=== PATIENT | male | born 1975 ===

== ENCOUNTER 2022-01-19 01:00 | Emergency (ER) | payer OTHER, SELFPAY ==
[2022-01-19 01:00] VITALS: BP 128/87; PULSE 59; RESP 16; O2SAT 99
[2022-01-19 01:01] VITALS: BP 128/87; PULSE 61; RESP 16; TEMP 36.3; O2SAT 99; BMI 37.9
--- NOTE | 2022-01-19 01:19 | ED.GENADULT ---
HPI - General Adult General Time Seen by Provider: 01:20 Date Seen: 01/19/22 Chief complaint: Headache/Migraine Stated complaint: Headache, migraine Time Seen by Provider: 01/19/22 01:13 Source: patient and EMS Mode of arrival: EMS Limitations: no limitations History of Present Illness HPI narrative: 46-year-old male who comes in today with a headache. Patient reports headache today that started with right ear pain. And now has localized to the right forehead and behind the right eye. History of similar headaches in the past. Took Tylenol and Imitrex with no relief. Denies head injury or change in character of his headaches. Patient presented by ambulance, was given fentanyl, Ativan, and Zofran per EMS. Review of chart shows long history of headaches, few emergency department visits for this. Does also carry a history of bipolar with a manic episode. Related Data Home Medications Medication Instructions Recorded Confirmed cholecalciferol (vitamin D3) 1,250 01/19/22 mcg (50,000 unit) capsule divalproex 500 mg tablet,delayed mg PO 01/19/22 release duloxetine 30 mg capsule,delayed mg PO 01/19/22 release galcanezumab-gnlm 300 mg/3 mL (100 mg subcut 01/19/22 mg/mL x 3) subcutaneous syringe (Emgality) glatiramer 40 mg/mL subcutaneous mg subcut 01/19/22 syringe (Glatopa) hydroxyzine HCl 25 mg tablet mg 01/19/22 mirtazapine 30 mg tablet mg 01/19/22 quetiapine 50 mg tablet mg 01/19/22 sumatriptan succinate 6 mg/0.5 mL mg subcut 01/19/22 subcutaneous pen injector verapamil 240 mg tablet,extended mg PO 01/19/22 release Allergies Allergy/AdvReac Type Severity Reaction Status Date / Time NSAIDS (Non-Steroidal AdvReac not to Verified 01/19/22 01:06 Anti-Inflamma take with verapamil Review of Systems Status of ROS: Reports: 10 or more systems reviewed and unremarkable except as noted in History and below PFSH PFSH Social History Smoking Status: Current every day smoker How often do you have a drink containing alcohol: never AUDIT-C Alcohol total score: 0 Non-prescribed substance use: denies use Exam Narrative: Exam Narrative: General: Well-developed and well-nourished, no acute distress Head: Atraumatic and normocephalic Eyes: Pupils are equal reactive, extraocular motions intact, conjunctiva clear ENT: External nose and ears are normal, posterior pharynx without erythema or exudate Neck: No midline cervical tenderness, full spontaneous range of motion the neck, trachea midline, no adenopathy Heart: Regular rate and rhythm no murmurs or thrills Lungs: Clear to auscultation bilaterally without wheezes or crackles Abdomen: Soft, nontender, nondistended with active bowel sounds Musculoskeletal: No tenderness, deformity, or edema Neurologic: Awake, alert, and oriented x3, no gross focal neurologic deficits, cranial nerves intact as tested Psych: Mood and affect are appropriate Skin: No rashes Const: Vital Signs, click to edit/add: Vital Signs - 24 hr 01/19/22 01:01 Temperature 97.4 F L Pulse Rate [Left P ulse Oximeter] 61 Respiratory Rate 16 Blood Pressure [Ri ght Upper Arm] 128/87 Pulse Oximetry 99 Oxygen Delivery Me thod Room Air Course Course Hospital Course: Patient seen and examined, prior records reviewed. Differential diagnosis includes but not limited to meningitis, cephalitis, intracranial hemorrhage, recurrent headache, cluster headache. Patient presents with right-sided temporal and frontal headache today, consistent with his prior headaches. Reports taking Imitrex at home as well as Tylenol with no relief. On exam here, appears comfortable. IV fluids, Reglan, and Benadryl will be ordered along with oxygen. Patient takes verapamill and has been told not to take NSAIDs, the contraindication here is that the nonsteroidals may decrease effectiveness of verapamil's antihypertensive effect. Patient still does not want to take nonsteroidals. Given history bipolar and molly, would avoid steroid as well. Reevaluation(s) Reevaluation #1: Review of chart shows that patient was on a prednisone taper couple of months ago and seemed to tolerate well. Decadron IV is given in the emergency department. Time: 01:39 Reevaluation #2: Patient reports that his head pain is resolved and his ears feeling better as well. Follow-up with primary care as needed Time: 02:22 Vital Signs Vital signs: Initial Vital Signs Temperature 97.4 F L 01/19/22 01:01 Temperature Source Temporal Artery Scan 01/19/22 01:01 Pulse Rate 61 01/19/22 01:01 Respiratory Rate 16 01/19/22 01:01 Blood Pressure 128/87 01/19/22 01:01 Blood Pressure Mean 100 01/19/22 01:01 Blood Pressure Position Supine 01/19/22 01:01 Pulse Oximetry 99 01/19/22 01:01 Oxygen Delivery Method 01/19/22 01:01 Vital Signs Temperature 97.4 F L 01/19/22 01:01 Pulse Rate 61 01/19/22 01:01 Respiratory Rate 16 01/19/22 01:01 Blood Pressure 128/87 01/19/22 01:01 Pulse Oximetry 99 01/19/22 01:01 Oxygen Delivery Method 01/19/22 01:01 Temperature 97.4 F L 01/19/22 01:01 Pulse Rate 61 01/19/22 01:01 Respiratory Rate 16 01/19/22 01:01 Blood Pressure 128/87 01/19/22 01:01 Pulse Oximetry 99 01/19/22 01:01 Oxygen Delivery Method 01/19/22 01:01 Medical Decision Making Medical Records Medical records reviewed: Yes I reviewed the patient's medical records Lab Data Lab results reviewed: Yes I reviewed the patient's lab results Discharge Plan Discharge Clinical Impression: Recurrent headache, Acute otalgia Patient Disposition: Home, Self-Care Condition: Improved Instructions: Cluster Headache (ED) Additional Instructions: Continue your current medications, follow-up with your neurologist and primary care doctor. Activity Level: No Restrictions Discharge Diet: Regular Prescriptions: No Action divalproex 500 mg tablet,delayed release (DR/EC) PO Label Comments: TAKE 1 TABLET BY MOUTH TWICE A DAY mirtazapine 30 mg tablet Label Comments: TAKE 1 TABLET BY MOUTH NEEDED FOR SLEEP INCREASED DOSE verapamil 240 mg tablet extended release PO hydroxyzine HCl 25 mg tablet Label Comments: TAKE 1-2 TABLETS UP TO TWICE DAILY NEEDED FOR ANXIETY / INSOMNIA sumatriptan succinate 6 mg/0.5 mL pen injector SUBCUT duloxetine 30 mg capsule,delayed release(DR/EC) PO Label Comments: TAKE 1 CAPSULE BY MOUTH DAILY FOR 2 WEEKS, THEN 2 CAPSULES BY MOUTH DAILY quetiapine 50 mg tablet Label Comments: TAKE 1 TABLET AT BEDTIME INCREASED DOSE cholecalciferol (vitamin D3) 1,250 mcg (50,000 unit) capsule glatiramer [Glatopa] 40 mg/mL syringe SUBCUT Emgality Syringe 300 mg/3 mL (100 mg/mL x 3) syringe SUBCUT Label Comments: INJECT 3 MLS (300 MG) SUBCUTANEOUS EVERY 28 DAYS Stand Alone Forms: MyHealth Info Instructions
[2022-01-19 01:30] VITALS: BP 139/98; PULSE 69; RESP 16; O2SAT 98
[2022-01-19] MEDS: 0.9 % SODIUM CHLORIDE 1000 ml 1,000 ML IV (01:42)
[2022-01-19] MEDS: METOCLOPRAMIDE HCL 10 MG in 0.9 % SODIUM CHLORIDE 100 ml 100 ML 306 MG IV (01:42)
[2022-01-19] MEDS: diphenhydrAMINE 50 MG/ML inj 25 MG IVP (01:43)
[2022-01-19] MEDS: dexAMETHasone 10 MG/ML inj IVP (01:46)
[2022-01-19 02:30] VITALS: BP 129/93; PULSE 64; RESP 16; O2SAT 100
== END 2022-01-19 02:34 | disposition home or self-care (01) ==
PROVIDERS: Emergency Provider Family Medicine
DX: H92.01 Otalgia, right ear (principal); R51.9 Headache, unspecified
CPT/HCPCS: 96374; 96375; 99284; A0425; A0433; J1100; J1200; J2765; J7030

== ENCOUNTER 2022-06-16 17:20 | Emergency (ER) | payer OTHER, SELFPAY ==
[2022-06-16 17:33] VITALS: BP 118/73; PULSE 58; RESP 20; TEMP 36.2; O2SAT 98; BMI 36.8
--- NOTE | 2022-06-16 17:46 | CRLHL7_ITS ---
For Patients: As a result of the Cures Act, medical imaging exams and procedure reports are released immediately into your electronic medical record. You may view this report before your referring provider. If you have questions, please contact your health care provider. Indication: Trauma. Technique: Pelvis/left hip, 2 views. Comparison: None. Findings/Impression: Bones: Alignment is normal. No displaced fractures. Ill-defined chronic appearing sclerotic lesion in the right femoral intertrochanteric region. No sign of acute injury. Joint spaces: Unremarkable. Soft tissues: Unremarkable. Dictated by Nathaniel Garcia MD @ 06/16/2022 6:20:52 PM (Electronically Signed)
[2022-06-16 18:41] VITALS: BP 118/73; PULSE 58; RESP 20; TEMP 36.2
--- NOTE | 2022-06-16 20:49 | ED_ITS ---
HPI - General Adult General Date Seen: 06/16/22 Chief complaint: Hip Injury/Pain Stated complaint: left hip problems Time Seen by Provider: 06/16/22 17:23 Source: patient Mode of arrival: ambulatory Limitations: no limitations History of Present Illness HPI narrative: Patient is a 46-year-old gentleman who was dropped off at the emergency room by friend, with left hip discomfort, for the last 4-5 days, does meet so bad when he 1st gets up, he is not able to really walk on it, but then he is able to walk on it after short period of time. Whenever he sits for any length of time he notices that it sees is up, he describes the pain over the lateral part of his left hip, not so much when he lifts it up, or turns it. He has been using Tylenol for the discomfort, but tells me this just really isn't helping. Denies any fevers chills or sweats, he has had no other URI type symptoms, denies any falls or trauma. 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 But no is told that he needs to get hip replacements. Denies any back pain associated with this any numbness tingling or weakness, bowel or bladder symptoms or other issues. I discussed with him his current medications, Related Data Home Medications Medication Instructions Recorded Confirmed cholecalciferol (vitamin D3) 1,250 01/19/22 mcg (50,000 unit) capsule divalproex 500 mg tablet,delayed mg PO 01/19/22 release duloxetine 30 mg capsule,delayed mg PO 01/19/22 release galcanezumab-gnlm 300 mg/3 mL (100 mg subcut 01/19/22 mg/mL x 3) subcutaneous syringe (Emgality) glatiramer 40 mg/mL subcutaneous mg subcut 01/19/22 syringe (Glatopa) hydroxyzine HCl 25 mg tablet mg 01/19/22 mirtazapine 30 mg tablet mg 01/19/22 quetiapine 50 mg tablet mg 01/19/22 sumatriptan succinate 6 mg/0.5 mL mg subcut 01/19/22 subcutaneous pen injector verapamil 240 mg tablet,extended mg PO 01/19/22 release Allergies Allergy/AdvReac Type Severity Reaction Status Date / Time NSAIDS (Non-Steroidal AdvReac not to Verified 06/16/22 17:33 Anti-Inflamma take with verapamil Review of Systems Status of ROS: Reports: 10 or more systems reviewed and unremarkable except as noted in History and below PFSH [facility] Social History Smoking Status: Current every day smoker What tobacco products do you use: cigarettes Do you use any of these nicotine containing products: None Second hand tobacco smoke exposure: No How often do you have a drink containing alcohol: never How often do you have six or more drinks on one occasion: Never AUDIT-C Alcohol total score: 0 Non-prescribed substance use: denies use service: No Exam Narrative: Exam Narrative: On examination he is seen in room 7, he appears to be in no distress, sitting in the room, he is able to lift his left heel off the bed, and come up to close to 60? with his left hip. His internal external rotation are normal, he is very tender to palpation over the lateral part of his hip, over the bursal area. There is no tenderness to palpation over his L-spine, or over his gluteal area. His distal pulses are normal in his left leg, with DP and posterior tibial, his knee has full range of motion. No sensory abnormalities noted overall the dermatomal areas. Const: Vital Signs, click to edit/add: Vital Signs - 24 hr 06/16/22 17:33 06/16/22 18:41 Temperature 97.1 F L 97.1 F L Pulse Rate [Pulse Oximeter] 58 L 58 L Respiratory Rate 20 20 Blood Pressure [Le ft Upper Arm] 118/73 118/73 Pulse Oximetry 98 Oxygen Delivery Me thod Room Air Documenting provider has reviewed patient's vital signs: yes Course Course Hospital Course: I spoke to the patient, he is unable to take he says NSAIDs secondary to his use of verapamil. which isn't really a true contraindication, for this. He also failed to tell me that he is on chronic Percocet for his pain, after reviewing the [employer]. Ice talk to him about using some prednisone, the calmed this down, he said he did really want to do this, secondary to his history of avascular necrosis. I explained him that I really do not see that on x-ray and neither did the radiologist, and he is taking this as recently as 6 or 7 months ago. Would be able to take this now. In fact the Percocet which has the oxycodone is a contraindicated with the use of diltiazem or verapamil. As it increases the concentration of the narcotic. He will accept the prednisone, I will give him some crutches, he can follow up with primary care, for further issues but I do really think this is more muscle related. Vital Signs Vital signs: Initial Vital Signs Temperature 97.1 F L 06/16/22 17:33 Temperature Source Temporal Artery Scan 06/16/22 17:33 Pulse Rate 58 L 06/16/22 17:33 Pulse Rhythm 06/16/22 17:33 Respiratory Rate 20 06/16/22 17:33 Blood Pressure 118/73 06/16/22 17:33 Blood Pressure Mean 88 06/16/22 17:33 Blood Pressure Position Supine 06/16/22 17:33 Pulse Oximetry 98 06/16/22 17:33 Oxygen Delivery Method 06/16/22 17:33 Vital Signs Temperature 97.1 F L 06/16/22 17:33 Pulse Rate 58 L 06/16/22 17:33 Respiratory Rate 20 06/16/22 17:33 Blood Pressure 118/73 06/16/22 17:33 Pulse Oximetry 98 06/16/22 17:33 Oxygen Delivery Method 06/16/22 17:33 Temperature 97.1 F L 06/16/22 18:41 Pulse Rate 58 L 06/16/22 18:41 Respiratory Rate 20 06/16/22 18:41 Blood Pressure 118/73 06/16/22 18:41 Pulse Oximetry 98 06/16/22 17:33 Oxygen Delivery Method 06/16/22 17:33 Medical Decision Making MDM Narrative Medical decision making narrative: Consideration included toxic synovitis, septic hip, trauma, hip fracture, trochanteric bursitis, radiculopathy secondary to back pain, pelvic fracture, ischemic leg, or other possibilities. Imaging Data Hip x-ray: Attestation: I have reviewed the pertinent imaging results. My impression: Do not see any acute fracture, I really do not see any evidence of any abnormality with the hip. Radiologist's impression: Patient: BENNIE VASQUEZ Facility: [facility] Site . Site : 1975 Study: XRay Hip Left -06/16/2022 6:09:13 PM Ordering Physician: Aminata Blackburn Final Report: Indication: Trauma. Technique: Pelvis/left hip, 2 views. Comparison: None. Findings/Impression: Bones: Alignment is normal. No displaced fractures. Ill-defined chronic appearing sclerotic lesion in the right femoral intertrochanteric region. No sign of acute injury. Joint spaces: Unremarkable. Soft tissues: Unremarkable. Dictated by Nathaniel Garcia MD @ 06/16/2022 6:20:52 PM (Electronic Signature) Discharge Plan Discharge Clinical Impression: Hip pain Patient Disposition: Home, Self-Care Condition: Stable Instructions: Heat Pack Application (ED), Hip Pain (ED) Additional Instructions: Home and rest. Take prednisone, crutches, follow-up with primary care and/or Orthopedics, consider for physical therapy also, this is more muscular component. Prescriptions: No Action divalproex 500 mg tablet,delayed release (DR/EC) PO Label Comments: TAKE 1 TABLET BY MOUTH TWICE A DAY mirtazapine 30 mg tablet Label Comments: TAKE 1 TABLET BY MOUTH NEEDED FOR SLEEP INCREASED DOSE verapamil 240 mg tablet extended release PO hydroxyzine HCl 25 mg tablet Label Comments: TAKE 1-2 TABLETS UP TO TWICE DAILY NEEDED FOR ANXIETY / INSOMNIA sumatriptan succinate 6 mg/0.5 mL pen injector SUBCUT duloxetine 30 mg capsule,delayed release(DR/EC) PO Label Comments: TAKE 1 CAPSULE BY MOUTH DAILY FOR 2 WEEKS, THEN 2 CAPSULES BY MOUTH DAILY quetiapine 50 mg tablet Label Comments: TAKE 1 TABLET AT BEDTIME INCREASED DOSE cholecalciferol (vitamin D3) 1,250 mcg (50,000 unit) capsule glatiramer [Glatopa] 40 mg/mL syringe SUBCUT Emgality Syringe 300 mg/3 mL (100 mg/mL x 3) syringe SUBCUT Label Comments: INJECT 3 MLS (300 MG) SUBCUTANEOUS EVERY 28 DAYS Follow Up/Referrals: Provider,Not a Local [Primary Care Provider] - Stand Alone Forms: MyHealth Info Instructions
== END 2022-06-16 18:40 | disposition home or self-care (01) ==
LOC: ED 18:30
PROVIDERS: Emergency Provider Family Medicine
DX: M25.552 Pain in left hip (principal)
CPT/HCPCS: 73502; 99283

== ENCOUNTER 2024-03-01 20:40 | Emergency (ER) | payer OTHER, SELFPAY ==
[2024-03-01 20:48] VITALS: BP 128/80; PULSE 71; RESP 16; TEMP 36.6; O2SAT 98; BMI 41.2
[2024-03-01 21:05] VITALS: O2SAT 100
--- OUTSIDE RECORDS SUMMARY | 2024-03-01 21:12 | XMS_ITS | Encounter Summary ---
Author Organization [facility] Address [address] [place] [address] Care Team Providers Care Admissions Recruiter Name Role Phone Otis Bee MD Unavailable [phone] Radha Proctor MD Unavailable [phone] Everardo Hensley DO Unavailable + Jez Dougherty MD Unavailable [phone] Stephen Foote MD Unavailable [phone] Sarahi Claudio [facility] Unavailable Unavailab Stephen Diaz MD Unavailable [phone] Otis Patino MD Unavailable [phone] Stephen Foote MD Primary Care Provider [phone] Jez Dougherty MD Unavailable [phone] Reason for Visit * Reason Onset Date Comments Prior Authorization 03/01/2024 Sumatriptan injection Encounter Details Date Type Department Care Team (Late st Contact Info) Description 03/01/2024 Telephone [facility] [address] [facility] [address] [place] [address] Stephen Foote MD [address] [facility] [address] [address] [place], [place] [id number] Prior Authorization (Sumatriptan injection ) Social History Tobacco Use Types Packs/Day Years Used Date Smoking Tobacco: Every Day Cigarettes Smokeless Tobacco: Never Alcohol Use Standard Drinks/Week Comments No 0 (1 standard drink = 0.6 oz pur e alcohol) PHQ-2 Answer Date Recorded PHQ-2 Score 0 11/14/2023 Adolescent Education Answer Date Record ed Getting School Help Needed Not on file 02/07 Food Insecurity Answer Date Recorded Within the past 12 months, d id you worry that your food would run out before you got money to buy more? No 06/17/2023 Within the past 12 months, d id the food you bought just not last and you didn? t have money to get more? No 06/17/2023 Housing Stability Answer Date Recorded Do you have housing? (Housin g is defined as stable permanent housing and does not include staying ouside in a car, in a tent, in an abandoned building, in an overnight correction, or couch-surfing.) Yes 06/17/2023 Are you worried about losing your housing? No 06/17/2023 Financial Resource Strain Answer Date R ecorded Within the past 12 months, h ave you or your family members you live with been unable to get utilities (heat, electricity) when it was really needed? No 06/17/2023 Transportation Needs Answer Date Record ed Within the past 12 months, h as lack of transportation kept you from medical appointments, getting your medicines, non-medical meetings or appointments, work, or from getting things that you need? No 06/17/2023 Interpersonal Safety Answer Date Record ed Do you feel physically and e motionally safe where you currently live? Yes 10/21/2023 Within the past 12 months, h ave you been hit, slapped, kicked or otherwise physically hurt by someone? No 10/21/2023 Within the past 12 months, h ave you been humiliated or emotionally abused in other ways by your partner or ex-partner? No 10/21/2023 Sex and Gender Information Value Date Recorded Sex Assigned at Male 06/13/2021 11:39 PM INPATIENT PHARMACIST Gender Identity Male 06/13/2021 11:39 PM INPATIENT PHARMACIST Sexual Orientation Straight 06/13/2021 11 :39 PM INPATIENT PHARMACIST documented as of this encounter Miscellaneous Notes * Telephone Encounter - HaganLena personradha Bautista - 03/01/2024 5:57 PM CDT Images from the original note were not included. * Telephone Encounter - Lien Humphreys RN - 03/01/2024 4:36 PM CDT Please initiate prior authorization for early refill request for SUMAtriptan (IMITREX STATDOSE) 6 MG/0.5ML pen injector kit Sig - Route: INJECT 0.5 MLS (6 MG) SUBCUTANEOUS 2 TIMES DAILY NEEDED (CLUSTER HEADACHE) MAX 12 MG/24 HOURS. - Subcutaneous Pharmacy: [facility]/pharmacy #[id number] - [place], [place] - [address] Insurance: [id number] Primary Visit Coverage Subscriber ID Name N Address [id number] BIBIANA VASQUEZSHERON [place] [id number] [address] Lien Humphreys, MSN, RN [facility] documented in this encounter Plan of Treatment Upcoming Encounters Date Type Department Care Team (Late st Contact Info) Description 03/22/2024 1:00 PM INPATIENT PHARMACIST Office Visit [address] [phone] Stephen Foote MD [address] [address] 05/27/2024 1:30 PM INPATIENT PHARMACIST Office Visit [facility] Multiple Sclerosis [address] [phone] Jez Dougherty MD [address] [place] [address] - [id number] [address] documented as of this encounter Visit Diagnoses Not on filedocumented in this encounter Additional Health Concerns Assessment Noted Time PHQ-9 Depression Total Score: 3 10/21/19 24 12:07 PM CDT documented as of this encounter Care Teams Admissions Recruiter Relationship Specialty Start Date End Date Stephen Foote MD [address] [address] PCP - General Family Medicine 03/17/23 Otis Bee MD [address] [place] [address] Orthopedics 05/07/18 Radha Proctor MD [address] [place] [address] [address] [place] [address] Neurology 11/25/19 Everardo Hensley DO [address] [place] [address] Neurology 10/17/20 Jez Dougherty MD [address] [place] [id number] [address] Neurology 10/17/20 Stephen Foote MD [address] [address] Assigned PCP 11/01/20 Sarahi Claudio, [facility] [address] [address] Pharmacist 03/01/21 Stephen Foote MD [address] [address] Assigned Pain Medication Provider 05/27/22 Otis Patino MD [address] [place], [place] [id number] [place] [address] Assigned Musculoskeletal Provider 01/18/23 Jez Dougherty MD [address] [facility] [id number] [place] [address] Assigned Neuroscience Provider 05/10/23 documented as of this encounter
--- OUTSIDE RECORDS SUMMARY | 2024-03-01 21:12 | XMS_ITS | Referral Summary ---
Author Organization [facility] Address [address] [place] [address] Care Team Providers Care Support Group Manager Name Role Phone Otis Bee MD Unavailable [phone] Radha Proctor MD Unavailable [phone] Everardo Hensley DO Unavailable + Jez Dougherty MD Unavailable [phone] Stephen Foote MD Unavailable [phone] Sarahi Claudio [facility] Unavailable Unavailab Stephen Diaz MD Unavailable [phone] Otis Patino MD Unavailable [phone] Stephen Foote MD Primary Care Provider [phone] Jez Dougherty MD Unavailable [phone] Encounters Date Type Department Care Team Description 03/01/[address] [place] [address] Stephen Foote MD Prior Authorization (Sumatriptan injection ) 03/01/2024 Documentation Only [facility] [address] [facility] [address] [place] [phone] Amisha Galeas LGSW Advance Care Planning 03/01/2024 Travel 03/01/2024 1:15 PM CDT - 03/01/2024 4:50 PM CDT [facility] Emergency Dept [address] [place] [phone] Sonya Perez MD Intractable chronic cluster headache Discharge Disposition: Left Against Medical Advice 03/01/[address] [place] [phone] Stephen Foote MD Pt. Information/instruc tion 02/27/2024 Telephone [facility] [address] [phone] Radha Proctor MD Other (Cluster headaches ) 02/24/2024 Refill [facility] [address] [phone] Jez Dougherty MD Medication Refill (Duloxetine) 02/19/2024 Telephone [facility] [address] [phone] Radha Proctor MD Patient Request for Note/Letter (Pt requesting a letter be faxed to cover a device for his cluster headaches) 02/13/[address] [place] [phone] Stephen Foote MD Medication Question 02/02/2024 Medical Correspondence [employer] [address] [place] [address] [address] [place] [address] Scan, Non-Provider 01/16/[address] [place] [address] Stephen Foote MD 01/16/2024 [facility] Medical Advice [address] 1 [place] [phone] Stephen Foote MD 01/16/2024 MyC Refill [address] 1 [place] [phone] Phoebe Wyatt MD Refill Request 01/08/[address] 1 [place] [phone] Stephen Foote MD Medication Refill 01/06/2024 Orders Only [address] [place] [phone] Stephen Foote MD DIAGNOSIS NOT YET DEFINED (Primary Dx) 01/06/2024 Medical Correspondence [facility] [address] [address] Scan, Non-Provider [facility] 12/24/2023 Orders Only [place] [address] [place] [phone] Stephen Foote MD DIAGNOSIS NOT YET DEFINED (Primary Dx) 12/17/2023 MyC Refill [place] [address] [place] [phone] Stephen Foote MD Refill Request 12/07/2023 MyC Medical Advice [facility] [address], [address] [place] [address] Radha Proctor MD from Last 3 Months Allergies Active Allergy Reactions Criticality Noted Date Comments Pentosan Polysulfate Swelling 11/03/2019 Foot swelling Ibuprofen 07/26/2009 Cannot take because of verapamil Ibuprofen Sodium 03/20/2012 Increases headache Nsaids Other (See Comments) 09/03/2013 Other reaction(s): Headache Not supposed to take because he is on Verapamil Medications Medication Sig Dispensed Refills Start Date End Date Status order for DMEIndications: Episodic cluster headache, not intractable Equipment being ordered: Oxygen, high flow 10-15 L/min with non-rebreather mask 1 Device 11 9 Active GLATOPA 40 MG/ML injectionIndica tions:Multiple sclerosis (H) INJECT 40 MG UNDER THE SKIN THREE TIMES A WEEK 12 mL 11 3 Active verapamil ER (CALAN-SR) 240 MG CR tabletIndicatio ns:Episodic cluster headache, not intractable TAKE 1 TABLET (240 MG) BY MOUTH 2 TIMES DAILY 180 tablet 3 4 Active sildenafil (REVATIO) 20 MG tabletIndicatio ns:Erectile dysfunction, unspecified erectile dysfunction type Take 1-5 tablets (20-100 mg) by mouth daily as needed 40 tablet 6 4 Active Additional Information Patient not taking.Reported on 11/24/2023 cholecalciferol (VITAMIN D3) 1250 mcg (02157 units) capsuleIndicati ons:Vitamin D deficiency TAKE 1 CAPSULE BY MOUTH ONE TIME PER WEEK. (NOT COVERED) 4 capsule 11 4 Active fluticasone (FLONASE) 50 MCG/ACT nasal sprayIndication s:Dysfunction of right eustachian tube,Encounter for medication refill [place] 1 spray into both nostrils 2 times daily 48 mL 1 4 Active galcanezumab-gn lm (EMGALITY, 300 MG DOSE,) 100 MG/ML injectionIndica tions:Episodic cluster headache, not intractable Inject 3 mLs (300 mg) Subcutaneous every 28 days 3 mL 11 4 Active Nerve Stimulator (GAMMACORE) DEVIIndications :Episodic cluster headache, not intractable 1 Device as needed (cluster headache) 4 Active Additional Information Patient not taking.Reported on 11/24/2023 SUMAtriptan (IMITREX STATDOSE) 6 MG/0.5ML pen injector kitIndications: Episodic cluster headache, not intractable,Enc ounter for medication refill INJECT 0.5 MLS (6 MG) SUBCUTANEOUS 2 TIMES DAILY NEEDED (CLUSTER HEADACHE) MAX 12 MG/24 HOURS. 15 kit 4 4 Active oxyCODONE-aceta minophen (PERCOCET) 5-325 MG tabletIndicatio ns:Episodic cluster headache, not intractable Take 1 tablet by mouth every 6 hours as needed (for exacerbation of chronic cluster headache syndrome). 30 tablet 4 Active DULoxetine (CYMBALTA) 60 MG capsuleIndicati ons:Neuropathic pain TAKE 1 CAPSULE BY MOUTH EVERY DAY 30 capsule 11 4 Active predniSONE (DELTASONE) 20 MG tabletIndicatio ns:Episodic cluster headache, not intractable Take 3 tabs by mouth daily x 3 days, then 2 tabs daily x 3 days, then 1 tab daily x 3 days, then 1/2 tab daily x 3 days. 20 tablet 4 Active mirtazapine (REMERON) 7.5 MG tabletIndicatio ns:Insomnia, unspecified type Take 1 tablet (7.5 mg) by mouth at bedtime. 30 tablet 3 4 Active divalproex sodium extended-releas e (DEPAKOTE ER) 500 MG 24 hr tablet Take 2 tablets (1,000 mg) by mouth at bedtime for 7 days. 14 tablet 4 03/08/20 24 Active DULoxetine (CYMBALTA) 60 MG capsuleIndicati ons:Neuropathic pain TAKE 1 CAPSULE BY MOUTH EVERY DAY 30 capsule 11 3 02/25/20 24 Discontinued oxyCODONE-aceta minophen (PERCOCET) 5-325 MG tabletIndicatio ns:Episodic cluster headache, not intractable Take 1 tablet by mouth every 6 hours as needed (for exacerbation of chronic cluster headache syndrome). 30 tablet 4 02/13/20 24 Discontinued(Ascencion marquez (No AVS)) Active Problems Patient Care Coordination No te Formatting of this note migh t be different from the original. Please remove Dr. Coates from care team. He retired on 08/[address] coates from care team. He retired. Problem Noted Date Diagnosed Date F11.9 - Chronic, continuous use of opioids 10/22 Bunion, right 06/25/2022 Episodic cluster headache, not intractable 06/20 Multiple sclerosis 03/06/2021 Vitamin D deficiency 03/06/2021 Demyelinating disease 09/19/2020 Morbid obesity 11/03/2019 Chronic prostatitis 09/07/2019 Generalized anxiety disorder 07/22/2019 Altered mental status 11/11/2018 Urge incontinence of urine 10/15/2018 Depression, recurrent 08/04/2018 Spinal stenosis of lumbar re gion, unspecified whether neurogenic claudication present 07/30/2018 Bipolar I disorder, single manic episode 019 Overview: Overview: Created by Conversion Replacement Utility updated for latest IMO load Chronic rhinitis 06/01/2018 Overview: Overview: Created by Conversion Constipation 06/01/2018 Overview: Overview: Created by Conversion Replacement Utility updated for latest IMO load Eustachian tube dysfunction 06/01/2018 Overview: Overview: Created by Conversion Hemorrhoids 06/01/2018 Overview: Overview: Created by Conversion Replacement Utility updated for latest IMO load Sciatica 06/01/2018 Overview: Overview: Created by Conversion Chronic pain disorder 05/07/2018 Chronic left-sided low back pain with left-sided sciatica 04/23/2018 Osteoarthritis of hip 11/05/2017 Left hip pain 10/21/2017 Left lumbosacral radiculopathy 09/17/2017 Diverticulosis 05/27/2017 Anxiety 05/08/2016 Insomnia 05/08/2016 Acute bronchitis 08/26/2015 Anemia 08/26/2015 HTN (hypertension) 08/26/2015 Lower extremity edema 08/26/2015 Erectile dysfunction 06/06/2015 GERD (gastroesophageal reflux disease) 5 Nicotine dependence 08/22/2014 Avascular necrosis of hip, left 05/31/2014 Headache 08/09/2013 Overview: Problem list name updated by automated process. Provider to review Sleep disorder 01/07/2011 Cluster headaches 07/26/2009 Overview: Overview: Created by Conversion Replacement Utility updated for latest IMO load Diverticulitis of colon 07/26/2009 Overview: Overview: Created by Conversion Replacement Utility updated for latest IMO load Resolved Problems Problem Noted Date Diagnosed Date Resolved Date AVN (avascular necrosis of bone) 05/27/2017 02/06/2022 Immunizations Name Administration Dates Next Due COVID-19 Bivalent 12+ (Pfizer) 02/06/2022 COVID-19 MONOVALENT 12+ (Pfizer) 01/18/2021,12/17 COVID-19 Monovalent 12+ (Pfizer 2021) 07/09/2021 DT (PEDS <7y) 10/18/2003 Flu, Unspecified 01/03/2012,03/01/2010 HepA, Unspecified 12/02/2007,12/26/2006 HepB, Unspecified 12/02/2007,01/30/2007,12/27/19 07 Hepatitis B, Adult 01/14/2005 Influenza (IIV3) PF 03/01/2014,01/03/2012,2009 Influenza Vaccine >6 months,quad, PF ,02/06/2022,03/06/2021,2019,05/03/2013 Influenza Vaccine, 6+MO IM (QUADRIVALENT W/PRESERVATIVES) 02/11/2019,01/21/2018,02/13/2017,2015,05/04/2015,03/01/2014 Influenza, seasonal, injectable, PF 02/22/2011 MMR 12/14/2018 Pneumo Conj 13-V (2010&after) 08/18/2018 Pneumococcal 20 valent Conju gate (Prevnar 20) 03/13/2022 TDAP (Adacel,Boostrix) 12/26/2006 Td (Adult), Adsorbed 11/29/2016,10/22/2003 Social History Tobacco Use Types Packs/Day Years Used Date Smoking Tobacco: Every Day Cigarettes Smokeless Tobacco: Never Tobacco Cessation:Ready to Q uit: Not Asked; Counseling Given: Not Answered Alcohol Use Standard Drinks/Week Comments No 0 [...] in an abandoned building, in an overnight snf, or couch-surfing.) Yes 06/17/2023 Are you worried [...] Sex Assigned at Male 06/13/2021 11:39 PM STIFF LEG DERRICK OPERATOR Gender Identity Male 06/13/2021 11:39 PM STIFF LEG DERRICK OPERATOR Sexual Orientation Straight 06/13/2021 11 :39 PM STIFF LEG DERRICK OPERATOR Last Filed Vital Signs Vital Sign Reading Time Taken Comments Blood Pressure 125/75 03/01/2024 1:10 PM CDT Pulse 67 03/01/2024 1:10 PM CDT Temperature 36.2 ??C (97.2 ??F) 03/01/2024 1:10 PM CD T Respiratory Rate 18 03/01/2024 1:10 PM CDT Oxygen Saturation 99% 03/01/2024 1:10 PM CDT Inhaled Oxygen Concentration - - Weight 112.5 kg (248 lb 0.3 oz) 03/01/2024 1:10 PM CDT Height 167.6 cm (5' 6) 03/01/2024 1:10 PM CDT Body Mass Index 40.03 03/01/2024 1:10 PM CDT Plan of Treatment Upcoming Encounters Date Type Department Care Team (Late st Contact Info) Description 03/22/2024 1:00 PM STIFF LEG DERRICK OPERATOR Office Visit [address] [phone] Stephen Foote MD [address] [place] [address] 05/27/2024 1:30 PM STIFF LEG DERRICK OPERATOR Office Visit [facility] Multiple Sclerosis [address] [phone] Jez Dougherty MD [address] [place] [address] - [id number] [address] Procedures Procedure Name Priority Date/Time Associated Diagnosis Comments KS RECERTIFICATION PARALEGAL PT Routine 01/06/2024 DIAGNOSIS NOT YET DEFINED KS RECERTIFICATION PARALEGAL PT Routine 12/24/2023 DIAGNOSIS NOT YET DEFINED PHQ-9 DEPRESSION SCREENING ORDER Routine 09/18/2023 HIV ANTIGEN ANTIBODY COMBO Routine 03/17/2023 12:08 PM CDT Routine general medical examination at health care facility URINE DRUG SCREEN CLINIC Routine 10/22/2022 6:13 PM CDT F11.9 - Chronic, continuous use of opioids BASIC METABOLIC PANEL Routine 08/26/2022 12:41 PM CDT Routine general medical examination at health care facility LIPID REFLEX TO DIRECT LDL PANEL Routine 08/20/2021 1:04 PM CDT Routine general medical examination at health care facility HEPATITIS C ANTIBODY Routine 11/02/2020 1:10 PM CDT Hepatitis B antibody positive COLONOSCOPY Routine 12/27/2013 12:00 AM CDT from Last 3 Months or Most Recently Relevant to Health Maintenance Results * RECERTESTEFANÍA PARALEGAL PT (01/06/2024) Only the most recent of2 resultswithin the time period is included. Stephen Foote MD SPECIAL REPORTS * PHQ-9 DEPRESSION SCREENING ORDER (09/18/2023) [facility] PHQ9 SCORE 3 Narrative Orquidea Kenny - 09/18/2023 PSYCHIATRIC CLINIC NOTE [facility] Provider Outside OTHER * HIV Antigen Antibody Combo (03/17/2023 12:08 PM CDT) [facility] HIV Antigen Antibody Combo Nonreactive Nonreactive 03/18/2023 8:00 AM CDT [facility] DO Comment:HIV-1 p24 Ag & HIV-1 /HIV-2 Ab Not Detected Blood BLOOD SPECIMEN / Unknown Venipuncture / Unknown 03/17/2023 12:08 PM CDT 03/17/2023 12:08 PM CDT Stephen Foote MD LAB - BLOOD ORDERABL ES [facility] [address] [facility] [address], [address] [place] [address] * Drug Abuse Screen Panel 13, Urine (Pain Care Package) - lab collect (10/22/2022 6:13 PM CDT) [facility] Cannabinoids (05-niv-5-carboxy -9-THC) Not Detected Not Detected, Indeterminate 10/22/2022 6:25 PM CDT [facility] Comment:Cutoff for a negativ e cannabinoid is 50 ng/mL or less. Phencyclidine Not Detected Not Detected, Indeterminate 10/22/2022 6:25 PM CDT [facility] Comment:Cutoff for a negativ e PCP is 25 ng/mL or less. Cocaine (Benzoylecgonine) Not Detected Not Detected, Indeterminate 10/22/2022 6:25 PM CDT [facility] Comment:Cutoff for a negativ e cocaine is 150 ng/ml or less. Methamphetamine (d-Methamphetamin e) Not Detected Not Detected, Indeterminate 10/22/2022 6:25 PM CDT [facility] Comment:Cutoff for a negativ e methamphetamine is 500 ng/ml or less. Opiates (Morphine) Not Detected Not Detected, Indeterminate 10/22/2022 6:25 PM CDT [facility] Comment:Cutoff for a negativ e opiate is 100 ng/ml or less. Amphetamine (d-Amphetamine) Not Detected Not Detected, Indeterminate 10/22/2022 6:25 PM CDT [facility] Comment:Cutoff for a negativ e amphetamine is 500 ng/mL or less. Benzodiazepines (Nordiazepam) Not Detected Not Detected, Indeterminate 10/22/2022 6:25 PM CDT [facility] Comment:Cutoff for a negativ e benzodiazepine is 150 ng/ml or less. Tricyclic Antidepressants (Desipramine) Not Detected Not Detected, Indeterminate 10/22/2022 6:25 PM CDT [facility] Comment:Cutoff for a negativ e tricyclic antidepressant is 300 ng/ml or less. Methadone Not Detected Not Detected, Indeterminate 10/22/2022 6:25 PM CDT [facility] Comment:Cutoff for a negativ e methadone is 200 ng/ml or less. Barbiturates (Butalbital) Not Detected Not Detected, Indeterminate 10/22/2022 6:25 PM CDT [facility] Comment:Cutoff for a negativ e barbituate is 200 ng/ml or less. Oxycodone Not Detected Not Detected, Indeterminate 10/22/2022 6:25 PM CDT [facility] Comment:Cutoff for a negativ e oxycodone is 100 ng/mL or less. Propoxyphene (Norpropoxyphene) Not Detected Not Detected, Indeterminate 10/22/2022 6:25 PM CDT [facility] Comment:Cutoff for a negativ e propoxyphene is 300 ng/ml or less. Buprenorphine Not Detected Not Detected, Indeterminate 10/22/2022 6:25 PM CDT [facility] Comment:Cutoff for a negativ e buprenorphine is 10 ng/ml or less. Urine URINE SPECIMEN / Unknown Non-blood Collection / Unknown 10/22/2022 6:13 PM CDT 10/22/2022 6:13 PM CDT Stephen Foote MD LAB - URINE ORDERABL ES [address] * (ABNORMAL) Basic metabolic panel (Ca, Cl, CO2, Creat, Gluc, K, Na, BUN) (08/26/2022 12:41 PM CDT) Pathologist [facility] Sodium 143 136 - 145 mmol/L 08/26/2022 10:35 PM CDT [facility] Potassium 4.4 3.4 - 5.3 mmol/L 08/26/2022 10:35 PM CDT [facility] Chloride 109(H) 98 - 107 mmol/L 08/26/2022 10:35 PM CDT [facility] Carbon Dioxide (CO2) 21(L) 22 - 29 mmol/L 08/26/2022 10:35 PM CDT [facility] Anion Gap 13 7 - 15 mmol/L 08/26/2022 10:35 PM CDT [facility] Urea Nitrogen 9.9 6.0 - 20.0 mg/dL 08/26/2022 10:35 PM CDT [facility] Creatinine 1.10 0.67 - 1.17 mg/dL 08/26/2022 10:35 PM CDT [facility] Calcium 9.2 8.6 - 10.0 mg/dL 08/26/2022 10:35 PM CDT [facility] Glucose 99 70 - 99 mg/dL 08/26/2022 10:35 PM CDT [facility] GFR Estimate 85 >60 mL/min/1.7 3m2 08/26/2022 10:35 PM CDT [facility] Comment:eGFR calculated 2020 CKD-EPI equation. Blood BLOOD SPECIMEN / Unknown Venipuncture / Unknown 08/26/2022 12:41 PM CDT 08/26/2022 12:41 PM CDT Stephen Foote MD LAB - BLOOD ORDERABL ES [facility] [place] [facility] [address] [facility], [address] [place] [address], [facility] [phone] * Lipid panel reflex to direct LDL Fasting (08/20/2021 1:04 PM CDT) Pathologist [facility] Cholesterol 150 <=199 mg/dL 08/20/2021 8:56 PM CDT [facility] Triglycerides 94 <=149 mg/dL 08/20/2021 8:56 PM CDT [facility] Direct Measure HDL 43 >=40 mg/dL 2021 8:56 PM CDT [facility] Comment: HDL Cholesterol Reference Range: 0-2 years: No reference ranges established for patients under 2 years old ??at [facility] for lipid analytes. 2-8 years: Greater than 45 mg/dL 18 years and older: Female: Greater than or equal to 50 mg/dL Male: ?? Greater than or equal to 40 mg/dL LDL Cholesterol Calculated 88 <=129 mg/dL 08/20/2021 8:56 PM CDT [facility] Patient Fasting > 8hrs? Yes 08/20/2021 8:56 PM CDT [facility] Blood VENOUS STRUCTURE / Unknown Venipuncture / Unknown 08/20/2021 1:04 PM CDT 08/20/2021 1:05 PM CDT Stephen Foote MD LAB - BLOOD ORDERABL ES [facility] [address] [phone] * Hepatitis C antibody (11/02/2020 1:10 PM CDT) Hepatitis C Antibody Nonreactive NR^Nonre active 11/03/2020 12:00 PM CDT [facility] Comment: Assay performance characteristics have not been established for newborns, infants, and children Blood 11/02/2020 1:10 PM CDT 11/02/2020 1:11 PM CDT Jez Dougherty MD LAB - BLOOD ORDER [place] [facility] [address] [place] [address] * COLONOSCOPY (12/27/2013 12:00 AM CDT) 12/27/2013 Historical Provider PROCEDURES from Last 3 Months or Most Recently Relevant to Health Maintenance Advance Directives For more information, please contact: [phone] Documents on File Type Date Recorded Patient Securities Settlement Processor Expl anation Advance Directives and Living Will 02/16/2021 Resuscitation Guidel koki 01/10/2021 * Full Code (Latest Code Status on File) Date Activated Date Inactivated Comments 08/10/2013 4:29 PM 09/01/2021 3:38 PM * Full Code Date Activated Date Inactivated Comments 08/09/2013 3:32 AM 08/10/2013 4:29 PM Care Teams Support Group Manager Relationship Specialty Start Date End Date Stephen Foote MD [address] [place] [id number] PCP - General Family Medicine 03/17/23 Otis Bee MD [address] [place] [address] [id number] Orthopedics 05/07/18 Radha Proctor MD [address] [place] [address] Neurology 11/25/19 Everardo Hensley DO [address] [place] [address] Neurology 10/17/20 Jez Dougherty MD [address] [place], [place] [address] [address] Neurology 10/17/20 Stephen Foote MD [address] [address] Assigned PCP 11/01/20 Sarahi Claudio, [facility] [address] [facility] [address] [place] [address] Pharmacist 03/01/21 Stephen Foote MD [address] [address] Assigned Pain Medication Provider 05/27/22 Otis Patino MD [facility] [address] [place] [address] Assigned Musculoskeletal Provider 01/18/23 Jez Dougherty MD [address] [place] [address] Assigned Neuroscience Provider 05/10/23
--- OUTSIDE RECORDS SUMMARY | 2024-03-01 21:12 | XMS_ITS | Clinical Summary ---
Author Organization [facility] Address [address] [place] [address] Care Team Providers Care Router Setter Name Role Phone Otis Bee MD Unavailable [phone] Radha Proctor MD Unavailable [phone] Everardo Hensley DO Unavailable + Jez Dougherty MD Unavailable [phone] Stephen Foote MD Unavailable [phone] Sarahi Claudio [facility] Unavailable Unavailab Stephen Diaz MD Unavailable [phone] Otis Patino MD Unavailable [phone] Stephen Foote MD Primary Care Provider [phone] Jez Dougherty MD Unavailable [phone] Allergies Active Allergy Reactions Criticality Noted Date [...] on 11/24/2023 cholecalciferol (VITAMIN D3) 1250 mcg (04086 units) capsuleIndicati ons:Vitamin D deficiency TAKE 1 CAPSULE BY MOUTH ONE TIME PER WEEK. (NOT COVERED) 4 capsule 11 4 Active fluticasone (FLONASE) 50 MCG/ACT nasal sprayIndication s:Dysfunction of right eustachian tube,Encounter for medication refill [place] 1 spray into both nostrils 2 times [...] AVN (avascular necrosis of bone) 05/27/2017 02/06/2022 Encounters Date Type Department Care Team Description 03/01/2024 1:15 PM CDT - 03/01/2024 4:50 PM CDT [facility] Emergency Dept [address] [place] [address] Sonya Perez MD Intractable chronic cluster headache Discharge Disposition: Left Against Medical Advice 03/01/[address] [place] [phone] Stephen Foote MD Prior Authorization (Sumatriptan injection ) 03/01/2024 Documentation Only [facility] [address] [facility] [address] [place] [address] Amisha Galeas, [facility] Advance Care Planning 03/01/2024 Travel 03/01/[address] [phone] Stephen Foote MD Pt. Information/instruc tion 02/27/2024 Telephone [facility] Neurology [address] [phone] Radha Proctor MD Other (Cluster headaches ) 02/24/2024 Refill [facility] Multiple Sclerosis Clinic [address] [phone] Jez Dougherty MD Medication Refill (Duloxetine) 02/19/2024 [facility] Neurology [address] [phone] Radha Proctor MD Patient Request for Note/Letter (Pt requesting a letter be faxed to cover a device for his cluster headaches) 02/13/[address] 1 [place] [phone] Stephen Foote MD Medication Question 02/02/2024 Medical Correspondence [facility] Information Management [address] [place] [address] [address] [place] [address] Scan, Non-Provider 01/16/[address] [phone] Stephen Foote MD 01/16/2024 MyC Medical Advice [address] 1 [place] [address] Stephen Foote MD 01/16/2024 MyC Refill [address] [place] [address] Phoebe Wyatt MD Refill Request 01/08/2024 [address] [place] [address] [place] [address] Stephen Foote MD Medication Refill 01/06/2024 Orders Only [place] [address] [place] [address] Stephen Foote MD DIAGNOSIS NOT YET DEFINED (Primary Dx) 01/06/2024 Medical Correspondence [facility] [address] [facility] [phone] Scan, Non-Provider [facility] 12/24/2023 Orders Only [address] [place] [address] Stephen Foote MD DIAGNOSIS NOT YET DEFINED (Primary Dx) 12/17/2023 MyC Refill [address] 1 [place] [address] Stephen Foote MD Refill Request 12/07/2023 MyC Medical Advice [facility] Neurology Clinics - [address], [address] [place] [address] Radha Proctor MD from Last 3 Months Immunizations Name Administration Dates Next Due COVID-19 [...] TDAP (Adacel,Boostrix) 12/26/2006 Td (Adult), Adsorbed 11/29/2016,10/22/2003 Family History Medical History Relation Comments Coronary Artery Disease Father Heart Disease Father Hypertension Father Multiple Sclerosis Mother Insomnia Sister Migraines Sister Relation Status Comments Father Alive Mother Sister Alive Social History Tobacco Use Types Packs/Day Years [...] in an abandoned building, in an overnight [place] [facility], or couch-surfing.) Yes 06/17/2023 Are you worried [...] Sex Assigned at Male 06/13/2021 11:39 PM HOSPICE AIDE Gender Identity Male 06/13/2021 11:39 PM HOSPICE AIDE Sexual Orientation Straight 06/13/2021 11 :39 PM HOSPICE AIDE Last Filed Vital Signs Vital Sign Reading [...] st Contact Info) Description 03/22/2024 1:00 PM HOSPICE AIDE Office Visit [facility] [address] [facility] [address] [place] [phone] Stephen Foote MD 1982 [facility] [address] [place], [place] [phone] 05/27/2024 1:30 PM HOSPICE AIDE Office Visit [facility] Multiple Sclerosis [address] [address] Jez Dougherty MD [address] [place] [address] - [id number] [address] Health Maintenance Due Date Last Done Comments ANNUAL REVIEW OF HM ORDERS 1977 CT COLONOGRAPHY 1977 FIT 1977 FLEX SIG 1977 sDNA (Cologuard) 1977 CONTROLLED SUBSTANCE AGREEMENT FOR CHRONIC PAIN MANAGEMENT 06/26/2023 06/26/2022 BMP 08/27/2023 08/26/2022, 08/17, 08/20/2021, Additional history exists URINE DRUG SCREEN 10/23/2023 10/22/2022, 03/12/2009 COLONOSCOPY 12/28/2023 12/27/2013 COLORECTAL CANCER SCREENING 12/28/2023 COVID-19 Vaccine ( season) 2024 02/06/2022, 07/09/2021, 01/18/2021, Additional history exists INFLUENZA VACCINE (#1) 2024 , 02/06/2022, 03/06/2021, Additional history exists NICOTINE/TOBACCO CESSATION COUNSELING Q 1 YR 03/17/2024 03/17/2023, 08/20/2021 YEARLY PREVENTIVE VISIT 03/17/2024 03/17/20 23, 08/26/2022, 08/20/2021 DENNY ASSESSMENT 10/20/2024 10/21/2023, 10/22/2022 PHQ-9 10/20/2024 10/21/2023, 05/0 06/2023, 06/17/2023, Additional history exists GLUCOSE 08/26/2025 08/26/2022, 1 10/2021, 08/20/2021, Additional history exists LIPID 08/20/2026 08/20/2021, 11/29/2016 DTAP/TDAP/TD IMMUNIZATION (3 - Td or Tdap) 11/29/2026 11/29/2016, 12/26/2006, 10/22/2003 ADVANCE CARE PLANNING 03/01/2029 03/01/2024 , 02/16/2021, 03/11/2019 RSV VACCINE (1 - 1-dose 75+ series) 2052 HEPATITIS B IMMUNIZATION Completed 008, 01/30/2007, 12/26/2006, Additional history exists HEPATITIS C SCREENING Completed 11/02/2020 , 05/30/2016, 05/30/2011 Pneumococcal Vaccine: Pediatrics (0 to 5 Years) and At-Risk Patients (6 to 64 Years) Completed 03/13/2022, 08/18/2018 HIV SCREENING Completed 03/17/2023, 040 08/2021, 10/19/2020, Additional history exists HPV IMMUNIZATION Aged Out No longer e ligible based on patient's age to complete this topic MENINGITIS IMMUNIZATION Aged Out No l onger eligible based on patient's age to complete this topic RSV MONOCLONAL ANTIBODY Aged Out No l onger eligible based on patient's age to complete this topic Procedures Procedure Name Priority Date/Time Associated Diagnosis Comments NC MD RECERTIFICATION PATIENT SERVICES MANAGER PT Routine 01/06/2024 DIAGNOSIS NOT YET DEFINED NC MD RECERTIFICATION PATIENT SERVICES MANAGER PT Routine 12/24/2023 DIAGNOSIS NOT YET DEFINED [...] Recently Relevant to Health Maintenance Results * RECERTIFICATION PATIENT SERVICES MANAGER PT (01/06/2024) Only the most recent of2 resultswithin the time period is included. Stephen Foote MD SPECIAL REPORTS * PHQ-9 DEPRESSION SCREENING ORDER (09/18/2023) Pathologist [facility] PHQ9 SCORE 3 Narrative Orquidea Kenny - 09/18/2023 PSYCHIATRIC CLINIC NOTE [facility] Provider Outside OTHER * HIV Antigen Antibody Combo (03/17/2023 12:08 PM CDT) Pathologist [facility] HIV Antigen Antibody Combo Nonreactive Nonreactive 03/18/2023 8:00 AM CDT SPECIALTY CORE/PROT/EN DO Comment:HIV-1 p24 Ag & HIV-1 /HIV-2 Ab Not Detected Blood BLOOD SPECIMEN / Unknown Venipuncture / Unknown 03/17/2023 12:08 PM CDT 03/17/2023 12:08 PM CDT Stephen Foote MD LAB - BLOOD ORDERABL ES [facility] SPECIALTY CORE/PROT/ENDO [facility] Specialty Core/Prot/Endo [address] [facility] [address], [address] [place] [address], [facility] [phone] * Drug Abuse Screen Panel 13, Urine (Pain Care Package) - lab collect (10/22/2022 6:13 PM CDT) Pathologist [facility] Cannabinoids (66-kyr-2-carboxy -9-THC) Not Detected Not Detected, Indeterminate 10/22/2022 [...] Foote MD LAB - URINE ORDERABL ES [facility] [address] * (ABNORMAL) Basic metabolic panel (Ca, Cl, CO2, Creat, Gluc, K, Na, BUN) (08/26/2022 12:41 PM CDT) Sodium 143 136 - 145 mmol/L 08/26/2022 [...] 10:35 PM CDT [facility] Comment:eGFR calculated usin g 2020 CKD-EPI equation. Blood BLOOD SPECIMEN / Unknown Venipuncture / Unknown 08/26/2022 12:41 PM CDT 08/26/2022 12:41 PM CDT Stephen Foote MD LAB - BLOOD ORDERABL ES [facility] [address] [facility], [address] [place] [address], [facility] [phone] * Lipid panel reflex to direct LDL Fasting (08/20/2021 1:04 PM CDT) Cholesterol 150 <=199 mg/dL 08/20/2021 8:56 PM CDT [facility] Triglycerides 94 <=149 mg/dL 08/20/2021 8:56 PM CDT [facility] Direct Measure HDL 43 >=40 mg/dL 2021 8:56 PM CDT [facility] Comment: HDL Cholesterol Reference Range: 0-2 years: No reference ranges established for patients under 2 years old ??at [facility] Laboratories for lipid analytes. 2-8 years: Greater than 45 mg/dL 18 years and older: Female: Greater than or equal to 50 mg/dL Male: ?? Greater than or equal to 40 mg/dL LDL Cholesterol Calculated 88 <=129 mg/dL 08/20/2021 8:56 PM CDT [facility] Patient Fasting > 8hrs? Yes 08/20/2021 8:56 PM CDT [facility] Blood VENOUS STRUCTURE / Unknown Venipuncture / Unknown 08/20/2021 1:04 PM CDT 08/20/2021 1:05 PM CDT Stephen Foote MD LAB - BLOOD ORDERABL ES [facility] [address] [address], [facility] [phone] * Hepatitis C antibody (11/02/2020 1:10 PM CDT) Hepatitis C Antibody Nonreactive NR^Nonre active 11/03/2020 12:00 PM CDT [facility] Comment: Assay performance characteristics have not been established for newborns, infants, and children Blood 11/02/2020 1:10 PM CDT 11/02/2020 1:11 PM CDT Jez Dougherty MD LAB - BLOOD ORDER PANCHITO [facility] [address] [place] [address] * COLONOSCOPY (12/27/2013 12:00 AM CDT) 12/27/2013 Historical Provider PROCEDURES from Last 3 Months or Most Recently Relevant to Health Maintenance Advance Directives For more information, please contact: [phone] Documents on File Type Date Recorded Patient Melt Supervisor Expl anation Advance Directives and Living Will 02/16/2021 Resuscitation Guidel koki 01/10/2021 * Full Code (Latest Code Status on File) Date Activated Date Inactivated Comments 08/10/2013 4:29 PM 09/01/2021 3:38 PM * Full Code Date Activated Date Inactivated Comments 08/09/2013 3:32 AM 08/10/2013 4:29 PM Care Teams Router Setter Relationship Specialty Start Date End Date Stephen Foote MD [address] [address] PCP - General Family Medicine 03/17/23 Otis Bee MD [address] [place] [address] Orthopedics 05/07/18 Radha Proctor MD [address] [place] [address] [place] [address] Neurology 11/25/19 Everardo Hensley DO [address] [place] [address] Neurology 10/17/20 Jez Dougherty MD [address] [place], [place] [id number] [address] Neurology 10/17/20 Stephen Foote MD [address] [address] Assigned PCP 11/01/20 Sarahi Claudio, [facility] [address] [address] Pharmacist 03/01/21 Stephen Foote MD [address] [address] Assigned Pain Medication Provider 05/27/22 Otis Patino MD [address] [facility] [address] [place] [address] Assigned Musculoskeletal Provider 01/18/23 Jez Dougherty MD [address] [facility] [id number] [address] Assigned Neuroscience Provider 05/10/23
--- OUTSIDE RECORDS SUMMARY | 2024-03-01 21:13 | XMS_ITS | Encounter Summary ---
Author Organization [facility] Address [address] [place] [address] Care Team Providers Care Roll Scale Worker Name Role Phone Otis Bee MD Unavailable [phone] Radha Proctor MD Unavailable [phone] Everardo Hensley DO Unavailable + Jez Dougherty MD Unavailable [phone] Stephen Foote MD Unavailable [phone] Sarahi Claudio [facility] Unavailable Unavailab Stephen Diaz MD Unavailable [phone] Otis Patino MD Unavailable [phone] Stephen Foote MD Primary Care Provider [phone] Jez Dougherty MD Unavailable [phone] Encounter Details Date Type Department Care Team (Late st Contact Info) Description 01/16/2024 MyC Medical Advice [facility] [address] [facility] [address] [place] [address] Stephen Foote MD [address] [place] [address] Social History Tobacco Use Types Packs/Day Years [...] Answer Date Recorded Do you have housing? (Wilner g is defined as stable permanent housing and does not include staying ouside in a car, in a tent, in an abandoned building, in an overnight fdc, or couch-surfing.) Yes 06/17/2023 Are you worried [...] Sex Assigned at Male 06/13/2021 11:39 PM RIVER CAPTAIN Gender Identity Male 06/13/2021 11:39 PM RIVER CAPTAIN Sexual Orientation Straight 06/13/2021 11 :39 PM RIVER CAPTAIN documented as of this encounter Miscellaneous Notes * Telephone Encounter - Say, Rylan Cronin Cem, RN - 01/20/2024 8:13 AM CDT Per chart review. Rx was filled by Dr. Delgado on 01/15. Closing encounter. ALEKSANDR Singh Cem, RN [facility] documented in this encounter Plan of Treatment Upcoming Encounters Date Type Department Care Team (Late st Contact Info) Description 03/22/2024 1:00 PM RIVER CAPTAIN Office Visit [facility] [address] [facility] [address] [place] [phone] Stephen Foote MD [address] [place] [address] 05/27/2024 1:30 PM RIVER CAPTAIN Office Visit [facility] Multiple Sclerosis [address] [phone] Jez Dougherty MD [address] [place], [place] [address] [place], [place] [address] documented as of this encounter Visit Diagnoses Not on filedocumented in this encounter Additional Health Concerns Assessment Noted Time PHQ-9 Depression Total Score: 3 10/21/19 24 12:07 PM CDT documented as of this encounter Care Teams Roll Scale Worker Relationship Specialty Start Date End Date Stephen Foote MD [address] [place] [address] 1 [place] [address] PCP - General Family Medicine 03/17/23 Otis Bee MD [address] [place] [address] Orthopedics 05/07/18 Radha Proctor MD [address] [place] [address] [place] [address] Neurology 11/25/19 Everardo Hensley DO [address] [place] [address] Neurology 10/17/20 Jez Dougherty MD [address] [address] Neurology 10/17/20 Stephen Foote MD [address] [facility] [address] [place] [address] Assigned PCP 11/01/20 Sarahi Claudio, [facility] [address] [place] [address] Pharmacist 03/01/21 Stephen Foote MD [address] [address] [place] [address] Assigned Pain Medication Provider 05/27/22 Otis Patino MD [address] [facility] [address] [place] [address] Assigned Musculoskeletal Provider 01/18/23 Jez Dougherty MD [address] [address] Assigned Neuroscience Provider 05/10/23 documented as of this encounter
--- OUTSIDE RECORDS SUMMARY | 2024-03-01 21:13 | XMS_ITS | Encounter Summary ---
Author Organization [facility] Address [address] [place] [address] Care Team Providers Care Social Studies Department Chair Name Role Phone Otis Bee MD Unavailable [phone] Radha Proctor MD Unavailable [phone] Everardo Hensley DO Unavailable + Jez Dougherty MD Unavailable [phone] Stephen Foote MD Unavailable [phone] Sarahi Claudio [facility] Unavailable Unavailab Stephen Diaz MD Unavailable [phone] Otis Patino MD Unavailable [phone] Stephen Foote MD Primary Care Provider [phone] Jez Dougherty MD Unavailable [phone] Encounter Details Date Type Department Care Team (Late st Contact Info) Description 12/07/2023 MyC Medical Advice [facility] Neurology Clinics [address], [address] [place] [address] Radha Proctor MD 909 [facility] [address] [place] [address] Social History Tobacco Use Types Packs/Day Years [...] Date Recorded Do you have housing? (Wilner person is defined as stable permanent housing and does not include staying ouside in a car, in a tent, in an abandoned building, in an overnight [facility]p, or couch-surfing.) Yes 06/17/2023 Are you worried [...] Sex Assigned at Male 06/13/2021 11:39 PM MALLET AND DIE CUTTER Gender Identity Male 06/13/2021 11:39 PM MALLET AND DIE CUTTER Sexual Orientation Straight 06/13/2021 11 :39 PM MALLET AND DIE CUTTER documented as of this encounter Plan of Treatment Upcoming Encounters Date Type Department Care Team (Late st Contact Info) Description 03/22/2024 1:00 PM MALLET AND DIE CUTTER Office Visit [address] [address] Stephen Foote MD [address] [facility] 1 [place] [address] 05/27/2024 1:30 PM MALLET AND DIE CUTTER Office Visit [facility] Multiple Sclerosis [facility] [address] [place] [phone] Jez Dougherty MD [address] [place] [address] documented as of this encounter Visit Diagnoses Not on filedocumented in this encounter Additional Health Concerns Assessment Noted Time PHQ-9 Depression Total Score: 3 10/21/19 24 12:07 PM CDT documented as of this encounter Care Teams Social Studies Department Chair Relationship Specialty Start Date End Date Stephen Foote MD [address] [facility] 1 [place] [address] PCP - General Family Medicine 03/17/23 Otis Bee MD [address] [place] [address] Orthopedics 05/07/18 Radha Proctor MD [address] [place] [address] Neurology 11/25/19 Everardo Hensley DO [address] [place] [address] Neurology 10/17/20 Jez Dougherty MD [address] [place] [address] Neurology 10/17/20 Stephen Foote MD [address] [facility] 1 [place] [address] Assigned PCP 11/01/20 Sarahi Claudio [facility] [address] [facility] 1 [place] [address] Pharmacist 03/01/21 Stephen Foote MD [address] [address] Assigned Pain Medication Provider 05/27/22 Otis Patino MD [facility] [address] [place] [address] Assigned Musculoskeletal Provider 01/18/23 Jez Dougherty MD 909 [facility] [id number] [place] [address] Assigned Neuroscience Provider 05/10/23 documented as of this encounter
--- OUTSIDE RECORDS SUMMARY | 2024-03-01 21:13 | XMS_ITS | Encounter Summary ---
Author Organization [place] Address [address] [place] [address] Care Team Providers Care Mobility Architect Name Role Phone Otis Bee MD Unavailable [phone] Radha Proctor MD Unavailable [phone] Everardo Hensley DO Unavailable + Jez Dougherty MD Unavailable [phone] Stephen Foote MD Unavailable [phone] Sarahi Claudio [facility] Unavailable Unavailab Stephen Diaz MD Unavailable [phone] Otis Patino MD Unavailable [phone] Stephen Foote MD Primary Care Provider [phone] Jez Dougherty MD Unavailable [phone] Encounter Details Date Type Department Care Team (Late st Contact Info) Description 12/24/[address] [facility] [address] [facility] [address] [place] [address] Stephen Foote MD 1982 [facility] 1 [place] [address] DIAGNOSIS NOT YET DEFINED (Primary Dx) Social History Tobacco Use Types Packs/Day Years [...] Sex Assigned at Male 06/13/2021 11:39 PM BOOM MAN Gender Identity Male 06/13/2021 11:39 PM BOOM MAN Sexual Orientation Straight 06/13/2021 11 :39 PM BOOM MAN documented as of this encounter Plan of Treatment Upcoming Encounters Date Type Department Care Team (Kj st Contact Info) Description 03/22/2024 1:00 PM BOOM MAN Office Visit [address] [address] Stephen Foote MD 1982 [facility] 1 [place] [address] 05/27/2024 1:30 PM BOOM MAN Office Visit [facility] Multiple Sclerosis [address] [phone] Jez Dougherty MD [address] [place], [place] [id number] [place], [place] [address] documented as of this encounter Procedures Procedure Name Priority Date/Time Associated Diagnosis Comments AK MD ANNE CHANNEL EXECUTIVE PT Routine 12/24/2023 DIAGNOSIS NOT YET DEFINED documented in this encounter Results * MD OMID [facility] PT (12/24/2023) Stephen Foote MD SPECIAL REPORTS documented in this encounter Visit Diagnoses Diagnosis DIAGNOSIS NOT YET DEFINED- Primary documented in this encounter Additional Health Concerns Assessment Noted Time PHQ-9 Depression Total Score: 3 10/21/19 24 12:07 PM CDT documented as of this encounter Care Teams Mobility Architect Relationship Specialty Start Date End Date Stephen Foote MD 1982 [facility] 1 [place] [address] PCP - General Family Medicine 03/17/23 Otis Bee MD [address] [place] [address] Orthopedics 05/07/18 Radha Proctor MD [address] [place] [address] Neurology 11/25/19 Everardo Hensley DO [address] [place] [address] Neurology 10/17/20 Jez Dougherty MD [address] [address] Neurology 10/17/20 Stephen Foote MD [address] [address] Assigned PCP 11/01/20 Sarahi Claudio, [facility] [address] [address] Pharmacist 03/01/21 Stephen Foote MD [address] [address] Assigned Pain Medication Provider 05/27/22 Otis Patino MD [address] [place] [address] Assigned Musculoskeletal Provider 01/18/23 Jez Dougherty MD [address] [address] Assigned Neuroscience Provider 05/10/23 documented as of this encounter
--- OUTSIDE RECORDS SUMMARY | 2024-03-01 21:13 | XMS_ITS | Encounter Summary ---
Author Organization [facility] [place] Address [address] [place] [address] Care Team Providers Care Wirer Street Light Name Role Phone Otis Bee MD Unavailable [phone] Radha Proctor MD Unavailable [phone] Everardo Hensley DO Unavailable + Jez Dougherty MD Unavailable [phone] Stephen Foote MD Unavailable [phone] Sarahi Claudio [facility] Unavailable Unavailab Stephen Diaz MD Unavailable [phone] Otis Patino MD Unavailable [phone] Stephen Foote MD Primary Care Provider [phone] Jez Dougherty MD Unavailable [phone] Encounter Details Date Type Department Care Team (Late st Contact Info) Description 02/02/2024 Medical Correspondence [facility] Health Information Management [address] [facility] [address] [place] [address] Scan, Non-Provider Social History Tobacco Use Types Packs/Day Years [...] in an abandoned building, in an overnight nursing home, or couch-surfing.) Yes 06/17/2023 Are you worried [...] Sex Assigned at Male 06/13/2021 11:39 PM EVENT ORGANIZER Gender Identity Male 06/13/2021 11:39 PM EVENT ORGANIZER Sexual Orientation Straight 06/13/2021 11 :39 PM EVENT ORGANIZER documented as of this encounter Plan of Treatment Upcoming Encounters Date Type Department Care Team (Late st Contact Info) Description 03/22/2024 1:00 PM EVENT ORGANIZER Office Visit [facility] 1982 [facility] 1 [place] [address] Stephen Foote MD 1982 [facility] 1 [place] [address] 05/27/2024 1:30 PM EVENT ORGANIZER Office Visit [facility] [address] [phone] Jez Dougherty MD [address] [place] [address] documented as of this encounter Visit Diagnoses Not on filedocumented in this encounter Additional Health Concerns Assessment Noted Time PHQ-9 Depression Total Score: 3 10/21/19 24 12:07 PM CDT documented as of this encounter Care Teams Wirer Street Light Relationship Specialty Start Date End Date Stephen Foote MD [address] [id number] PCP - General Family Medicine 03/17/23 Otis Bee MD [address] [place] [address] Orthopedics 05/07/18 Radha Proctor MD [address] [place] [address] Neurology 11/25/19 Everardo Hensley DO [address] [place] [address] Neurology 10/17/20 Jez Dougherty MD [address] [place] [address] Neurology 10/17/20 Stephen Foote MD 1982 [facility] 1 [place], [place] [id number] Assigned PCP 11/01/20 Sarahi Claudio [facility] 1982 [facility] 1 [place] [address] Pharmacist 03/01/21 Stephen Foote MD 1982 [facility] 1 [place] [address] Assigned Pain Medication Provider 05/27/22 Otis Patino MD [address] [place] [address] Assigned Musculoskeletal Provider 01/18/23 Jez Dougherty MD [address] [facility] [address] [address], [place] [address] Assigned Neuroscience Provider 05/10/23 documented as of this encounter
--- OUTSIDE RECORDS SUMMARY | 2024-03-01 21:13 | XMS_ITS | Encounter Summary ---
Author Organization [facility] Address [address] [place] [address] Care Team Providers Care Strap Sewer Name Role Phone Otis Bee MD Unavailable [phone] Radha Proctor MD Unavailable [phone] Everardo Hensley DO Unavailable + Jez Dougherty MD Unavailable [phone] Stephen Foote MD Unavailable [phone] Sarahi Claudio [facility] Unavailable Unavailab Stephen Diaz MD Unavailable [phone] Otis Patino MD Unavailable [phone] Stephen Foote MD Primary Care Provider [phone] Jez Dougherty MD Unavailable [phone] Reason for Visit * Reason Onset Date Comments Refill Request 01/16/2024 Encounter Details Date Type Department Care Team (Late st Contact Info) Description 01/16/[address] [facility] 1982 [facility] [address] [place] [address] Phoebe Wyatt MD 1982 [facility] [address] [place], [place] [id number] Refill Request Social History Tobacco Use Types Packs/Day Years [...] Sex Assigned at Male 06/13/2021 11:39 PM FLASK PUSHER Gender Identity Male 06/13/2021 11:39 PM FLASK PUSHER Sexual Orientation Straight 06/13/2021 11 :39 PM FLASK PUSHER documented as of this encounter Plan of Treatment Upcoming Encounters Date Type Department Care Team (Late st Contact Info) Description 03/22/2024 1:00 PM FLASK PUSHER Office Visit [address] [place] [address] Stephen Foote MD 1982 [facility] 1 [place] [address] 05/27/2024 1:30 PM FLASK PUSHER Office Visit [facility] Multiple Sclerosis [address] [phone] Jez Dougherty MD [address] [place] [address] documented as of this encounter Visit Diagnoses Diagnosis Episodic cluster headache, not intractable Episodic cluster headache documented in this encounter Additional Health Concerns Assessment Noted Time PHQ-9 Depression Total Score: 3 10/21/19 24 12:07 PM CDT documented as of this encounter Care Teams Strap Sewer Relationship Specialty Start Date End Date Stephen Foote MD 1982 [facility] 1 [place] [address] PCP - General Family Medicine 03/17/23 Otis Bee MD [address] [place] [address] Orthopedics 05/07/18 Radha Proctor MD [address] [place] [address] Neurology 11/25/19 Everardo Hensley DO [address] [place] [address] 719965 Neurology 10/17/20 Jez Dougherty MD [address] [place] [address] Neurology 10/17/20 Stephen Foote MD [address] [address] Assigned PCP 11/01/20 Sarahi Claudio, [facility] [address] [address] Pharmacist 03/01/21 Stephen Foote MD [address] [address] Assigned Pain Medication Provider 05/27/22 Otis Patino MD [address] [facility] [address] [place] [address] Assigned Musculoskeletal Provider 01/18/23 Jez Dougherty MD [address] [facility] [id number] [address] Assigned Neuroscience Provider 05/10/23 documented as of this encounter
--- OUTSIDE RECORDS SUMMARY | 2024-03-01 21:13 | XMS_ITS | Encounter Summary ---
Author Organization [facility] Address [address] [place] [address] Care Team Providers Care Publicity Manager Name Role Phone Otis Bee MD Unavailable [phone] Radha Proctor MD Unavailable [phone] Everardo Hensley DO Unavailable + Jez Dougherty MD Unavailable [phone] Stephen Foote MD Unavailable [phone] Sarahi Claudio [facility] Unavailable Unavailab Stephen Diaz MD Unavailable [phone] Otis Patino MD Unavailable [phone] Stephen Foote MD Primary Care Provider [phone] Jez Dougherty MD Unavailable [phone] Encounter Details Date Type Department Care Team (Late st Contact Info) Description 01/06/[address] [facility] 1982 [facility] [address] [place] [address] Stephen Foote MD 1982 [facility] 1 [place] [address] DIAGNOSIS NOT YET DEFINED (Primary [...] in an abandoned building, in an overnight penitentiary, or couch-surfing.) Yes 06/17/2023 Are you worried [...] Sex Assigned at Male 06/13/2021 11:39 PM COAGULATOR Gender Identity Male 06/13/2021 11:39 PM COAGULATOR Sexual Orientation Straight 06/13/2021 11 :39 PM COAGULATOR documented as of this encounter Plan of Treatment Upcoming Encounters Date Type Department Care Team (Kj st Contact Info) Description 03/22/2024 1:00 PM COAGULATOR Office Visit [address] [address] Stephen Foote MD 1982 [facility] 1 [place] [address] 05/27/2024 1:30 PM COAGULATOR Office Visit [facility] Multiple Sclerosis [address] [phone] Jez Dougherty MD [address] [place], [place] [id number], [place] [address] documented as of this encounter Procedures Procedure Name Priority Date/Time Associated Diagnosis Comments KS MD ANNE FORM PRESS OPERATOR PT Routine 01/06/2024 DIAGNOSIS NOT YET DEFINED documented in this encounter Results * MD ANNE FORM PRESS OPERATOR PT (01/06/2024) Stephen Foote MD [employer] documented in this encounter Visit Diagnoses Diagnosis DIAGNOSIS NOT YET DEFINED- Primary documented in this encounter Additional Health Concerns Assessment Noted Time PHQ-9 Depression Total Score: 3 10/21/19 24 12:07 PM CDT documented as of this encounter Care Teams Publicity Manager Relationship Specialty Start Date End Date Stephen Foote MD 1982 [facility] 1 [place] [address] PCP - General Family Medicine 03/17/23 Otis Bee MD [address] [place] [address] 367355 Orthopedics 05/07/18 Radha Proctor MD [address] [place] [address] Neurology 11/25/19 Everardo Hensley DO [address] [place] [address] 381305 Neurology 10/17/20 Jez Dougherty MD [address] [address] Neurology 10/17/20 Stephen Foote MD [address] [address] Assigned PCP 11/01/20 Sarahi Claudio, [facility] [address] [address] Pharmacist 03/01/21 Stephen Foote MD [address] [address] Assigned Pain Medication Provider 05/27/22 Otis Patino MD [address] [place] [address] Assigned Musculoskeletal Provider 01/18/23 Jez Dougherty MD [address] [address] Assigned Neuroscience Provider 05/10/23 documented as of this encounter
--- OUTSIDE RECORDS SUMMARY | 2024-03-01 21:13 | XMS_ITS | Encounter Summary ---
Author Organization [place] Address [address] [place] [address] Care Team Providers Care Vehicle Leasing And Rental Manager Name Role Phone Otis Bee MD Unavailable [phone] Radha Proctor MD Unavailable [phone] Everardo Hensley DO Unavailable + Jez Dougherty MD Unavailable [phone] Stephen Foote MD Unavailable [phone] Sarahi Claudio [facility] Unavailable Unavailab Stephen Diaz MD Unavailable [phone] Otis Patino MD Unavailable [phone] Stephen Foote MD Primary Care Provider [phone] Jez Dougherty MD Unavailable [phone] Encounter Details Date Type Department Care Team (Latest Contact Info) Description 03/01/2024 Travel Social History Tobacco Use Types Packs/Day Years [...] in an abandoned building, in an overnight [facility]cc, or couch-surfing.) Yes 06/17/2023 Are you worried [...] Sex Assigned at Male 06/13/2021 11:39 PM MARKET DEVELOPER Gender Identity Male 06/13/2021 11:39 PM MARKET DEVELOPER Sexual Orientation Straight 06/13/2021 11 :39 PM MARKET DEVELOPER documented as of this encounter Plan of Treatment Upcoming Encounters Date Type Department Care Team (Late st Contact Info) Description 03/22/2024 1:00 PM MARKET DEVELOPER Office Visit [facility] 1982 [facility] 1 [place] [address] Stephen Foote MD 1982 [facility] 1 [place] [address] 05/27/2024 1:30 PM MARKET DEVELOPER Office Visit [facility] Multiple Sclerosis [address] [address] Jez Dougherty MD [address] [place], [place] [id number] [address] documented as of this encounter Visit Diagnoses Not on filedocumented in this encounter Additional Health Concerns Assessment Noted Time PHQ-9 Depression Total Score: 3 10/21/19 24 12:07 PM CDT documented as of this encounter Care Teams Vehicle Leasing And Rental Manager Relationship Specialty Start Date End Date Stephen Foote MD [address] [address] PCP - General Family Medicine 03/17/23 Otis Bee MD [address] [place] [address] Orthopedics 05/07/18 Radha Proctor MD [address] [place] [address] [place] [address] Neurology 11/25/19 Everardo Hensley DO [address] [place] [address] Neurology 10/17/20 Jez Dougherty MD [address] [place] [address] Neurology 10/17/20 Stephen Foote MD [address] [address] Assigned PCP 11/01/20 Sarahi Claudio, [facility] [address] [address] Pharmacist 03/01/21 Stephen Foote MD [address] [place] [address] [facility] [address] [place] [address] Assigned Pain Medication Provider 05/27/22 Otis Patino MD [address] [place] [address] Assigned Musculoskeletal Provider 01/18/23 Jez Dougherty MD 909 [facility] [place] [id number] [place] [address] Assigned Neuroscience Provider 05/10/23 documented as of this encounter
--- OUTSIDE RECORDS SUMMARY | 2024-03-01 21:13 | XMS_ITS | Encounter Summary ---
Author Organization [place] Address [address] [place] [address] Care Team Providers Care Loan And Credit Manager Name Role Phone Otis Bee MD Unavailable [phone] Radha Proctor MD Unavailable [phone] Everardo Hensley DO Unavailable + Jez Dougherty MD Unavailable [phone] Stephen Foote MD Unavailable [phone] Sarahi Claudio [facility] Unavailable Unavailab Stephen Diaz MD Unavailable [phone] Otis Patino MD Unavailable [phone] Stephen Foote MD Primary Care Provider [phone] Jez Dougherty MD Unavailable [phone] Reason for Visit * Reason Onset Date Comments Other 02/27/2024 Cluster headache s Encounter Details Date Type Department Care Team (Late st Contact Info) Description 02/27/2024 Telephone [facility] [place] [address] [address] Radha Proctor MD [address] [place] [address] [place] [address] Other (Cluster headaches ) Social History Tobacco Use Types Packs/Day [...] in an abandoned building, in an overnight long-term, or couch-surfing.) Yes 06/17/2023 Are you worried [...] Sex Assigned at Male 06/13/2021 11:39 PM RECLAMATION ENGINEER Gender Identity Male 06/13/2021 11:39 PM RECLAMATION ENGINEER Sexual Orientation Straight 06/13/2021 11 :39 PM RECLAMATION ENGINEER documented as of this encounter Miscellaneous Notes * Telephone Encounter - Crys Edwards RN - 03/01/2024 3:38 PM CDT Images from the original note were not included. 1:57 PM Ok, thank you. Thinking ahead, we can increase his verapamil further or add lithium as a next step. SPG block withDr. Reddy would also be an option. Radha Proctor MD Called pt back and relayed provider message. Pt is currently still sitting outside ED as he is nervous to go home because he doesn't know what to do about the pain. He states he is willing to try anything at this point. Can you order the medication and also referral to Dr. Reddy for SPG block? Pt would like any medications be sent to [facility] in [place]. Crys RN, BSN [facility] Neurology * Telephone Encounter - Contreras Wills - 03/01/2024 3:10 PM CDT Health Call Center Phone Message May a detailed message be left on voicemail: yes Reason for Call: Other: Patient calling again to request call back from clinic to discuss headaches. Patient requesting call back as soon as possible, call back #[phone] Action Taken: Message routed to: Other: Neurology Travel Screening: Not Applicable * Telephone Encounter - Contreras Wills - 03/01/2024 9:09 AM CDT Health Call Center Phone Message May a detailed message be left on voicemail: yes Reason for Call: Other: Patient calling to update clinic and requesting call back. He states that had some sleep/relief on Friday after taking the prednisone. But by /Friday his headaches were back and very bad. He is out of imitrex shots. Has not gotten sleep since Friday night. Oxygen not working as well. Headaches are extreemly badly and he states he is getting ready to go to the ER right now for the pain. States he would like a call back to discuss treatment plan options for the cluster headaches. Call back #[phone] Action Taken: Message routed to: Other: Neurology Travel Screening: Not Applicable * Telephone Encounter - Crys Edwards RN - 02/27/2024 3:25 PM CDT Huddled with Dr. Proctor and reviewed pt's symptoms/concerns. She offered to do a nerve block for pt today. Localized steroid would be safer than oral due to pt's diagnosis of avascular necrosis. Called pt and asked if they could come to clinic for injection today. He stated that he has tried a nerve block with provider in the past and it didn't work. Relayed concern for using steroids due to avascular necrosis, and pt stated I am aware of the avascular necrosis and that is not my concern right now, he stated he is more concerned about his headaches right now and is asking Dr. Proctor to order oral steroids, because that is what has helped in the past. RN huddled with provider and relayed pt request. Dr. Proctor ordered short course of steroids for patient. Called and let pt know. He verbalized understanding, and was thankful. Head Waiter advised that if pain continues to be severe to go to ED for pain management over the weekend. Pt verbalized understanding and acceptance of the plan. They had no further questions at this time.Advised can call back to clinic at any time with concerns. YANELIS Spangler, BSN [facility] Neurology * Telephone Encounter - Crys Edwards RN - 02/27/2024 3:08 PM CDT Called pt and he verified that he is taking verapamil 240 mg BID. He took Emgality shot yesterday and there has been no relief at all. He states he has been on this since October. The pain is so severe on his right side of his head he isn't able to sleep. He reports doing 5 shots of sumatriptan just today. RN advised that we recommend max 2 shots today, but pt reports that he needs to do something because the pain is so bad. He is asking that provider order a burst of steroids He states that he understands his situation and the risk of steroids but at this point he feels like this is the only thing that can give him any relief. Pt repeated the request for steroids and his understanding of his risk and is reiterating the urgency of needing something for relief. RN empathized with pt and verbalized understanding of the urgency and let pt know that RN will huddle with provider today. Will have provider review and advise. YANELIS Spangler, BSN [facility]rology * Telephone Encounter - Michelle Singh - 02/27/2024 2:42 PM CDT [facility] Call Center Phone Message May a detailed message be left on voicemail: yes Reason for Call: patient is returning a call to nurse Action Taken: Other: neurology Travel Screening: Not Applicable Date of Service: * Telephone Encounter - Crys Edwards RN - 02/27/2024 1:18 PM CDT Pt is taking Emgality, attempted to call pt to verify that he is still taking verapamil. Dr. Proctor could possibly do nerve block on the affected side. [place]ed to [place] pt[place] [facility] YANELIS Spangler, BSN [facility] * Telephone Encounter - Crys Edwards RN - 02/27/2024 11:46 AM CDT Called pt. This cluster headache has been ongoing for 3 months. Today he has had 4 headaches. He is doing sumatriptan injection BID and oxygen with no relief. He has not gotten the gammacore yet. Reviewed Dr. Proctor's last [employer] message in 12/06 encounter and asked if he would be interested in trying the gabapentin she suggested and he said he has tried this in the past and it has not worked, so he is not interested. Please advise on any further recommendations for cluster headache at this time. YANELIS Spangler, BSN [facility] * Telephone Encounter - Michelle Singh - 02/27/2024 8:06 AM CDT [facility] Phone Message May a detailed message be left on voicemail: yes Reason for Call: Patient called c/o on going cluster headaches, patient reports that he gets 3-4 a day, Emgality is not working and oxygen is not working and pt has yet to get his Gemmacore device. Patient is asking for further recommendation as to what the next step is. Please call back to discuss Action Taken: Message routed to: [facility] neurology Travel Screening: Not Applicable Date of Service: documented in this encounter Plan of Treatment Upcoming Encounters Date Type Department Care Team (Late st Contact Info) Description 03/22/2024 1:00 PM RECLAMATION ENGINEER Office Visit [facility] 1982 [facility] 1 [place] [address] Stephen Foote MD 1982 [facility] 1 [place] [address] 05/27/2024 1:30 PM RECLAMATION ENGINEER Office Visit [facility] Multiple Sclerosis [address] [phone] Jez Dougherty MD [address] [place] [address] - [id number] [address] documented as of this encounter Visit Diagnoses Diagnosis Episodic cluster headache, not intractable- Primary Episodic cluster headache documented in this encounter Additional Health Concerns Assessment Noted Time PHQ-9 Depression Total Score: 3 10/21/19 24 12:07 PM CDT documented as of this encounter Care Teams Loan And Credit Manager Relationship Specialty Start Date End Date Stephen Foote MD 1982 [facility] 1 [place] [address] PCP - General Family Medicine 03/17/23 Otis Bee MD [address] [place] [address] 408675 Orthopedics 05/07/18 Radha Proctor MD [address] [place] [address]121 [place], [place] 116[address] Neurology 11/25/19 Everardo Hensley DO [address] [place] [address] 807735 Neurology 10/17/20 Jez Dougherty MD [address] [place] [address] 122074 Neurology 10/17/20 Stephen Foote MD [address] [address] Assigned PCP 11/01/20 Sarahi Claudio [facility] [address] [place] [address] Pharmacist 03/01/21 Stephen Foote MD [address] [address] Assigned Pain Medication Provider 05/27/22 Otis Patino MD [facility] [address] [place] [address] Assigned Musculoskeletal Provider 01/18/23 Jez Dougherty MD [address] [place] [address] Assigned Neuroscience Provider 05/10/23 documented as of this encounter
--- OUTSIDE RECORDS SUMMARY | 2024-03-01 21:13 | XMS_ITS | Encounter Summary ---
Author Organization [facility] Address [address] [place] [address] Care Team Providers Care Hazardous Materials Waste Technician Name Role Phone Otis Bee MD Unavailable [phone] Radha Proctor MD Unavailable [phone] Everardo Hensley DO Unavailable + Jez Dougherty MD Unavailable [phone] Stephen Foote MD Unavailable [phone] Sarahi Claudio [facility] Unavailable Unavailab Stephen Daiz MD Unavailable [phone] Otis Patino MD Unavailable [phone] Stephen Foote MD Primary Care Provider [phone] Jez Dougherty MD Unavailable [phone] Reason for Visit * Reason Onset Date Comments Pt. Information/instruction 03/01/2024 Encounter Details Date Type Department Care Team (Late st Contact Info) Description 03/01/2024 [facility] 1982 [facility] [address] [place] [address] Stephen Foote MD 1982 [facility] 1 [place], [place] [id number] Pt. Information/instruction Social History Tobacco Use Types Packs/Day Years [...] in an abandoned building, in an overnight longterm, or couch-surfing.) Yes 06/17/2023 Are you worried [...] Sex Assigned at Male 06/13/2021 11:39 PM SEMICONDUCTOR WAFER INSPECTOR Gender Identity Male 06/13/2021 11:39 PM SEMICONDUCTOR WAFER INSPECTOR Sexual Orientation Straight 06/13/2021 11 :39 PM SEMICONDUCTOR WAFER INSPECTOR documented as of this encounter Miscellaneous Notes * Telephone Encounter - Lien Humphreys RN - 03/01/2024 4:33 PM CDT Patient requesting medication refill for mirtazapine (REMERON) 7.5 MG tablet. It was last filled by Dr. Foote last year on 09/2022. Patient said he didn't need it anymore but irene helped with his insomnia. Patient would like to go back on this medication due to his reoccurring insomnia that's been happening recently. RX pended for provider to review and sign if appropriate. JOLEEN Villarreal, RN [facility] * Telephone Encounter - Lien Humphreys RN - 03/01/2024 4:29 PM CDT Called pharmacy to confirm patient has picked up, spoke with Pharmacist Lion, he said they tried running his SUMAtriptan (imitrex) injector through but it was too soon for refill. Patient's last dose that was picked up on 02/24/24 will be this Friday. Called patient to confirm and he states that he had already spoken with insurance they're requesting a PA for early refill. Boilers Inspector will route TE to PA team for request for early refill. JOLEEN Villarreal, RN [facility] * Telephone Encounter - Babak Pete - 03/01/2024 2:59 PM CDT FYI - Status Update Who is Calling: patient Update: Patient is calling back about imotrix shots and would like 15mg matazopem, says he called at 8 am and still hasn't got a response. Does caller want a call/response back: Yes Could we [place] this information to you [place] or would you prefer to receive a phone call?: Patient would prefer a phone call Okay to leave a detailed message?: Yes at Cell number on file: Telephone Information: * Telephone Encounter - Louise Hercules - 03/01/2024 8:59 AM CDT New Medication Request What medication are you requesting?: PA of extra imotrix shots and would like 15mg matazopem (for sleep) Reason for medication request: Last 2 months has been having consistent daily headaches. Have you taken this medication before?: Yes: Has had both Controlled Substance Agreement on file: CSA -- Patient Level: [Media Unavailable] Controlled Substance Agreement - Opioid - Scan on 06/26/2022 6:56 AM [Media Unavailable] Controlled Substance Agreement - Opioid - Scan on 08/21/2021 8:43 AM [Media Unavailable] Controlled Substance Agreement - Opioid - Scan on 06/30/2020 [Media Unavailable] Controlled Substance Agreement - Opioid - Scan on 04/16/2019 Patient offered an appointment? No Preferred Pharmacy: [facility]/pharmacy #[id number] - [place], [place] - [address] [address] [facility] [id number] [address] [facility] [id number] A Could we send this information to you in [place] [facility] or would you prefer to receive a phone call?: Patient would prefer a phone call Okay to leave a detailed message?: Yes at Cell number on file: Telephone Information: documented in this encounter Plan of Treatment Upcoming Encounters Date Type Department Care Team (Late st Contact Info) Description 03/22/2024 1:00 PM SEMICONDUCTOR WAFER INSPECTOR Office Visit [facility] 1982 [facility] 1 [place] [address] Stephen Foote MD 1982 [facility] 1 [place] [address] 05/27/2024 1:30 PM SEMICONDUCTOR WAFER INSPECTOR Office Visit [facility] Multiple Sclerosis [address] [phone] Jez Dougherty MD [address] [place] [address] - [id number] [place], [place] [id number] documented as of this encounter Visit Diagnoses Diagnosis Insomnia, unspecified type- Primary documented in this encounter Additional Health Concerns Assessment Noted Time PHQ-9 Depression Total Score: 3 10/21/19 24 12:07 PM CDT documented as of this encounter Care Teams Hazardous Materials Waste Technician Relationship Specialty Start Date End Date Stephen Foote MD 1982 [facility] 1 [place] [address] PCP - General Family Medicine 03/17/23 Otis Bee MD [address] [place] [address] Orthopedics 05/07/18 Radha Proctor MD [address] [place] [address] 2121 [place] [address] Neurology 11/25/19 Everardo Hensley DO [address] [place] [address] Neurology 10/17/20 Jez Dougherty MD [address] [place], [place] [id number] [address] Neurology 10/17/20 Stephen Foote MD 1982 [facility] 1 [place] [address] Assigned PCP 11/01/20 Sarahi Claudio, [facility] 1982 [facility] 1 [place] [address] Pharmacist 03/01/21 Stephen Foote MD 1982 [facility] 1 [place] [address] Assigned Pain Medication Provider 05/27/22 Otis Patino MD [address] [id number] [place] [address] Assigned Musculoskeletal Provider 01/18/23 Jez Dougherty MD 909 [facility] [id number] [address] Assigned Neuroscience Provider 05/10/23 documented as of this encounter
--- OUTSIDE RECORDS SUMMARY | 2024-03-01 21:13 | XMS_ITS | Encounter Summary ---
Author Organization [facility] Address [address] [place] [address] Care Team Providers Care Work Over Rig Operator Name Role Phone Otis Bee MD Unavailable [phone] Radha Proctor MD Unavailable [phone] Everardo Hensley DO Unavailable + Jez Dougherty MD Unavailable [phone] Stephen Foote MD Unavailable [phone] Sarahi Claudio [facility] Unavailable Unavailab Stephen Diaz MD Unavailable [phone] Otis Patino MD Unavailable [phone] Stephen Foote MD Primary Care Provider [phone] Jez Dougherty MD Unavailable [phone] Reason for Visit * Reason Onset Date Comments Refill Request 12/17/2023 Encounter Details Date Type Department Care Team (Late st Contact Info) Description 12/17/2023 [facility] 1982 [facility] [address] [place] [address] Stephen Foote MD 1982 [facility] [place], [place] [phone] Refill Request Social History Tobacco Use Types [...] in an abandoned building, in an overnight fpc, or couch-surfing.) Yes 06/17/2023 Are you worried [...] Sex Assigned at Male 06/13/2021 11:39 PM STORE STOCK HELP Gender Identity Male 06/13/2021 11:39 PM STORE STOCK HELP Sexual Orientation Straight 06/13/2021 11 :39 PM STORE STOCK HELP documented as of this encounter Miscellaneous Notes * Telephone Encounter - Phoebe Wyatt MD - 12/18/2023 3:28 PM CDT PDMP reviewed, oxy/acetaminophen last filled on 11/19/23 for 8 day supply. Due for refill, prescription sent. * Telephone Encounter - Lolly Beckham Cole - 12/18/2023 11:38 AM CDT Pt calling, he only has one pill left. Pt asking if PCP can please refill CELSA. documented in this encounter Plan of Treatment Upcoming Encounters Date Type Department Care Team (Late st Contact Info) Description 03/22/2024 1:00 PM STORE STOCK HELP Office Visit [facility] 1982 [facility] 1 [place] [phone] Stephen Foote MD [address] [address] 05/27/2024 1:30 PM STORE STOCK HELP Office Visit [facility] Multiple Sclerosis [address] [phone] Jez Dougherty MD [address] [place], [place] [address], [place] [address] documented as of this encounter Visit Diagnoses Diagnosis Episodic cluster headache, not intractable Episodic cluster headache documented in this encounter Additional Health Concerns Assessment Noted Time PHQ-9 Depression Total Score: 3 10/21/19 24 12:07 PM CDT documented as of this encounter Care Teams Work Over Rig Operator Relationship Specialty Start Date End Date Stephen Foote MD [address] [place] [address] 1 [place], [place] [phone] PCP - General Family Medicine 03/17/23 Otis Bee MD [address] [place] [address] Orthopedics 05/07/18 Radha Proctor MD [address] [place] [place] [address] 2121 [place], [place] [address] Neurology 11/25/19 Everardo Hensley DO [address] [place] [address] Neurology 10/17/20 Jez Dougherty MD [address] [place] [address]34[address] Neurology 10/17/20 Stephen Foote MD 1982 [facility] 1 [place] [address] Assigned PCP 11/01/20 Sarahi Claudio [facility] 1982 [facility] 1 [place] [address] Pharmacist 03/01/21 Stephen Foote MD [address] [address] Assigned Pain Medication Provider 05/27/22 Otis Patino MD [address] [place] [address] [place] [address] Assigned Musculoskeletal Provider 01/18/23 Jez Dougherty MD [address] [place], [place] [address], [place] [address] Assigned Neuroscience Provider 05/10/23 documented as of this encounter
--- OUTSIDE RECORDS SUMMARY | 2024-03-01 21:13 | XMS_ITS | Encounter Summary ---
Author Organization [facility] Address [address] [place] [address] Care Team Providers Care Robotics Technologist Name Role Phone Otis Bee MD Unavailable [phone] Radha Proctor MD Unavailable [phone] Everardo Hensley DO Unavailable + Jez Dougherty MD Unavailable [phone] Stephen Foote MD Unavailable [phone] Sarahi Claudio [facility] Unavailable Unavailab Stephen Diaz MD Unavailable [phone] Otis Patino MD Unavailable [phone] Stephen Foote MD Primary Care Provider [phone] Jez Dougherty MD Unavailable [phone] Reason for Referral * Medication Prior Authorization - Authorized Specialty Diagnoses / Procedures Referred By Geoffrey t Referred To Contact Diagnoses Episodic cluster headache, not intractable Encounter for medication refill Stephen Foote MD [address] [address] Referral ID Status Reason Start Date Expiration Date V isits Requested Visits Authorized [id number] Authorized 01/13/2024 02/11/2025 1 1 Reason for Visit * Reason Comments Medication Refill Encounter Details Date Type Department Care Team ([facility] st Contact Info) Description 01/08/2024 Refill [facility] 1982 [facility] [address] [place] [address] Stephen Foote MD 1982 [facility] [address] [place] [address] Medication Refill Social History Tobacco Use Types Packs/Day Years [...] in an abandoned building, in an overnight usp, or couch-surfing.) Yes 06/17/2023 Are you worried [...] Sex Assigned at Male 06/13/2021 11:39 PM TABLE MAKER Gender Identity Male 06/13/2021 11:39 PM TABLE MAKER Sexual Orientation Straight 06/13/2021 11 :39 PM TABLE MAKER documented as of this encounter Plan of Treatment Upcoming Encounters Date Type Department Care Team (Late st Contact Info) Description 03/22/2024 1:00 PM TABLE MAKER Office Visit [facility] 1982 [facility] [address] [place] [address] Stephen Foote MD 1982 [facility] 1 [place] [address] 05/27/2024 1:30 PM TABLE MAKER Office [facility] Multiple Sclerosis [address] [phone] Jez Dougherty MD [address] [place] [id number] [address] documented as of this encounter Visit Diagnoses Diagnosis Episodic cluster headache, not intractable Episodic cluster headache Encounter for medication refill Issue of repeat prescriptions documented in this encounter Additional Health Concerns Assessment Noted Time PHQ-9 Depression Total Score: 3 10/21/19 24 12:07 PM CDT documented as of this encounter Care Teams Robotics Technologist Relationship Specialty Start Date End Date Stephen Foote MD 1982 [facility] 1 [place] [address] PCP - General Family Medicine 03/17/23 Otis Bee MD [address] [place] [address] Orthopedics 05/07/18 Radha Proctor MD [address] [place] [address] 2121 [place], [place] [address] Neurology 11/25/19 Everardo Hensley DO [address] [place] [address] Neurology 10/17/20 Jez Dougherty MD [address] [place] [address] Neurology 10/17/20 Stephen Foote MD 1982 [facility] 1 [place] [address] Assigned PCP 11/01/20 Sarahi Claudio, [facility] 1982 [facility] 1 [place] [address] Pharmacist 03/01/21 Stephen Foote MD [address] [address] Assigned Pain Medication Provider 05/27/22 Otis Patino MD [address] [place], [place] [id number] [place] [address] Assigned Musculoskeletal Provider 01/18/23 Jez Dougherty MD [address] [place] [address] Assigned Neuroscience Provider 05/10/23 documented as of this encounter
--- OUTSIDE RECORDS SUMMARY | 2024-03-01 21:13 | XMS_ITS | Encounter Summary ---
Author Organization [facility] Address [facility] [address] Care Team Providers Care In Room Dining Server Name Role Phone Otis Bee MD Unavailable [phone] Radha Proctor MD Unavailable [phone] Everardo Hensley DO Unavailable + Jez Dougherty MD Unavailable [phone] Stephen Foote MD Unavailable [phone] Sarahi Claudio [facility] Unavailable Unavailab Stephen Diaz MD Unavailable [phone] Otis Patino MD Unavailable [phone] Stephen Foote MD Primary Care Provider [phone] Jez Dougherty MD Unavailable [phone] Encounter Details Date Type Department Care Team (Latest Contact Info) Description 01/06/2024 Medical Correspondence [facility] [address] [place] [address] Scan, Non-Provider [facility] Social History Tobacco Use Types Packs/Day Years [...] in an abandoned building, in an overnight intermediate, or couch-surfing.) Yes 06/17/2023 Are you worried [...] Sex Assigned at Male 06/13/2021 11:39 PM SERVICE CENTER MANAGER Gender Identity Male 06/13/2021 11:39 PM SERVICE CENTER MANAGER Sexual Orientation Straight 06/13/2021 11 :39 PM SERVICE CENTER MANAGER documented as of this encounter Plan of Treatment Upcoming Encounters Date Type Department Care Team (Late st Contact Info) Description 03/22/2024 1:00 PM SERVICE CENTER MANAGER Office Visit [facility] 1982 [facility] 1 [place] [address] Stephen Foote MD 1982 [facility] 1 [place] [address] 05/27/2024 1:30 PM SERVICE CENTER MANAGER Office Visit [facility] Multiple Sclerosis [address] [phone] Jez Dougherty MD [address] [place] [address] documented as of this encounter Visit Diagnoses Not on filedocumented in this encounter Additional Health Concerns Assessment Noted Time PHQ-9 Depression Total Score: 3 10/21/19 24 12:07 PM CDT documented as of this encounter Care Teams In Room Dining Server Relationship Specialty Start Date End Date Stephen Foote MD 1982 [facility] [address] [address] [place] [address] PCP - General Family Medicine 03/17/23 Otis Bee MD [address] [place] [address] Orthopedics 05/07/18 Radha Proctor MD [address] [place] [address] Neurology 11/25/19 Everardo Hensley DO [address] [place] [address] Neurology 10/17/20 Jez Dougherty MD [address] [place] [address] Neurology 10/17/20 Stephen Foote MD [address] [place] [address] 1 [place] [address] Assigned PCP 11/01/20 Sarahi Claudio, [facility] 1982 [facility] 1 [place] [address] Pharmacist 03/01/21 Stephen Foote MD [address] [address] Assigned Pain Medication Provider 05/27/22 Otis Patino MD [address] [place], [place] [address] [place] [address] Assigned Musculoskeletal Provider 01/18/23 Jez Dougherty MD 909 [facility] [id number] [place] [address] Assigned Neuroscience Provider 05/10/23 documented as of this encounter
--- OUTSIDE RECORDS SUMMARY | 2024-03-01 21:13 | XMS_ITS | Encounter Summary ---
Author Organization [facility] Address [address] [place] [address] Care Team Providers Care Cycle Manager Name Role Phone Otis Bee MD Unavailable [phone] Radha Proctor MD Unavailable [phone] Everardo Hensley DO Unavailable + Jez Dougherty MD Unavailable [phone] Stephen Foote MD Unavailable [phone] Sarahi Claudio [facility] Unavailable Unavailab Stephen Diaz MD Unavailable [phone] Otis Patino MD Unavailable [phone] Stephen Foote MD Primary Care Provider [phone] Jez Dougherty MD Unavailable [phone] Reason for Visit * Reason Comments Headache Encounter Details Date Type Department Care Team (Late st Contact Info) Description 03/01/2024 1:15 PM CDT - 03/01/2024 4:50 PM CDT [facility] [address] [place] [address] Sonya Perez MD [facility] [address] [place] [address] Intractable chronic cluster headache Discharge Disposition: Left Against Medical Advice Social History Tobacco Use Types Packs/Day Years [...] Sex Assigned at Male 06/13/2021 11:39 PM MARRIAGE AND FAMILY THERAPIST Gender Identity Male 06/13/2021 11:39 PM MARRIAGE AND FAMILY THERAPIST Sexual Orientation Straight 06/13/2021 11 :39 PM MARRIAGE AND FAMILY THERAPIST documented as of this encounter Last Filed Vital Signs Vital Sign Reading [...] Mass Index 40.03 03/01/2024 1:10 PM CDT documented in this encounter Discharge Instructions * Discharge Instructions* Sonya Perez MD - 03/01/2024 2:34 PM CDT Please take depakote 1000mg before bed for the next 7 days. Please contact your Neurologist for further instructions and appointments. Please return to the Emergency Department if you have facial droop, slurred speech, or numbness or weakness on one side of your body. * Attachments The following attachments cannot be sent through Care Everywhere. * Cluster Headache (Wolof) documented in this encounter Medications at Time of Discharge Medication Sig Dispensed Refills Start Date End Date divalproex sodium extended-release (DEPAKOTE ER) 500 MG 24 hr tablet Take 2 tablets (1,000 mg) by mouth at bedtime for 7 days. 14 tablet 03/01/2024 03/08/2024 cholecalciferol (VITAMIN D3) 1250 mcg (24036 units) capsuleIndications:Vi tamin D deficiency TAKE 1 CAPSULE BY MOUTH ONE TIME PER WEEK. (NOT COVERED) 4 capsule 11 09/02/2023 DULoxetine (CYMBALTA) 60 MG capsuleIndications:Ne uropathic pain TAKE 1 CAPSULE BY MOUTH EVERY DAY 30 capsule 11 02/25/2024 fluticasone (FLONASE) 50 MCG/ACT nasal sprayIndications:Dysf unction of right eustachian tube,Encounter for medication refill [place] 1 spray into both nostrils 2 times daily 48 mL 1 09/24/2023 galcanezumab-gnlm (EMGALITY, 300 MG DOSE,) 100 MG/ML injectionIndications: Episodic cluster headache, not intractable Inject 3 mLs (300 mg) Subcutaneous every 28 days 3 mL 11 11/12/2023 GLATOPA 40 MG/ML injectionIndications: Multiple sclerosis (H) INJECT 40 MG UNDER THE SKIN THREE TIMES A WEEK 12 mL 11 02/28/2023 mirtazapine (REMERON) 7.5 MG tabletIndications:Ins omnia, unspecified type Take 1 tablet (7.5 mg) by mouth at bedtime. 30 tablet 3 03/01/2024 Nerve Stimulator (GAMMACORE) DEVIIndications:Episo dic cluster headache, not intractable 1 Device as needed (cluster headache) 11/14/2023 order for DMEIndications:Episod ic cluster headache, not intractable Equipment being ordered: Oxygen, high flow 10-15 L/min with non-rebreather mask 1 Device 11 08/11/2018 oxyCODONE-acetaminoph en (PERCOCET) 5-325 MG tabletIndications:Epi sodic cluster headache, not intractable Take 1 tablet by mouth every 6 hours as needed (for exacerbation of chronic cluster headache syndrome). 30 tablet 02/15/2024 predniSONE (DELTASONE) 20 MG tabletIndications:Epi sodic cluster headache, not intractable Take 3 tabs by mouth daily x 3 days, then 2 tabs daily x 3 days, then 1 tab daily x 3 days, then 1/2 tab daily x 3 days. 20 tablet 02/27/2024 sildenafil (REVATIO) 20 MG tabletIndications:Ere ctile dysfunction, unspecified erectile dysfunction type Take 1-5 tablets (20-100 mg) by mouth daily as needed 40 tablet 6 06/17/2023 SUMAtriptan (IMITREX STATDOSE) 6 MG/0.5ML pen injector kitIndications:Episod ic cluster headache, not intractable,Encounter for medication refill INJECT 0.5 MLS (6 MG) SUBCUTANEOUS 2 TIMES DAILY NEEDED (CLUSTER HEADACHE) MAX 12 MG/24 HOURS. 15 kit 4 01/08/2024 verapamil ER (CALAN-SR) 240 MG CR tabletIndications:Epi sodic cluster headache, not intractable TAKE 1 TABLET (240 MG) BY MOUTH 2 TIMES DAILY 180 tablet 3 06/05/2023 documented as of this encounter ED Notes * Sonya Perez MD - 03/01/2024 1:49 PM CDT Emergency Department Note History of Present Illness Chief Complaint Headache HPI Ibrahima Pinedo is a 48 year old male with a history of cluster headaches, MS, and hypertension who presents to the ED for evaluation of a headache. The patient states he has a history of cluster headaches and started to develop right-sided headache this morning at 0730. He administered an Imitrex injection at the time with relief but the pain returned about 1 hour ago. He also attempted to treat the pain with supplemental oxygen, prednisone, and verapamil with no relief. This was his last Imitrex injection avaiable and is here for a second dose. Denies fever, cough, congestion, nausea, or vomiting. Independent Historian None Review of External Notes Reviewed patient's telephone note from 02/27/2024 for cluster headaches with neurology. Was advisedto increase verapamil, and if that does not help may need to add lithium. Considering SPG block. Past Medical History Medical History and Problem List Obesity MS Anemia Anxiety Avascular necrosis or hip (L) Chronic left-sided low back pain with left-sided sciatica Chronic pain syndrome Chronic rhinitis Cluster headaches Depression Diverticulitis Depression Diverticulosis GERD HTN Insomnia Lumbosacral radiculopathy Nicotine dependence Lumbar spinal stenosis Urge incontinence Medications Imitrex Doxepin Hydroxyzine Loxapine Remeron Lybalvi Paxil Seroquel Rozerem Trazodone Cymbalta Fluticasone Gadavist Emgality Glatopa Percocet Prednisone Sildenafil Verapamil Physical Exam Patient Vitals for the past 24 hrs: BP Temp Temp src Pulse Resp SpO2 Height Weight 03/01/24 1310 125/75 97.2 ??F (36.2 ??C) Temporal 67 18 99 % 1.676 m (5' 6) 112.5 kg (248 lb 0.3 oz) Physical Exam Gen: No distress. Nontoxic. Head: Atraumatic. No hematomas, lesions, abrasions Neck: No midline tenderness of the spine. Mouth: No oral lesions, or abrasions. Mucous membranes are moist. Resp: Equal breath sounds, normal respiratory effort Cardio: Regular rate and rhythm, no murmurs Abdomen: Soft, nontender, nondistended MSK; no extremity swelling, bruising, or abrasions. Neuro: Cranial nerves II through XII intact. 5 out of 5 muscle strength in the upper and lower extremities. Sensation intact in the upper and lower extremities. Vnimum-zb-xmsl negative. Mcgj-mt-wood negative. No truncal ataxia. Psych: Appropriate affect. Diagnostics Lab Results Labs Ordered and Resulted from Time of ED Arrival to Time of ED Departure - No data to display Imaging No orders to display Independent Interpretation None ED Course Medications Administered Medications SUMAtriptan (IMITREX) injection 6 mg (6 mg Subcutaneous $Given 03/01/24 1413) Procedures Procedures Discussion of Management Neurology, Dr. Proctor ED Course ED Course as of 03/01/24 1534 FriMar 01, 2024 1349 I obtained history and performed a physical exam as noted above. 1434 I rechecked and updated the patient. 1452 I rechecked and updated the patient. [address] Proctor of Neurology regarding the patient's presentation and plan of care. Additional Documentation None Medical Decision Making / Diagnosis [facility] Diagnoses: None MIPS None MDM Danielkelsi Cyn Pinedo is a 48 year old male with a history of cluster headaches presents to the emergency department with a complaint of a right sided headache. Patient reports that this feels similar to hisprevious cluster headaches. He has had it for several days. At home he does have supplemental oxygen which he has tried that has not worked. He also takes verapamil, he did take a shot of Imitrex this morning, as well as took prednisone. He states that none of these medications have helped him. He states that he is out of his Imitrex shots and when this happens he normally takes at least 2 in 24 hours. On exam, patient is calm and cooperative. He is not in any acute distress. There is no tenderness to his face or taoist. No trismus. No focal findings on neurologic exam. Vital signs are all within acceptable limits. He is not having any vision changes. Patient is given a dose of Imitrex. I have low suspicion for meningitis, intracranial abnormality, no rash, and I have low suspicion for shingles. On reevaluation, his headache has slightly improved. I did speak with his neurologist, she would recommend Depakote 1000 mg before bedtime for the next 7 days, and her office will contact him for further evaluation and treatment. I went to go give the patient his discharge instructions and neurology recommendations, and the patient had left the emergency department without me talking to him. I did send his prescription. In his neurology clinic said that they will be calling him to schedule an appointment. Disposition The patient eloped. Diagnosis ICD-10-CM 1. Intractable chronic cluster headache G44.021 Discharge Medications New Prescriptions No medications on file Scribe Disclosure: I, Amisha Causey, am serving as a scribe at 1:49 PM on 03/01/2024 to document services personally performed by Sonya Perez MD based on my observations and the provider's statements to me. Sonya Perez MD 03/01/24 185 * Kassie Cooley RN - 03/01/2024 1:09 PM CDT Pt arrives ambulatory by self for cluster headache. Reports taking verapamil and 40mg prednisone without relief. Denies nausea, vomiting, sensitivity to light. documented in this encounter Plan of Treatment Upcoming Encounters Date Type Department Care Team (Late st Contact Info) Description 03/22/2024 1:00 PM MARRIAGE AND FAMILY THERAPIST Office Visit [facility] [address] [facility] 1 [place] [address] Stephen Foote MD [address] [address] 05/27/2024 1:30 PM MARRIAGE AND FAMILY THERAPIST Office Visit [facility] Multiple Sclerosis [address] [phone] Jez Dougherty MD [address] [place] [address] - [id number] [place] [address] documented as of this encounter Visit Diagnoses Diagnosis Intractable chronic cluster headache Chronic cluster headache documented in this encounter Administered Medications Inactive Administered Medications - up to 3 most recent administrations Medication Order MAR Action Action Date Dose Rate Site SUMAtriptan (IMITREX) injection 6 mg 6 mg, Subcutaneous, ONCE, On Fri03/01/24 at 1355, For 1 dose, Do not exceed 2 doses in 24 hours. $Given 03/01/2024 2:13 PM CDT 6 mg documented in this encounter Active and Recently Administered Medications Times are shown in CDT. Scheduled Medication Order 02/28/2024 02/29/2024 03/01/2024 SUMAtriptan (IMITREX) injection 6 mg (COMPLETED) 6 mg, Subcutaneous, ONCE, On Fri03/01/24 at 1355, For 1 dose, Do not exceed 2 doses in 24 hours. 1413 ($Given - Provi tommy: Opal Sandoval RN) documented in this encounter Additional Health Concerns Assessment Noted Time PHQ-9 Depression Total Score: 3 10/21/19 24 12:07 PM CDT documented as of this encounter Care Teams Cycle Manager Relationship Specialty Start Date End Date Stephen Foote MD [address] [place] [address] PCP - General Family Medicine 03/17/23 Otis Bee MD [address] [place] [address] Orthopedics 05/07/18 Radha Proctor MD [address] [place] [address] Neurology 11/25/19 Everardo Hensley DO [address] [place] [address] Neurology 10/17/20 Jez Dougherty MD [address] [place] [address] [place] [address] Neurology 10/17/20 Stephen Foote MD 1982 [facility] 1 [place] [address] Assigned PCP 11/01/20 Sarahi Claudio, [facility] [address] [address] Pharmacist 03/01/21 Stephen Foote MD [address] [address] Assigned Pain Medication Provider 05/27/22 Otis Patino MD [address] [facility] [address] [place] [address] Assigned Musculoskeletal Provider 01/18/23 Jez Dougherty MD [address] [facility] - [id number] [place] [address] Assigned Neuroscience Provider 05/10/23 documented as of this encounter
--- OUTSIDE RECORDS SUMMARY | 2024-03-01 21:13 | XMS_ITS | Encounter Summary ---
Author Organization [facility] Address [address] [place] [address] Care Team Providers Care Cooking Teacher Name Role Phone Otis Bee MD Unavailable [phone] Radha Proctor MD Unavailable [phone] Everardo Hensley DO Unavailable + Jez Dougherty MD Unavailable [phone] Stephen Foote MD Unavailable [phone] Sarahi Claudio [facility] Unavailable Unavailab Stephen Diaz MD Unavailable [phone] Otis Patino MD Unavailable [phone] Stephen Foote MD Primary Care Provider [phone] Jez Dougherty MD Unavailable [phone] Reason for Visit * Reason Onset Date Comments Patient Request for Note/Letter 02/19/2024 Pt requesting a letter be faxed to cover a device for his cluster headaches Encounter Details Date Type Department Care Team (Late st Contact Info) Description 02/19/2024 Telephone [facility] [address] [place] [address] Radha Proctor MD [address] [place] [address] [address] [place] [address] Patient Request for Note/Letter (Pt requesting a letter be faxed to cover a device for his cluster headaches) Social History Tobacco Use Types Packs/Day Years [...] Sex Assigned at Male 06/13/2021 11:39 PM PARTS BACK COUNTER MAN Gender Identity Male 06/13/2021 11:39 PM PARTS BACK COUNTER MAN Sexual Orientation Straight 06/13/2021 11 :39 PM PARTS BACK COUNTER MAN documented as of this encounter Miscellaneous Notes * Telephone Encounter - Harper Ram CMA - 02/20/2024 11:37 AM CDT Provider reviewed letter and approved, faxed letter to number provided by patient. Attempted to contact patient to inform that letter has been faxed to number/person provided. Fax form to: [phone] attn: Dafne Mackay detailed message. [facility] * Telephone Encounter - Harper Ram CMA - 02/20/2024 7:10 AM CDT Per provider message below: Please provide a basic letter stating that I am his treating physician and recommend Gammacore device for cluster headcache. He can also show them his last two notes, if needed. Radha Proctor MD Action(s): Typed up letter for provider review. Pended for review. [facility] * Telephone Encounter - Leticia Villegas - 02/19/2024 12:25 PM CDT [facility] Call Center Phone Message May a detailed message be left on voicemail: yes Reason for Call: Form or Letter Type or form/letter needing completion: Letter stating a gamma core device was prescribed to him byprovider Provider: Dr. Proctor Date form needed: Unknown Once completed: Fax form to: [phone] attn: Dafne Pt calls in stating he found someone other than his insurance to cover the gamma core device discussed at his last appt with Dr. Proctor. Fax number provided above. Pt can be reached at [phone] with any questions or concerns. Action Taken: Message routed to: Other: [facility] Neurology Travel Screening: Not Applicable documented in this encounter Plan of Treatment Upcoming Encounters Date Type Department Care Team (Late st Contact Info) Description 03/22/2024 1:00 PM PARTS BACK COUNTER MAN Office Visit [facility] [address] [facility] [address] [place] [address] Stephen Foote MD [address] [facility] 1 [place] [address] 05/27/2024 1:30 PM PARTS BACK COUNTER MAN Office Visit [facility] Multiple Sclerosis [address] [phone] Jez Dougherty MD [address] [place], [place] [address], [place] [address] documented as of this encounter Visit Diagnoses Not on filedocumented in this encounter Additional Health Concerns Assessment Noted Time PHQ-9 Depression Total Score: 3 10/21/19 24 12:07 PM CDT documented as of this encounter Care Teams Cooking Teacher Relationship Specialty Start Date End Date Stephen Foote MD [address] [facility] 1 [place] [address] PCP - General Family Medicine 03/17/23 Otis Bee MD [address] [place] [address] Orthopedics 05/07/18 Radha Proctor MD [address] [place] [address] [place] [address] Neurology 11/25/19 Everardo Hensley DO [address] [place] [address] Neurology 10/17/20 Jez Dougherty MD [address] [place], [place] [address], [place] [address] Neurology 10/17/20 Stephen Foote MD [address] [address] Assigned PCP 11/01/20 Sarahi Claudio, [facility] [address] [address] Pharmacist 03/01/21 Stephen Foote MD [address] [address] Assigned Pain Medication Provider 05/27/22 Otis Patino MD [address] [facility] [address] [place] [address] Assigned Musculoskeletal Provider 01/18/23 Jez Dougherty MD [address] [facility] [id number], [place] [address] Assigned Neuroscience Provider 05/10/23 documented as of this encounter
--- OUTSIDE RECORDS SUMMARY | 2024-03-01 21:13 | XMS_ITS | Encounter Summary ---
Author Organization [facility] Address [address] [place] [address] Care Team Providers Care Casting Machine Operator Name Role Phone Otis Bee MD Unavailable [phone] Radha Proctor MD Unavailable [phone] Everardo Hensley DO Unavailable + Jez Dougherty MD Unavailable [phone] Stephen Foote MD Unavailable [phone] Sarahi Claudio [facility] Unavailable Unavailab Stephen Diaz MD Unavailable [phone] Otis Patino MD Unavailable [phone] Stephen Foote MD Primary Care Provider [phone] Jez Dougherty MD Unavailable [phone] Reason for Visit * Reason Comments Advance Care Planning Encounter Details Date Type Department Care Team (Latest Contact Info) Description 03/01/2024 Documentation Only [facility] [address] [place] [address] Amisha Galeas LGSW Advance Care Planning Social History Tobacco Use Types Packs/Day Years Used Date Smoking Tobacco: Every Day Cigarettes Smokeless Tobacco: Never Alcohol Use Standard Drinks/Week Comments No 0 (1 standard drink = 0.6 oz pur e alcohol) PHQ-2 Answer Date Recorded PHQ-2 Score 0 11/14/2023 Adolescent Education Answer Date Record ed Getting School Help Needed Not on file 09/22 /2023 Food Insecurity Answer Date Recorded Within the [...] in an abandoned building, in an overnight residential, or couch-surfing.) Yes 06/17/2023 Are you worried [...] Sex Assigned at Male 06/13/2021 11:39 PM SACK KEEPER Gender Identity Male 06/13/2021 11:39 PM SACK KEEPER Sexual Orientation Straight 06/13/2021 11 :39 PM SACK KEEPER documented as of this encounter Plan of Treatment Upcoming Encounters Date Type Department Care Team (Late st Contact Info) Description 03/22/2024 1:00 PM SACK KEEPER Office Visit [facility] [address] [facility] 1 [place] [address] Stephen Foote MD [address] [facility] 1 [place] [address] 05/27/2024 1:30 PM SACK KEEPER Office Visit [facility] Multiple Sclerosis Clinic [address] [phone] Jez Dougherty MD [address] [place] [address] documented as of this encounter Visit Diagnoses Not on filedocumented in this encounter Additional Health Concerns Assessment Noted Time PHQ-9 Depression Total Score: 3 10/21/19 24 12:07 PM CDT documented as of this encounter Care Teams Casting Machine Operator Relationship Specialty Start Date End Date Stephen Foote MD [address] [address] PCP - General Family Medicine 03/17/23 Otis Bee MD [address] [place] [address] Orthopedics 05/07/18 Radha Proctor MD [address] [place] [address] Neurology 11/25/19 Everardo Hensley DO [address] [place] [address] Neurology 10/17/20 Jez Dougherty MD [address] [place] [address] Neurology 10/17/20 Stephen Foote MD [address] [address] Assigned PCP 11/01/20 Sarahi Claudio, [facility] [address] [facility] 1 [place] [address] Pharmacist 03/01/21 Stephen Foote MD [address] [address] Assigned Pain Medication Provider 05/27/22 Otis Patino MD [address] [facility] [address] [place] [address] Assigned Musculoskeletal Provider 01/18/23 Jez Dougherty MD 909 [facility] [id number] [place] [address] Assigned Neuroscience Provider 05/10/23 documented as of this encounter
--- OUTSIDE RECORDS SUMMARY | 2024-03-01 21:13 | XMS_ITS | Encounter Summary ---
Author Organization [place] Address [address] [place] [address] Care Team Providers Care Jig Builder Helper Name Role Phone Otis Bee MD Unavailable [phone] Radha Proctor MD Unavailable [phone] Everardo Hensley DO Unavailable + Jez Dougherty MD Unavailable +[phone] Stephen Foote MD Unavailable [phone] aSrahi Claudio [facility] Unavailable Unavailab Stephen Diaz MD Unavailable [phone] Otis Patino MD Unavailable [phone] Stephen Foote MD Primary Care Provider [phone] Jez Dougherty MD Unavailable [phone] Encounter Details Date Type Department Care Team (Late st Contact Info) Description 01/16/2024 [facility] 1982 [facility] [address] [place] [address] Stephen Foote MD [address] [place] [address] 1 [place] [address] Social History Tobacco Use Types [...] Sex Assigned at Male 06/13/2021 11:39 PM SPINNING MULE OPERATOR Gender Identity Male 06/13/2021 11:39 PM SPINNING MULE OPERATOR Sexual Orientation Straight 06/13/2021 11 :39 PM SPINNING MULE OPERATOR documented as of this encounter Miscellaneous Notes * Telephone Encounter - Sonya Callahan - 01/16/2024 10:23 AM CDT Medication Question or Refill Contacts Contact Date/Time Type Contact Phone/Fax 01/16/2024 10:23 AM CDT Phone (Incoming) Ibrahima Pinedo (Self) [phone] (M) What medication are you calling about (include dose and sig)?: oxyCODONE- acetaminophen (PERCOCET) 5-325 MG table Preferred Pharmacy: [facility]/pharmacy #[id number] - [place], [place] - [address] [place] [address] [address] [address] [facility] [address] Controlled Substance Agreement on file: CSA -- Patient Level: [Media Unavailable] Controlled Substance Agreement - Opioid - Scan on 06/26/2022 6:56 AM [Media Unavailable] Controlled Substance Agreement - Opioid - Scan on 08/21/2021 8:43 AM [Media Unavailable] Controlled Substance Agreement - Opioid - Scan on 06/30/2020 [Media Unavailable] Controlled Substance Agreement - Opioid - Scan on 04/16/2019 Who prescribed the medication?: pcp Do you need a refill? Yes When did you use the medication last? Today, Patient has 1 day Patient offered an appointment? No Do you have any questions or concerns? No Could we send this information to you in [facility] or would you prefer to receive a phone call?: Patient would prefer a phone call Okay to leave a detailed message?: Yes at Home number on file [phone] (home) documented in this encounter Plan of Treatment Upcoming Encounters Date Type Department Care Team (Late st Contact Info) Description 03/22/2024 1:00 PM SPINNING MULE OPERATOR Office Visit [facility] 1982 [facility] 1 [place] [address] Stephen Foote MD 1982 [facility] 1 [place] [address] 05/27/2024 1:30 PM SPINNING MULE OPERATOR Office Visit [facility] Multiple Sclerosis [address] [phone] Jez Dougherty MD [address] [place] [address] - [id number] [address] documented as of this encounter Visit Diagnoses Diagnosis Episodic cluster headache, not intractable Episodic cluster headache documented in this encounter Additional Health Concerns Assessment Noted Time PHQ-9 Depression Total Score: 3 10/21/19 24 12:07 PM CDT documented as of this encounter Care Teams Jig Builder Helper Relationship Specialty Start Date End Date Stephen Foote MD 1982 [facility] 1 [place] [address] PCP - General Family Medicine 03/17/23 Otis Bee MD [address] [place] [address] Orthopedics 05/07/18 Radha Proctor MD [address] [place] [address] 2121 [place] [address] Neurology 11/25/19 Everardo Hensley DO [address] [place] [address] Neurology 10/17/20 Jez Dougherty MD [address] [place], [place] [address] [address] Neurology 10/17/20 Stephen Foote MD 1982 [facility] 1 [place] [address] Assigned PCP 11/01/20 Sarahi Claudio [facility] 1982 [facility] 1 [place] [address] Pharmacist 03/01/21 Stephen Foote MD 1982 [facility] 1 [place] [address] Assigned Pain Medication Provider 05/27/22 Otis Patino MD [id number] [place] [address] Assigned Musculoskeletal Provider 01/18/23 Jez Dougherty MD 909 [facility], [place] [address] Assigned Neuroscience Provider 05/10/23 documented as of this encounter
--- OUTSIDE RECORDS SUMMARY | 2024-03-01 21:13 | XMS_ITS | Encounter Summary ---
Author Organization [place] Address [address] [place] [address] Care Team Providers Care Filling And Packing Supervisor Name Role Phone Otis Bee MD Unavailable [phone] Radha Proctor MD Unavailable [phone] Everardo Hensley DO Unavailable + Jez Dougherty MD Unavailable [phone] Stephen Foote MD Unavailable [phone] Sarahi Claudio [facility] Unavailable Unavailab Stephen Diaz MD Unavailable [phone] Otis Patino MD Unavailable [phone] Stephen Foote MD Primary Care Provider [phone] Jez Dougherty MD Unavailable [phone] Reason for Visit * Reason Comments Medication Refill Duloxetine Encounter Details Date Type Department Care Team (Late st Contact Info) Description 02/24/2024 Refill [facility] [address] [address] Jez Dougherty MD [address] [place] [address] - [id number] [address] Medication Refill (Duloxetine) Social History Tobacco Use Types Packs/Day Years [...] Sex Assigned at Male 06/13/2021 11:39 PM JOINT CLEANING MACHINE OPERATOR Gender Identity Male 06/13/2021 11:39 PM JOINT CLEANING MACHINE OPERATOR Sexual Orientation Straight 06/13/2021 11 :39 PM JOINT CLEANING MACHINE OPERATOR documented as of this encounter Miscellaneous Notes * Telephone Encounter - Hailey Mike RN - 02/25/2024 7:38 AM CDT Received refill request for duloxetine from [facility]; Patient was last seen in November and 2023 has follow up appointment in May [address] Dougherty. Refilled per [facility] refill protocol. Hailey Mike RN documented in this encounter Plan of Treatment Upcoming Encounters Date Type Department Care Team (Late st Contact Info) Description 03/22/2024 1:00 PM JOINT CLEANING MACHINE OPERATOR Office Visit [facility] 1982 [facility] 1 [place] [phone] Stephen Foote MD 1982 [facility] 1 [place] [address] 05/27/2024 1:30 PM JOINT CLEANING MACHINE OPERATOR Office Visit [facility] Multiple Sclerosis [address] [phone] Jez Dougherty MD [address] [place] [address] [address] documented as of this encounter Visit Diagnoses Diagnosis Neuropathic pain Neuralgia, neuritis, and radiculitis, unspecified documented in this encounter Additional Health Concerns Assessment Noted Time PHQ-9 Depression Total Score: 3 10/21/19 24 12:07 PM CDT documented as of this encounter Care Teams Filling And Packing Supervisor Relationship Specialty Start Date End Date Stephen Foote MD [address] [place] [address] PCP - General Family Medicine 03/17/23 Otis Bee MD [address] [place] [address] Orthopedics 05/07/18 Radha Proctor MD [address] [place] [address] Neurology 11/25/19 Everardo Hensley DO [address] [place] [address] Neurology 10/17/20 Jez Dougherty MD [address] [place] [address] Neurology 10/17/20 Stephen Foote MD 1982 [facility] 1 [place] [address] Assigned PCP 11/01/20 Sarahi Claudio [facility] 1982 [facility] 1 [place] [address] Pharmacist 03/01/21 Stephen Foote MD [address] [address] Assigned Pain Medication Provider 05/27/22 Otis Patino MD [address] [place] [address] [address] [place] [address] Assigned Musculoskeletal Provider 01/18/23 Jez Dougherty MD [address] [place] [address] Assigned Neuroscience Provider 05/10/23 documented as of this encounter
--- OUTSIDE RECORDS SUMMARY | 2024-03-01 21:13 | XMS_ITS | Encounter Summary ---
Author Organization [place] Address [address] [place] [address] Care Team Providers Care Grinding Wheel Dresser Name Role Phone Otis Bee MD Unavailable [phone] Radha Proctor MD Unavailable [phone] Everardo Hensley DO Unavailable + Jez Dougherty MD Unavailable [phone] Stephen Foote MD Unavailable [phone] Sarahi Claudio [facility] Unavailable Unavailab Stephen Diaz MD Unavailable [phone] Otis Patino MD Unavailable [phone] Stephen Foote MD Primary Care Provider [phone] Jez Dougherty MD Unavailable [phone] Reason for Visit * Reason Onset Date Comments Medication Question 02/13/2024 Encounter Details Date Type Department Care Team (Late st Contact Info) Description 02/13/2024 Telephone [facility] 1982 [facility] [address] [place] [address] Stephen Foote MD 1982 [facility] [address] [place], [place] [phone] Medication Question Social History Tobacco Use Types Packs/Day Years [...] in an abandoned building, in an overnight alf, or couch-surfing.) Yes 06/17/2023 Are you worried [...] Sex Assigned at Male 06/13/2021 11:39 PM WEALTH MANAGEMENT ADVISOR Gender Identity Male 06/13/2021 11:39 PM WEALTH MANAGEMENT ADVISOR Sexual Orientation Straight 06/13/2021 11 :39 PM WEALTH MANAGEMENT ADVISOR documented as of this encounter Miscellaneous Notes * Telephone Encounter - Shani Sauer - 02/13/2024 8:08 AM CDT Medication Question or Refill Contacts Contact Date/Time Type Contact Phone/Fax 02/13/2024 08:08 AM CDT Phone (Incoming) Ibrahima Pinedo (Self) [phone] (M) What medication are you calling about (include dose and sig)?: oxyCODONE-acetaminophen (PERCOCET) 5-325 MG tabletSUMAtriptan (IMITREX STATDOSE) 6 MG/0.5ML pen injector kit Preferred Pharmacy: [facility]/pharmacy #[id number] - [place], [place] - [address] [address] [facility] [address] Controlled Substance Agreement on file: CSA -- Patient Level: [Media Unavailable] Controlled Substance Agreement - Opioid - Scan on 06/26/2022 6:56 AM [Media Unavailable] Controlled Substance Agreement - Opioid - Scan on 08/21/2021 8:43 AM [Media Unavailable] Controlled Substance Agreement - Opioid - Scan on 06/30/2020 [Media Unavailable] Controlled Substance Agreement - Opioid - Scan on 04/16/2019 Who prescribed the medication?: PC Do you need a refill? Yes When did you use the medication last? Unknown Patient offered an appointment? No Do you have any questions or concerns? No Could we send this information to you in [facility] or would you prefer to receive a phone call?: Patient would prefer a phone call Okay to leave a detailed message?: Yes at Cell number on file: Telephone Information: documented in this encounter Plan of Treatment Upcoming Encounters Date Type Department Care Team (Late st Contact Info) Description 03/22/2024 1:00 PM WEALTH MANAGEMENT ADVISOR [facility] 1982 [facility] 1 [place] [address] Stephen Foote MD 1982 [facility] 1 [place] [address] 05/27/2024 1:30 PM WEALTH MANAGEMENT ADVISOR Office Visit [facility] Multiple Sclerosis [address] [phone] Jez Dougherty MD [address] [address] documented as of this encounter Visit Diagnoses Diagnosis Episodic cluster headache, not intractable Episodic cluster headache documented in this encounter Additional Health Concerns Assessment Noted Time PHQ-9 Depression Total Score: 3 10/21/19 24 12:07 PM CDT documented as of this encounter Care Teams Grinding Wheel Dresser Relationship Specialty Start Date End Date Stephen Foote MD [address] [id number] PCP - General Family Medicine 03/17/23 Otis Bee MD [address] [place] [address] Orthopedics 05/07/18 Radha Proctor MD [address] [place] [address] Neurology 11/25/19 Everardo Hensley DO [address] [place] [address] Neurology 10/17/20 Jez Dougherty MD [address] [place] [address] Neurology 10/17/20 Stephen Foote MD 1982 [facility] 1 [place], [place] [address] Assigned PCP 11/01/20 Sarahi Claudio, [facility] [address] [place] [address] Pharmacist 03/01/21 Stephen Foote MD 1982 [facility] 1 [place] [address] Assigned Pain Medication Provider 05/27/22 Otis Patino MD [id number] [place] [address] Assigned Musculoskeletal Provider 01/18/23 Jez Dougherty MD 909 [facility]2[place] [address] Assigned Neuroscience Provider 05/10/23 documented as of this encounter
--- OUTSIDE RECORDS SUMMARY | 2024-03-01 21:14 | XMS_ITS | Encounter Summary ---
Author Organization [place] Address [address] [place] [address] Care Team Providers Care Pail Bailer Name Role Phone Otis Bee MD Unavailable [phone] Radha Proctor MD Unavailable [phone] Everardo Hensley DO Unavailable + Jez Dougherty MD Unavailable [phone] Stephen Foote MD Unavailable [phone] Sarahi Claudio [facility] Unavailable Unavailab Stephen Diaz MD Unavailable [phone] Otis Patino MD Unavailable [phone] Stephen Foote MD Primary Care Provider + [phone] Jez Dougherty MD Unavailable + [phone] Encounter Details Date Type Department Care Team (Latest Contact Info) Description 11/24/2023 Travel Social History Tobacco Use Types Packs/Day [...] Answer Date Recorded Do you have housing? (Wliner person is defined as stable permanent housing [...] Sex Assigned at Male 06/13/2021 11:39 PM TELECOMMUNICATION EQUIPMENT REPAIRER Gender Identity Male 06/13/2021 11:39 PM TELECOMMUNICATION EQUIPMENT REPAIRER Sexual Orientation Straight 06/13/2021 11 :39 PM TELECOMMUNICATION EQUIPMENT REPAIRER documented as of this encounter Plan of Treatment Upcoming Encounters Date Type Department Care Team (Late st Contact Info) Description 03/22/2024 1:00 PM TELECOMMUNICATION EQUIPMENT REPAIRER Office Visit [facility] 1982 [facility] 1 [place] [address] Stephen Foote MD 1982 [facility] 1 [place] [address] 05/27/2024 1:30 PM TELECOMMUNICATION EQUIPMENT REPAIRER Office Visit [facility] Multiple Sclerosis [address] [address] Jez Dougherty MD [address] [place] [address] [address] documented as of this encounter Visit Diagnoses Not on filedocumented in this encounter Additional Health Concerns Assessment Noted Time PHQ-9 Depression Total Score: 3 10/21/19 24 12:07 PM CDT documented as of this encounter Care Teams Pail Bailer Relationship Specialty Start Date End Date Stephen Foote MD [address] [address] PCP - General Family Medicine 03/17/23 Otis Bee MD [address] [place] [address] Orthopedics 05/07/18 Radha Proctor MD [address] [place] [address] [place] [address] Neurology 11/25/19 Everardo Hensley DO [address] [place] [address] Neurology 10/17/20 Jez Dougherty MD [address] [place] [address] Neurology 10/17/20 Stephen Foote MD [address] [address] Assigned PCP 11/01/20 Sarahi Claudio, [facility] [address] [address] Pharmacist 03/01/21 Stephen Foote MD [address] [place] [address] [address] [place] [address] Assigned Pain Medication Provider 05/27/22 Otis Patino MD [address] [place] [address] Assigned Musculoskeletal Provider 01/18/23 Jez Dougherty MD [address] [facility] [id number] [place] [address] Assigned Neuroscience Provider 05/10/23 documented as of this encounter
--- OUTSIDE RECORDS SUMMARY | 2024-03-01 21:14 | XMS_ITS | Encounter Summary ---
Author Organization [place] Address [facility]0 [facility] [place] [address] Care Team Providers Care Machine Chain Maker Name Role Phone Otis Bee MD Unavailable [phone] Radha Proctor MD Unavailable [phone] Everardo Hensley DO Unavailable + Jez Dougherty MD Unavailable [phone] Stephen Foote MD Unavailable [phone] Sarahi Claudio [facility] Unavailable Unavailab Stephen Diaz MD Unavailable [phone] Otis Patino MD Unavailable [phone] Stephen Foote MD Primary Care Provider [phone] Jez Dougherty MD Unavailable [phone] Encounter Details Date Type Department Care Team (Late Contact Info) Description 11/26/2023 Medical Correspondence [facility] [address] [place] [address] Scan, Non-Provider Social History Tobacco Use Types [...] in an abandoned building, in an overnight retirement, or couch-surfing.) Yes 06/17/2023 Are you worried [...] Sex Assigned at Male 06/13/2021 11:39 PM VICE PRESIDENT OF PRODUCT MARKETING Gender Identity Male 06/13/2021 11:39 PM VICE PRESIDENT OF PRODUCT MARKETING Sexual Orientation Straight 06/13/2021 11 :39 PM VICE PRESIDENT OF PRODUCT MARKETING documented as of this encounter Plan of Treatment Upcoming Encounters Date Type Department Care Team (Late st Contact Info) Description 03/22/2024 1:00 PM VICE PRESIDENT OF PRODUCT MARKETING [facility] 1982 [facility] [address] [place] [phone] Stephen Foote MD 1982 [facility] 1 [place] [address] 05/27/2024 1:30 PM VICE PRESIDENT OF PRODUCT MARKETING Office Visit [facility] Multiple Sclerosis [address] [phone] Jez Dougherty MD [address] [place] [address] documented as of this encounter Visit Diagnoses Not on filedocumented in this encounter Additional Health Concerns Assessment Noted Time PHQ-9 Depression Total Score: 3 10/21/19 24 12:07 PM CDT documented as of this encounter Care Teams Machine Chain Maker Relationship Specialty Start Date End Date Stephen Foote MD [address] [address] PCP - General Family Medicine 03/17/23 Otis Bee MD [address] [place] [address] Orthopedics 05/07/18 Radha Proctor MD [address] [place] [address] Neurology 11/25/19 Everardo Hensley DO [address] [place] [address] Neurology 10/17/20 Jez Dougherty MD [address] [place] [address] Neurology 10/17/20 Stephen Foote MD [address] [place] [address] 1 [place] [address] Assigned PCP 11/01/20 Sarahi Claudio, [facility] 1982 [facility] 1 [place] [address] Pharmacist 03/01/21 Stephen Foote MD 1982 [facility] 1 [place] [address] Assigned Pain Medication Provider 05/27/22 Otis Patino MD [address] [place] [address] Assigned Musculoskeletal Provider 01/18/23 Jez Dougherty MD 909 [facility] [id number] [place] [address] Assigned Neuroscience Provider 05/10/23 documented as of this encounter
--- OUTSIDE RECORDS SUMMARY | 2024-03-01 21:14 | XMS_ITS | Encounter Summary ---
Author Organization [place] Address [address] [place] [address] Care Team Providers Care Administrative Services Specialist Name Role Phone Otis Bee MD Unavailable [phone] Radha Proctor MD Unavailable [phone] Everardo Hensley DO Unavailable + Jez Dougherty MD Unavailable [phone] Stephen Foote MD Unavailable [phone] Sarahi Claudio [facility] Unavailable Unavailab Stephen Diaz MD Unavailable [phone] Otis Patino MD Unavailable [phone] Stephen Foote MD Primary Care Provider [phone] Jez Dougherty MD Unavailable [phone] Reason for Visit * Reason Onset Date Comments Refill Request 07/28/2023 Encounter Details Date Type Department Care Team (Late st Contact Info) Description 07/28/[address] [facility] 1982 [facility] [address] [place] [address] Stephen Foote MD 1982 [facility] [address] [place], [place] [id number] Refill Request Social History Tobacco Use Types Packs/Day Years Used Date Smoking Tobacco: Every Day Cigarettes Smokeless Tobacco: Never Alcohol Use Standard Drinks/Week Comments No 0 (1 standard drink = 0.6 oz pur e alcohol) PHQ-2 Answer Date Recorded PHQ-2 Score 1 06/17/2023 Adolescent Education Answer Date Record ed Getting [...] in an abandoned building, in an overnight halfway, or couch-surfing.) Yes 06/17/2023 Are you worried [...] motionally safe where you currently live? Yes 03/17/2023 Within the past 12 months, h ave you been hit, slapped, kicked or otherwise physically hurt by someone? No 03/17/2023 Within the past 12 months, h ave you been humiliated or emotionally abused in other ways by your partner or ex-partner? No 03/17/2023 Sex and Gender Information Value Date Recorded Sex Assigned at Male 06/13/2021 11:39 PM REGIONAL PROJECT MANAGER Gender Identity Male 06/13/2021 11:39 PM REGIONAL PROJECT MANAGER Sexual Orientation Straight 06/13/2021 11 :39 PM REGIONAL PROJECT MANAGER documented as of this encounter Plan of Treatment Upcoming Encounters Date Type Department Care Team (Late st Contact Info) Description 03/22/2024 1:00 PM REGIONAL PROJECT MANAGER Office Visit [place] [phone] Stephen Foote MD 1982 [facility] 1 [place] [address] 05/27/2024 1:30 PM REGIONAL PROJECT MANAGER Office Visit [facility] Multiple Sclerosis [facility] [address] [place] [phone] Jez Dougherty MD [address] [place] [address] documented as of this encounter Visit Diagnoses Diagnosis Episodic cluster headache, not intractable Episodic cluster headache Encounter for medication refill Issue of repeat prescriptions documented in this encounter Additional Health Concerns Assessment Noted Time PHQ-9 Depression Total Score: 6 06/17/19 24 11:17 AM REGIONAL PROJECT MANAGER documented as of this encounter Care Teams Administrative Services Specialist Relationship Specialty Start Date End Date Stephen Foote MD 1982 [facility] 1 [place] [address] PCP - General Family Medicine 03/17/23 Otis Bee MD [address] [place] [address] Orthopedics 05/07/18 Radha Proctor MD [address] [place] [address] Neurology 11/25/19 Everardo Hensley DO [address] [place] [address] Neurology 10/17/20 Jez Dougherty MD [address] [place] [address] Neurology 10/17/20 Stephen Foote MD [address] [address] Assigned PCP 11/01/20 Sarahi Claudio, [facility] [address] [address] Pharmacist 03/01/21 Stephen Foote MD [address] [address] Assigned Pain Medication Provider 05/27/22 Otis Patino MD 2450 [facility] [address] [place] [address] Assigned Musculoskeletal Provider 01/18/23 Jez Dougherty MD 909 [facility] [place] [id number] [place] [address] Assigned Neuroscience Provider 05/10/23 documented as of this encounter
--- OUTSIDE RECORDS SUMMARY | 2024-03-01 21:14 | XMS_ITS | Encounter Summary ---
Author Organization [place] Address [facility] [place] [address] Care Team Providers Care Oven Unloader Name Role Phone Otis Bee MD Unavailable [phone] Radha Proctor MD Unavailable [phone] Everardo Hensley DO Unavailable + Jez Dougherty MD Unavailable +[phone] Stephen Foote MD Unavailable [phone] Sarahi Claudio [facility] Unavailable Unavailab Stephen Diaz MD Unavailable [phone] Otis Patino MD Unavailable +[phone] Stephen Foote MD Primary Care Provider [phone] Jez Dougherty MD Unavailable [phone] Encounter Details Date Type Department Care Team (Late Contact Info) Description 11/19/2023 Medical Correspondence [facility] Mgmt [facility] [address] [place] [address] Scan, Non-Provider Social History Tobacco [...] Sex Assigned at Male 06/13/2021 11:39 PM COST ACCOUNTANT Gender Identity Male 06/13/2021 11:39 PM COST ACCOUNTANT Sexual Orientation Straight 06/13/2021 11 :39 PM COST ACCOUNTANT documented as of this encounter Plan of Treatment Upcoming Encounters Date Type Department Care Team (Late st Contact Info) Description 03/22/2024 1:00 PM COST ACCOUNTANT [facility] 1982 [facility] [address] [place] [phone] Stephen Foote MD 1982 [facility] 1 [place] [address] 05/27/2024 1:30 PM COST ACCOUNTANT Office Visit [facility] Multiple Sclerosis [address] [phone] Jez Dougherty MD [address] [place] [address] documented as of this encounter Visit Diagnoses Not on filedocumented in this encounter Additional Health Concerns Assessment Noted Time PHQ-9 Depression Total Score: 3 10/21/19 24 12:07 PM CDT documented as of this encounter Care Teams Oven Unloader Relationship Specialty Start Date End Date Stephen Foote MD [address] [address] PCP - General Family Medicine 03/17/23 Otis Bee MD [address] [place] [address] Orthopedics 05/07/18 Radha Proctor MD [address] [place] [address] Neurology 11/25/19 Everardo Hensley DO [address] [place] [address] Neurology 10/17/20 Jez Dougherty MD [address] [place] [address] Neurology 10/17/20 Stephen Foote MD [address] [place] [address] 1 [place] [address] Assigned PCP 11/01/20 Sarahi Claudio, [facility] 1982 [facility] 1 [place] [address] Pharmacist 03/01/21 Stephen Foote MD 1982 [facility] 1 [place] [address] Assigned Pain Medication Provider 05/27/22 Otis Patino MD [address] [place] [address] Assigned Musculoskeletal Provider 01/18/23 Jez Dougherty MD 909 [facility] [place] [id number] [place] [address] Assigned Neuroscience Provider 05/10/23 documented as of this encounter
--- OUTSIDE RECORDS SUMMARY | 2024-03-01 21:14 | XMS_ITS | Encounter Summary ---
Author Organization [place] Address [address] [place] [address] Care Team Providers Care Fabrication Specialist Name Role Phone Otis Bee MD Unavailable [phone] Radha Proctor MD Unavailable [phone] Everardo Hensley DO Unavailable + Jez Dougherty MD Unavailable [phone] Stephen Foote MD Unavailable [phone] Sarahi Claudio [facility] Unavailable Unavailab Stephen Diaz MD Unavailable [phone] Otis Patino MD Unavailable [phone] Stephen Foote MD Primary Care Provider [phone] Jez Dougherty MD Unavailable [phone] Reason for Visit * Reason Onset Date Comments Refill Request 07/02/2023 Encounter Details Date Type Department Care Team (Late st Contact Info) Description 07/02/2023 MyC Ref[facility] 1982 [facility] [address] [place] [address] Stephen Foote MD 1982 [facility] [address] [place], [place] [id number] Refill Request Social History Tobacco Use Types [...] in an abandoned building, in an overnight jail, or couch-surfing.) Yes 06/17/2023 Are you worried [...] Sex Assigned at Male 06/13/2021 11:39 PM LONG LINE TEAMSTER Gender Identity Male 06/13/2021 11:39 PM LONG LINE TEAMSTER Sexual Orientation Straight 06/13/2021 11 :39 PM LONG LINE TEAMSTER documented as of this encounter Plan of Treatment Upcoming Encounters Date Type Department Care Team (Late st Contact Info) Description 03/22/2024 1:00 PM LONG LINE TEAMSTER Office Visit [place] [phone] Stephen Foote MD 1982 [facility] 1 [place] [address] 05/27/2024 1:30 PM LONG LINE TEAMSTER Office Visit [facility] Multiple Sclerosis [facility] [address] [place] [phone] Jez Dougherty MD [address] [place] [address] documented as of this encounter Visit Diagnoses Diagnosis Episodic cluster headache, not intractable Episodic cluster headache Encounter for medication refill Issue of repeat prescriptions documented in this encounter Additional Health Concerns Assessment Noted Time PHQ-9 Depression Total Score: 6 06/17/19 24 11:17 AM LONG LINE TEAMSTER documented as of this encounter Care Teams Fabrication Specialist Relationship Specialty Start Date End Date Stephen Foote MD 1982 [facility] 1 [place] [address] PCP - General Family Medicine 03/17/23 Otis Bee MD [address] [place] [address] Orthopedics 05/07/18 Radha Proctor MD [address] [place] [address] Neurology 11/25/19 Everardo Hensley DO [address] [place] [address] Neurology 10/17/20 Jez Dougherty MD [address] [place] [address] Neurology 10/17/20 Stephen Foote MD [address] [address] Assigned PCP 11/01/20 Sarahi Claudio, [facility] [address] [address] Pharmacist 03/01/21 Stephen Foote MD [address] [address] Assigned Pain Medication Provider 05/27/22 Otis Patino MD 2450 [facility] [address] [place] [address] Assigned Musculoskeletal Provider 01/18/23 Jez Dougherty MD 909 [facility] [id number] [place] [address] Assigned Neuroscience Provider 05/10/23 documented as of this encounter
--- OUTSIDE RECORDS SUMMARY | 2024-03-01 21:14 | XMS_ITS | Encounter Summary ---
Author Organization [place] Address [address] [place] [address] Care Team Providers Care Dock Builder Name Role Phone Otis Bee MD Unavailable [phone] Radha Proctor MD Unavailable +[phone] Everardo Hensley DO Unavailable + Jez Dougherty MD Unavailable +[phone] Stephen Foote MD Unavailable [phone] Sarahi Claudio [facility] Unavailable Unavailab Stephen Diaz MD Unavailable [phone] Otis Patino MD Unavailable [phone] Stephen Foote MD Primary Care Provider [phone] Jez Dougherty MD Unavailable [phone] Encounter Details Date Type Department Care Team (Late st Contact Info) Description 06/25/2023 [facility] Medical Advice [facility] [address] [address] Jez Dougherty MD [address] [place] [address] - [id number] [place] [address] Social History Tobacco Use Types Packs/Day Years [...] in an abandoned building, in an overnight prison, or couch-surfing.) Yes 06/17/2023 Are you worried [...] Sex Assigned at Male 06/13/2021 11:39 PM ORE DIGGER Gender Identity Male 06/13/2021 11:39 PM ORE DIGGER Sexual Orientation Straight 06/13/2021 11 :39 PM ORE DIGGER documented as of this encounter Plan of Treatment Upcoming Encounters Date Type Department Care Team (Late st Contact Info) Description 03/22/2024 1:00 PM ORE DIGGER Office Visit [address] [address] Stephen Foote MD 1982 [facility] 1 [place] [address] 05/27/2024 1:30 PM ORE DIGGER Office Visit [facility] Multiple Sclerosis [address] [phone] Jez Dougherty MD [address] [place] [address] documented as of this encounter Visit Diagnoses Not on filedocumented in this encounter Additional Health Concerns Assessment Noted Time PHQ-9 Depression Total Score: 6 06/17/19 24 11:17 AM ORE DIGGER documented as of this encounter Care Teams Dock Builder Relationship Specialty Start Date End Date Stephen Foote MD [address] [address] PCP - General Family Medicine 03/17/23 Otis eBe MD [address] [place] [address] Orthopedics 05/07/18 Radha Proctor MD [address] [place] [address] Neurology 11/25/19 Everardo Hensley DO [address] [place] [address] Neurology 10/17/20 Jez Dougherty MD [address] [place] [address] Neurology 10/17/20 Stephen Foote MD 1982 [facility] 1 [place] [address] Assigned PCP 11/01/20 Sarahi Claudio, [facility] 1982 [facility] 1 [place] [address] Pharmacist 03/01/21 Stephen Foote MD 1982 [facility] 1 [place] [address] Assigned Pain Medication Provider 05/27/22 Otis Patino MD 2450 [facility] [address] [place] [address] Assigned Musculoskeletal Provider 01/18/23 Jez Dougherty MD 909 [facility] [id number] [place] [address] Assigned Neuroscience Provider 05/10/23 documented as of this encounter
--- OUTSIDE RECORDS SUMMARY | 2024-03-01 21:14 | XMS_ITS | Encounter Summary ---
Author Organization [place] Address [address] [place] [address] Care Team Providers Care Analytics Intern Name Role Phone Otis Bee MD Unavailable [phone] Radha Proctor MD Unavailable [phone] Everardo Hensley DO Unavailable + Jez Dougherty MD Unavailable +[phone] Stephen Foote MD Unavailable [phone] Sarahi Claudio [facility] Unavailable Unavailab Stephen Diaz MD Unavailable [phone] Otis Patino MD Unavailable [phone] Stephen Foote MD Primary Care Provider [phone] Jez Dougherty MD Unavailable [phone] Reason for Visit * Reason Onset Date Comments Refill Request 11/12/2023 Encounter Details Date Type Department Care Team (Late st Contact Info) Description 11/12/2023 Telephone [facility] [address] [address] Radha Proctor MD [address] [place] [address] [place] [address] Refill Request Social History Tobacco Use Types [...] Sex Assigned at Male 06/13/2021 11:39 PM BREAKER TENDER Gender Identity Male 06/13/2021 11:39 PM BREAKER TENDER Sexual Orientation Straight 06/13/2021 11 :39 PM BREAKER TENDER documented as of this encounter Miscellaneous Notes * Telephone Encounter - Michelle Espinosa - 11/12/2023 12:44 PM CDT [facility] Phone Message May a detailed message be left on voicemail: yes Reason for Call: Medication Refill Request Has the patient contacted the pharmacy for the refill? Yes Name of medication being requested: Emaglity Provider who prescribed the medication: Radha Proctor Pharmacy: [facility] on [address] Date medication is needed: CELSA Patient out of medication Action Taken: CSC Neurology Travel Screening: Not Applicable documented in this encounter Plan of Treatment Upcoming Encounters Date Type Department Care Team (Late st Contact Info) Description 03/22/2024 1:00 PM BREAKER TENDER Office Visit [facility] 1982 [facility] [address] [place] [address] Stephen Foote MD 1982 [facility] 1 [place] [address] 05/27/2024 1:30 PM BREAKER TENDER Office Visit [facility] Multiple Sclerosis [address] [phone] Jez Dougherty MD [address] [place] [address] [id number] [place], [place] [address] documented as of this encounter Visit Diagnoses Not on filedocumented in this encounter Additional Health Concerns Assessment Noted Time PHQ-9 Depression Total Score: 3 10/21/19 24 12:07 PM CDT documented as of this encounter Care Teams Analytics Intern Relationship Specialty Start Date End Date Stephen Foote MD 1982 [facility] 1 [place] [address] PCP - General Family Medicine 03/17/23 Otis Bee MD [address] [place] [address] Orthopedics 05/07/18 Radha Proctor MD [address] [place] [address] [facility] [address] [place] [address] Neurology 11/25/19 Everardo Hensley DO [address] [place] [address] Neurology 10/17/20 Jez Dougherty MD [address] [place] [address] [address] Neurology 10/17/20 Stephen Foote MD [address] [address] Assigned PCP 11/01/20 Sarahi Claudio, [facility] [address] [address] Pharmacist 03/01/21 Stephen Foote MD [address] [address] Assigned Pain Medication Provider 05/27/22 Otis Patino MD [address] [place] [address] R102 [place] [address] Assigned Musculoskeletal Provider 01/18/23 Jez Dougherty MD [address] [place] [id number] [address] Assigned Neuroscience Provider 05/10/23 documented as of this encounter
--- OUTSIDE RECORDS SUMMARY | 2024-03-01 21:14 | XMS_ITS | Encounter Summary ---
Author Organization [place] Address [address] [place] [address] Care Team Providers Care Patrol Lady Name Role Phone Otis Bee MD Unavailable [phone] Radha Proctor MD Unavailable [phone] Everardo Hensley DO Unavailable + Jez Dougherty MD Unavailable [phone] Stephen Foote MD Unavailable [phone] Sarahi Claudio [facility] Unavailable Unavailab Stephen Diaz MD Unavailable [phone] Otis Patino MD Unavailable [phone] Stephen Foote MD Primary Care Provider [phone] Jez Dougherty MD Unavailable [phone] Reason for Visit * Reason Onset Date Comments Refill Request 11/14/2023 Encounter Details Date Type Department Care Team (Late st Contact Info) Description 11/14/2023 Nae [facility] [address] [address] Radha Proctor MD [address] [place] [address] [place] [address] Refill Request Social History Tobacco Use [...] in an abandoned building, in an overnight senior care, or couch-surfing.) Yes 06/17/2023 Are you worried [...] Sex Assigned at Male 06/13/2021 11:39 PM DINKEY LOCOMOTIVE OPERATOR Gender Identity Male 06/13/2021 11:39 PM DINKEY LOCOMOTIVE OPERATOR Sexual Orientation Straight 06/13/2021 11 :39 PM DINKEY LOCOMOTIVE OPERATOR documented as of this encounter Plan of Treatment Upcoming Encounters Date Type Department Care Team (Late st Contact Info) Description 03/22/2024 1:00 PM DINKEY LOCOMOTIVE OPERATOR Office Visit [place] [address] [facility] [address] [place] [address] Stephen Foote MD 1982 [facility] 1 [place] [address] 05/27/2024 1:30 PM DINKEY LOCOMOTIVE OPERATOR Office Visit [facility] Multiple Sclerosis [address] [phone] Jez Dougherty MD [address] [place] [address] documented as of this encounter Visit Diagnoses Not on filedocumented in this encounter Additional Health Concerns Assessment Noted Time PHQ-9 Depression Total Score: 3 10/21/19 24 12:07 PM CDT documented as of this encounter Care Teams Patrol Lady Relationship Specialty Start Date End Date Stephen Foote MD 1982 [facility] 1 [place] [address] PCP - General Family Medicine 03/17/23 Otis Bee MD [address] [place] [address] Orthopedics 05/07/18 Radha Proctor MD [address] [place] [address] Neurology 11/25/19 Everardo Hensley DO [address] [place] [address] Neurology 10/17/20 Jez Dougherty MD [address] [place] [address] Neurology 10/17/20 Stephen Foote MD [address] [address] Assigned PCP 11/01/20 Sarahi Claudio, [facility] [address] [address] Pharmacist 03/01/21 Stephen Foote MD [address] [address] Assigned Pain Medication Provider 05/27/22 Otis Patino MD [address] [place] [id number] [place] [address] Assigned Musculoskeletal Provider 01/18/23 Jez Dougherty MD 909 [facility] [id number] [place] [address] Assigned Neuroscience Provider 05/10/23 documented as of this encounter
--- OUTSIDE RECORDS SUMMARY | 2024-03-01 21:14 | XMS_ITS | Encounter Summary ---
Author Organization [place] Address [address] [place] [address] Care Team Providers Care Sales Account Specialist Name Role Phone Otis Bee MD Unavailable [phone] Radha Proctor MD Unavailable [phone] Everardo Hensley DO Unavailable + Jez Dougherty MD Unavailable [phone] Stephen Foote MD Unavailable [phone] Sarahi Claudio [facility] Unavailable Unavailab Stephen Diaz MD Unavailable [phone] Otis Patino MD Unavailable [phone] Stephen Foote MD Primary Care Provider [phone] Jez Dougherty MD Unavailable [phone] Reason for Visit * Reason Onset Date Comments Outreach 11/24/2023 Preventive depre ssion/anxiety Encounter Details Date Type Department Care Team (Late st Contact Info) Description 11/24/2023 Telephone [facility] 1982 [facility] [address] [place] [address] Stephen Foote MD 1982 [facility] [address] [place], [place] [phone] Outreach (Preventive depression/anxiety) Social History Tobacco Use Types Packs/Day Years [...] in an abandoned building, in an overnight detention, or couch-surfing.) Yes 06/17/2023 Are you worried [...] Sex Assigned at Male 06/13/2021 11:39 PM CAN HANDLER Gender Identity Male 06/13/2021 11:39 PM CAN HANDLER Sexual Orientation Straight 06/13/2021 11 :39 PM CAN HANDLER documented as of this encounter Miscellaneous Notes * Telephone Encounter - Cassandra Nixon MA - 11/24/2023 12:57 PM CDT Patient Quality Outreach Patient is due for the following: Depression - PHQ-9 needed Physical Preventive Adult Physical Next Steps: Patient was scheduled for preventive /depression anxiety Type of outreach: Phone, spoke to patient/parent. patient Questions for provider review: None Cassandra Nixon MA documented in this encounter Plan of Treatment Upcoming Encounters Date Type Department Care Team (Late st Contact Info) Description 03/22/2024 1:00 PM CAN HANDLER Office Visit [facility] 1982 [facility] [address] [place] [address] Stephen Foote MD 1982 [facility] 1 [place] [address] 05/27/2024 1:30 PM CAN HANDLER Office Visit [facility] Multiple Sclerosis [address] [phone] Jez Dougherty MD [address] [place], [place] [address] [place] [address] documented as of this encounter Visit Diagnoses Not on filedocumented in this encounter Additional Health Concerns Assessment Noted Time PHQ-9 Depression Total Score: 3 10/21/19 24 12:07 PM CDT documented as of this encounter Care Teams Sales Account Specialist Relationship Specialty Start Date End Date Stephen Foote MD [address] [place] [address] 1 [place] [address] PCP - General Family Medicine 03/17/23 Otis Bee MD [address] [place] [address] Orthopedics 05/07/18 Radha Proctor MD [address] [place] [address] 2121 [place] [address] Neurology 11/25/19 Everardo Hensley DO [address] [place] [address] Neurology 10/17/20 Jez Dougherty MD [address] [place] [address] Neurology 10/17/20 Stephen Foote MD [address] [address] Assigned PCP 11/01/20 Sarahi Claudio, [facility] [address] [address] Pharmacist 03/01/21 Stephen Foote MD [address] [address] Assigned Pain Medication Provider 05/27/22 Otis Patino MD [address] [place], [place] [address] [place] [address] Assigned Musculoskeletal Provider 01/18/23 Jez Dougherty MD [address] [place] [address] Assigned Neuroscience Provider 05/10/23 documented as of this encounter
--- OUTSIDE RECORDS SUMMARY | 2024-03-01 21:14 | XMS_ITS | Encounter Summary ---
Author Organization [place] Address [address] [place] [address] Care Team Providers Care Lock Setter Name Role Phone Otis Bee MD Unavailable [phone] Radha Proctor MD Unavailable [phone] Everardo Hensley DO Unavailable + Jez Dougherty MD Unavailable [phone] Stephen Foote MD Unavailable [phone] Sarahi Claudio [facility] Unavailable Unavailab Stephen Diaz MD Unavailable [phone] Otis Patino MD Unavailable [phone] Stephen Foote MD Primary Care Provider [phone] Jez Dougherty MD Unavailable [phone] Encounter Details Date Type Department Care Team (Latest Contact Info) Description 11/27/2023 Travel Social History Tobacco Use Types Packs/Day [...] Sex Assigned at Male 06/13/2021 11:39 PM RESOLUTION AGENT Gender Identity Male 06/13/2021 11:39 PM RESOLUTION AGENT Sexual Orientation Straight 06/13/2021 11 :39 PM RESOLUTION AGENT documented as of this encounter Plan of Treatment Upcoming Encounters Date Type Department Care Team (Late st Contact Info) Description 03/22/2024 1:00 PM RESOLUTION AGENT Office Visit [facility] 1982 [facility] 1 [place] [address] Stephen Foote MD 1982 [facility] 1 [place] [address] 05/27/2024 1:30 PM RESOLUTION AGENT Office Visit [facility] Multiple Sclerosis [address] [address] Jez Dougherty MD [address] [place] [address] [address] documented as of this encounter Visit Diagnoses Not on filedocumented in this encounter Additional Health Concerns Assessment Noted Time PHQ-9 Depression Total Score: 3 10/21/19 24 12:07 PM CDT documented as of this encounter Care Teams Lock Setter Relationship Specialty Start Date End Date Stephen Foote MD [address] [address] PCP - General Family Medicine 03/17/23 Otis Bee MD [address] [place] [address] Orthopedics 05/07/18 Radha Proctor MD [address] [place] [address] [place] [address] Neurology 11/25/19 Everardo Hensley DO [address] [place] [address] Neurology 10/17/20 Jez Dougherty MD [address] [place] [address] Neurology 10/17/20 Stephen Foote MD [address] [address] Assigned PCP 11/01/20 Sarahi Claudio, [facility] [address] [address] Pharmacist 03/01/21 Stephen Foote MD [address] [place] [address] [address] [place] [address] Assigned Pain Medication Provider 05/27/22 Otis Patino MD [address] [place] [address] Assigned Musculoskeletal Provider 01/18/23 Jez Dougherty MD 909 [facility] [id number] [place] [address] Assigned Neuroscience Provider 05/10/23 documented as of this encounter
--- OUTSIDE RECORDS SUMMARY | 2024-03-01 21:14 | XMS_ITS | Encounter Summary ---
Author Organization [place] Address [address] [place] [address] Care Team Providers Care Athlete Marketing Agent Name Role Phone Otis Bee MD Unavailable [phone] Radha Proctor MD Unavailable [phone] Everardo Hensley DO Unavailable + Jez Dougherty MD Unavailable [phone] Stephen Foote MD Unavailable [phone] [facility] Unavailable Unavailab Stephen Diaz MD Unavailable [phone] Otis Patino MD Unavailable [phone] Stephen Foote MD Primary Care Provider [phone] Jez Dougherty MD Unavailable [phone] Reason for Visit * Reason Comments MS RECHECK 6 month follow up Encounter Details Date Type Department Care Team (Late st Contact Info) Description 11/27/2023 1:30 PM CDT Office Visit [facility] [address] [address] Jez Dougherty MD [address] [place] [address] - [id number] [address] Multiple sclerosis (H) (Primary Dx); Neuropathic pain; Chronic fatigue, unspecified Social History Tobacco Use Types Packs/Day Years [...] Sex Assigned at Male 06/13/2021 11:39 PM WINDOWS 7 DEPLOYMENT LEAD Gender Identity Male 06/13/2021 11:39 PM WINDOWS 7 DEPLOYMENT LEAD Sexual Orientation Straight 06/13/2021 11 :39 PM WINDOWS 7 DEPLOYMENT LEAD documented as of this encounter Last Filed Vital Signs Vital Sign Reading Time Taken Comments Blood Pressure 121/84 11/27/2023 1:16 PM CDT Pulse 62 11/27/2023 1:16 PM CDT Temperature - - Respiratory Rate - - Oxygen Saturation 97% 11/27/2023 1:1 6 PM CDT Inhaled Oxygen Concentration - - Weight 112.3 kg (247 lb 8 oz) 1:16 PM CDT with shoes on Height - - Body Mass Index 39.92 11/24/2023 12:47 PM CDT documented in this encounter Patient Instructions * Patient Instructions* Jez Dougherty MD - 11/27/2023 1:30 PM CDT I would recommend that you work toward an initial goal of 90 minutes of aerobic exercise weekly, asthis can help with fatigue as well as general health 2. Continue Glatopa injections three times weekly 3. Continue duloxetine 4. Return to clinic in 6 months documented in this encounter Progress Notes * Jez Dougherty MD - 11/27/2023 1:30 PM CDT Referral source: Established patient Chief complaint: Multiple sclerosis History of the Present Illness: Mr. Ibrahima Pinedo is a 47 year old right-handed man who presents to the Multiple Sclerosis Clinic today for a scheduled follow up visit regarding his diagnosis of multiple sclerosis. The patient's history is as per previous notes. He initially developed symptoms of demyelinating disease in June 2020, when he developed new onset gait instability and numbness of the right lowerlimb. MRI scans were strongly suggestive of demyelinating disease of the type seen in multiple sclerosis, and a formal diagnosis of MS was confirmed by presence of oligoclonal bands in the cerebrospinal fluid. He started disease-modifying therapy with glatiramer acetate and has remained on this up until the present time, currently at 40 mg injected subcutaneously 3 times weekly. Today, he denies any new episodic changes in vision, balance, strength or sensation suggestive of new relapse of multiple sclerosis since he was last seen in this clinic. Apart from typical injectionsite reactions, he is tolerating the medication without difficulty. Symptomatically, he remains on duloxetine 60 mg for burning neuropathic discomfort in the right lower limb, which is well-controlled on this medication. He is unfortunately in the midst of a flare of cluster headaches, which seems to be calming down but is not entirely resolved as of yet. He also relates that he feels overly tired. He describes this is more of a generalized fatigue rather than excessive daytime sleepiness. PHYSICAL EXAMINATION: VITAL SIGNS: Blood pressure 121/84; pulse 62; oxygen saturation 97%; weight 112.3 kg. GENERAL: Obese man who presents to the examination alone, awake and alert and in no acute distress NEUROLOGIC EXAMINATION: CRANIAL NERVES: Visual noe are full to confrontation. Extraocular movements are intact with no internuclear ophthalmoplegia. Facial strength is normal. Palate elevation and tongue protrusion are normal. POWER: Strength is within normal limits in proximal and distal muscles in the upper and lower limbsthroughout. REFLEXES: Reflexes are symmetric and within normal limits in the arms and legs. MOTOR/CEREBELLAR: There is no appendicular ataxia on [id number] testing. Rapid alternating movements are within normal limits in the hands and fingers. There is no pronator drift in the arms. GAIT: The patient is able to ambulate on a flat, level surface with no gross loss of postural stability, and able to walk on heels and toes. Tandem gait is mildly to moderately impaired for age. Assessment/plan: 1. Multiple sclerosis The patient is clinically stable as regards any evidence of active inflammatory demyelination on current disease modifying therapy with glatiramer acetate, which he is content to continue. I will see him back for a review in 6 months. 2. Neuropathic pain He will continue duloxetine 60 mg daily. 3. Chronic fatigue I discussed with the patient that several studies have demonstrated benefit from regular aerobic exercise in managing MS associated fatigue. I advised an initial goal of 90 minutes of aerobic exercise weekly. The longitudinal plans of care for the diagnoses as documented were addressed during this visit. Due to the added complexity in care, I will continue to support the patient in subsequent management and with ongoing continuity of care. documented in this encounter Nursing Notes * Chris Olguin - 11/27/2023 1:30 PM CDT Chief Complaint Patient presents with MS RECHECK 6 month follow up Vitals were taken and medications were reconciled. Chris Olguin, ARNOLD 1:17 PM documented in this encounter Plan of Treatment Upcoming Encounters Date Type Department Care Team (Late st Contact Info) Description 03/22/2024 1:00 PM WINDOWS 7 DEPLOYMENT LEAD Office Visit [facility] [address] [facility] [address] [place] [address] Stephen Foote MD 1982 [facility] [address] [place] [address] 05/27/2024 1:30 PM WINDOWS 7 DEPLOYMENT LEAD Office Visit [facility] Multiple Sclerosis [address] [phone] Jez Dougherty MD [address] [place], [place] [id number] [address] documented as of this encounter Visit Diagnoses Diagnosis Multiple sclerosis (H)- Primary Multiple sclerosis Neuropathic pain Neuralgia, neuritis, and radiculitis, unspecified Chronic fatigue, unspecified documented in this encounter Additional Health Concerns Assessment Noted Time PHQ-9 Depression Total Score: 3 10/21/19 24 12:07 PM CDT documented as of this encounter Care Teams Athlete Marketing Agent Relationship Specialty Start Date End Date Stephen Foote MD [address] [place] [address] PCP - General Family Medicine 03/17/23 Otis Bee MD [address] [place] [address] Orthopedics 05/07/18 Radha Proctor MD [address] [place] [address] Neurology 11/25/19 Everardo Hensley DO [address] [place] [address] Neurology 10/17/20 Jez Dougherty MD [address] [place] [address] Neurology 10/17/20 Stephen Foote MD 1982 [facility] 1 [place] [address] Assigned PCP 11/01/[address] [facility] [address] [facility] 1 [place] [address] Pharmacist 03/01/21 Stephen Foote MD [address] [address] Assigned Pain Medication Provider 05/27/22 Otis Patino MD [address] [place] [address] Assigned Musculoskeletal Provider 01/18/23 Jez Dougherty MD [address] [place] [address] Assigned Neuroscience Provider 05/10/23 documented as of this encounter
--- OUTSIDE RECORDS SUMMARY | 2024-03-01 21:14 | XMS_ITS | Encounter Summary ---
Author Organization [facility] Address [address] [place] [address] Care Team Providers Care Ranch Rider Name Role Phone Otis Bee MD Unavailable [phone] Radha Proctor MD Unavailable [phone] Everardo Hensley DO Unavailable + Jez Dougherty MD Unavailable [phone] Stephen Foote MD Unavailable [phone] Sarahi Claudio [facility] Unavailable Unavailab Stephen Diaz MD Unavailable [phone] Otis Patino MD Unavailable [phone] Stephen Foote MD Primary Care Provider [phone] Jez Dougherty MD Unavailable [phone] Reason for Visit * Reason Onset Date Comments Medication Request 06/03/2023 Encounter Details Date Type Department Care Team (Late st Contact Info) Description 06/03/2023 [facility] Medical Advice [facility] [address] [facility] [address] [place] [address] Stephen Foote MD 1982 [facility] [address] [place], [place] [id number] Medication Request Social History Tobacco Use Types Packs/Day Years Used Date Smoking Tobacco: Every Day Cigarettes Smokeless Tobacco: Never Alcohol Use Standard Drinks/Week Comments No 0 (1 standard drink = 0.6 oz pur e alcohol) PHQ-2 Answer Date Recorded PHQ-2 Score 0 05/22/2023 Adolescent Education Answer Date Record ed Getting School Help Needed Not on file 02/07 Food Insecurity Answer Date Recorded Within the past 12 months, d id you worry that your food would run out before you got money to buy more? No 03/17/2023 Within the past 12 months, d id the food you bought just not last and you didn? t have money to get more? No 03/17/2023 Housing Stability Answer Date Recorded Do you have housing? (Wilner g is defined as stable permanent housing and does not include staying ouside in a car, in a tent, in an abandoned building, in an overnight assisted, or couch-surfing.) Yes 03/17/2023 Are you worried about losing your housing? No 03/17/2023 Financial Resource Strain Answer Date R ecorded Within the past 12 months, h ave you or your family members you live with been unable to get utilities (heat, electricity) when it was really needed? No 03/17/2023 Transportation Needs Answer Date Record ed Within the past 12 months, h as lack of transportation kept you from medical appointments, getting your medicines, non-medical meetings or appointments, work, or from getting things that you need? No 03/17/2023 Interpersonal Safety Answer Date Record ed Do [...] Sex Assigned at Male 06/13/2021 11:39 PM EMULSIFICATION OPERATOR Gender Identity Male 06/13/2021 11:39 PM EMULSIFICATION OPERATOR Sexual Orientation Straight 06/13/2021 11 :39 PM EMULSIFICATION OPERATOR documented as of this encounter Miscellaneous Notes * Telephone Encounter - Navin Giang RN - 06/03/2023 1:43 PM CST It appears, pt is requesting for Oxycodone 5 - 325 mg tablet per chart review. Will route controlled substance request to Dr. Foote. ALEKSANDR Ewing, RN [facility] SIFICATION OPERATOR documented in this encounter Plan of Treatment Upcoming Encounters Date Type Department Care Team (Late st Contact Info) Description 03/22/2024 1:00 PM EMULSIFICATION OPERATOR Office Visit [facility] 1982 [facility] 1 [place] [phone] Stephen Foote MD 1982 [facility] 1 [place] [address] 05/27/2024 1:30 PM EMULSIFICATION OPERATOR Office Visit [facility] Multiple Sclerosis [address] [phone] Jez Dougherty MD [address] [place] [id number] [address] documented as of this encounter Visit Diagnoses Not on filedocumented in this encounter Additional Health Concerns Assessment Noted Time PHQ-9 Depression Total Score: 5 10/23/19 23 5:09 PM CDT documented as of this encounter Care Teams Ranch Rider Relationship Specialty Start Date End Date Stephen Foote MD 1982 [facility] 1 [place] [address] PCP - General Family Medicine 03/17/23 Otis Bee MD [address] [place] [address] Orthopedics 05/07/18 Radha Proctor MD [address] [place] [address] Neurology 11/25/19 Everardo Hensley DO [address] [place] [address] Neurology 10/17/20 Jez Dougherty MD [address] [place] [address] [address] Neurology 10/17/20 Stephen Foote MD 1982 [facility] 1 [place] [address] Assigned PCP 11/01/20 Sarahi Claudio, [facility] [address] [facility] 1 [place] [address] Pharmacist 03/01/21 Stephen Foote MD [address] [address] Assigned Pain Medication Provider 05/27/22 Otis Patino MD [address] [place], [place] [address] Assigned Musculoskeletal Provider 01/18/23 Jez Dougherty MD [address] [place] [address] Assigned Neuroscience Provider 05/10/23 documented as of this encounter
--- OUTSIDE RECORDS SUMMARY | 2024-03-01 21:14 | XMS_ITS | Encounter Summary ---
Author Organization [facility] Address [address] [place] [address] Care Team Providers Care Telephone Solicitor Supervisor Name Role Phone Otis Bee MD Unavailable [phone] Radha Proctor MD Unavailable [phone] Everardo Hensley DO Unavailable + Jez Dougherty MD Unavailable [phone] Stephen Foote MD Unavailable [phone] Sarahi Claudio [facility] Unavailable Unavailab Stephen Diaz MD Unavailable [phone] Otis Patino MD Unavailable [phone] Stephen Foote MD Primary Care Provider [phone] Jez Dougherty MD Unavailable [phone] Reason for Visit * Reason Onset Date Comments Medication Question 11/12/2023 Encounter Details Date Type Department Care Team (Late st Contact Info) Description 11/12/2023 [facility] Medical Advice [facility] 1982 [facility] [address] [place] [address] Stephen Foote MD 1982 [facility] [address] [place], [place] [id number] Medication Question Social History Tobacco Use Types [...] Sex Assigned at Male 06/13/2021 11:39 PM INSIDE SALES ADMINISTRATOR Gender Identity Male 06/13/2021 11:39 PM INSIDE SALES ADMINISTRATOR Sexual Orientation Straight 06/13/2021 11 :39 PM INSIDE SALES ADMINISTRATOR documented as of this encounter Miscellaneous Notes * Telephone Encounter - Carl Howell RN - 11/12/2023 11:54 AM CDT Patient sent MyChart message inquiry regarding how long does it take medication to start working aspatient still has incomplete urine flow. Will route encounter to provider for feedback. Carl Howell, RN [facility] Primary Care [facility] documented in this encounter Plan of Treatment Upcoming Encounters Date Type Department Care Team (Late st Contact Info) Description 03/22/2024 1:00 PM INSIDE SALES ADMINISTRATOR Office Visit [facility] 1982 [facility] [address] [place] [phone] Stephen Foote MD 1982 [facility] 1 [place] [address] 05/27/2024 1:30 PM INSIDE SALES ADMINISTRATOR Office Visit [facility] Multiple Sclerosis [address] [phone] Jez Dougherty MD [address] [place], [place] [address] [address] documented as of this encounter Visit Diagnoses Not on filedocumented in this encounter Additional Health Concerns Assessment Noted Time PHQ-9 Depression Total Score: 3 10/21/19 24 12:07 PM CDT documented as of this encounter Care Teams Telephone Solicitor Supervisor Relationship Specialty Start Date End Date Stephen Foote MD 1982 [facility] 1 [place] [address] PCP - General Family Medicine 03/17/23 Otis Bee MD [address] [place] [address] Orthopedics 05/07/18 Radha Proctor MD [address] [place] [address] [place] [address] Neurology 11/25/19 Everardo Hensley DO [address]09 [place] [address] Neurology 10/17/20 Jez Dougherty MD [address] [place] [address] Neurology 10/17/20 Stephen Foote MD 1982 [facility] 1 [place] [address] Assigned PCP 11/01/20 Sarahi Claudio, [facility] 1982 [facility] 1 [place] [address] Pharmacist 03/01/21 Stephen Foote MD [address] [address] Assigned Pain Medication Provider 05/27/22 Otis Patino MD [address] [place] [address] Assigned Musculoskeletal Provider 01/18/23 Jez Dougherty MD [address] [place] [address] Assigned Neuroscience Provider 05/10/23 documented as of this encounter
--- OUTSIDE RECORDS SUMMARY | 2024-03-01 21:14 | XMS_ITS | Encounter Summary ---
Author Organization [facility] [place] Address [address] [place] [address] Care Team Providers Care Curator Medical Museum Name Role Phone Otis Bee MD Unavailable [phone] Radha Proctor MD Unavailable [phone] Everardo Hensley DO Unavailable + Jez Dougherty MD Unavailable [phone] Stephen Foote MD Unavailable [phone] Sarahi Claudio [facility] Unavailable Unavailab Stephen Diaz MD Unavailable [phone] Otis Patino MD Unavailable [phone] Stephen Foote MD Primary Care Provider [phone] Jez Dougherty MD Unavailable [phone] Reason for Visit * Reason Onset Date Comments Refill Request 07/02/2023 Encounter Details Date Type Department Care Team (Late st Contact Info) Description 07/02/2023 My[facility] Refraisa [facility] 1982 [facility] [address] [place] [address] Stephen Foote MD 1982 [facility] [address] [place], [place] [phone] Refill Request Social History Tobacco Use Types [...] Sex Assigned at Male 06/13/2021 11:39 PM PANAMA HAT SMEARER Gender Identity Male 06/13/2021 11:39 PM PANAMA HAT SMEARER Sexual Orientation Straight 06/13/2021 11 :39 PM PANAMA HAT SMEARER documented as of this encounter Plan of Treatment Upcoming Encounters Date Type Department Care Team (Late st Contact Info) Description 03/22/2024 1:00 PM PANAMA HAT SMEARER Office Visit [place] [phone] Stephen Foote MD 1982 [facility] 1 [place] [address] 05/27/2024 1:30 PM PANAMA HAT SMEARER Office Visit [facility] Multiple Sclerosis [facility] [address] [place] [phone] Jez Dougherty MD [address] [place] [address] documented as of this encounter Visit Diagnoses Diagnosis Episodic cluster headache, not intractable Episodic cluster headache Encounter for medication refill Issue of repeat prescriptions documented in this encounter Additional Health Concerns Assessment Noted Time PHQ-9 Depression Total Score: 6 06/17/19 24 11:17 AM PANAMA HAT SMEARER documented as of this encounter Care Teams Curator Medical Museum Relationship Specialty Start Date End Date Stephen Foote MD 1982 [facility] 1 [place] [address] PCP - General Family Medicine 03/17/23 Otis Bee MD [address] [place] [address] Orthopedics 05/07/18 Radha Proctor MD [address] [place] [address] Neurology 11/25/19 Everardo Hensley DO [address] [place] [address] Neurology 10/17/20 Jez Dougherty MD [address] [place] [address] Neurology 10/17/20 Stephen Foote MD [address] [address] Assigned PCP 11/01/20 Sarahi Claudio, [facility] [address] [address] Pharmacist 03/01/21 Stephen Foote MD [address] [address] Assigned Pain Medication Provider 05/27/22 Otis Patino MD [address] [facility] [address] [place] [address] Assigned Musculoskeletal Provider 01/18/23 Jez Dougherty MD 909 [facility] [id number] [place] [address] Assigned Neuroscience Provider 05/10/23 documented as of this encounter
--- OUTSIDE RECORDS SUMMARY | 2024-03-01 21:14 | XMS_ITS | Encounter Summary ---
Author Organization [place] Address [address] [place] [address] Care Team Providers Care Job Molder Name Role Phone Otis Bee MD Unavailable [phone] Radha Proctor MD Unavailable [phone] Everardo Hensley DO Unavailable + Jez Dougherty MD Unavailable + [phone] Stephen Foote MD Unavailable [phone] Sarahi Claudio [facility] Unavailable Unavailab Stephen Diaz MD Unavailable [phone] Otis Patino MD Unavailable [phone] Stephen Foote MD Primary Care Provider [phone] Jez Dougherty MD Unavailable [phone] Encounter Details Date Type Department Care Team (Late st Contact Info) Description 11/12/[address] [facility] [address] 3[address] [place] [address] Dang Pineda Social History Tobacco Use Types Packs/Day Years [...] Sex Assigned at Male 06/13/2021 11:39 PM CERTIFIED ORTHOTIC FITTER Gender Identity Male 06/13/2021 11:39 PM CERTIFIED ORTHOTIC FITTER Sexual Orientation Straight 06/13/2021 11 :39 PM CERTIFIED ORTHOTIC FITTER documented as of this encounter Plan of Treatment Upcoming Encounters Date Type Department Care Team (Late st Contact Info) Description 03/22/2024 1:00 PM CERTIFIED ORTHOTIC FITTER Office Visit [facility] 1982 [facility] 1 [place] [phone] Stephen Foote MD 1982 [facility] 1 [place] [address] 05/27/2024 1:30 PM CERTIFIED ORTHOTIC FITTER Office Visit [facility] [address] [phone] Jez Dougherty MD [address] [place] [address] documented as of this encounter Visit Diagnoses Not on filedocumented in this encounter Additional Health Concerns Assessment Noted Time PHQ-9 Depression Total Score: 3 10/21/19 24 12:07 PM CDT documented as of this encounter Care Teams Job Molder Relationship Specialty Start Date End Date Stephen Foote MD 1982 [facility] 1 [place] [address] PCP - General Family Medicine 03/17/23 Otis Bee MD [address] [place] [address] Orthopedics 05/07/18 Radha Proctor MD [address] [place] [address] Neurology 11/25/19 Everardo Hensley DO [address] [place] [address] Neurology 10/17/20 Jez Dougherty MD [address] [place] [address] Neurology 10/17/20 Stephen Foote MD [address] [place] [address] 1 [place] [address] Assigned PCP 11/01/20 Sarahi Claudio, [facility] 1982 [facility] 1 [place] [address] Pharmacist 03/01/21 Stephen Foote MD 1982 [facility] 1 [place] [address] Assigned Pain Medication Provider 05/27/22 Otis Patino MD [address] [place] [address] Assigned Musculoskeletal Provider 01/18/23 Jez Dougherty MD 909 [facility] [id number] [place] [address] Assigned Neuroscience Provider 05/10/23 documented as of this encounter
--- OUTSIDE RECORDS SUMMARY | 2024-03-01 21:14 | XMS_ITS | Encounter Summary ---
Author Organization [place] Address [address] [place] [address] Care Team Providers Care Continuous Miner Name Role Phone Otis Bee MD Unavailable [phone] Radha [place] MD Unavailable [phone] Everardo Hensley DO Unavailable + Jez Dougherty MD Unavailable [phone] Stephen Foote MD Unavailable [phone] Sarahi Claudio [facility] Unavailable Unavailab Stephen Diaz MD Unavailable [phone] Otis Patino MD Unavailable [phone] Stephen Foote MD Primary Care Provider [phone] Jez Dougherty MD Unavailable [phone] Reason for Visit * Reason Comments Headache Recheck Medication Encounter Details Date Type Department Care Team (Late st Contact Info) Description 11/24/2023 1:00 PM CDT Office Visit [facility] [address] [facility] [address] [place] [phone] Stephen Foote MD 1982 [facility] [place], [place] [phone] Morbid obesity (H) (Primary Dx); Hypertension, unspecified type; Episodic cluster headache, not intractable; Urge incontinence of urine Social History Tobacco Use Types Packs/Day Years [...] Sex Assigned at Male 06/13/2021 11:39 PM RECORD CENTER COORDINATOR Gender Identity Male 06/13/2021 11:39 PM RECORD CENTER COORDINATOR Sexual Orientation Straight 06/13/2021 11 :39 PM RECORD CENTER COORDINATOR documented as of this encounter Last Filed Vital Signs Vital Sign Reading Time Taken Comments Blood Pressure 116/76 11/24/2023 12:47 PM CDT Pulse 66 11/24/2023 12:47 PM CDT Temperature 37.2 ??C (99 ??F) 11/24/2023 12: 47 PM CDT Respiratory Rate 16 11/24/2023 12:4 7 PM CDT Oxygen Saturation 98% 11/24/2023 12: 47 PM CDT Inhaled Oxygen Concentration - - Weight 115.8 kg (255 lb 6.4 oz) 024 12:47 PM CDT Height 167.7 cm (5' 6.02) 11/24/2023 1 2:47 PM CDT Body Mass Index 41.19 11/24/2023 12:47 PM CDT documented in this encounter Progress Notes * Stephen Foote MD - 11/24/2023 1:00 PM CDT ASSESMENT AND PLAN: Diagnoses and all orders for this visit: Morbid obesity (H) Extensive counseling today around the risks and benefits of using GLP-1 medication. He is going to work on his healthy eating and regular exercise plan and will think about this and will discuss further at his follow-up visit. Hypertension, unspecified type Was elevated last visit, now under good control. Episodic cluster headache, not intractable Improving. Continue verapamil, oxygen therapy, less frequent use of sumatriptan hand to avoid rebound phenomenon, and the as needed use of oxycodone for the most severe breakthrough headaches. Reviewed the most recent neurology consultation with the patient and counseled him on the plan. Urge incontinence of urine Related to his history of chronic prostatitis versus BPH versus other. Did not tolerate tamsulosin at higher dose and did not notice any improvement in his postvoid dribbling. Tamsulosin has been discontinued. We talked about possibly trying another medication, for now he does not interested, if his symptoms do not improve will have him follow-up with urology. Reviewed the risks and benefits of the treatment plan with the patient and/or caregiver and we discussed indications for routine and emergent follow-up. The longitudinal plan of care for the diagnosis(es)/condition(s) as documented were addressed during this visit. Due to the added complexity in care, I will continue to support Qaid in the subsequentmanagement and with ongoing continuity of care. SUBJECTIVE: Patient in for follow-up. Since last visit he is significantly cut back on how frequently he was using his sumatriptan and has noticed a big improvement in his headache pattern. He feels like his cluster headaches are now back to about their baseline frequency and severity. Last visit we started on tamsulosin for postvoid dribbling but he did not notice any improvement in his symptomseven after increasing to 2 pills/day. At 2 pills/day started to notice some sexual dysfunction - orgasm with no production of ejaculate - and had stopped taking the medication. He continues to experience some postvoid dribbling but does not feel like it is bothersome enough to him to warrant takingmedication after trialing the above medication. Patient has some questions about his weight and whether he might be a candidate for using GLP-1 medication to help him lose weight. Past Medical History: Diagnosis Date Anxiety Avascular necrosis of hip (H) Bipolar disorder (H) Chronic rhinitis Cluster headache Cluster headaches Diverticulitis Diverticulitis GERD (gastroesophageal reflux disease) Hypertension Insomnia Lumbosacral radiculopathy Osteoarthritis of hip Prostate infection Sciatica Patient Active Problem List Diagnosis Headache Acute bronchitis Anemia Anxiety Avascular necrosis of hip, left (H) Bipolar I disorder, single manic episode (H) Chronic left-sided low back pain with left-sided sciatica Chronic pain disorder Chronic rhinitis Cluster headaches Constipation Diverticulitis of colon Diverticulosis Erectile dysfunction Eustachian tube dysfunction GERD (gastroesophageal reflux disease) Hemorrhoids HTN (hypertension) Left hip pain Left lumbosacral radiculopathy Insomnia Lower extremity edema Nicotine dependence Osteoarthritis of hip Sciatica Sleep disorder Depression, recurrent (H24) Spinal stenosis of lumbar region, unspecified whether neurogenic claudication present Morbid obesity (H) Multiple sclerosis (H) Vitamin D deficiency Episodic cluster headache, not intractable Altered mental status Demyelinating disease (H) Generalized anxiety disorder Chronic prostatitis Urge incontinence of urine Bunion, right F11.9 - Chronic, continuous use of opioids Current Outpatient Medications Medication Sig Dispense Refill cholecalciferol (VITAMIN D3) 1250 mcg (17117 units) capsule TAKE 1 CAPSULE BY MOUTH ONE TIME PER WEEK. (NOT COVERED) 4 capsule 11 DULoxetine (CYMBALTA) 60 MG capsule TAKE 1 CAPSULE BY MOUTH EVERY DAY 30 capsule 11 fluticasone (FLONASE) 50 MCG/ACT nasal spray [place] 1 spray into both nostrils 2 times daily 48 mL 1 galcanezumab-gnlm (EMGALITY, 300 MG DOSE,) 100 MG/ML injection Inject 3 mLs (300 mg) Subcutaneous every 28 days 3 mL 11 GLATOPA 40 MG/ML injection INJECT 40 MG UNDER THE SKIN THREE TIMES A WEEK 12 mL 11 order for DME Equipment being ordered: Oxygen, high flow 10-15 L/min with non- rebreather mask 1 Device 11 oxyCODONE-acetaminophen (PERCOCET) 5-325 MG tablet Take 1 tablet by mouth every 6 hours as needed (for exacerbation of chronic cluster headache syndrome) 30 tablet 0 SUMAtriptan (IMITREX STATDOSE) 6 MG/0.5ML pen injector kit Inject 0.5 mLs (6 mg) Subcutaneous 2 times daily as needed (cluster headache) Max 12 mg/24 hours. 15 kit 11 verapamil ER (CALAN-SR) 240 MG CR tablet TAKE 1 TABLET (240 MG) BY MOUTH 2 TIMES DAILY 180 tablet 3 Nerve Stimulator (GAMMACORE) NITA 1 Device as needed (cluster headache) (Patient not taking: Reported on 11/24/2023) sildenafil (REVATIO) 20 MG tablet Take 1-5 tablets (20-100 mg) by mouth daily as needed (Patient not taking: Reported on 11/24/2023) 40 tablet 6 History Smoking Status Every Day Types: Cigarettes Smokeless Tobacco Never OBJECTICE: BP 116/76 Pulse 66 Temp 99 ??F (37.2 ??C) (Oral) Resp 16 Ht 1.677 m (5' 6.02) Wt 115.8 kg (255 lb 6.4 oz) SpO2 98% BMI 41.19 kg/m?? No results found for this or any previous visit (from the past 24 hour(s)). CV-regular rate and rhythm with no murmur RESP-lungs clear to auscultation Signed Electronically by: Stephen Foote MD documented in this encounter Plan of Treatment Upcoming Encounters Date Type Department Care Team (Late st Contact Info) Description 03/22/2024 1:00 PM RECORD CENTER COORDINATOR Office Visit [facility] 1982 [facility] 1 [place] [address] Stephen Foote MD [address] [place] [address] 05/27/2024 1:30 PM RECORD CENTER COORDINATOR Office Visit [facility] Multiple Sclerosis [address] [phone] Jez Dougherty MD [address] [place] [address] [address] documented as of this encounter Visit Diagnoses Diagnosis Morbid obesity (H)- Primary Morbid obesity Hypertension, unspecified type Episodic cluster headache, not intractable Episodic cluster headache Urge incontinence of urine Urge incontinence documented in this encounter Additional Health Concerns Assessment Noted Time PHQ-9 Depression Total Score: 3 10/21/19 24 12:07 PM CDT documented as of this encounter Care Teams Continuous Miner Relationship Specialty Start Date End Date Stephen Foote MD [address] [address] PCP - General Family Medicine 03/17/23 Otis Bee MD [address] [place] [address] Orthopedics 05/07/18 Radha [place] MD [address] [place] [address] Neurology 11/25/19 Everardo Hensley DO [address] [place] [address] Neurology 10/17/20 Jez Dougherty MD [address] [place] [address] [address] Neurology 10/17/20 Stephen Foote MD 1982 [facility] 1 [place] [address] Assigned PCP 11/01/20 Sarahi Claudio [facility] 1982 [facility] 1 [place] [address] Pharmacist 03/01/21 Stephen Foote MD [address] [address] Assigned Pain Medication Provider 05/27/22 Otis Patino MD [address] [place], [place] [id number] [place] [address] Assigned Musculoskeletal Provider 01/18/23 Jez Dougherty MD [address] [facility] [id number] [place] [address] Assigned Neuroscience Provider 05/10/23 documented as of this encounter
--- OUTSIDE RECORDS SUMMARY | 2024-03-01 21:14 | XMS_ITS | Encounter Summary ---
Author Organization [place] Address [address] [place] [address] Care Team Providers Care Bible Worker Name Role Phone Otis Bee MD Unavailable [phone] Radha [place] MD Unavailable [phone] Everardo Hensley DO Unavailable + Jez Dougherty MD Unavailable + [phone] Stephen Foote MD Unavailable [phone] Sarahi Claudio [facility] Unavailable Unavailab Stephen Diaz MD Unavailable [phone] Otis Patino MD Unavailable [phone] Stephen Foote MD Primary Care Provider [phone] Jez Dougherty MD Unavailable [phone] Encounter Details Date Type Department Care Team (Late st Contact Info) Description 11/13/2023 MyC Medical Advice [facility] Neurology Clinic [address] 3rd [place] [address] Avis Potts, RN Social History Tobacco Use Types Packs/Day Years [...] an abandoned building, in an overnight senior living, or couch-surfing.) Yes 06/17/2023 Are you worried [...] Sex Assigned at Male 06/13/2021 11:39 PM HEALTH UNIT CLERK Gender Identity Male 06/13/2021 11:39 PM HEALTH UNIT CLERK Sexual Orientation Straight 06/13/2021 11 :39 PM HEALTH UNIT CLERK documented as of this encounter Plan of Treatment Upcoming Encounters Date Type Department Care Team (Late st Contact Info) Description 03/22/2024 1:00 PM HEALTH UNIT CLERK Office Visit [facility] [place] 1982 [facility] [address] [place] [phone] Stephen Foote MD 1982 [facility] 1 [place] [address] 05/27/2024 1:30 PM HEALTH UNIT CLERK Office Visit [facility] Multiple Sclerosis [address] [phone] Jez Dougherty MD [address] [place] [address] documented as of this encounter Visit Diagnoses Not on filedocumented in this encounter Additional Health Concerns Assessment Noted Time PHQ-9 Depression Total Score: 3 10/21/19 24 12:07 PM CDT documented as of this encounter Care Teams Bible Worker Relationship Specialty Start Date End Date Stephen Foote MD [address] [address] PCP - General Family Medicine 03/17/23 Otis Bee MD [address] [place] [address] Orthopedics 05/07/18 Radha [place] MD [address] [place] [address] Neurology 11/25/19 Everardo Hensley DO [address] [place] [address] Neurology 10/17/20 Jez Dougherty MD [address] [place] [address] Neurology 10/17/20 Stephen Foote MD [address] [place] [address] Assigned PCP 11/01/20 Sarahi Claudio, [facility] 1982 [facility] 1 [place] [address] Pharmacist 03/01/21 Stephen Foote MD 1982 [facility] 1 [place] [address] Assigned Pain Medication Provider 05/27/22 Otis Patino MD [address] [place] [address] Assigned Musculoskeletal Provider 01/18/23 Jez Dougherty MD 909 [facility] [id number] [place] [address] Assigned Neuroscience Provider 05/10/23 documented as of this encounter
--- OUTSIDE RECORDS SUMMARY | 2024-03-01 21:14 | XMS_ITS | Encounter Summary ---
Author Organization [place] Address [address] [place] [address] Care Team Providers Care Fiber Optic Assembler Name Role Phone Otis Bee MD Unavailable [phone] Radha [place] MD Unavailable [phone] Everardo Hensley DO Unavailable + Jez Dougherty MD Unavailable [phone] Stephen Foote MD Unavailable [phone] Sarahi Claudio [facility] Unavailable Unavailab Stehpen Diaz MD Unavailable [phone] Otis Patino MD Unavailable [phone] Stephen Foote MD Primary Care Provider [phone] Jez Dougherty MD Unavailable [phone] Reason for Visit * Reason Onset Date Comments Patient/info Update 11/17/2023 medication Encounter Details Date Type Department Care Team (Late st Contact Info) Description 11/17/2023 [facility] Medical Advice [facility] [place] 1982 [facility] [address] [place] [address] Stephen Foote MD 1982 [facility] [address] [place], [place] [phone] Patient/info Update (medication) Social History Tobacco Use Types Packs/Day Years [...] Sex Assigned at Male 06/13/2021 11:39 PM CLINICAL PHARMACY COORDINATOR Gender Identity Male 06/13/2021 11:39 PM CLINICAL PHARMACY COORDINATOR Sexual Orientation Straight 06/13/2021 11 :39 PM CLINICAL PHARMACY COORDINATOR documented as of this encounter Miscellaneous Notes * Telephone Encounter - Carl Howell RN - 11/17/2023 8:15 AM CDT Patient sent in [employer] message to update provider regarding medication (Tamsulosin [?]) discontinuation and if other alternative. However, patient is willing to wait and discuss other alternative atupcoming appointment. Carl Howell RN [facility] Primary [facility] documented in this encounter Plan of Treatment Upcoming Encounters Date Type Department Care Team (Late st Contact Info) Description 03/22/2024 1:00 PM CLINICAL PHARMACY COORDINATOR Office Visit [facility] 1982 [facility] [place] [address] Stephen Foote MD 1982 [facility] [place] [address] 05/27/2024 1:30 PM CLINICAL PHARMACY COORDINATOR Office Visit [facility] Multiple Sclerosis [address] [phone] Jez Dougherty MD [address] [place] [id number] [address] documented as of this encounter Visit Diagnoses Not on filedocumented in this encounter Additional Health Concerns Assessment Noted Time PHQ-9 Depression Total Score: 3 10/21/19 24 12:07 PM CDT documented as of this encounter Care Teams Fiber Optic Assembler Relationship Specialty Start Date End Date Stephen Foote MD [address] [place] [address] PCP - General Family Medicine 03/17/23 Otis Bee MD [address] [place] [address] Orthopedics 05/07/18 Radha [place] MD [address] [place] [address] [place] [address] Neurology 11/25/19 Everardo Hensley DO [address] [place] [address] Neurology 10/17/20 Jez Dougherty MD [address] [place] [address] Neurology 10/17/20 Stephen Foote MD [address] [address] Assigned PCP 11/01/20 Sarahi Claudio, [facility] [address] [address] Pharmacist 03/01/21 Stephen Foote MD [address] [address] Assigned Pain Medication Provider 05/27/22 Otis Patino MD [address] [place] [address] Assigned Musculoskeletal Provider 01/18/23 Jez Dougherty MD [address] [place] [id number], [place] [address] Assigned Neuroscience Provider 05/10/23 documented as of this encounter
--- OUTSIDE RECORDS SUMMARY | 2024-03-01 21:15 | XMS_ITS | Encounter Summary ---
Author Organization [place] Address [address] [place] [address] Care Team Providers Care Head Of Academic Technology Name Role Phone Stephen Foote MD Primary Care Provider + Otis Bee MD Unavailable [phone] Stephen Foote MD Unavailable + [phone] Radha [place] MD Unavailable + Everardo Hensley DO Unavailable + Jez Dougherty MD Unavailable + Stephen Foote MD Unavailable + [phone] Sarahi Claudio [facility] Unavailable Unavailab Stephen Diaz MD Unavailable + 0 Radha [place] MD Unavailable + Nakul Kinsey DO Unavailable + [phone] Jez Dougherty MD Unavailable + Radha [place] MD Unavailable + Otis Patino MD Unavailable [phone] Stephen Foote MD Primary Care Provider + Jez Dougherty MD Unavailable [phone] Reason for Visit * Reason Onset Date Comments Refill Request 09/23/2022 Encounter Details Date Type Department Care Team (Late st Contact Info) Description 09/23/2022 MyC Refill [address] 1 [place] [phone] Stephen Foote MD 1982 [facility] 1 [place] [address] Refill Request Social History Tobacco Use Types Packs/Day Years Used Date Smoking Tobacco: Every Day Cigarettes Smokeless Tobacco: Never Alcohol Use Standard Drinks/Week Comments No 0 (1 standard drink = 0.6 oz pur e alcohol) PHQ-2 Answer Date Recorded PHQ-2 Score 1 08/26/2022 Sex and Gender Information Value Date Recorded Sex Assigned at Male 06/13/2021 11:39 PM DATA ARCHITECT MANAGER Gender Identity Male 06/13/2021 11:39 PM DATA ARCHITECT MANAGER Sexual Orientation Straight 06/13/2021 11 :39 PM DATA ARCHITECT MANAGER COVID-19 Exposure Response Date Recorded In the last 10 days, have yo u been in contact with someone who was confirmed or suspected to have Coronavirus/COVID-19? No / Unsure 08/26/2022 11:40 AM CDT documented as of this encounter Miscellaneous Notes * Telephone Encounter - Elda Guy RN - 09/24/2022 6:53 PM CDT documented in this encounter Plan of Treatment Upcoming Encounters Date Type Department Care Team (Late Contact Info) Description 03/22/2024 1:00 PM DATA ARCHITECT MANAGER Office Visit [facility] 1982 [facility] 1 [place] [phone] Stephen Foote MD 1982 [facility] 1 [place] [address] 05/27/2024 1:30 PM DATA ARCHITECT MANAGER Office Visit [facility] Multiple Sclerosis [address] [phone] Jez Dougherty MD [address] [place] [address] - [id number] [place] [address] documented as of this encounter Visit Diagnoses Diagnosis Episodic cluster headache, not intractable Episodic cluster headache documented in this encounter Additional Health Concerns Assessment Noted Time PHQ-9 Depression Total Score: 7 08/27/19 11:43 AM CDT documented as of this encounter Care Teams Head Of Academic Technology Relationship Specialty Start Date End Date Stephen Foote MD PCP - General Family Practice 05/04/18 03/16/23 Stephen Foote MD [address] [place] [address] PCP - General Family Medicine 03/17/23 Otis Bee MD [address] [place] [address] Orthopedics 05/07/18 Stephen Foote MD Family Practice 05/07/18 03/16/23 Radha [place] MD [address] [place] [address] [place] [address] Neurology 11/25/19 Everardo Hensley DO [address] [place] [address] Neurology 10/17/20 Jez Dougherty MD [address] [place], [place] [id number] [address] Neurology 10/17/20 Stephen Foote MD 1983 [facility] 1 [place] [address] Assigned PCP 11/01/20 Sarahi Claudio, [facility] 1982 [facility] 1 [place] [address] Pharmacist 03/01/21 Stephen Foote MD [address] [address] Assigned Pain Medication Provider 05/27/22 Radha [place] MD [address] [place] [address] Assigned Neuroscience Provider 09/21/22 11/29/22 Nakul Kinsey DO [address] [place] [address] Assigned Musculoskeletal Provider 10/26/22 01/17/23 Jez Dougherty MD [address] [place] [address] Assigned Neuroscience Provider 11/30/22 12/13/22 Radha [place] MD [address] [place] [address] Assigned Neuroscience Provider 12/14/22 05/09/23 Otis Patino MD [address] [place] [address] Assigned Musculoskeletal Provider 01/18/23 Jez Dougherty MD [address] [place] [address] Assigned Neuroscience Provider 05/10/23 documented as of this encounter
--- OUTSIDE RECORDS SUMMARY | 2024-03-01 21:15 | XMS_ITS | Encounter Summary ---
Author Organization [facility] Address [address] [place] [address] Care Team Providers Care Inside Sales Representative Name Role Phone Stephen Foote MD Primary Care Provider + Otis Bee MD Unavailable [phone] Stephen Foote MD Unavailable [phone] Radha Proctor MD Unavailable + Everardo Hensley DO Unavailable + Jez Dougherty MD Unavailable [phone] Stephen Foote MD Unavailable + 0 Sarahi Claudio [facility] Unavailable Unavailab Stephen Diaz MD Unavailable [phone] Rdaha Proctor MD Unavailable + [phone] Otis Patino MD Unavailable + [phone] Stephen Foote MD Primary Care Provider + Jez Dougherty MD Unavailable [phone] Encounter Details Date Type Department Care Team (Late st Contact Info) Description 02/02/2023 [facility] [address] [facility] [address] [place] [phone] Stephen Foote MD [address] [place] [address] 1 [place], [place] [phone] Social History Tobacco Use Types Packs/Day Years Used Date Smoking Tobacco: Every Day Cigarettes Smokeless Tobacco: Never Alcohol Use Standard Drinks/Week Comments No 0 (1 standard drink = 0.6 oz pur e alcohol) PHQ-2 Answer Date Recorded PHQ-2 Score 0 10/22/2022 Sex and Gender Information Value Date Recorded Sex Assigned at Male 06/13/2021 11:39 PM SCREED OPERATOR Gender Identity Male 06/13/2021 11:39 PM SCREED OPERATOR Sexual Orientation Straight 06/13/2021 11 :39 PM SCREED OPERATOR COVID-19 Exposure Response Date Recorded In the last 10 days, have yo u been in contact with someone who was confirmed or suspected to have Coronavirus/COVID-19? No / Unsure 01/09/2023 11:15 AM CDT documented as of this encounter Plan of Treatment Upcoming Encounters Date Type Department Care Team (Late st Contact Info) Description 03/22/2024 1:00 PM SCREED OPERATOR Office Visit [facility] [address] [facility] [address] [place] [phone] Stephen Foote MD 1982 [facility] 1 [place] [address] 05/27/2024 1:30 PM SCREED OPERATOR Office Visit [facility] Multiple Sclerosis [address] [phone] Jez Dougherty MD [address] [place] [address] [id number] [place] [address] documented as of this encounter Visit Diagnoses Not on filedocumented in this encounter Additional Health Concerns Assessment Noted Time PHQ-9 Depression Total Score: 5 10/23/19 23 5:09 PM CDT documented as of this encounter Care Teams Inside Sales Representative Relationship Specialty Start Date End Date Stephen Foote MD PCP - General Family Practice 05/04/18 03/16/23 Stephen Foote MD 1982 [facility] 1 [place] [address] PCP - General Family Medicine 03/17/23 Otis Bee MD [address] [place] [address] Orthopedics 05/07/18 Stephen Foote MD Family Practice 05/07/18 03/16/23 Radha Proctor MD [address] [place] [address] 2121 [place] [address] Neurology 11/25/19 Everardo Hensley DO [address] [place] [address] Neurology 10/17/20 Jez Dougherty MD [address] [place] [address] [id number] [place] [address] Neurology 10/17/20 Stephen Foote MD 1982 [facility] 1 [place] [address] Assigned PCP 11/01/20 Sarahi Claudio [facility] 1982 [facility] 1 [place] [address] Pharmacist 03/01/21 Stephen Foote MD 1982 [facility] 1 [place] [address] Assigned Pain Medication Provider 05/27/22 Radha Proctor MD [address] [place] [address] MC [address]121 [place] [address] Assigned Neuroscience Provider 12/14/22 05/09/23 Otis Patino MD 2450 [facility] [address] [place] [address] Assigned Musculoskeletal Provider 01/18/23 Jez Dougherty MD 909 [id number] [place] [address] Assigned Neuroscience Provider 05/10/23 documented as of this encounter
--- OUTSIDE RECORDS SUMMARY | 2024-03-01 21:15 | XMS_ITS | Encounter Summary ---
Author Organization [facility] Address [address] [place] [address] Care Team Providers Care Billing Department Supervisor Name Role Phone Otis Bee MD Unavailable [phone] Radha Proctor MD Unavailable +[phone] Everardo Hensley DO Unavailable + Jez Dougherty MD Unavailable [phone] Stephen Foote MD Unavailable [phone] Sarahi Claudio [facility] Unavailable Unavailab Stephen Diaz MD Unavailable [phone] Radha Proctor MD Unavailable + [phone] Otis Patino MD Unavailable + [phone] Stephen Foote MD Primary Care Provider +[phone] Jez Dougherty MD Unavailable [phone] Encounter Details Date Type Department Care Team (Late st Contact Info) Description 04/02/2023 [facility] Medical Advice [facility] Multiple Sclerosis [address] [phone] Jez Dougehrty MD [address] [place] [address] - [id number] [place] [address] Social History Tobacco Use Types Packs/Day Years Used Date Smoking Tobacco: Every Day Cigarettes Smokeless Tobacco: Never Alcohol Use Standard Drinks/Week Comments No 0 (1 standard drink = 0.6 oz pur e alcohol) PHQ-2 Answer Date Recorded PHQ-2 Score 0 10/22/2022 Adolescent Education Answer Date Record ed Getting [...] in an overnight mcc, or couch-surfing.) Yes 03/17/2023 Are you worried [...] Sex Assigned at Male 06/13/2021 11:39 PM SENIOR ANALYTIC CONSULTANT Gender Identity Male 06/13/2021 11:39 PM SENIOR ANALYTIC CONSULTANT Sexual Orientation Straight 06/13/2021 11 :39 PM SENIOR ANALYTIC CONSULTANT documented as of this encounter Plan of Treatment Upcoming Encounters Date Type Department Care Team (Late st Contact Info) Description 03/22/2024 1:00 PM SENIOR ANALYTIC CONSULTANT Office Visit [facility] [address] [facility] [address] [place] [phone] Stephen Foote MD 1982 [facility] 1 [place] [address] 05/27/2024 1:30 PM SENIOR ANALYTIC CONSULTANT Office Visit [facility] Multiple Sclerosis [address] [phone] Jez Dougherty MD [address] [place] [address] documented as of this encounter Visit Diagnoses Not on filedocumented in this encounter Additional Health Concerns Assessment Noted Time PHQ-9 Depression Total Score: 5 10/23/19 23 5:09 PM CDT documented as of this encounter Care Teams Billing Department Supervisor Relationship Specialty Start Date End Date Stephen Foote MD 1982 [facility] 1 [place] [address] PCP - General Family Medicine 03/17/23 Otis Bee MD [address] [place] [address] Orthopedics 05/07/18 Radha Proctor MD [address] [place] [address] Neurology 11/25/19 Everardo Hensley DO [address] [place] [address] Neurology 10/17/20 Jez Dougherty MD [address] [place] [address] Neurology 10/17/20 Stephen Foote MD 1982 [facility] 1 [place] [address] Assigned PCP 11/01/20 Sarahi Claudio, [facility] 1982 [facility] 1 [place] [address] Pharmacist 03/01/21 Stephen Foote MD [address] [address] Assigned Pain Medication Provider 05/27/22 Radha Proctor MD 909 [facility] 2121 [place] [address] Assigned Neuroscience Provider 12/14/22 05/09/23 Otis Patino MD [facility]0 [facility] [address] [place] [address] Assigned Musculoskeletal Provider 01/18/23 Jez Dougherty MD 909 [facility]2121[place] [place] [address] Assigned Neuroscience Provider 05/10/23 documented as of this encounter
--- OUTSIDE RECORDS SUMMARY | 2024-03-01 21:15 | XMS_ITS | Encounter Summary ---
Author Organization [facility] Address [address] [place] [address] Care Team Providers Care Campus Ambassador Name Role Phone Stephen Foote MD Primary Care Provider + Otis Bee MD Unavailable + Stephen Foote MD Unavailable + 0 Radha Proctor MD Unavailable + Everardo Hensley DO Unavailable + Jez Dougherty MD Unavailable + Stephen Foote MD Unavailable + 0 Sarahi Claudio [facility] Unavailable Unavailab Radha Elkins MD Unavailable + Stephen Foote MD Unavailable + 0 Jez Dougherty MD Unavailable + Radha Proctor MD Unavailable + Nakul Kinsey DO Unavailable + 0 Jez Dougherty MD Unavailable + Radha Proctor MD Unavailable + Otis Patino MD Unavailable +[phone] Stephen Foote MD Primary Care Provider + Jez Dougherty MD Unavailable Encounter Details Date Type Department Care Team (Late st Contact Info) Description 06/10/2022 [facility] Medical Advice [facility] Multiple Sclerosis [address] [phone] Jez Dougherty MD [address] [place] [address] SE - [id number] [place] [address] Social History Tobacco Use Types Packs/Day Years Used Date Smoking Tobacco: Every Day Cigarettes Smokeless Tobacco: Never Alcohol Use Standard Drinks/Week Comments No 0 (1 standard drink = 0.6 oz pur e alcohol) PHQ-2 Answer Date Recorded PHQ-2 Score 0 05/16/2022 Sex and Gender Information Value Date Recorded Sex Assigned at Male 06/13/2021 11:39 PM FOLDING MACHINE TENDER Gender Identity Male 06/13/2021 11:39 PM FOLDING MACHINE TENDER Sexual Orientation Straight 06/13/2021 11 :39 PM FOLDING MACHINE TENDER COVID-19 Exposure Response Date Recorded In the last 10 days, have yo u been in contact with someone who was confirmed or suspected to have Coronavirus/COVID-19? No / Unsure 06/09/2022 12:53 PM FOLDING MACHINE TENDER documented as of this encounter Miscellaneous Notes * Telephone Encounter - Hailey Mike RN - 06/10/2022 9:08 AM CST MRI results from 06/09 available. Pt asking about results. Hailey Mike RN ING MACHINE TENDER documented in this encounter Plan of Treatment Upcoming Encounters Date Type Department Care Team (Late st Contact Info) Description 03/22/2024 1:00 PM FOLDING MACHINE TENDER Office Visit [facility] [address] [facility] [address] [place] [phone] Stephen Foote MD 1982 [facility] 1 [place] [address] 05/27/2024 1:30 PM FOLDING MACHINE TENDER Office Visit [facility] [address] [phone] Jez Dougherty MD [address] [place], [place] [address] [place] [id number] documented as of this encounter Visit Diagnoses Not on filedocumented in this encounter Additional Health Concerns Assessment Noted Time PHQ-9 Depression Total Score: 2 02/07/20 22 1:36 PM CDT documented as of this encounter Care Teams Campus Ambassador Relationship Specialty Start Date End Date Stephen Foote MD PCP - General Family Practice 05/04/18 03/16/23 Stephen Foote MD [address] [place] [address] PCP - General Family Medicine 03/17/23 Otis Bee MD [address] [place] [address] 632945 Orthopedics 05/07/18 Stephen Foote MD MD Family Practice 05/07/18 03/16/23 Radha Proctor MD [address] [place] [address] Neurology 11/25/19 Everardo Hensley DO [address] [place] [address] Neurology 10/17/20 Jez Dougherty MD [address] [place] [address] MD Neurology 10/17/20 Stephen Foote MD [address] [place] [address] Assigned PCP 11/01/20 Sarahi Claudio, [facility] [address] [place] [address] [facility] 03/01/21 Radha Proctor MD [address] [place] [address] Assigned Neuroscience Provider 12/01/21 09/13/22 Stephen Foote MD [address] [place] [address] Assigned Pain Medication Provider 05/27/22 Jez Dougherty MD [address] [place] [address] Assigned Neuroscience Provider 09/14/22 09/20/22 Radha Proctor MD [address] [place] [address] Assigned Neuroscience Provider 09/21/22 11/29/22 Nakul Kinsey DO 9 [place] [address] Assigned Musculoskeletal Provider 10/26/22 01/17/23 Jez Dougherty MD [address] [place], [place] [address] [place] [address] Assigned Neuroscience Provider 11/30/22 12/13/22 Radha Proctor MD 909 [facility] 2121 [place] [address] Assigned Neuroscience Provider 12/14/22 05/09/23 Otis Patino MD 2450 [facility] [address] [place] [address] Assigned Musculoskeletal Provider 01/18/23 Jez Dougherty MD 909 [facility]2121[address]J [place] [address] Assigned Neuroscience Provider 05/10/23 documented as of this encounter
--- OUTSIDE RECORDS SUMMARY | 2024-03-01 21:15 | XMS_ITS | Encounter Summary ---
Author Organization [facility] Address [address] [place] [address] Care Team Providers Care Pss Delivery Professional Name Role Phone Stephen Foote MD Primary Care Provider + Otis Bee MD Unavailable +[phone] Stephen Foote MD Unavailable + 0 Radha Proctor MD Unavailable + Everardo Hensley DO Unavailable + Jez Dougherty MD Unavailable + Stephen Foote MD Unavailable + 0 Sarahi Claudio [facility] Unavailable Unavailab Stephen Diaz MD Unavailable + 0 Radha Proctor MD Unavailable + Nakul Kinsey DO Unavailable + 0 Jez Dougherty MD Unavailable + Radha Proctor MD Unavailable + Otis Patino MD Unavailable +[phone] Stephen Foote MD Primary Care Provider + Jez Dougherty MD Unavailable + Encounter Details Date Type Department Care Team (Late st Contact Info) Description 11/14/2022 [facility] 1982 [facility] 1 [place] [phone] Stephen Foote MD 1982 [facility] 1 [place] [address] Social History Tobacco Use Types Packs/Day Years Used Date Smoking Tobacco: Every Day Cigarettes Smokeless Tobacco: Never Alcohol Use Standard Drinks/Week Comments No 0 (1 standard drink = 0.6 oz pur e alcohol) PHQ-2 Answer Date Recorded PHQ-2 Score 0 10/22/2022 Sex and Gender Information Value Date Recorded Sex Assigned at Male 06/13/2021 11:39 PM AUTOMOBILE LEASING SUPERVISOR Gender Identity Male 06/13/2021 11:39 PM AUTOMOBILE LEASING SUPERVISOR Sexual Orientation Straight 06/13/2021 11 :39 PM AUTOMOBILE LEASING SUPERVISOR COVID-19 Exposure Response Date Recorded In the last 10 days, have yo u been in contact with someone who was confirmed or suspected to have Coronavirus/COVID-19? No / Unsure 11/14/2022 10:52 AM CDT documented as of this encounter Miscellaneous Notes * Telephone Encounter - Alan Escobar MA - 11/14/2022 1:43 PM CDT documented in this encounter Plan of Treatment Upcoming Encounters Date Type Department Care Team (Late st Contact Info) Description 03/22/2024 1:00 PM AUTOMOBILE LEASING SUPERVISOR Office Visit [facility] 1982 [facility] 1 [place] [phone] Stephen Foote MD 1982 [facility] 1 [place] [address] 05/27/2024 1:30 PM AUTOMOBILE LEASING SUPERVISOR Office Visit [facility] Multiple Sclerosis [address] [phone] Jez Dougherty MD [address] [place] [address] - [id number] [place] [address] documented as of this encounter Visit Diagnoses Not on filedocumented in this encounter Additional Health Concerns Assessment Noted Time PHQ-9 Depression Total Score: 5 10/23/19 23 5:09 PM CDT documented as of this encounter Care Teams Pss Delivery Professional Relationship Specialty Start Date End Date Stephen Foote MD PCP - General Family Practice 05/04/18 03/16/23 Stephen Foote MD [address] [place] [address] [facility] 1 [place] [address] PCP - General Family Medicine 03/17/23 Otis Bee MD [address] [place] [address] Orthopedics 05/07/18 Stephen Foote MD MD Family Practice 05/07/18 03/16/23 Radha Proctor MD [address] [place] [address] 2121 [place] [address] Neurology 11/25/19 Everardo Hensley DO [address] [place] [address] Neurology 10/17/20 Jez Dougherty MD [address] [place], [place] [address]CJ [place] [address] Neurology 10/17/20 Stephen Foote MD [address] [place] [address] 1 [place] [address] Assigned PCP 11/01/20 Sarahi Claudio, [facility] 1982 [facility] 1 [place] [address] Pharmacist 03/01/21 Stephen Foote MD 1982 [facility] 1 [place] [address] Assigned Pain Medication Provider 05/27/22 Radha Proctor MD [address] [place] [address] Assigned Neuroscience Provider 09/21/22 11/29/22 Nakul Kinsey DO [address] [place] [address] Assigned Musculoskeletal Provider 10/26/22 01/17/23 Jez Dougherty MD [address] [place] [address] [place] [address] Assigned Neuroscience Provider 11/30/22 12/13/22 Radha Proctor MD [address] [place] [address] Assigned Neuroscience Provider 12/14/22 05/09/23 Otis Patino MD [address] [place] [address] R102 [place] [address] Assigned Musculoskeletal Provider 01/18/23 Jez Dougherty MD [address] [place], [place] [address] [place] [address] Assigned Neuroscience Provider 05/10/23 documented as of this encounter
--- OUTSIDE RECORDS SUMMARY | 2024-03-01 21:15 | XMS_ITS | Encounter Summary ---
Author Organization [facility] Address [address] [place] [address] Care Team Providers Care Latent Fingerprint Examiner Name Role Phone Stephen Foote MD Primary Care Provider + Otis Bee MD Unavailable +[phone] Stephen Foote MD Unavailable + 0 Radha Proctor MD Unavailable + Everardo Hensley DO Unavailable + Jez Dougherty MD Unavailable + Stephen Foote MD Unavailable + 0 Sarahi Claudio [facility] Unavailable Unavailab Stephen Diaz MD Unavailable + 0 Radha Proctor MD Unavailable + Nakul Kinsey DO Unavailable + 0 Jez Dougherty MD Unavailable + Radha Proctor MD Unavailable + Otis Patino MD Unavailable +[phone] Stephen Foote MD Primary Care Provider + Jez Dougherty MD Unavailable +[phone] Reason for Visit * Reason Onset Date Comments symptoms 10/15/2022 Left leg pain Encounter Details Date Type Department Care Team (Late st Contact Info) Description 10/15/2022 MyC Medical Advice [facility] Multiple Sclerosis [address] [phone] Jez Dougherty MD [address] [place] [address] - [id number] [place] [address] symptoms (Left leg pain) Social History Tobacco Use Types Packs/Day Years Used Date Smoking Tobacco: Every Day Cigarettes Smokeless Tobacco: Never Alcohol Use Standard Drinks/Week Comments No 0 (1 standard drink = 0.6 oz pur e alcohol) PHQ-2 Answer Date Recorded PHQ-2 Score 1 08/26/2022 Sex and Gender Information Value Date Recorded Sex Assigned at Male 06/13/2021 11:39 PM MEDICAL RECORDS AUDITOR Gender Identity Male 06/13/2021 11:39 PM MEDICAL RECORDS AUDITOR Sexual Orientation Straight 06/13/2021 11 :39 PM MEDICAL RECORDS AUDITOR documented as of this encounter Miscellaneous Notes * Telephone Encounter - Jez Dougherty MD - 10/15/2022 1:40 PM CDT I agree that this is unlikely to be due to MS; physical exam would be helpful to try to identify pain generator, and I agree with him reaching out to primary care provider for appointment. I am happy to provide a physical therapy referral if he would like to pursue that at this time. documented in this encounter Plan of Treatment Upcoming Encounters Date Type Department Care Team (Late Contact Info) Description 03/22/2024 1:00 PM MEDICAL RECORDS AUDITOR Office Visit [facility] 1982 [facility] 1 [place] [address] Stephen Foote MD 1982 [place] [address] 05/27/2024 1:30 PM MEDICAL RECORDS AUDITOR Office Visit [facility] Multiple Sclerosis [address] [phone] Jez Dougherty MD 909 [facility]2121CJ [place] [address] documented as of this encounter Visit Diagnoses Not on filedocumented in this encounter Additional Health Concerns Assessment Noted Time PHQ-9 Depression Total Score: 7 08/27/19 23 11:43 AM CDT documented as of this encounter Care Teams Latent Fingerprint Examiner Relationship Specialty Start Date End Date Stephen Foote MD PCP - General Family Practice 05/04/18 03/16/23 Stephen Foote MD [address] [place] [address] PCP - General Family Medicine 03/17/23 Otis Bee MD [address] [place] [address] Orthopedics 05/07/18 Stephen Foote MD MD Family Practice 05/07/18 03/16/23 Radha Proctor MD [address] [place] [address] 2121 [place] [address] Neurology 11/25/19 Everardo Hensley DO [address] [place] [address] Neurology 10/17/20 Jez Dougherty MD [address] [place], [place] [address]CJ [place] [address] Neurology 10/17/20 Stephen Foote MD 1982 [facility] 1 [place] [address] Assigned PCP 11/01/20 Sarahi Claudio, [facility] 1982 [facility] 1 [place] [address] Pharmacist 03/01/21 Stephen Foote MD [address] [address] Assigned Pain Medication Provider 05/27/22 Radha Proctor MD [address] [place] [address] Assigned Neuroscience Provider 09/21/22 11/29/22 Nakul Kinsey DO [address] [place] [address] Assigned Musculoskeletal Provider 10/26/22 01/17/23 Jez Dougherty MD [address] [place], [place] [address]CJ [place] [address] Assigned Neuroscience Provider 11/30/22 12/13/22 Radha Proctor MD [address] [place] [address] Assigned Neuroscience Provider 12/14/22 05/09/23 Otis Patino MD [address] [place], [place] [address] [place] [address] Assigned Musculoskeletal Provider 01/18/23 Jez Dougherty MD [address] [place] [address]C[place] [address] Assigned Neuroscience Provider 05/10/23 documented as of this encounter
--- OUTSIDE RECORDS SUMMARY | 2024-03-01 21:15 | XMS_ITS | Encounter Summary ---
Author Organization [facility] Address [address] [place] [address] Care Team Providers Care Compliance Assistant Name Role Phone Stephen Foote MD Primary Care Provider + Otis Bee MD Unavailable + Stephen Foote MD Unavailable + 0 Radha Proctor MD Unavailable + Everarod Hensley DO Unavailable + Jez Dougherty MD Unavailable + Stephen Foote MD Unavailable + 0 Sarahi Claudio [facility] Unavailable Unavailab Radha Elkins MD Unavailable + Stephen Foote MD Unavailable + 0 Jez Dougherty MD Unavailable + Radha Proctor MD Unavailable + Nakul Kinsey DO Unavailable + 0 Jez Dougherty MD Unavailable + Radha Proctor MD Unavailable + Otis Patino MD Unavailable +[phone] Stephen Foote MD Primary Care Provider + Jez Dougherty MD Unavailable [phone] Encounter Details Date Type Department Care Team (Late Contact Info) Description 09/03/2022 MyC Medical Advice [address] 1 [place] [phone] Stephen Foote MD 1982 [facility] 1 [place] [address] Social History Tobacco Use Types Packs/Day Years Used Date Smoking Tobacco: Every Day Cigarettes Smokeless Tobacco: Never Alcohol Use Standard Drinks/Week Comments No 0 (1 standard drink = 0.6 oz pur e alcohol) PHQ-2 Answer Date Recorded PHQ-2 Score 1 08/26/2022 Sex and Gender Information Value Date Recorded Sex Assigned at Male 06/13/2021 11:39 PM CALL CENTER OPERATOR Gender Identity Male 06/13/2021 11:39 PM CALL CENTER OPERATOR Sexual Orientation Straight 06/13/2021 11 :39 PM CALL CENTER OPERATOR COVID-19 Exposure Response Date Recorded In the last 10 days, have akshat u been in contact with someone who was confirmed or suspected to have Coronavirus/COVID-19? No / Unsure 08/26/2022 11:40 AM CDT documented as of this encounter Plan of Treatment Upcoming Encounters Date Type Department Care Team (Late Contact Info) Description 03/22/2024 1:00 PM CALL CENTER OPERATOR Office Visit [address] [phone] Stephen Foote MD 1982 [facility] 1 [place] [address] 05/27/2024 1:30 PM CALL CENTER OPERATOR Office Visit [facility] Multiple Sclerosis [address] [phone] Jez Dougherty MD [address] [place] [address] [id number] [place] [address] documented as of this encounter Visit Diagnoses Not on filedocumented in this encounter Additional Health Concerns Assessment Noted Time PHQ-9 Depression Total Score: 7 08/27/19 11:43 AM CDT documented as of this encounter Care Teams Compliance Assistant Relationship Specialty Start Date End Date Stephen Foote MD PCP - General Family Practice 05/04/18 03/16/23 Stephen Foote MD 1982 [facility] 1 [place], [place] [phone] PCP - General Family Medicine 03/17/23 Otis Bee MD [address] [place] [address] [id number] Orthopedics 05/07/18 Stephen Foote MD Family Practice 05/07/18 03/16/23 Radha Proctor MD [address] [place] [address] 2121 [place] [address] Neurology 11/25/19 Everardo Hensley DO [address] [place] [address] 861195 Neurology 10/17/20 Jez Dougherty MD [address] [place] [id number] [address] Neurology 10/17/20 Stephen Foote MD 1982 [facility] 1 [place] [address] Assigned PCP 11/01/20 [facility] [address] [place] [address] [facility] 03/01/21 Radha Proctor MD [address] [place] [address] Assigned Neuroscience Provider 12/01/21 09/13/22 Stephen Foote MD [address] [place] [address] Assigned Pain Medication Provider 05/27/22 Jez Dougherty MD [address] [place] [address] Assigned Neuroscience Provider 09/14/22 09/20/22 Radha Proctor MD [address] [place] [address] Assigned Neuroscience Provider 09/21/22 11/29/22 Nakul Kinsey DO [address] [place] [address] Assigned Musculoskeletal Provider 10/26/22 01/17/23 Jez Dougherty MD [address] [place] [address] Assigned Neuroscience Provider 11/30/22 12/13/22 Radha Proctor MD [address] [place] [address] Assigned Neuroscience Provider 12/14/22 05/09/23 Otis Patino MD 2450 [facility] R102 [place] [address] Assigned Musculoskeletal Provider 01/18/23 Jez Dougherty MD 909 [facility] [id number] [place] [address] Assigned Neuroscience Provider 05/10/23 documented as of this encounter
--- OUTSIDE RECORDS SUMMARY | 2024-03-01 21:15 | XMS_ITS | Encounter Summary ---
Author Organization [facility] Address [address] [place] [address] Care Team Providers Care Computer Numerical Control Grinder Name Role Phone Stephen Foote MD Primary Care Provider + Otis Bee MD Unavailable + Stephen Foote MD Unavailable + 0 Radha Proctor MD Unavailable + Everardo Hensley DO Unavailable + Jez Dougherty MD Unavailable + Stephen Foote MD Unavailable + 0 Sarahi Claudio [facility] Unavailable Unavailab Radha Elkins MD Unavailable + Stephen Foote MD Unavailable + 0 Jez Dougherty MD Unavailable + Radha Proctor MD Unavailable + Nakul Kinsey DO Unavailable + 0 Jez Dougherty MD Unavailable + Radha Proctor MD Unavailable + Otis Patino MD Unavailable +[phone] Stephen Foote MD Primary Care Provider + Jez Dougherty MD Unavailable [phone] Reason for Visit * Reason Onset Date Comments symptoms 07/22/2022 Encounter Details Date Type Department Care Team (Late Contact Info) Description 07/22/2022 MyC Medical Advice [facility] Multiple Sclerosis [address] [phone] Jez Dougherty MD [address] [place] [address] [phone] symptoms Social History Tobacco Use Types Packs/Day Years Used Date Smoking Tobacco: Every Day Cigarettes Smokeless Tobacco: Never Alcohol Use Standard Drinks/Week Comments No 0 (1 standard drink = 0.6 oz pur e alcohol) PHQ-2 Answer Date Recorded PHQ-2 Score 0 05/16/2022 Sex and Gender Information Value Date Recorded Sex Assigned at Male 06/13/2021 11:39 PM PURCHASING INTERNSHIP Gender Identity Male 06/13/2021 11:39 PM PURCHASING INTERNSHIP Sexual Orientation Straight 06/13/2021 11 :39 PM PURCHASING INTERNSHIP COVID-19 Exposure Response Date Recorded In the last 10 days, have yo u been in contact with someone who was confirmed or suspected to have Coronavirus/COVID-19? No / Unsure 06/25/2022 1:10 PM PURCHASING INTERNSHIP documented as of this encounter Plan of Treatment Upcoming Encounters Date Type Department Care Team (Late st Contact Info) Description 03/22/2024 1:00 PM PURCHASING INTERNSHIP Office Visit [facility] [address] [phone] Stephen Foote MD [address] [address] 05/27/2024 1:30 PM PURCHASING INTERNSHIP Office Visit [facility] Multiple Sclerosis [address] [phone] Jez Dougherty MD [address] [place] [address] documented as of this encounter Visit Diagnoses Not on filedocumented in this encounter Additional Health Concerns Assessment Noted Time PHQ-9 Depression Total Score: 2 02/07/20 22 1:36 PM CDT documented as of this encounter Care Teams Computer Numerical Control Grinder Relationship Specialty Start Date End Date Stephen Foote MD PCP - General Family Practice 05/04/18 03/16/23 Stephen Foote MD [address] [place] [address] 1 [place] [address] PCP - General Family Medicine 03/17/23 Otis Bee MD [address] [place] [address] Orthopedics 05/07/18 Stephen Foote MD MD Family Practice 05/07/18 03/16/23 Radha Proctor MD [address] [place] [address] 2121 [place] [address] Neurology 11/25/19 Everardo Hensley DO [address] [place] [address] Neurology 10/17/20 Jez Dougherty MD [address] [place], [place] [id number] [address] Neurology 10/17/20 Stephen Foote MD [address] [place] [address] 1 [place] [address] Assigned PCP 11/01/20 Sarahi Claudio, [facility] 1982 [facility] 1 [place] [address] [facility] 03/01/21 Radha Proctor MD [address] [place] [address] Assigned Neuroscience Provider 12/01/21 09/13/22 Stephen Foote MD [address] [place] [address] Assigned Pain Medication Provider 05/27/22 Jez Dougherty MD [address] [place] [address] Assigned Neuroscience Provider 09/14/22 09/20/22 Radha Proctor MD [address] [place] [address] [phone] Assigned Neuroscience Provider 09/21/22 11/29/22 Nakul Kinsey DO [address] [place] [address] Assigned Musculoskeletal Provider 10/26/22 01/17/23 Jez Dougherty MD [address] [place] [address] Assigned Neuroscience Provider 11/30/22 12/13/22 Radha Proctor MD [address] [place] [address] 239[address] Assigned Neuroscience Provider 12/14/22 05/09/23 Otis Patino MD 2450 [facility] R102 [place] [address] Assigned Musculoskeletal Provider 01/18/23 Jez [address] MD [address] [facility] - [id number] [place] [address] Assigned Neuroscience Provider 05/10/23 documented as of this encounter
--- OUTSIDE RECORDS SUMMARY | 2024-03-01 21:15 | XMS_ITS | Encounter Summary ---
Author Organization [facility] Address [address] [place] [address] Care Team Providers Care Process Architect Name Role Phone Stephen Foote MD Primary Care Provider + Otis Bee MD Unavailable + [phone] Stephen Foote MD Unavailable [phone] Radha Proctor MD Unavailable +[phone] Everardo Hensley DO Unavailable + Jez Dougherty MD Unavailable + [phone] Stephen Foote MD Unavailable + 0 Sarahi Claudio [facility] Unavailable Unavailab Stephen Diaz MD Unavailable + 0 Nakul Kinsey DO Unavailable [phone] Radha Proctor MD Unavailable +[phone] Otis Patino MD Unavailable + [phone] Stephen Foote MD Primary Care Provider + Jez Dougherty MD Unavailable +[phone] Reason for Visit * Reason Onset Date Comments Refill Request 12/31/2022 Encounter Details Date Type Department Care Team (Late st Contact Info) Description 12/31/2022 Hilario Alan [address] [phone] Stephen Foote MD 1982 [facility] 1 [place] [address] Refill Request Social History Tobacco Use Types Packs/Day Years Used Date Smoking Tobacco: Every Day Cigarettes Smokeless Tobacco: Never Alcohol Use Standard Drinks/Week Comments No 0 (1 standard drink = 0.6 oz pur e alcohol) PHQ-2 Answer Date Recorded PHQ-2 Score 0 10/22/2022 Sex and Gender Information Value Date Recorded Sex Assigned at Male 06/13/2021 11:39 PM BATCH MIXER OPERATOR Gender Identity Male 06/13/2021 11:39 PM BATCH MIXER OPERATOR Sexual Orientation Straight 06/13/2021 11 :39 PM BATCH MIXER OPERATOR documented as of this encounter Miscellaneous Notes * Telephone Encounter - Vaishnavi Rosa RN - 12/31/2022 4:07 PM CDT documented in this encounter Plan of Treatment Upcoming Encounters Date Type Department Care Team (Late st Contact Info) Description 03/22/2024 1:00 PM BATCH MIXER OPERATOR Office Visit [facility] 1982 [facility] 1 [place] [phone] Stephen Foote MD 1982 [facility] 1 [place] [address] 05/27/2024 1:30 PM BATCH MIXER OPERATOR Office Visit [facility] Multiple Sclerosis [address] [phone] Jez Dougherty MD [address] [place] [address] - [id number] [place], [place] 161674 documented as of this encounter Visit Diagnoses Diagnosis Episodic cluster headache, not intractable Episodic cluster headache Encounter for medication refill Issue of repeat prescriptions documented in this encounter Additional Health Concerns Assessment Noted Time PHQ-9 Depression Total Score: 5 10/23/19 23 5:09 PM CDT documented as of this encounter Care Teams Process Architect Relationship Specialty Start Date End Date Stephen Foote MD PCP - General Family Practice 05/04/18 03/16/23 Stephen Foote MD 1982 [facility] 1 [place] [address] PCP - General Family Medicine 03/17/23 Otis Bee MD [address] [place] [address] Orthopedics 05/07/18 Stephen Foote MD MD Family Practice 05/07/18 03/16/23 Radha Proctor MD [address] [place] [address] 2121 [place] [address] Neurology 11/25/19 Everardo Hensley DO [address] [place] [address] Neurology 10/17/20 Jez Dougherty MD [address] [place], [place] [id number] [address] Neurology 10/17/20 Stephen Foote MD [address] [address] Assigned PCP 11/01/20 Sarahi Claudio [facility] [address] [address] Pharmacist 03/01/21 Stephen Foote MD [address] [place] [address] [facility] 1 [place] [address] Assigned Pain Medication Provider 05/27/22 Nakul Kinsey DO 909 [place] [address] Assigned Musculoskeletal Provider 10/26/22 01/17/23 Radha Proctor MD 909 [facility] 2121 [place] [address] Assigned Neuroscience Provider 12/14/22 05/09/23 Otis Patino MD 2450 [facility] R102 [place] [address] Assigned Musculoskeletal Provider 01/18/23 Jez Dougherty MD 909 [facility] [place] [id number] [place] [address] Assigned Neuroscience Provider 05/10/23 documented as of this encounter
--- OUTSIDE RECORDS SUMMARY | 2024-03-01 21:15 | XMS_ITS | Encounter Summary ---
Author Organization [facility] Address [address] [place] [address] Care Team Providers Care Stringer Up Soldering Machine Name Role Phone Stephen Foote MD Primary Care Provider + Otis Bee MD Unavailable +[phone] Stephen Foote MD Unavailable + 0 Radha Proctor MD Unavailable + Everardo Hensley DO Unavailable + Jez Dougherty MD Unavailable + Stephen Foote MD Unavailable + 0 Sarahi Claudio [facility] Unavailable Unavailab Stephen Diaz MD Unavailable + 0 Radha Proctor MD Unavailable + Nakul Kinsey DO Unavailable + 0 Jez Dougherty MD Unavailable + Radha Proctor MD Unavailable + Otis Patino MD Unavailable +[phone] Stephen Foote MD Primary Care Provider + Jez Dougherty MD Unavailable + Encounter Details Date Type Department Care Team (Late st Contact Info) Description 11/14/2022 [facility] Multiple Sclerosis [address] [phone] Jez Dougherty MD [address] [place] [address] Social History Tobacco Use Types Packs/Day Years Used Date Smoking Tobacco: Every Day Cigarettes Smokeless Tobacco: Never Alcohol Use Standard Drinks/Week Comments No 0 (1 standard drink = 0.6 oz pur e alcohol) PHQ-2 Answer Date Recorded PHQ-2 Score 0 10/22/2022 Sex and Gender Information Value Date Recorded Sex Assigned at Male 06/13/2021 11:39 PM SOFTWARE SYSTEMS ARCHITECT Gender Identity Male 06/13/2021 11:39 PM SOFTWARE SYSTEMS ARCHITECT Sexual Orientation Straight 06/13/2021 11 :39 PM SOFTWARE SYSTEMS ARCHITECT COVID-19 Exposure Response Date Recorded In the last 10 days, have yo u been in contact with someone who was confirmed or suspected to have Coronavirus/COVID-19? No / Unsure 11/14/2022 10:52 AM CDT documented as of this encounter Plan of Treatment Upcoming Encounters Date Type Department Care Team (Late st Contact Info) Description 03/22/2024 1:00 PM SOFTWARE SYSTEMS ARCHITECT Office Visit [facility] 1982 [facility] 1 [place] [phone] Stephen Foote MD [address] [place] [address] 05/27/2024 1:30 PM SOFTWARE SYSTEMS ARCHITECT Office Visit [facility] Multiple Sclerosis [address] [phone] Jez Dougherty MD [address] [place] [address] documented as of this encounter Visit Diagnoses Not on filedocumented in this encounter Additional Health Concerns Assessment Noted Time PHQ-9 Depression Total Score: 5 10/23/19 23 5:09 PM CDT documented as of this encounter Care Teams Stringer Up Soldering Machine Relationship Specialty Start Date End Date Stephen Foote MD PCP - General Family Practice 05/04/18 03/16/23 Stephen Foote MD 1982 [facility] 1 [place] [address] PCP - General Family Medicine 03/17/23 Otis Bee MD [address] [place] [address] Orthopedics 05/07/18 Stephen Foote MD MD Family Practice 05/07/18 03/16/23 Radha Proctor MD [address] [place] [address] 2121 [place] [address] Neurology 11/25/19 Everardo Hensley DO [address] [place] [address] Neurology 10/17/20 Jez Dougherty MD [address] [place], [place] [id number] [address] Neurology 10/17/20 Stephen Foote MD 1982 [facility] 1 [place] [address] Assigned PCP 11/01/20 Sarahi Claudio, [facility] [address] [address] Pharmacist 03/01/21 Stephen Foote MD [address] [place] [address] [facility] [address] [place] [address] Assigned Pain Medication Provider 05/27/22 Radha Proctor MD [address] [address] Assigned Neuroscience Provider 09/21/22 11/29/22 Nakul Kinsey DO [address] [place] [address] Assigned Musculoskeletal Provider 10/26/22 01/17/23 Jez Dougherty MD [address] [place] [address] Assigned Neuroscience Provider 11/30/22 12/13/22 Radha Proctor MD [address] [place] [address] Assigned Neuroscience Provider 12/14/22 05/09/23 Otis Patino MD [address] [place] [address] R102 [place] [address] Assigned Musculoskeletal Provider 01/18/23 Jez Dougherty MD [address] [place] [address] Assigned Neuroscience Provider 05/10/23 documented as of this encounter
--- OUTSIDE RECORDS SUMMARY | 2024-03-01 21:15 | XMS_ITS | Encounter Summary ---
Author Organization [facility] Address [address] [place] [address] Care Team Providers Care Valve Inserter Name Role Phone Otis Bee MD Unavailable [phone] Radha Proctor MD Unavailable [phone] Everardo Hensley DO Unavailable + Jez Dougherty MD Unavailable [phone] Stephen Foote MD Unavailable [phone] Sarahi Claudio [facility] Unavailable Unavailab Stephen Diaz MD Unavailable [phone] Otis Patino MD Unavailable [phone] Stephen Foote MD Primary Care Provider [phone] Jez Dougherty MD Unavailable [phone] Encounter Details Date Type Department Care Team (Late st Contact Info) Description 05/15/2023 Orders Only [facility] 1982 [facility] [address] [place] [address] Stephen Foote MD 1982 [facility] 1 [place] [address] DIAGNOSIS NOT YET DEFINED (Primary [...] in an overnight retirement, or couch-surfing.) Yes 03/17/2023 Are you worried [...] Sex Assigned at Male 06/13/2021 11:39 PM CHECKER CASHIER Gender Identity Male 06/13/2021 11:39 PM CHECKER CASHIER Sexual Orientation Straight 06/13/2021 11 :39 PM CHECKER CASHIER documented as of this encounter Plan of Treatment Upcoming Encounters Date Type Department Care Team (Kj st Contact Info) Description 03/22/2024 1:00 PM CHECKER CASHIER Office Visit [address] [phone] Stephen Foote MD 1982 [facility] 1 [place] [address] 05/27/2024 1:30 PM CHECKER CASHIER Office Visit [facility] Multiple Sclerosis [address] [phone] Jez Dougherty MD [address] [place] [id number] [place], [place] [address] documented as of this encounter Procedures Procedure Name Priority Date/Time Associated Diagnosis Comments DE RECERTESTEFANÍA LABEL STAMPER PT Routine 05/15/2023 DIAGNOSIS NOT YET DEFINED documented in this encounter Results * MD ANNE LABEL STAMPER PT (05/15/2023) Stephen Foote MD [employer] documented in this encounter Visit Diagnoses Diagnosis DIAGNOSIS NOT YET DEFINED- Primary documented in this encounter Additional Health Concerns Assessment Noted Time PHQ-9 Depression Total Score: 5 10/23/19 23 5:09 PM CDT documented as of this encounter Care Teams Valve Inserter Relationship Specialty Start Date End Date Stephen Foote MD 1982 [facility] 1 [place] [address] PCP - General Family Medicine 03/17/23 Otis Bee MD [address] [place] [address] 449065 Orthopedics 05/07/18 Radha Proctor MD [address] [place] [address] Neurology 11/25/19 Everardo Hensley DO [address] [place] [address] 743205 Neurology 10/17/20 Jez Dougherty MD [address] [address] Neurology 10/17/20 Stephen Foote MD [address] [address] Assigned PCP 11/01/20 Sarahi Claudio, [facility] [address] [address] Pharmacist 03/01/21 Stephen Foote MD [address] [address] Assigned Pain Medication Provider 05/27/22 Otis Patino MD [address] [place] [address] Assigned Musculoskeletal Provider 01/18/23 Jez Dougherty MD [address] [address] Assigned Neuroscience Provider 05/10/23 documented as of this encounter
--- OUTSIDE RECORDS SUMMARY | 2024-03-01 21:15 | XMS_ITS | Encounter Summary ---
Author Organization [place] Address [address] [place] [address] Care Team Providers Care Rheumatology Specialist Name Role Phone Stephen Foote MD Primary Care Provider + Otis Bee MD Unavailable +0 Stephen Foote MD Unavailable + 0 Radha Proctor MD Unavailable + Everardo Hensley DO Unavailable + Jez Dougherty MD Unavailable + Stephen Foote MD Unavailable + 0 Sarahi Claudio [facility] Unavailable Unavailab Stephen Diaz MD Unavailable + 0 Radha Proctor MD Unavailable + Nakul Kinsey DO Unavailable + 0 Jez Dougherty MD Unavailable + Radha Proctor MD Unavailable + Otis Patino MD Unavailable +[phone] Stephen Foote MD Primary Care Provider + Jez Dougherty MD Unavailable + Encounter Details Date Type Department Care Team (Late st Contact Info) Description 09/25/2022 [facility] 1982 [facility] 1 [place] [phone] Stephen Foote MD 1982 [facility] 1 [place], [place] [id number] Social History Tobacco Use Types Packs/Day Years Used Date Smoking Tobacco: Every Day Cigarettes Smokeless Tobacco: Never Alcohol Use Standard Drinks/Week Comments No 0 (1 standard drink = 0.6 oz pur e alcohol) PHQ-2 Answer Date Recorded PHQ-2 Score 1 08/26/2022 Sex and Gender Information Value Date Recorded Sex Assigned at Male 06/13/2021 11:39 PM MILLER KILN DRIED SALT Gender Identity Male 06/13/2021 11:39 PM [employer]ER [employer] Sexual Orientation Straight 06/13/2021 11 :39 PM MILLER [employer] S[employer] COVID-19 Exposure Response Date Recorded In the last 10 days, have yo u been in contact with someone who was confirmed or suspected to have Coronavirus/COVID-19? No / Unsure 08/26/2022 11:40 AM CDT documented as of this encounter Plan of Treatment Upcoming Encounters Date Type Department Care Team (Late st Contact Info) Description 03/22/2024 1:00 PM M[employer]ER [employer] Office Visit [facility] [address] [phone] Stephen Foote MD [address] [phone] 05/27/2024 1:30 PM M[employer]ER [employer] Office Visit [facility] [address] [phone] Jez Dougherty MD [address] [place] [address] [id number] [place], [place] 332764 documented as of this encounter Visit Diagnoses Not on filedocumented in this encounter Additional Health Concerns Assessment Noted Time PHQ-9 Depression Total Score: 7 08/27/19 23 11:43 AM CDT documented as of this encounter Care Teams Rheumatology Specialist Relationship Specialty Start Date End Date Stephen Foote MD PCP - General Family Practice 05/04/18 03/16/23 Stephen Foote MD 1982 [facility] 1 [place] [address] PCP - General Family Medicine 03/17/23 Otis Bee MD [address] [place] [address] Orthopedics 05/07/18 Stephen Foote MD [place] Family Practice 05/07/18 03/16/23 Radha Proctor MD [address] [place] [address] 2121 [place] [address] Neurology 11/25/19 Everardo Hensley DO [address] [place] [address] Neurology 10/17/20 Jez Dougherty MD [address] [place], [place] [id number] [place] [address] Neurology 10/17/20 Stephen Foote MD 1982 [facility] 1 [place] [address] Assigned PCP 11/01/20 Sarahi Claudio, [facility] 1982 [facility] 1 [place] [address] Pharmacist 03/01/21 Stephen Foote MD [address] [place] [address] [facility] [address] [place] [address] Assigned Pain Medication Provider 05/27/22 Radha Proctor MD [address] [place] [address] Assigned Neuroscience Provider 09/21/22 11/29/22 Nakul Kinsey DO [address] [place] [address] Assigned Musculoskeletal Provider 10/26/22 01/17/23 Jez Douhgerty MD [address] [place] [address] Assigned Neuroscience Provider 11/30/22 12/13/22 Radha Proctor MD [address] [place] [address] Assigned Neuroscience Provider 12/14/22 05/09/23 Otis Patino MD [address] [place], [place] [address] [place] [address] Assigned Musculoskeletal Provider 01/18/23 Jez Dougherty MD [address] [place], [place] [address] [place] [address] Assigned Neuroscience Provider 05/10/23 documented as of this encounter
--- OUTSIDE RECORDS SUMMARY | 2024-03-01 21:15 | XMS_ITS | Encounter Summary ---
Author Organization [facility] Address [address] [place] [address] Care Team Providers Care Catalyst Unit Operator Name Role Phone Otis Bee MD Unavailable [phone] Radha Proctor MD Unavailable +[phone] Everardo Hensley DO Unavailable + Jez Dougherty MD Unavailable +[phone] Stephen Foote MD Unavailable [phone] Sarahi Claudio [facility] Unavailable Unavailab Stephen Diaz MD Unavailable +[phone] Radha Proctor MD Unavailable +[phone] Otis Patino MD Unavailable +[phone] Stephen Foote MD Primary Care Provider + [phone] Jez Dougherty MD Unavailable [phone] Reason for Visit * Reason Onset Date Comments Refill Request 04/07/2023 Encounter Details Date Type Department Care Team (Late st Contact Info) Description 04/07/2023 My[facility] [address] [phone] Juaquin Ramirez MD Refill Request Social History Tobacco Use Types [...] in an overnight usp, or couch-surfing.) Yes 03/17/2023 Are you worried [...] Sex Assigned at Male 06/13/2021 11:39 PM OUTSIDE SOLAR SALES CONSULTANT Gender Identity Male 06/13/2021 11:39 PM OUTSIDE SOLAR SALES CONSULTANT Sexual Orientation Straight 06/13/2021 11 :39 PM OUTSIDE SOLAR SALES CONSULTANT documented as of this encounter Plan of Treatment Upcoming Encounters Date Type Department Care Team (Kj st Contact Info) Description 03/22/2024 1:00 PM OUTSIDE SOLAR SALES CONSULTANT Office Visit [address] [phone] Stephen Foote MD [address] [address] 05/27/2024 1:30 PM OUTSIDE SOLAR SALES CONSULTANT Office Visit [facility] [address] [phone] Jez Dougherty MD [address] [place] [address] documented as of this encounter Visit Diagnoses Diagnosis Episodic cluster headache, not intractable Episodic cluster headache Encounter for medication refill Issue of repeat prescriptions documented in this encounter Additional Health Concerns Assessment Noted Time PHQ-9 Depression Total Score: 5 10/23/19 23 5:09 PM CDT documented as of this encounter Care Teams Catalyst Unit Operator Relationship Specialty Start Date End Date Stephen Foote MD [address] [address] PCP - General Family Medicine 03/17/23 Otis Bee MD [address] [place] [address] Orthopedics 05/07/18 Radha Proctor MD [address] [place] [address] Neurology 11/25/19 Everardo Hensley DO [address] [place] [address] Neurology 10/17/20 Jez Dougherty MD [address] [place] [address] Neurology 10/17/20 Stephen Foote MD 1982 [facility] 1 [place] [address] Assigned PCP 11/01/20 Sarahi Claudio [facility] 1982 [facility] 1 [place] [address] Pharmacist 03/01/21 Stephen Foote MD 1982 [facility] 1 [place] [address] Assigned Pain Medication Provider 05/27/22 Radha Proctor MD 909 [facility] 2121 [place] [address] Assigned Neuroscience Provider 12/14/22 05/09/23 tOis Patino MD [facility]0 [facility] R102 [place] [address] Assigned Musculoskeletal Provider 01/18/23 Jez Dougherty MD 909 [facility]2121[address]J [place] [address] Assigned Neuroscience Provider 05/10/23 documented as of this encounter
--- OUTSIDE RECORDS SUMMARY | 2024-03-01 21:15 | XMS_ITS | Encounter Summary ---
Author Organization [facility] Address [address] [place] [address] Care Team Providers Care Manufacturing Assistant Name Role Phone Stephen Foote MD Primary Care Provider + Otis Bee MD Unavailable + [phone] Stephen Foote MD Unavailable [phone] Radha Proctor MD Unavailable +[phone] Everardo Hensley DO Unavailable + Jez Dougherty MD Unavailable + [phone] Stephen Foote MD Unavailable + 0 Sarahi Claudio [facility] Unavailable Unavailab Stephen Diaz MD Unavailable + 0 Nakul Kinsey DO Unavailable +[phone] Radha Proctor MD Unavailable +[phone] Otis Patino MD Unavailable + [phone] Stephen Foote MD Primary Care Provider + Jez Dougherty MD Unavailable +[phone] Reason for Visit * Reason Onset Date Comments Refill Request 01/02/2023 Encounter Details Date Type Department Care Team (Late st Contact Info) Description 01/02/2023 Hilario Alan [address] [phone] Stephen Foote MD 1982 [facility] 1 [place] [address] Refill Request Social History Tobacco Use Types Packs/Day Years Used Date Smoking Tobacco: Every Day Cigarettes Smokeless Tobacco: Never Alcohol Use Standard Drinks/Week Comments No 0 (1 standard drink = 0.6 oz pur e alcohol) PHQ-2 Answer Date Recorded PHQ-2 Score 0 10/22/2022 Sex and Gender Information Value Date Recorded Sex Assigned at Male 06/13/2021 11:39 PM HUMAN RESOURCE PROFESSIONAL Gender Identity Male 06/13/2021 11:39 PM HUMAN RESOURCE PROFESSIONAL Sexual Orientation Straight 06/13/2021 11 :39 PM HUMAN RESOURCE PROFESSIONAL documented as of this encounter Plan of Treatment Upcoming Encounters Date Type Department Care Team (Late st Contact Info) Description 03/22/2024 1:00 PM HUMAN RESOURCE PROFESSIONAL Office Visit [facility] 1982 [facility] 1 [place] [address] Stephen Foote MD 1982 [facility] 1 [place] [address] 05/27/2024 1:30 PM HUMAN RESOURCE PROFESSIONAL Office Visit [facility] Multiple Sclerosis [address] [phone] Jez Dougherty MD [address] [place] [address] [id number] [place], [place] 246564 documented as of this encounter Visit Diagnoses Diagnosis Episodic cluster headache, not intractable Episodic cluster headache Encounter for medication refill Issue of repeat prescriptions documented in this encounter Additional Health Concerns Assessment Noted Time PHQ-9 Depression Total Score: 5 10/23/19 23 5:09 PM CDT documented as of this encounter Care Teams Manufacturing Assistant Relationship Specialty Start Date End Date Stephen Foote MD PCP - General Family Practice 05/04/18 03/16/23 Stephen Foote MD 1982 [facility] 1 [place] [address] PCP - General Family Medicine 03/17/23 Otis Bee MD [address] [place] [address] Orthopedics 05/07/18 Stephen Foote MD Family Practice 05/07/18 03/16/23 Radha Proctor MD [address] [place], [place] [address] [place] [address] Neurology 11/25/19 Everardo Hensley DO [address] [place] [address] Neurology 10/17/20 Jez Dougherty MD [address] [place] [id number] [address] Neurology 10/17/20 Stephen Foote MD 1982 [facility] 1 [place] [address] Assigned PCP 11/01/20 Sarahi Claudio [facility] 1982 [facility] 1 [place] [address] Pharmacist 03/01/21 Stephen Foote MD 1982 [facility] 1 [place] [address] Assigned Pain Medication Provider 05/27/22 Nakul Kinsey DO [address] [place] [address] Assigned Musculoskeletal Provider 10/26/22 01/17/23 Radha Proctor MD 909 [facility] 2121 [place] [address] Assigned Neuroscience Provider 12/14/22 05/09/23 Otis Patino MD [address] [place] [address] R102 [place] [address] Assigned Musculoskeletal Provider 01/18/23 Jez Dougherty MD 909 [facility]2121[place] [address] Assigned Neuroscience Provider 05/10/23 documented as of this encounter
--- OUTSIDE RECORDS SUMMARY | 2024-03-01 21:15 | XMS_ITS | Encounter Summary ---
Author Organization [place] Address [address] [place] [address] Care Team Providers Care Track Hoe Operator Name Role Phone Stephen Foote MD Primary Care Provider + Otis Bee MD Unavailable + Stephen Foote MD Unavailable + 0 Radha Proctor MD Unavailable + Everardo Hensley DO Unavailable + Jez Dougherty MD Unavailable + Stephen Foote MD Unavailable + 0 Sarahi Claudio [facility] Unavailable Unavailab Radha Elkins MD Unavailable + Stephen Foote MD Unavailable + 0 Jez Dougherty MD Unavailable + Radha Proctor MD Unavailable + Nakul Kinsey DO Unavailable + 0 Jez Dougherty MD Unavailable + Radha Proctor MD Unavailable + Otis Patino MD Unavailable +[phone] Stephen Foote MD Primary Care Provider + Jez Dougherty MD Unavailable Reason for Visit * Reason Onset Date Comments Refill Request 04/26/2022 Encounter Details Date Type Department Care Team (Late st Contact Info) Description 04/26/2022 MyC Refill [address] [phone] Stephen Foote MD 1982 [facility] 1 [place] [address] Refill Request Social History Tobacco Use Types Packs/Day Years Used Date Smoking Tobacco: Every Day Cigarettes Smokeless Tobacco: Never Alcohol Use Standard Drinks/Week Comments No 0 (1 standard drink = 0.6 oz pur e alcohol) PHQ-2 Answer Date Recorded PHQ-2 Score 0 02/06/2022 Sex and Gender Information Value Date Recorded Sex Assigned at Male 06/13/2021 11:39 PM INSPECTOR GENERAL Gender Identity Male 06/13/2021 11:39 PM INSPECTOR GENERAL Sexual Orientation Straight 06/13/2021 11 :39 PM INSPECTOR GENERAL documented as of this encounter Miscellaneous Notes * Telephone Encounter - Elda Guy RN - 04/27/2022 11:19 AM CST ECTOR GENERAL documented in this encounter Plan of Treatment Upcoming Encounters Date Type Department Care Team (Late Contact Info) Description 03/22/2024 1:00 PM INSPECTOR GENERAL Office Visit [facility] [address] [phone] Stephen Foote MD 1982 [facility] 1 [place] [address] 05/27/2024 1:30 PM INSPECTOR GENERAL Office Visit [facility] Multiple Sclerosis [address] [phone] Jez Dougherty MD [address] [place] [address] - [id number] [place] [address] documented as of this encounter Visit Diagnoses Diagnosis Episodic cluster headache, not intractable Episodic cluster headache Encounter for medication refill Issue of repeat prescriptions documented in this encounter Additional Health Concerns Assessment Noted Time PHQ-9 Depression Total Score: 2 02/07/20 22 1:36 PM CDT documented as of this encounter Care Teams Track Hoe Operator Relationship Specialty Start Date End Date Stephen Foote MD PCP - General Family Practice 05/04/18 03/16/23 Stephen Foote MD 1982 [facility] 1 [place] [address] PCP - General Family Medicine 03/17/23 Otis Bee MD [address] [place] [address] Orthopedics 05/07/18 Stephen Foote MD MD Family Practice 05/07/18 03/16/23 Radha Proctor MD [address] [place] [address] 2121 [place] [address] Neurology 11/25/19 Everardo Hensley DO [address] [place] [address] Neurology 10/17/20 Jez Dougherty MD [address] [place] [id number] [address] Neurology 10/17/20 Stephen Foote MD [address] [place] [address] [facility] 1 [place] [address] Assigned PCP 11/01/20 Sarahi Claudio, [facility] 1982 [facility] 1 [place] [address] Pharmacist 03/01/21 Radha Proctor MD [address] [place] [address] Assigned Neuroscience Provider 12/01/21 09/13/22 Stephen Foote MD [address] [place] [address] Assigned Pain Medication Provider 05/27/22 Jez Dougherty MD [address] [place] [address] Assigned Neuroscience Provider 09/14/22 09/20/22 Radha Proctor MD [address] [place] [address] Assigned Neuroscience Provider 09/21/22 11/29/22 Nakul Kinsey DO [address] [place] [address] Assigned Musculoskeletal Provider 10/26/22 01/17/23 Jez Dougherty MD [address] [place] [address] Assigned Neuroscience Provider 11/30/22 12/13/22 Radha Proctor MD [address] [place] [address] Assigned Neuroscience Provider 12/14/22 05/09/23 Otis Patino MD 2450 [facility] [address] [place] [address] Assigned Musculoskeletal Provider 01/18/23 Jez Dougherty MD 909 [facility] - [id number] [place] [address] Assigned Neuroscience Provider 05/10/23 documented as of this encounter
--- OUTSIDE RECORDS SUMMARY | 2024-03-01 21:15 | XMS_ITS | Encounter Summary ---
Author Organization [place] Address [address] [place] [address] Care Team Providers Care Credit Risk Analyst Name Role Phone Stephen Foote MD Primary Care Provider + Otis Bee MD Unavailable + Stephen Foote MD Unavailable + 0 Radha Proctor MD Unavailable + Everardo Hensley DO Unavailable + Jez Dougherty MD Unavailable + Stephen Foote MD Unavailable + 0 Sarahi Claudio [facility] Unavailable Unavailab Radha Elkins MD [...] Department Care Team (Late Contact Info) Description 01/10/2022 MyC Medical Advice [facility] [address] 3rd [place] [phone] Radha Proctor MD [address] [place] [address] 2121 [place], [place] 234945 Social History Tobacco Use Types Packs/Day Years Used Date Smoking Tobacco: Every Day Cigarettes Smokeless Tobacco: Current Alcohol Use Standard Drinks/Week Comments No 0 (1 standard drink = 0.6 oz pur e alcohol) PHQ-2 Answer Date Recorded PHQ-2 Score 2 11/28/2021 Sex and Gender Information Value Date Recorded Sex Assigned at Male 06/13/2021 11:39 PM SOLUTION DESIGNER Gender Identity Male 06/13/2021 11:39 PM SOLUTION DESIGNER Sexual Orientation Straight 06/13/2021 11 :39 PM SOLUTION DESIGNER COVID-19 Exposure Response Date Recorded In the last 10 days, have yo u been in contact with someone who was confirmed or suspected to have Coronavirus/COVID-19? Unable to assess 12/20/2021 12:14 PM CDT documented as of this encounter Plan of Treatment Upcoming Encounters Date Type Department Care Team (Late st Contact Info) Description 03/22/2024 1:00 PM SOLUTION DESIGNER Office Visit [address] 1 [place] [phone] Stephen Foote MD [address] [address] 05/27/2024 1:30 PM SOLUTION DESIGNER Office Visit [facility] [address] [phone] Jez Dougherty MD [address] [place] [id number] [address] documented as of this encounter Visit Diagnoses Not on filedocumented in this encounter Additional Health Concerns Assessment Noted Time PHQ-9 Depression Total Score: 10 022 11:20 AM CDT documented as of this encounter Care Teams Credit Risk Analyst Relationship Specialty Start Date End Date Stephen Foote MD PCP - General Family Practice 05/04/18 03/16/23 Stephen Foote MD 1982 [facility] 1 [place], [place] [id number] PCP - General Family Medicine 03/17/23 Otis Bee MD [address] [place] [address] Orthopedics 05/07/18 Stephen Foote MD MD Family Practice 05/07/18 03/16/23 Radha Proctor MD [address] [place] [address] 2121 [place] [address] Neurology 11/25/19 Everardo Hensley DO [address] [place] [address] Neurology 10/17/20 Jez Dougherty MD [address] [place] [address] [address] Neurology 10/17/20 Stephen Foote MD [address] [place] [address] 1 [place] [address] Assigned PCP 11/01/20 Sarahi Claudio, [facility] [address] [address] Pharmacist 03/01/21 Radha Proctor MD [address] [place] [address] Assigned Neuroscience Provider 12/01/21 09/13/22 Stephen Fotoe MD [address] [place] [address] Assigned Pain Medication Provider 05/27/22 Jez Dougherty MD [address] [place] [address] Assigned Neuroscience Provider 09/14/22 09/20/22 Radha Proctor MD [address] [place] [address] Assigned Neuroscience Provider 09/21/22 11/29/22 Nakul Kinsey DO [address] [place] [address] Assigned Musculoskeletal Provider 10/26/22 01/17/23 Jez Dougherty MD [address] [place] [address] Assigned Neuroscience Provider 11/30/22 12/13/22 Radha Proctor MD [address] [place] [address] Assigned Neuroscience Provider 12/14/22 05/09/23 Otis Patino MD 2450 [facility] R102 [place], [place] 568694 Assigned Musculoskeletal Provider 01/18/23 Jez Dougherty MD 909 [facility] - [id number] [place], [place] 367354 Assigned Neuroscience Provider 05/10/23 documented as of this encounter
--- OUTSIDE RECORDS SUMMARY | 2024-03-01 21:15 | XMS_ITS | Encounter Summary ---
Author Organization [facility] Address [address] [place] [address] Care Team Providers Care Biomedical Field Service Engineer Name Role Phone Otis Bee MD Unavailable [phone] Radha Proctor MD Unavailable +[phone] Everardo Hensley DO Unavailable + Jez Dougherty MD Unavailable [phone] Stephen Foote MD Unavailable [phone] Sarahi Claudio [facility] Unavailable Unavailab Stephen Diaz MD Unavailable [phone] Radha Proctor MD Unavailable + [phone] Otis Patino MD Unavailable + [phone] Stephen Foote MD Primary Care Provider +[phone] Jez Dougherty MD Unavailable [phone] Encounter Details Date Type Department Care Team (Late st Contact Info) Description 03/17/2023 [facility] Multiple Sclerosis [address] [phone] Jez Dougherty MD [address] [place] [address] - [id number] [place] [address] Social History Tobacco Use Types [...] in an overnight halfway, or couch-surfing.) Yes 03/17/2023 Are you worried [...] Sex Assigned at Male 06/13/2021 11:39 PM AMBULANCE DRIVER Gender Identity Male 06/13/2021 11:39 PM AMBULANCE DRIVER Sexual Orientation Straight 06/13/2021 11 :39 PM AMBULANCE DRIVER COVID-19 Exposure Response Date Recorded In the last 10 days, have yo u been in contact with someone who was confirmed or suspected to have Coronavirus/COVID-19? No / Unsure 02/17/2023 12:23 PM CDT documented as of this encounter Miscellaneous Notes * Telephone Encounter - Kaylan Manuel - 03/21/2023 8:10 AM CDT [facility] Phone Message May a detailed message be left on voicemail: yes Reason for Call: Other: Patient is calling to follow up with message below. Patient would like to switch to Ocre[employer]us. Please contact patient to discuss at [phone] Action Taken: Message routed to: [facility] [place] Travel Screening: Not Applicable documented in this encounter Plan of Treatment Upcoming Encounters Date Type Department Care Team (Late st Contact Info) Description 03/22/2024 1:00 PM AMBULANCE DRIVER Office Visit [facility] 1982 [facility] 1 [place] [address] Stephen Foote MD [address] [address] 05/27/2024 1:30 PM AMBULANCE DRIVER Office Visit [facility] Multiple Sclerosis [address] [phone] Jez Dougherty MD [address] [place] [address] - [id number] [place], [place] [id number] documented as of this encounter Visit Diagnoses Not on filedocumented in this encounter Additional Health Concerns Assessment Noted Time PHQ-9 Depression Total Score: 5 10/23/19 23 5:09 PM CDT documented as of this encounter Care Teams Biomedical Field Service Engineer Relationship Specialty Start Date End Date Stephen Foote MD [address] [place] [address] 1 [place] [address] PCP - General Family Medicine 03/17/23 Otis Bee MD [address] [place] [address] Orthopedics 05/07/18 Radha Proctor MD [address] [place] [address] Neurology 11/25/19 Everardo Hensley DO [address] [place] [address] Neurology 10/17/20 Jez Dougherty MD [address] [place], [place] [id number] [place] [address] Neurology 10/17/20 Stephen Foote MD [address] [place] [address] Assigned PCP 11/01/20 Sarahi Claudio, [facility] [address] [place] [address] Pharmacist 03/01/21 Stephen Foote MD [address] [place] [address] Assigned Pain Medication Provider 05/27/22 Radha Proctor MD [address] [place] [address] Assigned Neuroscience Provider 12/14/22 05/09/23 Otis Patino MD [address] [place] [address] [address]102 [place] [address] Assigned Musculoskeletal Provider 01/18/23 Jez Dougherty MD [address] - [id number] [place] [address] Assigned Neuroscience Provider 05/10/23 documented as of this encounter
--- OUTSIDE RECORDS SUMMARY | 2024-03-01 21:15 | XMS_ITS | Encounter Summary ---
Author Organization [facility] Address [address] [place] [address] Care Team Providers Care Certified Nurse Aide Name Role Phone Stephen Foote MD Primary Care Provider + Otis Bee MD Unavailable [phone] Stephen Foote MD Unavailable + 0 Radha Proctor MD Unavailable + Everardo Hensley DO Unavailable + Jez Dougherty MD Unavailable + Stephen Foote MD Unavailable + 0 Sarahi Claudio [facility] Unavailable Unavailab Stephen Diaz MD Unavailable + 0 Radha Proctor MD Unavailable + Nakul Kinsey DO Unavailable + 0 Jez Dougherty MD Unavailable + Radha Proctor MD Unavailable + Otis Patino MD Unavailable +[phone] Stephen Foote MD Primary Care Provider + Jez Dougherty MD Unavailable [phone] Reason for Visit * Reason Onset Date Comments Refill Request 09/23/2022 Encounter Details Date Type Department Care Team (Late st Contact Info) Description 09/23/2022 MyC Refill [facility] 1982 [facility] [address] [place] [phone] Stephen Foote MD 1982 [facility] 1 [place] [address] Refill Request Social History Tobacco Use Types Packs/Day Years Used Date Smoking Tobacco: Every Day Cigarettes Smokeless Tobacco: Never Alcohol Use Standard Drinks/Week Comments No 0 (1 standard drink = 0.6 oz pur e alcohol) PHQ-2 Answer Date Recorded PHQ-2 Score 1 08/26/2022 Sex and Gender Information Value Date Recorded Sex Assigned at Male 06/13/2021 11:39 PM COLLATERAL SPECIALIST Gender Identity Male 06/13/2021 11:39 PM COLLATERAL SPECIALIST Sexual Orientation Straight 06/13/2021 11 :39 PM COLLATERAL SPECIALIST COVID-19 Exposure Response Date Recorded In the last 10 days, have yo u been in contact with someone who was confirmed or suspected to have Coronavirus/COVID-19? No / Unsure 08/26/2022 11:40 AM CDT documented as of this encounter Miscellaneous Notes * Telephone Encounter - Erica Coe RN - 09/23/2022 11:48 PM CDT Routing refill request to provider for review/approval because: Drug not on the G refill protocol Last Written Prescription Date: 08/26/2022 Last Fill Quantity: 30, # refills: 0 Last office visit provider: 08/26/2022 Requested Prescriptions Pending Prescriptions Disp Refills ??? oxyCODONE-acetaminophen (PERCOCET) 5-325 MG tablet 30 tablet 0 Sig: Take 1 tablet by mouth every 6 hours as needed (for exacerbation of chronic cluster headache syndrome) There is no refill protocol information for this order Erica Coe RN 09/23/22 11:48 PM documented in this encounter Plan of Treatment Upcoming Encounters Date Type Department Care Team (Late Contact Info) Description 03/22/2024 1:00 PM COLLATERAL SPECIALIST Office Visit [facility] 1982 [facility] [address] [place] [phone] Stephen Foote MD 1982 [facility] 1 [place] [address] 05/27/2024 1:30 PM COLLATERAL SPECIALIST Office Visit [facility] Multiple Sclerosis [facility] [address] [place] [phone] Jez Dougherty MD [address] [place], [place] [address] [address] documented as of this encounter Visit Diagnoses Diagnosis Episodic cluster headache, not intractable Episodic cluster headache documented in this encounter Additional Health Concerns Assessment Noted Time PHQ-9 Depression Total Score: 7 08/27/19 11:43 AM CDT documented as of this encounter Care Teams Certified Nurse Aide Relationship Specialty Start Date End Date Stephen Foote MD PCP - General Family Practice 05/04/18 03/16/23 Stephen Foote MD [address] [place] [address] 1 [place] [address] PCP - General Family Medicine 03/17/23 Otis Bee MD [address] [place] [address] Orthopedics 05/07/18 Stephen Foote MD Family Practice 05/07/18 03/16/23 Radha Proctor MD [address] [place], [place] [address] [place] [address] Neurology 11/25/19 Everardo Hensley DO [address] [place] [address] Neurology 10/17/20 Jez Dougherty MD [address] [place] [address] Neurology 10/17/20 Stephen Foote MD [address] [address] Assigned PCP 11/01/20 Sarahi Claudio, [facility] [address] [address] Pharmacist 03/01/21 Stephen Foote MD [address] [place] [address] Assigned Pain Medication Provider 05/27/22 Radha Proctor MD [address] [place] [address] Assigned Neuroscience Provider 09/21/22 11/29/22 Nakul Kinsey DO [address] [place] [address] Assigned Musculoskeletal Provider 10/26/22 01/17/23 Jez Dougherty MD [address] [place] [address] Assigned Neuroscience Provider 11/30/22 12/13/22 Radha Proctor MD [address] [place] [address] Assigned Neuroscience Provider 12/14/22 05/09/23 Otis Patino MD [address] [facility] [address] [place] [address] Assigned Musculoskeletal Provider 01/18/23 Jez Dougherty MD [address] [place] [place] - [id number] [address] Assigned Neuroscience Provider 05/10/23 documented as of this encounter
--- OUTSIDE RECORDS SUMMARY | 2024-03-01 21:16 | XMS_ITS | Encounter Summary ---
Author Organization [facility] Address [address] [place] [address] Care Team Providers Care Business Performance Analyst Name Role Phone Stephen Foote MD Primary Care Provider + Otis Bee MD Unavailable + Stephen Foote MD Unavailable + 0 Radha Proctor MD Unavailable + Everardo Hensley DO Unavailable + Jez Dougherty MD Unavailable + Stephen Foote MD Unavailable + 0 Sarahi Claudio [facility] Unavailable Unavailab Jez Turner MD Unavailable + Radha Proctor MD Unavailable + Stephen Foote MD Unavailable + 0 Jez Dougherty MD Unavailable + Radha Proctor MD Unavailable + Nakul Kinsey DO Unavailable + 0 Jez Dougherty MD Unavailable + Radha Proctor MD Unavailable + Otsi Patino MD Unavailable +[phone] Stephen Foote MD Primary Care Provider Jez Dougherty MD Unavailable [phone] Reason for Visit * Reason Onset Date Comments Medication Question 09/03/2021 DULoxetine ( CYMBALTA) 30 MG capsule Encounter Details Date Type Department Care Team (Late st Contact Info) Description 09/03/2021 Telephone [facility] Multiple Sclerosis [address] [phone] Jez Dougherty MD [address] [place] [place] [address] - [id number] [place] [address] Medication Question (DULoxetine (CYMBALTA) 30 MG capsule) Social History Tobacco Use Types Packs/Day Years Used Date Smoking Tobacco: Every Day Cigarettes Smokeless Tobacco: Current Alcohol Use Standard Drinks/Week Comments No 0 (1 standard drink = 0.6 oz pur e alcohol) PHQ-2 Answer Date Recorded PHQ-2 Score 1 08/20/2021 Sex and Gender Information Value Date Recorded Sex Assigned at Male 06/13/2021 11:39 PM REHABILITATION ASSISTANT Gender Identity Male 06/13/2021 11:39 PM REHABILITATION ASSISTANT Sexual Orientation Straight 06/13/2021 11 :39 PM REHABILITATION ASSISTANT COVID-19 Exposure Response Date Recorded In the last 10 days, have yo u been in contact with someone who was confirmed or suspected to have Coronavirus/COVID-19? No / Unsure 09/01/2021 3:39 PM CDT documented as of this encounter Miscellaneous Notes * Telephone Encounter - Hailey Mike RN - 09/04/2021 11:30 AM CDT Spoke with Qaid. He reports the burning sensation of his right leg came back a few days ago and waspresent for three days. Today, the burning sensation is not there. He is taking 60 mg cymbalta daily since April, and this had been controlling the neuropathic pain well. He will call us back if the burning sensation returns. In addition, pt confirms he is taking glatiramer acetate 3x/week dosing, and this is going well. Hailey Mike RN * Telephone Encounter - KeenesSejal lomax - 09/03/2021 1:35 PM CDT [facility] Phone Message May a detailed message be left on voicemail: yes Reason for Call: Other: Qaid calling to request a call back to discuss if his DULoxetine (CYMBALTA)30 MG capsule should be increased or if there are alternatives. He stated that the burning sensation in his right lower leg returned yesterday. Action Taken: Message routed to: [facility] [place] Travel Screening: Not Applicable documented in this encounter Plan of Treatment Upcoming Encounters Date Type Department Care Team (Late st Contact Info) Description 03/22/2024 1:00 PM REHABILITATION ASSISTANT Office Visit [address] [place] [phone] Stephen Foote MD [address] [place] [address] 05/27/2024 1:30 PM REHABILITATION ASSISTANT Office Visit [facility] Multiple Sclerosis [address] [phone] Jez Dougherty MD [address] [place] [address] - [id number] [place] [address] documented as of this encounter Visit Diagnoses Not on filedocumented in this encounter Additional Health Concerns Infection Onset Date Last Indicated Resolved Time Rule Out COVID-19 12/18/2021 12/18/2021 12/18/2021 10:49 PM CDT COVID-19 12/18/2021 12/18/2021 01/08/2022 11:3 9 PM CDT Assessment Noted Time PHQ-9 Depression Total Score: 0 10/13/19 21 2:06 AM CDT documented as of this encounter Care Teams Business Performance Analyst Relationship Specialty Start Date End Date Stephen Foote MD PCP - General Family Practice 05/04/18 03/16/23 Stephen Foote MD 1982 [facility] 1 [place] [address] PCP - General Family Medicine 03/17/23 Otis Bee MD [address] [place] [address] Orthopedics 05/07/18 Stephen Foote MD MD Family Practice 05/07/18 03/16/23 Radha Proctor MD [address] [place] [address] [place] [address] Neurology 11/25/19 Everardo Hensley DO [address] [place] [address] Neurology 10/17/20 Jez Dougherty MD [address] [place], [place] [id number] [address] Neurology 10/17/20 Stephen Foote MD 1982 [facility] 1 [place] [address] Assigned PCP 11/01/20 Sarahi Claudio, [facility] 1982 [facility] 1 [place] [address] Pharmacist 03/01/21 Jez Dougherty MD [address] [place] [address] Assigned Neuroscience Provider 06/24/21 11/30/21 Radha Proctor MD [address] [place] [address] Assigned Neuroscience Provider 12/01/21 09/13/22 Stephen Foote MD [address] [place] [address] Assigned Pain Medication Provider 05/27/22 Jez Dougherty MD [address] [place] [address] Assigned Neuroscience Provider 09/14/22 09/20/22 Radha Proctor MD [address] [place] [address] Assigned Neuroscience Provider 09/21/22 11/29/22 Nakul Kinsey DO [address] [place] [address] Assigned Musculoskeletal Provider 10/26/22 01/17/23 Jez Dougherty MD [address] [place] [address] Assigned Neuroscience Provider 11/30/22 12/13/22 Radha Proctor MD [address] [place] [address] Assigned Neuroscience Provider 12/14/22 05/09/23 Otis Patino MD [address] [facility] [address] [place] [address] Assigned Musculoskeletal Provider 01/18/23 Jez Dougherty MD 909 [facility] [id number] [address] Assigned Neuroscience Provider 05/10/23 documented as of this encounter
--- OUTSIDE RECORDS SUMMARY | 2024-03-01 21:16 | XMS_ITS | Encounter Summary ---
Author Organization [facility] Address [address] [place] [address] Care Team Providers Care Traffic Engineer Name Role Phone Stephen Foote MD Primary Care Provider + Otis Bee MD Unavailable + Stephen Foote MD Unavailable + 0 Radha Proctor MD Unavailable + Everardo Hensley DO Unavailable + Jez Dougherty MD Unavailable + Stephen Foote MD Unavailable + 0 Sarahi Claudio [facility] Unavailable Unavailab Jez Turner MD Unavailable + Radha Proctor MD Unavailable + Stephen Foote MD Unavailable + 0 Jez Dougherty MD Unavailable + Radha Proctor MD Unavailable + Nakul Kinsey DO Unavailable + 0 Jez Dougherty MD Unavailable + Radha Proctor MD Unavailable + Otis Patino MD Unavailable +[phone] Stephen Foote MD Primary Care Provider Jez Dougherty MD Unavailable [phone] Reason for Visit * Reason Onset Date Comments Call Back 11/21/2021 Cluster headache s Encounter Details Date Type Department Care Team (Late st Contact Info) Description 11/21/2021 Telephone [facility] [address] [place] [address] Radha Proctor MD [address] [place] [address] [phone] Call Back (Cluster headaches) Social History Tobacco Use Types Packs/Day Years Used Date Smoking Tobacco: Every Day Cigarettes Smokeless Tobacco: Current Alcohol Use Standard Drinks/Week Comments No 0 (1 standard drink = 0.6 oz pur e alcohol) PHQ-2 Answer Date Recorded PHQ-2 Score 6 11/07/2021 Sex and Gender Information Value Date Recorded Sex Assigned at Male 06/13/2021 11:39 PM CAREER TECHNICAL SUPERVISOR Gender Identity Male 06/13/2021 11:39 PM CAREER TECHNICAL SUPERVISOR Sexual Orientation Straight 06/13/2021 11 :39 PM CAREER TECHNICAL SUPERVISOR COVID-19 Exposure Response Date Recorded In the last 10 days, have yo u been in contact with someone who was confirmed or suspected to have Coronavirus/COVID-19? No / Unsure 11/21/2021 3:48 PM CDT documented as of this encounter Miscellaneous Notes * Telephone Encounter - Cinthia Rivas - 11/21/2021 11:22 AM CDT [facility] Phone Message May a detailed message be left on voicemail: yes Reason for Call: Other: Emma called and stated that the Pt needs to see Dr. Hitesh STEEN for his cluster headache. Grocery Specialist advised that the earliest appt is January for Dr. Proctor and during that interaction the Pt hung up. Emma stayed on the phone and requested that the Pt get a call back fromclinical staff concerning his headaches. Please call Pt back for further information. Action Taken: Message routed to: [facility] neurology Travel Screening: Not Applicable documented in this encounter Plan of Treatment Upcoming Encounters Date Type Department Care Team (Late st Contact Info) Description 03/22/2024 1:00 PM CAREER TECHNICAL SUPERVISOR Office Visit [facility] 1982 [facility] [address] [place] [phone] Stephen Foote MD 1982 [facility] [place] 1 [place] [address] 05/27/2024 1:30 PM CAREER TECHNICAL SUPERVISOR Office Visit [facility] Multiple Sclerosis [address] [phone] Jez Dougherty MD [address] [place] [address] - [id number] [place], [place] [address] documented as of this encounter Visit Diagnoses Not on filedocumented in this encounter Additional Health Concerns Infection Onset Date Last Indicated Resolved Time Rule Out COVID-19 12/18/2021 12/18/2021 12/18/2021 10:49 PM CDT COVID-19 12/18/2021 12/18/2021 01/08/2022 11:3 9 PM CDT Assessment Noted Time PHQ-9 Depression Total Score: 19 11/07/ 022 8:04 AM CDT documented as of this encounter Care Teams Traffic Engineer Relationship Specialty Start Date End Date Stephen Foote MD PCP - General Family Practice 05/04/18 03/16/23 Stephen Foote MD 1982 [facility] 1 [place] [address] PCP - General Family Medicine 03/17/23 Otis Bee MD [address] [place] [address] 9008[address] Orthopedics 05/07/18 Stephen Foote MD Family Practice 05/07/18 03/16/23 Radha Proctor MD [address] [place] [address] 570305 Neurology 11/25/19 Everardo Hensley DO [address] [place] [address]7425 Neurology 10/17/20 Jez Dougherty MD [address] [place] [address] 458224 Neurology 10/17/20 Stephen Foote MD [address] [place] [address] Assigned PCP 11/01/20 Sarahi Claudio, [facility] [address] [place] [address] 1 [place] [address] Pharmacist 03/01/21 Jez Dougherty MD [address] [place] [address] Assigned Neuroscience Provider 06/24/21 11/30/21 Radha Proctor MD [address] [place] [address] Assigned Neuroscience Provider 12/01/21 09/13/22 Stephen Foote MD [address] [place] [address] Assigned Pain Medication Provider 05/27/22 Jez Dougherty MD [address] [place] [address] Assigned Neuroscience Provider 09/14/22 09/20/22 Radha Proctor MD [address] [place] [address] Assigned Neuroscience Provider 09/21/22 11/29/22 Nakul Kinsey DO [address] [place] [address] Assigned Musculoskeletal Provider 10/26/22 01/17/23 Jez Dougherty MD [address] [place] [address] Assigned Neuroscience Provider 11/30/22 12/13/22 Radha Proctor MD [address] [place] [address] Assigned Neuroscience Provider 12/14/22 05/09/23 Otis Patino MD 24[address] [facility] [address] [place] [address] Assigned Musculoskeletal Provider 01/18/23 Jez Dougherty MD [address] [place] [address] Assigned Neuroscience Provider 05/10/23 documented as of this encounter
--- OUTSIDE RECORDS SUMMARY | 2024-03-01 21:16 | XMS_ITS | Encounter Summary ---
Author Organization [place] Address [address] [place] [address] Care Team Providers Care Polytechnic Registrar Name Role Phone Stephen Foote MD Primary Care Provider + Otis Bee MD Unavailable + Stephen Foote MD Unavailable + 0 Radha Proctor MD Unavailable + Everardo Hensley DO Unavailable + Jez Dougherty MD Unavailable + Stephen Foote MD Unavailable + 0 Sarahi Claudio [facility] Unavailable Unavailab Jez Turner MD Unavailable + Radha Proctor MD Unavailable + Stephen Foote MD Unavailable + 0 Jez Dougherty MD Unavailable + Radha Proctor MD Unavailable + Nakul Kinsey DO Unavailable + 0 Jez Dougherty MD Unavailable + Radha Proctor MD Unavailable + Otis Patino MD Unavailable +[phone] Stephen Foote MD Primary Care Provider Jez Dougherty MD Unavailable +[phone] Encounter Details Date Type Department Care Team (Late st Contact Info) Description 09/04/2021 MyC Medical Advice [facility] Neurology Clinic [address] 3rd [place] [phone] Jayshree Cui RN Social History Tobacco Use Types Packs/Day Years Used Date Smoking Tobacco: Every Day Cigarettes Smokeless Tobacco: Current Alcohol Use Standard Drinks/Week Comments No 0 (1 standard drink = 0.6 oz pur e alcohol) PHQ-2 Answer Date Recorded PHQ-2 Score 1 08/20/2021 Sex and Gender Information Value Date Recorded Sex Assigned at Male 06/13/2021 11:39 PM CORN PRESS OPERATOR Gender Identity Male 06/13/2021 11:39 PM CORN PRESS OPERATOR Sexual Orientation Straight 06/13/2021 11 :39 PM CORN PRESS OPERATOR COVID-19 Exposure Response Date Recorded In the last 10 days, have yo u been in contact with someone who was confirmed or suspected to have Coronavirus/COVID-19? No / Unsure 09/01/2021 3:39 PM CDT documented as of this encounter Plan of Treatment Upcoming Encounters Date Type Department Care Team (Late st Contact Info) Description 03/22/2024 1:00 PM CORN PRESS OPERATOR Office Visit [address] 1 [place] [phone] Stephen Foote MD [address] [place] [address] 1 [place] [address] 05/27/2024 1:30 PM CORN PRESS OPERATOR Office Visit [facility] Multiple Sclerosis Clinic [address] [phone] Jez Dougherty MD [address] [place] [address] - [id number] [address] documented as of this encounter Visit Diagnoses Not on filedocumented in this encounter Additional Health Concerns Infection Onset Date Last Indicated Resolved Time Rule Out COVID-19 12/18/2021 12/18/2021 12/18/2021 10:49 PM CDT COVID-19 12/18/2021 12/18/2021 01/08/2022 11:3 9 PM CDT Assessment Noted Time PHQ-9 Depression Total Score: 0 10/13/19 21 2:06 AM CDT documented as of this encounter Care Teams Polytechnic Registrar Relationship Specialty Start Date End Date Stephen Foote MD PCP - General Family Practice 05/04/18 03/16/23 Stephen Foote MD [address] [place] [address] PCP - General Family Medicine 03/17/23 Otis Bee MD [address] [place] [address] Orthopedics 05/07/18 Stephen Foote MD MD Family Practice 05/07/18 03/16/23 Radha Proctor MD [address] [place] [address] 2121 [place] [address] Neurology 11/25/19 Everardo Hensley DO [address] [place] [address] Neurology 10/17/20 Jez Dougherty MD [address] [place], [place] [address] [address] Neurology 10/17/20 Stephen Foote MD 1982 [facility] 1 [place] [address] Assigned PCP 11/01/20 Sarahi Claudio, [facility] 1982 [facility] 1 [place] [address] [facility] 03/01/21 Jez Dougherty MD [address] [place] [address] Assigned Neuroscience Provider 06/24/21 11/30/21 Radha Proctor MD [address] [place] [address] Assigned Neuroscience Provider 12/01/21 09/13/22 Stephen Foote MD [address] [address] Assigned Pain Medication Provider 05/27/22 Jez Dougherty MD [address] [place] [address] Assigned Neuroscience Provider 09/14/22 09/20/22 Radha Proctor MD [address] [place] [address] Assigned Neuroscience Provider 09/21/22 11/29/22 Nakul Kinsey DO [address] [place] [address] Assigned Musculoskeletal Provider 10/26/22 01/17/23 Jez Dougherty MD 909 [facility]2121[place] [address] Assigned Neuroscience Provider 11/30/22 12/13/22 Radha Proctor MD 909 [facility] 2121 [place] [address] Assigned Neuroscience Provider 12/14/22 05/09/23 Otis Patino MD 2450 [facility] R102 [place] [address] Assigned Musculoskeletal Provider 01/18/23 Jez Dougherty MD 909 [facility]2121[place] [address] Assigned Neuroscience Provider 05/10/23 documented as of this encounter
--- OUTSIDE RECORDS SUMMARY | 2024-03-01 21:16 | XMS_ITS | Encounter Summary ---
Author Organization [facility] Address [address] [place] [address] Care Team Providers Care Summer Associate Name Role Phone Stephen Foote MD Primary Care Provider + Otis Bee MD Unavailable + Stephen Foote MD Unavailable + 0 Radha Proctor MD Unavailable + Everardo Hensley DO Unavailable + Jez Dougherty MD Unavailable + Stephen Foote MD Unavailable + 0 Sarahi Claudio [facility] Unavailable Unavailab Radha Elkins MD Unavailable [...] Department Care Team (Late Contact Info) Description 12/17/2021 MyC Medical Advice [facility] Neurology Clinic [address] 3rd [place] [phone] Radha Proctor MD [address] [place] [address] 2121 [place], [place] [id number] Social History Tobacco Use Types Packs/Day Years Used Date Smoking Tobacco: Every Day Cigarettes Smokeless Tobacco: Current Alcohol Use Standard Drinks/Week Comments No 0 (1 standard drink = 0.6 oz pur e alcohol) PHQ-2 Answer Date Recorded PHQ-2 Score 2 11/28/2021 Sex and Gender Information Value Date Recorded Sex Assigned at Male 06/13/2021 11:39 PM CLAY HOISTER Gender Identity Male 06/13/2021 11:39 PM CLAY HOISTER Sexual Orientation Straight 06/13/2021 11 :39 PM CLAY HOISTER COVID-19 Exposure Response Date Recorded In the last 10 days, have yo u been in contact with someone who was confirmed or suspected to have Coronavirus/COVID-19? Unable to assess 12/20/2021 12:14 PM CDT documented as of this encounter Plan of Treatment Upcoming Encounters Date Type Department Care Team (Late st Contact Info) Description 03/22/2024 1:00 PM CLAY HOISTER Office Visit [address] 1 [place] [address] Stephen Foote MD [address] [address] 05/27/2024 1:30 PM CLAY HOISTER Office Visit [facility] Multiple Sclerosis Clinic [address] [phone] Jez Dougherty MD [address] [place], [place] [id number] [address] documented as of this encounter Visit Diagnoses Not on filedocumented in this encounter Additional Health Concerns Infection Onset Date Last Indicated Resolved Time Rule Out COVID-19 12/18/2021 12/18/2021 12/18/2021 10:49 PM CDT COVID-19 12/18/2021 12/18/2021 01/08/2022 11:3 9 PM CDT Assessment Noted Time PHQ-9 Depression Total Score: 10 11/28/ 022 11:20 AM CDT documented as of this encounter Care Teams Summer Associate Relationship Specialty Start Date End Date Stephen Foote MD PCP - General Family Practice 05/04/18 03/16/23 Stephen Foote MD [address] [place] [address] PCP - General Family Medicine 03/17/23 Otis Bee MD [address] [place] [address] Orthopedics 05/07/18 Stephen Foote MD MD Family Practice 05/07/18 03/16/23 Radha Proctor MD [address] [place] [address] 2121 [place] [address] Neurology 11/25/19 Everardo Hensley DO [address] [place] [address] Neurology 10/17/20 Jez Dougherty MD [address] [place] [id number] [address] Neurology 10/17/20 Stephen Foote MD [address] [place] [address] Assigned PCP 11/01/20 Sarahi Claudio [facility] [address] [address] [facility] 03/01/21 Radha Proctor MD [address] [place] [address] Assigned Neuroscience Provider 12/01/21 09/13/22 Stephen Foote MD [address] [place] [address] Assigned Pain Medication Provider 05/27/22 Jez Dougherty MD [address] [place] [address] Assigned Neuroscience Provider 09/14/22 09/20/22 Radha Proctor MD [address] [place] [address] Assigned Neuroscience Provider 09/21/22 11/29/22 Nakul Kinsey DO [address] [place] [address] Assigned Musculoskeletal Provider 10/26/22 01/17/23 Jez Dougherty MD [address] [place] [address] Assigned Neuroscience Provider 11/30/22 12/13/22 Radha Proctor MD 909 [facility] 2121 [place] [address] Assigned Neuroscience Provider 12/14/22 05/09/23 Otis Patino MD 2450 [facility] R102 [place], [place] [address] Assigned Musculoskeletal Provider 01/18/23 Jez Dougherty MD 909 [facility]2121[place], [place] [address] Assigned Neuroscience Provider 05/10/23 documented as of this encounter
--- OUTSIDE RECORDS SUMMARY | 2024-03-01 21:16 | XMS_ITS | Encounter Summary ---
Author Organization [place] Address [address] [place] [address] Care Team Providers Care Ict Managers Name Role Phone Stephen Foote MD Primary Care Provider + Otis Bee MD Unavailable + Stephen Foote MD Unavailable + 0 Radha Proctor MD Unavailable + Everardo Hensley DO Unavailable + Jez Dougherty MD Unavailable + Stephen Foote MD Unavailable + 0 Sarahi Claudio [facility] Unavailable Unavailab Jez Turner MD Unavailable + Radha Proctor MD Unavailable + Stephen Foote MD Unavailable + 0 Jez Dougherty MD Unavailable + Radha Proctor MD Unavailable + Nakul Kinsey DO Unavailable + 0 Jez Dougherty MD Unavailable + Radha Proctor MD Unavailable + Otis Patino MD Unavailable +[phone] Stephen Foote MD Primary Care Provider Jez Dougherty MD Unavailable +[phone] Encounter Details Date Type Department Care Team (Late st Contact Info) Description 11/09/2021 Telephone [facility] Multiple Sclerosis [address] [phone] Jez Dougherty MD [address] [place] [address] [phone] Social History Tobacco Use Types Packs/Day Years Used Date Smoking Tobacco: Every Day Cigarettes Smokeless Tobacco: Current Alcohol Use Standard Drinks/Week Comments No 0 (1 standard drink = 0.6 oz pur e alcohol) PHQ-2 Answer Date Recorded PHQ-2 Score 6 11/07/2021 Sex and Gender Information Value Date Recorded Sex Assigned at Male 06/13/2021 11:39 PM PRINTING ENGINEER Gender Identity Male 06/13/2021 11:39 PM PRINTING ENGINEER Sexual Orientation Straight 06/13/2021 11 :39 PM PRINTING ENGINEER COVID-19 Exposure Response Date Recorded In the last 10 days, have yo u been in contact with someone who was confirmed or suspected to have Coronavirus/COVID-19? No / Unsure 11/12/2021 6:55 AM CDT documented as of this encounter Plan of Treatment Upcoming Encounters Date Type Department Care Team (Late Contact Info) Description 03/22/2024 1:00 PM PRINTING ENGINEER Office Visit [facility] 1982 [facility] 1 [place] [phone] Stephen Foote MD [address] [place] [address] 05/27/2024 1:30 PM PRINTING ENGINEER Office Visit [facility] Multiple Sclerosis [address] [phone] Jez Dougherty MD [address] [place] [address] 775904 documented as of this encounter Visit Diagnoses Not on filedocumented in this encounter Additional Health Concerns Infection Onset Date Last Indicated Resolved Time Rule Out COVID-19 12/18/2021 12/18/2021 12/18/2021 10:49 PM CDT COVID-19 12/18/2021 12/18/2021 01/08/2022 11:3 9 PM CDT Assessment Noted Time PHQ-9 Depression Total Score: 022 8:04 AM CDT documented as of this encounter Care Teams Ict Managers Relationship Specialty Start Date End Date Stephen Foote MD PCP - General Family Practice 05/04/18 03/16/23 Stephen Foote MD [address] [place] [address] PCP - General Family Medicine 03/17/23 Otis Bee MD [address] [place] [address] Orthopedics 05/07/18 Stephen Foote MD MD Family Practice 05/07/18 03/16/23 Radha Proctor MD [address] [place] [address] 2121 [place] [address] Neurology 11/25/19 Everardo Hensley DO [address] [place] [address]79[address] Neurology 10/17/20 Jez Dougherty MD [address] [place], [place] [address] [address] Neurology 10/17/20 Stephen Foote MD [address] [place] [address] 1 [place] [address] Assigned PCP 11/01/20 Sarahi Claudio, [facility] [address] [address] [facility] 03/01/21 Jez Dougherty MD [address] [place] [address] Assigned Neuroscience Provider 06/24/21 11/30/21 Radha Proctor MD [address] [place] [address] Assigned Neuroscience Provider 12/01/21 09/13/22 Stephen Foote MD [address] [place] [address] Assigned Pain Medication Provider 05/27/22 Jez Dougherty MD [address] [place] [address] Assigned Neuroscience Provider 09/14/22 09/20/22 Radha Proctor MD [address] [place] [address] Assigned Neuroscience Provider 09/21/22 11/29/22 Nakul Kinsey DO [address] [place] [address] Assigned Musculoskeletal Provider 10/26/22 01/17/23 Jez Dougherty MD 909 [facility]2121[place], [place] [address] Assigned Neuroscience Provider 11/30/22 12/13/22 Radha Proctor MD [address] [place] [address] Assigned Neuroscience Provider 12/14/22 05/09/23 Otis Patino MD [address] [place], [place] [address] [place] [address] Assigned Musculoskeletal Provider 01/18/23 Jez Dougherty MD [address] [address] Assigned Neuroscience Provider 05/10/23 documented as of this encounter
--- OUTSIDE RECORDS SUMMARY | 2024-03-01 21:16 | XMS_ITS | Encounter Summary ---
Author Organization [facility] Address [address] [place] [address] Care Team Providers Care Instructor Of Nursing Name Role Phone Stephen Foote MD Primary Care Provider + Otis Bee MD Unavailable + Stephen Foote MD Unavailable + 0 Radha Proctor MD Unavailable + Everardo Hensley DO Unavailable + Jez Dougherty MD Unavailable + Stephen Foote MD Unavailable + 0 Sarahi Claudio [facility] Unavailable Unavailab Jez Turner MD Unavailable + Radha Proctor MD Unavailable + Stephen Foote MD Unavailable + 0 Jez Dougherty MD Unavailable + Radha Proctor MD Unavailable + Nakul Kinsey DO Unavailable + 0 Jez Dougherty MD Unavailable + Radha Proctor MD Unavailable + Otis Patino MD Unavailable +[phone] Stephen Foote MD Primary Care Provider Jez Dougherty MD Unavailable [phone] Reason for Visit * Reason Comments Medication Refill Encounter Details Date Type Department Care Team ([facility] Contact Info) Description 08/20/2021 Refill [facility] 1982 [facility] 1 [place] [phone] Stephen Foote MD [address] [facility] 1 [place] [address] Medication Refill Social History Tobacco Use Types Packs/Day Years Used Date Smoking Tobacco: Every Day Cigarettes Smokeless Tobacco: Current Alcohol Use Standard Drinks/Week Comments No 0 (1 standard drink = 0.6 oz pur e alcohol) PHQ-2 Answer Date Recorded PHQ-2 Score 1 08/20/2021 Sex and Gender Information Value Date Recorded Sex Assigned at Male 06/13/2021 11:39 PM EASEMENT MAN Gender Identity Male 06/13/2021 11:39 PM EASEMENT MAN Sexual Orientation Straight 06/13/2021 11 :39 PM EASEMENT MAN COVID-19 Exposure Response Date Recorded In the last month, have you been in contact with someone who was confirmed or suspected to have Coronavirus / COVID-19? No / Unsure 08/20/2021 11:46 AM CDT documented as of this encounter Miscellaneous Notes * Telephone Encounter - Alan Escobar - 08/20/2021 1:35 PM CDT Medication refill queued and pended. Prescriber please review, sign, and send if appropriate. Carmella. documented in this encounter Plan of Treatment Upcoming Encounters Date Type Department Care Team ([facility] Contact Info) Description 03/22/2024 1:00 PM EASEMENT MAN Office Visit [facility] 1982 [facility] 1 [place] [phone] Stephen Foote MD [address] [facility] 1 [place], [place] [phone] 05/27/2024 1:30 PM EASEMENT MAN Office Visit [facility] [place] 909 [place] [phone] Jez Dougherty MD [address] [place], [place] [address] [address] documented as of this encounter Visit Diagnoses Diagnosis Encounter for medication refill- Primary Issue of repeat prescriptions documented in this encounter Additional Health Concerns Infection Onset Date Last Indicated Resolved Time Rule Out COVID-19 12/18/2021 12/18/2021 12/18/2021 10:49 PM CDT COVID-19 12/18/2021 12/18/2021 01/08/2022 11:3 9 PM CDT Assessment Noted Time PHQ-9 Depression Total Score: 0 10/13/19 21 2:06 AM CDT documented as of this encounter Care Teams Instructor Of Nursing Relationship Specialty Start Date End Date Stephen Foote MD PCP - General Family Practice 05/04/18 03/16/23 Stephen Foote MD [address] [place] [address] PCP - General Family Medicine 03/17/23 Otis Bee MD [address] [place] [address] Orthopedics 05/07/18 Stephen Foote MD Family Practice 05/07/18 03/16/23 Radha Proctor MD [address] [place] [address] 2121 [place] [address] Neurology 11/25/19 Everardo Hensley DO 909 [place] [address] Neurology 10/17/20 Jez Dougherty MD [address] [place] [address] Neurology 10/17/20 Stephen Foote MD [address] [facility] 1 [place] [address] Assigned PCP 11/01/20 Sarahi Claudio [facility] [address] [facility] 1 [place] [address] [facility] 03/01/21 Jez Dougherty MD [address] [place] [address] Assigned Neuroscience Provider 06/24/21 11/30/21 Radha Proctor MD [address] [place] [address] Assigned Neuroscience Provider 12/01/21 09/13/22 Stephen Foote MD 1982 [facility] 1 [place] [address] Assigned Pain Medication Provider 05/27/22 Jez Dougherty MD [address] [place] [address] Assigned Neuroscience Provider 09/14/22 09/20/22 Radha Proctor MD [address] [address] [address] Assigned Neuroscience Provider 09/21/22 11/29/22 Nakul Kinsey DO 909 [place] [address] Assigned Musculoskeletal Provider 10/26/22 01/17/23 Jez Dougherty MD [address] [place] [address] [address] Assigned Neuroscience Provider 11/30/22 12/13/22 Radha Proctor MD [address] [place] [address] Assigned Neuroscience Provider 12/14/22 05/09/23 Otis Patino MD 2450 [facility] R102 [place] [address] Assigned Musculoskeletal Provider 01/18/23 Jez Dougherty MD [address] [place] [address] [address] Assigned Neuroscience Provider 05/10/23 documented as of this encounter
--- OUTSIDE RECORDS SUMMARY | 2024-03-01 21:16 | XMS_ITS | Encounter Summary ---
Author Organization [place] Address [address] [place] [address] Care Team Providers Care Hvac Tech Name Role Phone Stephen Foote MD Primary Care Provider + Otis Bee MD Unavailable + Stephen Foote MD Unavailable + 0 Radha Proctor MD Unavailable + Everardo Hensley DO Unavailable + Jez Dougherty MD Unavailable + Stephen Foote MD Unavailable + 0 Sarahi Claudio [facility] Unavailable Unavailab Jez Turner MD Unavailable + Radha Proctor MD Unavailable + Stephen Foote MD Unavailable + 0 Jez Dougherty MD Unavailable + Radha Proctor MD Unavailable + Nakul Kinsey DO Unavailable + 0 Jez Dougherty MD Unavailable + Radha Proctor MD Unavailable + Otis Patino MD Unavailable +[phone] Stephen Foote MD Primary Care Provider Jez Dougherty MD Unavailable +[phone] Reason for Visit * Reason Onset Date Comments Medication Question 11/22/2021 SUMAtriptan (IMITREX) 6 MG/0.5ML injection Encounter Details Date Type Department Care Team (Late st Contact Info) Description 11/22/2021 [facility] Neurology Clinic [address] [place] [address] Radha Proctor MD [address] [place] [address] Medication Question (SUMAtriptan (IMITREX) 6 MG/0.5ML injection) Social History Tobacco Use Types Packs/Day Years Used Date Smoking Tobacco: Every Day Cigarettes Smokeless Tobacco: Current Alcohol Use Standard Drinks/Week Comments No 0 (1 standard drink = 0.6 oz pur e alcohol) PHQ-2 Answer Date Recorded PHQ-2 Score 6 11/07/2021 Sex and Gender Information Value Date Recorded Sex Assigned at Male 06/13/2021 11:39 PM PULPER OPERATOR Gender Identity Male 06/13/2021 11:39 PM PULPER OPERATOR Sexual Orientation Straight 06/13/2021 11 :39 PM PULPER OPERATOR COVID-19 Exposure Response Date Recorded In the last 10 days, have yo u been in contact with someone who was confirmed or suspected to have Coronavirus/COVID-19? No / Unsure 11/21/2021 3:48 PM CDT documented as of this encounter Miscellaneous Notes * Telephone Encounter - Michelle Singh - 11/28/2021 7:19 AM CDT [facility] Phone Message May a detailed message be left on voicemail: yes Reason for Call: Patient called, have not heard back from his care team regarding his medication questions. Patient may be reached anytime today Action Taken: Message routed to: [facility] Travel Screening: Not Applicable * Telephone Encounter - Erica Juan - 11/27/2021 4:26 PM CDT [facility] Phone Message May a detailed message be left on voicemail: yes Reason for Call: Other: Patient is following up on medication questions. Please see previous messages. Please contact patient to advise. Action Taken: Message routed to: [facility] [place] ([facility]): neurology Travel Screening: Not Applicable * Telephone Encounter - Joy Perdue - 11/27/2021 2:34 PM CDT [facility] Call Center Phone Message May a detailed message be left on voicemail: yes Reason for Call: Medication Question or concern regarding medication Prescription Clarification Name of Medication: SUMAtriptan (IMITREX) 6 MG/0.5ML injection Prescribing Provider: Radha Proctor MD Pharmacy: [facility]/pharmacy #[id number] [facility] [address] What on the order needs clarification? Pt is calling because he is out of the Sumatriptan. His Rx from 11/20 was not enough to last him for 30 days so he needs another Rx. Also he says the Depakote does not work for him. Please send a new Rx that is enough for a month. Please send reynold. Pt is out. Action Taken: Message routed to: [facility] [place] ([facility]): NEUROLOGY Travel Screening: Not Applicable * Telephone Encounter - Michelle Espinosa - 11/23/2021 8:48 AM CDT [facility] Call Center Phone Message May a detailed message be left on voicemail: yes Reason for Call: Other: Patient requests a call back to discuss options for treatment. Patient called yesterday and is anxious to discuss Depakote Action Taken: Message routed to: [facility] ([facility] Travel Screening: Not Applicable * Telephone Encounter - Leopoldo Sunshine - 11/22/2021 10:37 AM CDT [facility] Call Center Phone Message May a detailed message be left on voicemail: yes Reason for Call: Other: Pt calling because he is interested in starting Depakote. Please call back when available. Action Taken: Other: neurology Travel Screening: Not Applicable documented in this encounter Plan of Treatment Upcoming Encounters Date Type Department Care Team (Late st Contact Info) Description 03/22/2024 1:00 PM PULPER OPERATOR Office Visit [facility] 1 [place] [address] Stephen Foote MD 1982 [facility] 1 [place], [place] [phone] 05/27/2024 1:30 PM PULPER OPERATOR Office Visit [facility] Multiple Sclerosis [address] [phone] Jez Dougherty MD [address] [place] [address] [id number] [place] [address] documented as of this encounter Visit Diagnoses Not on filedocumented in this encounter Additional Health Concerns Infection Onset Date Last Indicated Resolved Time Rule Out COVID-19 12/18/2021 12/18/2021 12/18/2021 10:49 PM CDT COVID-19 12/18/2021 12/18/2021 01/08/2022 11:3 9 PM CDT Assessment Noted Time PHQ-9 Depression Total Score: 19 022 8:04 AM CDT documented as of this encounter Care Teams Hvac Tech Relationship Specialty Start Date End Date Stephen Foote MD PCP - General Family Practice 05/04/18 03/16/23 Stephen Foote MD [address] [place] [address] 1 [place], [place] [phone] PCP - General Family Medicine 03/17/23 Otis Bee MD [address] [place] [address] [phone] Orthopedics 05/07/18 Stephen Foote MD MD Family Practice 05/07/18 03/16/23 Rdaha Proctor MD [address] [place] [address] [phone] Neurology 11/25/19 Everardo Hensley DO [address] [place] [address] [phone] Neurology 10/17/20 Jez Dougherty MD [address] [place] [address] [phone] Neurology 10/17/20 Stephen Foote MD [address] [place] [address] 1 [place] [address] Assigned PCP 11/01/20 Sarahi Claudio, [facility] [address] [place] [address] [address] 1 [place] [address] Pharmacist 03/01/21 Jez Dougherty MD [address] [place] [address] Assigned Neuroscience Provider 06/24/21 11/30/21 Radha Proctor MD [address] [place] [address] Assigned Neuroscience Provider 12/01/21 09/13/22 Stephen Foote MD [address] [place] [address] Assigned Pain Medication Provider 05/27/22 Jez Dougherty MD [address] [place] [address] Assigned Neuroscience Provider 09/14/22 09/20/22 Radha Proctor MD [address] [place] [address] Assigned Neuroscience Provider 09/21/22 11/29/22 Nakul Kinsey DO [address] [place] [address] Assigned Musculoskeletal Provider 10/26/22 01/17/23 Jez Dougherty MD [address] [place] [address] Assigned Neuroscience Provider 11/30/22 12/13/22 Radha Proctor MD [address] [place] [address] Assigned Neuroscience Provider 12/14/22 05/09/23 Otis Patino MD [facility] [address] [place] [address] Assigned Musculoskeletal Provider 01/18/23 Jez Dougherty MD 909 [facility] - [id number] [address] Assigned Neuroscience Provider 05/10/23 documented as of this encounter
--- OUTSIDE RECORDS SUMMARY | 2024-03-01 21:16 | XMS_ITS | Encounter Summary ---
Author Organization [place] Address [address] [place] [address] Care Team Providers Care Milk House Worker Name Role Phone Stephen Foote MD Primary Care Provider + Otis Bee MD Unavailable + Stephen Foote MD Unavailable + 0 Radha Proctor MD Unavailable + Everardo Hensley DO Unavailable + Jez Dougherty MD Unavailable + Stephen Foote MD Unavailable + 0 Sarahi Claudio [facility] Unavailable Unavailab Jez Turner MD Unavailable + Radha Proctor MD Unavailable + Stephen Foote MD Unavailable + 0 Jez Dougherty MD Unavailable + Radha Proctor MD Unavailable + Nakul Kinsey DO Unavailable + 0 Jez Dougherty MD Unavailable + Radha Proctor MD Unavailable + Otis Patino MD Unavailable +[phone] Stephen Foote MD Primary Care Provider Jez Dougherty MD Unavailable +[phone] Reason for Visit * Reason Onset Date Comments Medication Request 09/03/2021 Revised oxyge n refill for portable oxygen Encounter Details Date Type Department Care Team (Late st Contact Info) Description 08/31/2021 Telephone [facility] Neurology Clinic [address] 3rd [place] [address] Radha Proctor MD [address] [place] [address] Medication Request (Revised oxygen refill for portable oxygen) Social History Tobacco Use Types Packs/Day Years Used Date Smoking Tobacco: Every Day Cigarettes Smokeless Tobacco: Current Alcohol Use Standard Drinks/Week Comments No 0 (1 standard drink = 0.6 oz pur e alcohol) PHQ-2 Answer Date Recorded PHQ-2 Score 1 08/20/2021 Sex and Gender Information Value Date Recorded Sex Assigned at Male 06/13/2021 11:39 PM CLUB WAITER/WAITRESS Gender Identity Male 06/13/2021 11:39 PM CLUB WAITER/WAITRESS Sexual Orientation Straight 06/13/2021 11 :39 PM CLUB WAITER/WAITRESS COVID-19 Exposure Response Date Recorded In the last 10 days, have yo u been in contact with someone who was confirmed or suspected to have Coronavirus/COVID-19? No / Unsure 09/01/2021 3:39 PM CDT documented as of this encounter Miscellaneous Notes * Telephone Encounter - Michelle Singh - 09/04/2021 10:15 AM CDT Patient call to check on status for portable oxygen request. Please contact patient to update. * Telephone Encounter - Sejal Saez - 09/03/2021 1:32 PM CDT [facility] Phone Message May a detailed message be left on voicemail: yes Reason for Call: Other: Qaid stated that he is needing an order for portable oxygen. Please call Qaid with any questions or concerns. Action Taken: Message routed to: [facility] [place] ([facility]): [facility] Travel Screening: Not Applicable * Telephone Encounter - PlatteCinthia bower - 08/31/2021 2:31 PM CDT [facility] Phone Message May a detailed message be left on voicemail: yes Reason for Call: Medication Refill Request Has the patient contacted the pharmacy for the refill? Yes Name of medication being requested: Oxygen Provider who prescribed the medication: Dr. Proctor Pharmacy: [address] [place] [address] Date medication is needed: CELSA Pt is completely out of Oxygen and needs a refill CELSA. Pt changed to pharmacy listed above. Pleasecall back with further questions. Action Taken: Message routed to: [facility] [place] ([facility]): [facility] Neu[facility] Travel Screening: Not Applicable documented in this encounter Plan of Treatment Upcoming Encounters Date Type Department Care Team (Late st Contact Info) Description 03/22/2024 1:00 PM CLUB WAITER/WAITRESS Office Visit [facility] [address] [facility] 1 [place] [phone] Stephen Foote MD [address] [address] 05/27/2024 1:30 PM CLUB WAITER/WAITRESS Office Visit [facility] Multiple Sclerosis [address] [phone] Jez Dougherty MD [address] [place] [address] - [id number] [place], [place] [phone] documented as of this encounter Visit Diagnoses Not on filedocumented in this encounter Additional Health Concerns Infection Onset Date Last Indicated Resolved Time Rule Out COVID-19 12/18/2021 12/18/2021 12/18/2021 10:49 PM CDT COVID-19 12/18/2021 12/18/2021 01/08/2022 11:3 9 PM CDT Assessment Noted Time PHQ-9 Depression Total Score: 0 10/13/19 2:06 AM CDT documented as of this encounter Care Teams Milk House Worker Relationship Specialty Start Date End Date Stephen Foote MD PCP - General Family Practice 05/04/18 03/16/23 Stephen Foote MD [address] [place] [address] [address] [place] [address] PCP - General Family Medicine 03/17/23 Otis Bee MD [address] [place] [address] Orthopedics 05/07/18 Stephen Foote MD MD Family Practice 05/07/18 03/16/23 Radha Proctor MD [address] [place] [address] 2121 [place] [address] Neurology 11/25/19 Everardo Hensley DO [address] [place] [address] Neurology 10/17/20 Jez Dougherty MD [address] [place], [place] [address]J [place] [address] Neurology 10/17/20 Stephen Foote MD [address] [place] [address] 1 [place] [address] Assigned PCP 11/01/20 Sarahi Claudio, [facility] [address] [place] [address] 1 [place] [address] Pharmacist 03/01/21 Jez Douhgerty MD [address] [place] [address] Assigned Neuroscience Provider 06/24/21 11/30/21 Radha Proctor MD [address] [place] [address] Assigned Neuroscience Provider 12/01/21 09/13/22 Stephen Foote MD [address] [place] [address] Assigned Pain Medication Provider 05/27/22 Jez Dougherty MD [address] [place] [address] Assigned Neuroscience Provider 09/14/22 09/20/22 Radha Proctor MD [address] [place] [address] 691445 Assigned Neuroscience Provider 09/21/22 11/29/22 Nakul Kinsey DO [address] [place] [address] Assigned Musculoskeletal Provider 10/26/22 01/17/23 Jez Dougherty MD [address] [place] [address] Assigned Neuroscience Provider 11/30/22 12/13/22 Radha Proctor MD 909 [facility] 2121 [place] [address] Assigned Neuroscience Provider 12/14/22 05/09/23 Otis Patino MD 2450 [facility] [address] [place] [address] Assigned Musculoskeletal Provider 01/18/23 Jez Dougherty MD 909 [facility]2121[place] [address] Assigned Neuroscience Provider 05/10/23 documented as of this encounter
--- OUTSIDE RECORDS SUMMARY | 2024-03-01 21:16 | XMS_ITS | Encounter Summary ---
Author Organization [facility] Address [address] [place] [address] Care Team Providers Care Chief Deputy Coroner Name Role Phone Stephen Foote MD Primary Care Provider + Otis Bee MD Unavailable + Stephen Foote MD Unavailable + 0 Radha Proctor MD Unavailable + Everardo Hensley DO Unavailable + Jez Dougherty MD Unavailable + Stephen Foote MD Unavailable + 0 Sarahi Claudio [facility] Unavailable Unavailab Radha Elkins MD Unavailable + [...] Department Care Team (Late Contact Info) Description 12/18/2021 [facility] Centralized Scheduling [address] [place] [phone] Fermín Giang MD [address] [place] [address] Social History Tobacco Use Types Packs/Day Years Used Date Smoking Tobacco: Every Day Cigarettes Smokeless Tobacco: Current Alcohol Use Standard Drinks/Week Comments No 0 (1 standard drink = 0.6 oz pur e alcohol) PHQ-2 Answer Date Recorded PHQ-2 Score 2 11/28/2021 Sex and Gender Information Value Date Recorded Sex Assigned at Male 06/13/2021 11:39 PM WATER VESSEL CAPTAIN Gender Identity Male 06/13/2021 11:39 PM WATER VESSEL CAPTAIN Sexual Orientation Straight 06/13/2021 11 :39 PM WATER VESSEL CAPTAIN COVID-19 Exposure Response Date Recorded In the last 10 days, have yo u been in contact with someone who was confirmed or suspected to have Coronavirus/COVID-19? Unable to assess 12/20/2021 12:14 PM CDT documented as of this encounter Plan of Treatment Upcoming Encounters Date Type Department Care Team (Late Contact Info) Description 03/22/2024 1:00 PM WATER VESSEL CAPTAIN Office Visit [address] 1 [place] [phone] Stephen Foote MD [address] [address] 05/27/2024 1:30 PM WATER VESSEL CAPTAIN Office Visit [facility] Multiple Sclerosis Clinic [address] [phone] Jez Dougherty MD [address] [place] [address] - [id number] [place] [address] documented as of this encounter Visit Diagnoses Not on filedocumented in this encounter Additional Health Concerns Infection Onset Date Last Indicated Resolved Time Rule Out COVID-19 12/18/2021 12/18/2021 12/18/2021 10:49 PM CDT COVID-19 12/18/2021 12/18/2021 01/08/2022 11:3 9 PM CDT Assessment Noted Time PHQ-9 Depression Total Score: 10 022 11:20 AM CDT documented as of this encounter Care Teams Chief Deputy Coroner Relationship Specialty Start Date End Date Stephen Foote MD PCP - General Family Practice 05/04/18 03/16/23 Stephen Foote MD [address] [place] [address] [phone] PCP - General Family Medicine 03/17/23 Otis Bee MD [address] [place] [address] Orthopedics 05/07/18 Stephen Foote MD MD Family Practice 05/07/18 03/16/23 Radha Proctor MD [address] [place] [address] 2121 [place] [address] Neurology 11/25/19 Everardo Hensley DO [address] [place] [address] Neurology 10/17/20 Jez Dougherty MD [address] [place], [place] [address] [address] Neurology 10/17/20 Stpehen Foote MD [address] [address] Assigned PCP 11/01/20 Sarahi Claudio, [facility] 1982 [facility] 1 [place] [address] Pharmacist 03/01/21 Radha Proctor MD [address] [place] [address] Assigned Neuroscience Provider 12/01/21 09/13/22 Stephen Foote MD [address] [place] [address] Assigned Pain Medication Provider 05/27/22 Jez Dougherty MD [address] [place] [address] Assigned Neuroscience Provider 09/14/22 09/20/22 Radha Proctor MD [address] [place] [address] Assigned Neuroscience Provider 09/21/22 11/29/22 Nakul Kinsey DO [address] [place] [address] Assigned Musculoskeletal Provider 10/26/22 01/17/23 Jez Dougherty MD [address] [place] [address] Assigned Neuroscience Provider 11/30/22 12/13/22 Radha Proctor MD 909 [facility] 2121 [place] [address] Assigned Neuroscience Provider 12/14/22 05/09/23 Otis Patino MD 2450 [facility] [address] [place] [address] Assigned Musculoskeletal Provider 01/18/23 Jez Duogherty MD 909 [facility]2121[place] [address] Assigned Neuroscience Provider 05/10/23 documented as of this encounter
--- OUTSIDE RECORDS SUMMARY | 2024-03-01 21:16 | XMS_ITS | Encounter Summary ---
Author Organization [place] Address [address] [place] [address] Care Team Providers Care Cat Wagon Operator Name Role Phone Stephen Foote MD Primary Care Provider + Otis Bee MD Unavailable + Stephen Foote MD Unavailable + 0 Radha Proctor MD Unavailable + Everardo Hensley DO Unavailable + Jez Dougherty MD Unavailable + Stephen Foote MD Unavailable + 0 Sarahi Claudio [facility] Unavailable Unavailab Jez Turner MD Unavailable + Radha Proctor MD Unavailable + Stephen Foote MD Unavailable + 0 Jez Dougherty MD Unavailable + Radha Proctor MD Unavailable + Nakul Kinsey DO Unavailable + 0 Jez Dougherty MD Unavailable + Radha Proctor MD Unavailable + Otis Patino MD Unavailable +[phone] Stephen Foote MD Primary Care Provider Jez Dougherty MD Unavailable +[phone] Encounter Details Date Type Department Care Team (Late st Contact Info) Description 11/21/2021 MyC Medical Advice [facility] Neurology Clinic [address] 3rd [place] [phone] Jayshree Cui RN Social History Tobacco Use Types Packs/Day Years Used Date Smoking Tobacco: Every Day Cigarettes Smokeless Tobacco: Current Alcohol Use Standard Drinks/Week Comments No 0 (1 standard drink = 0.6 oz pur e alcohol) PHQ-2 Answer Date Recorded PHQ-2 Score 6 11/07/2021 Sex and Gender Information Value Date Recorded Sex Assigned at Male 06/13/2021 11:39 PM LABORER DAIRY FARM Gender Identity Male 06/13/2021 11:39 PM LABORER DAIRY FARM Sexual Orientation Straight 06/13/2021 11 :39 PM LABORER DAIRY FARM COVID-19 Exposure Response Date Recorded In the last 10 days, have yo u been in contact with someone who was confirmed or suspected to have Coronavirus/COVID-19? No / Unsure 11/21/2021 3:48 PM CDT documented as of this encounter Plan of Treatment Upcoming Encounters Date Type Department Care Team (Late st Contact Info) Description 03/22/2024 1:00 PM LABORER DAIRY FARM Office Visit [address] 1 [place] [phone] Stephen Foote MD [address] [place] [address] 1 [place] [address] 05/27/2024 1:30 PM LABORER DAIRY FARM Office Visit [facility] Multiple Sclerosis Clinic [address] [phone] Jez Dougherty MD [address] [place] [address] - [id number] [place] [address] documented as of this encounter Visit Diagnoses Not on filedocumented in this encounter Additional Health Concerns Infection Onset Date Last Indicated Resolved Time Rule Out COVID-19 12/18/2021 12/18/2021 12/18/2021 10:49 PM CDT COVID-19 12/18/2021 12/18/2021 01/08/2022 11:3 9 PM CDT Assessment Noted Time PHQ-9 Depression Total Score: 19 022 8:04 AM CDT documented as of this encounter Care Teams Cat Wagon Operator Relationship Specialty Start Date End Date Stephen Foote MD PCP - General Family Practice 05/04/18 03/16/23 Stephen Foote MD [address] [place] [address] PCP - General Family Medicine 03/17/23 Otis Bee MD [address] [place] [address] Orthopedics 05/07/18 Stephen Foote MD MD Family Practice 05/07/18 03/16/23 Radha Proctor MD [address] [place] [address] 2121 [place] [address] Neurology 11/25/19 Everardo Hensley DO [address] [place] [address] Neurology 10/17/20 Jez Dougherty MD [address] [place], [place] [address] [address] Neurology 10/17/20 Stephen Foote MD 1982 [facility] 1 [place] [address] Assigned PCP 11/01/20 Sarahi Claudio, [facility] 1982 [facility] 1 [place] [address] [facility] 03/01/21 Jez Dougherty MD [address] [place] [address] Assigned Neuroscience Provider 06/24/21 11/30/21 Radha Proctor MD [address] [place] [address] Assigned Neuroscience Provider 12/01/21 09/13/22 Stephen Foote MD [address] [address] Assigned Pain Medication Provider 05/27/22 Jez Dougherty MD [address] [place] [address] Assigned Neuroscience Provider 09/14/22 09/20/22 Radha Proctor MD [address] [place] [address] Assigned Neuroscience Provider 09/21/22 11/29/22 Nakul Kinsey DO [address] [place] [address] Assigned Musculoskeletal Provider 10/26/22 01/17/23 Jez Dougherty MD 909 [facility]2121[place] [address] Assigned Neuroscience Provider 11/30/22 12/13/22 Radha Proctor MD 909 [facility] 2121 [place] [address] Assigned Neuroscience Provider 12/14/22 05/09/23 Otis Patino MD 2450 [facility] [address] [place] [address] Assigned Musculoskeletal Provider 01/18/23 Jez Dougherty MD 909 [facility]2121[place] [address] Assigned Neuroscience Provider 05/10/23 documented as of this encounter
--- OUTSIDE RECORDS SUMMARY | 2024-03-01 21:16 | XMS_ITS | Encounter Summary ---
Author Organization [facility] Address [address] [place] [address] Care Team Providers Care Rn Lactation Consultant Name Role Phone Stephen Foote MD Primary Care Provider + Otis Bee MD Unavailable + Stephen Foote MD Unavailable + 0 Radha Proctor MD Unavailable + Everardo Hensley DO Unavailable + Jez Dougherty MD Unavailable + Stephen Foote MD Unavailable + 0 Sarahi Claudio [facility] Unavailable Unavailab Jez Turner MD Unavailable + Radha Proctor MD Unavailable + Stephen Foote MD Unavailable + 0 Jez Dougherty MD Unavailable + Radha Proctor MD Unavailable + Nakul Kinsey DO Unavailable + 0 Jez Dougherty MD Unavailable + Radha Proctor MD Unavailable + Otis Patino MD Unavailable +[phone] Stephen Foote MD Primary Care Provider Jez Dougherty MD Unavailable +[phone] Encounter Details Date Type Department Care Team (Late st Contact Info) Description 11/21/2021 MyC Medical Advice [facility] [address] 3rd [place] [phone] Jayshree Cui RN Social History Tobacco Use Types Packs/Day Years Used Date Smoking Tobacco: Every Day Cigarettes Smokeless Tobacco: Current Alcohol Use Standard Drinks/Week Comments No 0 (1 standard drink = 0.6 oz pur e alcohol) PHQ-2 Answer Date Recorded PHQ-2 Score 6 11/07/2021 Sex and Gender Information Value Date Recorded Sex Assigned at Male 06/13/2021 11:39 PM MANAGER RESEARCH DEVELOPMENT Gender Identity Male 06/13/2021 11:39 PM MANAGER RESEARCH DEVELOPMENT Sexual Orientation Straight 06/13/2021 11 :39 PM MANAGER RESEARCH DEVELOPMENT COVID-19 Exposure Response Date Recorded In the last 10 days, have yo u been in contact with someone who was confirmed or suspected to have Coronavirus/COVID-19? No / Unsure 11/21/2021 3:48 PM CDT documented as of this encounter Plan of Treatment Upcoming Encounters Date Type Department Care Team (Late st Contact Info) Description 03/22/2024 1:00 PM MANAGER RESEARCH DEVELOPMENT Office Visit [address] 1 [place] [phone] Stephen Foote MD [address] [place] [address] 1 [place] [address] 05/27/2024 1:30 PM MANAGER RESEARCH DEVELOPMENT Office Visit [facility] [address] [address] Jez Dougherty MD [address] [place] [address] - [id number] [address] documented as of this encounter Visit Diagnoses Not on filedocumented in this encounter Additional Health Concerns Infection Onset Date Last Indicated Resolved Time Rule Out COVID-19 12/18/2021 12/18/2021 12/18/2021 10:49 PM CDT COVID-19 12/18/2021 12/18/2021 01/08/2022 11:3 9 PM CDT Assessment Noted Time PHQ-9 Depression Total Score: 19 022 8:04 AM CDT documented as of this encounter Care Teams Rn Lactation Consultant Relationship Specialty Start Date End Date Stephen Foote MD PCP - General Family Practice 05/04/18 03/16/23 Stephen Foote MD [address] [place] [address] PCP - General Family Medicine 03/17/23 Otis Bee MD [address] [place] [address] Orthopedics 05/07/18 Stephen Foote MD MD Family Practice 05/07/18 03/16/23 Radha Proctor MD [address] [place] [address] 2121 [place] [address] Neurology 11/25/19 Everardo Hensley DO [address] [place] [address] Neurology 10/17/20 Jez Dougherty MD [address] [place], [place] [id number] [address] Neurology 10/17/20 Stephen Foote MD 1982 [facility] 1 [place] [address] Assigned PCP 11/01/20 Sarahi Claudio, [facility] 1982 [facility] 1 [place] [address] [facility] 03/01/21 Jez Dougherty MD [address] [place] [address] Assigned Neuroscience Provider 06/24/21 11/30/21 Radha Proctor MD [address] [place] [address] Assigned Neuroscience Provider 12/01/21 09/13/22 Stephen Foote MD [address] [address] Assigned Pain Medication Provider 05/27/22 Jez Dougherty MD [address] [place] [address] Assigned Neuroscience Provider 09/14/22 09/20/22 Radha Proctor MD [address] [place] [address] Assigned Neuroscience Provider 09/21/22 11/29/22 Nakul Kinsey DO [address] [place] [address] Assigned Musculoskeletal Provider 10/26/22 01/17/23 Jez Dougherty MD 909 [facility]121[place] [address] Assigned Neuroscience Provider 11/30/22 12/13/22 Radha Proctor MD 909 [facility] 2121 [place] [address] Assigned Neuroscience Provider 12/14/22 05/09/23 Otis Patino MD 2450 [facility] R102 [place] [address] Assigned Musculoskeletal Provider 01/18/23 Jez Dougherty MD 909 [facility]121[place] [address] Assigned Neuroscience Provider 05/10/23 documented as of this encounter
--- OUTSIDE RECORDS SUMMARY | 2024-03-01 21:16 | XMS_ITS | Encounter Summary ---
Author Organization [facility] Address [address] [place] [address] Care Team Providers Care Dry Cell And Battery Assembler Name Role Phone Stephen Foote MD Primary Care Provider + Otis Bee MD Unavailable + Stephen Foote MD Unavailable + 0 Radha Proctor MD Unavailable + Everardo Hensley DO Unavailable + Jez Dougherty MD Unavailable + Stephen Foote MD Unavailable + 0 Sarahi Claudio [facility] Unavailable Unavailab Radha Elkins MD Unavailable + Stephen Foote MD Unavailable + 0 Jez Dougherty MD Unavailable + Radha Proctor MD Unavailable + Nakul Kinsey DO Unavailable + 0 Jez Dougherty MD Unavailable + Radha Proctor MD Unavailable + Otis Ptaino MD Unavailable +[phone] Stephen Foote MD Primary Care Provider + Jez Dougherty MD Unavailable Encounter Details Date Type Department Care Team (Late Contact Info) Description 12/18/2021 [facility] Centralized Scheduling 2344 [place] [phone] Fermín Giang MD [address] [place] [address] Social History Tobacco Use Types Packs/Day Years Used Date Smoking Tobacco: Every Day Cigarettes Smokeless Tobacco: Current Alcohol Use Standard Drinks/Week Comments No 0 (1 standard drink = 0.6 oz pur e alcohol) PHQ-2 Answer Date Recorded PHQ-2 Score 2 11/28/2021 Sex and Gender Information Value Date Recorded Sex Assigned at Male 06/13/2021 11:39 PM SPICE BLENDER Gender Identity Male 06/13/2021 11:39 PM SPICE BLENDER Sexual Orientation Straight 06/13/2021 11 :39 PM SPICE BLENDER COVID-19 Exposure Response Date Recorded In the last 10 days, have yo u been in contact with someone who was confirmed or suspected to have Coronavirus/COVID-19? Unable to assess 12/20/2021 12:14 PM CDT documented as of this encounter Plan of Treatment Upcoming Encounters Date Type Department Care Team (Late Contact Info) Description 03/22/2024 1:00 PM SPICE BLENDER Office Visit [address] 1 [place] [phone] Stephen Foote MD [address] [address] 05/27/2024 1:30 PM SPICE BLENDER Office Visit [facility] [address] [phone] Jez Dougherty MD [address] [place] [address] - [id number] [place] [address] documented as of this encounter Visit Diagnoses Not on filedocumented in this encounter Additional Health Concerns Infection Onset Date Last Indicated Resolved Time Rule Out COVID-19 12/18/2021 12/18/2021 12/18/2021 10:49 PM CDT COVID-19 12/18/2021 12/18/2021 01/08/2022 11:3 9 PM CDT Assessment Noted Time PHQ-9 Depression Total Score: 10 022 11:20 AM CDT documented as of this encounter Care Teams Dry Cell And Battery Assembler Relationship Specialty Start Date End Date Stephen Foote MD PCP - General Family Practice 05/04/18 03/16/23 Stephen Foote MD [address] [place] [id number] PCP - General Family Medicine 03/17/23 Otis Bee MD [address] [place] [address] Orthopedics 05/07/18 Stephen Foote MD MD Family Practice 05/07/18 03/16/23 Radha Proctor MD [address] [place] [address] 2121 [place] [address] Neurology 11/25/19 Everardo Hensley DO [address] [place] [address] Neurology 10/17/20 Jez Dougherty MD [address] [place] [id number] [address] Neurology 10/17/20 Stephen Foote MD [address] [address] Assigned PCP 11/01/20 Sarahi Claudio, [facility] 1982 [facility] 1 [place] [address] Pharmacist 03/01/21 Radha Proctor MD [address] [place] [address] Assigned Neuroscience Provider 12/01/21 09/13/22 Stephen Foote MD [address] [place] [address] Assigned Pain Medication Provider 05/27/22 Jez Dougherty MD [address] [place] [address] Assigned Neuroscience Provider 09/14/22 09/20/22 Radha Proctor MD [address] [place] [address] Assigned Neuroscience Provider 09/21/22 11/29/22 Nakul Kinsey DO [address] [place] [address] Assigned Musculoskeletal Provider 10/26/22 01/17/23 Jez Dougherty MD [address] [place] [address] Assigned Neuroscience Provider 11/30/22 12/13/22 Radha Proctor MD 909 [facility] 2121 [place] [address] Assigned Neuroscience Provider 12/14/22 05/09/23 Otis Patino MD 2450 [facility] [address] [place] [address] Assigned Musculoskeletal Provider 01/18/23 Jez Dougherty MD 909 [facility]2121[place] [address] Assigned Neuroscience Provider 05/10/23 documented as of this encounter
--- OUTSIDE RECORDS SUMMARY | 2024-03-01 21:16 | XMS_ITS | Encounter Summary ---
Author Organization [facility] Address [address] [place] [address] Care Team Providers Care Surveyor Oil Well Directional Name Role Phone Stephen Foote MD Primary Care Provider + Otis Bee MD Unavailable + Stephen Foote MD Unavailable + 0 Radha Proctor MD Unavailable + Everardo Hensley DO Unavailable + Jez Dougherty MD Unavailable + Stephen Foote MD Unavailable + 0 Sarahi Claudio [facility] Unavailable Unavailab Jez Turner MD Unavailable + Radha Proctor MD Unavailable + Stephen Foote MD Unavailable + 0 Jez Dougherty MD Unavailable + Radha Proctor MD Unavailable + Nakul Kinsey DO Unavailable + 0 Jez Dougherty MD Unavailable + Radha Proctor MD Unavailable + Otis Patino MD Unavailable +[phone] Stephen Foote MD Primary Care Provider Jez Dougherty MD Unavailable [phone] Encounter Details Date Type Department Care Team (Late st Contact Info) Description 09/04/2021 MyC Medical Advice [facility] [address] 3rd [place] [phone] Jayshree Cui RN Social History Tobacco Use Types Packs/Day Years Used Date Smoking Tobacco: Every Day Cigarettes Smokeless Tobacco: Current Alcohol Use Standard Drinks/Week Comments No 0 (1 standard drink = 0.6 oz pur e alcohol) PHQ-2 Answer Date Recorded PHQ-2 Score 1 08/20/2021 Sex and Gender Information Value Date Recorded Sex Assigned at Male 06/13/2021 11:39 PM ELECTRONIC INSTRUMENT TRADES WORKER Gender Identity Male 06/13/2021 11:39 PM ELECTRONIC INSTRUMENT TRADES WORKER Sexual Orientation Straight 06/13/2021 11 :39 PM ELECTRONIC INSTRUMENT TRADES WORKER COVID-19 Exposure Response Date Recorded In the last 10 days, have yo u been in contact with someone who was confirmed or suspected to have Coronavirus/COVID-19? No / Unsure 09/01/2021 3:39 PM CDT documented as of this encounter Plan of Treatment Upcoming Encounters Date Type Department Care Team (Late st Contact Info) Description 03/22/2024 1:00 PM ELECTRONIC INSTRUMENT TRADES WORKER Office Visit [address] 1 [place] [phone] Stephen Foote MD [address] [place] [address] 1 [place] [address] 05/27/2024 1:30 PM ELECTRONIC INSTRUMENT TRADES WORKER Office Visit [facility] [address] [phone] Jez Dougherty MD [address] [place] [address] - [id number] [address] documented as of this encounter Visit Diagnoses Not on filedocumented in this encounter Additional Health Concerns Infection Onset Date Last Indicated Resolved Time Rule Out COVID-19 12/18/2021 12/18/2021 12/18/2021 10:49 PM CDT COVID-19 12/18/2021 12/18/2021 01/08/2022 11:3 9 PM CDT Assessment Noted Time PHQ-9 Depression Total Score: 0 10/13/19 21 2:06 AM CDT documented as of this encounter Care Teams Surveyor Oil Well Directional Relationship Specialty Start Date End Date Stephen Foote MD PCP - General Family Practice 05/04/18 03/16/23 Stephen Foote MD [address] [place] [address] PCP - General Family Medicine 03/17/23 Otis Bee MD [address] [place] [address] Orthopedics 05/07/18 Stephen Foote MD MD Family Practice 05/07/18 03/16/23 Radha Proctor MD [address] [place] [address] 2121 [place] [address] Neurology 11/25/19 Everardo Hensley DO [address] [place] [address] Neurology 10/17/20 Jez Dougherty MD [address] [place] [id number] [address] Neurology 10/17/20 Stephen Foote MD 1982 [facility] 1 [place] [address] Assigned PCP 11/01/20 Sarahi Claudio, [facility] 1982 [facility] 1 [place] [address] [facility] 03/01/21 Jez Dougherty MD [address] [place] [address] Assigned Neuroscience Provider 06/24/21 11/30/21 Radha Proctor MD [address] [place] [address] Assigned Neuroscience Provider 12/01/21 09/13/22 Stephen Foote MD [address] [address] Assigned Pain Medication Provider 05/27/22 Jez Dougherty MD [address] [place] [address] Assigned Neuroscience Provider 09/14/22 09/20/22 Radha Proctor MD [address] [place] [address] Assigned Neuroscience Provider 09/21/22 11/29/22 Nakul Kinsey DO [address] [place] [address] Assigned Musculoskeletal Provider 10/26/22 01/17/23 Jez Dougherty MD 909 [facility]2121[place] [address] Assigned Neuroscience Provider 11/30/22 12/13/22 Radha Proctor MD 909 [facility] 2121 [place] [address] Assigned Neuroscience Provider 12/14/22 05/09/23 Otis Patino MD 2450 [facility] [address] [place] [address] Assigned Musculoskeletal Provider 01/18/23 Jez Dougherty MD 909 [facility]2121[place] [address] Assigned Neuroscience Provider 05/10/23 documented as of this encounter
--- OUTSIDE RECORDS SUMMARY | 2024-03-01 21:16 | XMS_ITS | Encounter Summary ---
Author Organization [facility] Address [address] [place] [address] Care Team Providers Care Pad Cutter Name Role Phone Stephen Foote MD Primary [...] Primary Care Provider Jez Dougherty MD Unavailable [phone] Encounter Details Date Type Department Care Team (Late st Contact Info) Description 11/23/2021 MyC Medical Advice [facility] [address] 3rd [place] [phone] Radha Proctor MD [address] [place] [address] 2121 [place], [place] [phone] Social History Tobacco Use Types Packs/Day Years Used Date Smoking Tobacco: Every Day Cigarettes Smokeless Tobacco: Current Alcohol Use Standard Drinks/Week Comments No 0 (1 standard drink = 0.6 oz pur e alcohol) PHQ-2 Answer Date Recorded PHQ-2 Score 6 11/07/2021 Sex and Gender Information Value Date Recorded Sex Assigned at Male 06/13/2021 11:39 PM DIRECTOR OF STRATEGIC COMMUNICATIONS Gender Identity Male 06/13/2021 11:39 PM DIRECTOR OF STRATEGIC COMMUNICATIONS Sexual Orientation Straight 06/13/2021 11 :39 PM DIRECTOR OF STRATEGIC COMMUNICATIONS COVID-19 Exposure Response Date Recorded In the last 10 days, have yo u been in contact with someone who was confirmed or suspected to have Coronavirus/COVID-19? No / Unsure 11/21/2021 3:48 PM CDT documented as of this encounter Plan of Treatment Upcoming Encounters Date Type Department Care Team (Late st Contact Info) Description 03/22/2024 1:00 PM DIRECTOR OF STRATEGIC COMMUNICATIONS Office Visit [facility] 1982 [facility] 1 [place] [phone] Stephen Foote MD 1982 [facility] 1 [place] [address] 05/27/2024 1:30 PM DIRECTOR OF STRATEGIC COMMUNICATIONS Office Visit [facility] [address] [phone] Jez Dougherty MD [address] [place] [address] [address] documented as of this encounter Visit Diagnoses Not on filedocumented in this encounter Additional Health Concerns Infection Onset Date Last Indicated Resolved Time Rule Out COVID-19 12/18/2021 12/18/2021 12/18/2021 10:49 PM CDT COVID-19 12/18/2021 12/18/2021 01/08/2022 11:3 9 PM CDT Assessment Noted Time PHQ-9 Depression Total Score: 022 8:04 AM CDT documented as of this encounter Care Teams Pad Cutter Relationship Specialty Start Date End Date Stephen Foote MD PCP - General Family Practice 05/04/18 03/16/23 Stephen Foote MD [address] [place] [address] PCP - General Family Medicine 03/17/23 Otis Bee MD [address] [place] [address] 795175 Orthopedics 05/07/18 Stephen Foote MD MD Family Practice 05/07/18 03/16/23 Radha Proctor MD [address] [place] [address] 2121 [place], [place] [address] Neurology 11/25/19 Everardo Hensley DO [address] [place] [address]078[address] Neurology 10/17/20 Jez Dougherty MD [address] [place] [id number] [address] MD Neurology 10/17/20 Stephen Foote MD [address] [place] [address] Assigned PCP 11/01/20 Sarahi Claudio [facility] [address] [address] [facility] 03/01/21 Jez Dougherty MD [address] [place] [address] Assigned Neuroscience Provider 06/24/21 11/30/21 Radha Proctor MD [address] [place] [address] Assigned Neuroscience Provider 12/01/21 09/13/22 Stephen Foote MD [address] [place] [address] Assigned Pain Medication Provider 05/27/22 Jez Dougherty MD [address] [place] [address] Assigned Neuroscience Provider 09/14/22 09/20/22 Radha Proctor MD [address] [place] [address] Assigned Neuroscience Provider 09/21/22 11/29/22 Nakul Kinsey DO [address] [place] [address] Assigned Musculoskeletal Provider 10/26/22 01/17/23 Jez Dougherty MD 909 [facility] [place] [address] Assigned Neuroscience Provider 11/30/22 12/13/22 Radha Proctor MD [address] [place] [address] 2121 [place] [address] Assigned Neuroscience Provider 12/14/22 05/09/23 Otis Patino MD [address] [place], [place] [address] [place] [address] Assigned Musculoskeletal Provider 01/18/23 Jez Dougherty MD [address] [address] Assigned Neuroscience Provider 05/10/23 documented as of this encounter
--- OUTSIDE RECORDS SUMMARY | 2024-03-01 21:16 | XMS_ITS | Encounter Summary ---
Author Organization [facility] Address [address] [place] [address] Care Team Providers Care Bioinformatics Team Member Name Role Phone Stephen Foote MD Primary Care Provider + Otis Bee MD Unavailable + Stephen Foote MD Unavailable + 0 Radha Proctor MD Unavailable + Everardo Hensley DO Unavailable + Jez Dougherty MD Unavailable + Stephen Foote MD Unavailable + 0 Sarahi Claudio [facility] Unavailable Unavailab Jez Turner MD Unavailable + Radha Proctor MD Unavailable + Stephen Foote MD Unavailable + 0 Jez Dougherty MD Unavailable + Radha Proctor MD Unavailable + Nakul Kinsey DO Unavailable + 0 Jez Dougherty MD Unavailable + Radha Proctor MD Unavailable + Otis Patino MD Unavailable +[phone] Stephen Foote MD Primary Care Provider Jez Dougherty MD Unavailable +[phone] Reason for Visit * Reason Onset Date Comments Call Back 11/21/2021 Encounter Details Date Type Department Care Team (Late st Contact Info) Description 11/21/2021 Telephone [facility] [address] 3rd [place] [address] Radha Proctor MD [address] [place] [address] 2121 [place] [address] Call Back Social History Tobacco Use Types Packs/Day Years Used Date Smoking Tobacco: Every Day Cigarettes Smokeless Tobacco: Current Alcohol Use Standard Drinks/Week Comments No 0 (1 standard drink = 0.6 oz pur e alcohol) PHQ-2 Answer Date Recorded PHQ-2 Score 6 11/07/2021 Sex and Gender Information Value Date Recorded Sex Assigned at Male 06/13/2021 11:39 PM SENIOR STAFF ACCOUNTANT Gender Identity Male 06/13/2021 11:39 PM SENIOR STAFF ACCOUNTANT Sexual Orientation Straight 06/13/2021 11 :39 PM SENIOR STAFF ACCOUNTANT COVID-19 Exposure Response Date Recorded In the last 10 days, have yo u been in contact with someone who was confirmed or suspected to have Coronavirus/COVID-19? No / Unsure 11/21/2021 3:48 PM CDT documented as of this encounter Plan of Treatment Upcoming Encounters Date Type Department Care Team (Late st Contact Info) Description 03/22/2024 1:00 PM SENIOR STAFF ACCOUNTANT Office Visit [facility] [place] 1982 [facility] 1 [place] [address] Stephen Foote MD 1982 [facility] 1 [place] [address] 05/27/2024 1:30 PM SENIOR STAFF ACCOUNTANT Office Visit [facility] Multiple Sclerosis [facility] [address] [phone] Jez Dougherty MD [address] [place], [place] [id number] [place], [place] [phone] documented as of this encounter Visit Diagnoses Not on filedocumented in this encounter Additional Health Concerns Infection Onset Date Last Indicated Resolved Time Rule Out COVID-19 12/18/2021 12/18/2021 12/18/2021 10:49 PM CDT COVID-19 12/18/2021 12/18/2021 01/08/2022 11:3 9 PM CDT Assessment Noted Time PHQ-9 Depression Total Score: 19 022 8:04 AM CDT documented as of this encounter Care Teams Bioinformatics Team Member Relationship Specialty Start Date End Date Stephen Foote MD PCP - General Family Practice 05/04/18 03/16/23 Stephen Foote MD [address] [place] [address] PCP - General Family Medicine 03/17/23 Otis Bee MD [address] [place] [address] Orthopedics 05/07/18 Stephen Foote MD MD Family Practice 05/07/18 03/16/23 Radha Proctor MD [address] [place] [address] 2121 [place] [address] Neurology 11/25/19 Everardo Hensley DO [address] [place] [address] Neurology 10/17/20 Jez Dougherty MD [address] [place] [address] Neurology 10/17/20 Stephen Foote MD [address] [place] [address] Assigned PCP 11/01/20 [facility] [address] [place] [address] [facility] 03/01/21 Jez Dougherty MD [address] [place] [address] Assigned Neuroscience Provider 06/24/21 11/30/21 Radha Proctor MD [address] [place] [address] Assigned Neuroscience Provider 12/01/21 09/13/22 Stephen Foote MD [address] [place] [address] Assigned Pain Medication Provider 05/27/22 Jez Dougherty MD [address] [place] [address] Assigned Neuroscience Provider 09/14/22 09/20/22 Radha Proctor MD [address] [place] [address] Assigned Neuroscience Provider 09/21/22 11/29/22 Nakul Kinsey DO [address] [place] [address] Assigned Musculoskeletal Provider 10/26/22 01/17/23 Jez Dougherty MD 909 [facility]2121[place], [place] [address] Assigned Neuroscience Provider 11/30/22 12/13/22 Radha Proctor MD [address] [place] [address] 2121 [place] [address] Assigned Neuroscience Provider 12/14/22 05/09/23 [place] [address] [place] [address] R102 [place] [address] Assigned Musculoskeletal Provider 01/18/23 Jez Dougherty MD [address] [place] [address] Assigned Neuroscience Provider 05/10/23 documented as of this encounter
--- OUTSIDE RECORDS SUMMARY | 2024-03-01 21:16 | XMS_ITS | Encounter Summary ---
Author Organization [facility] Address [address] [place] [address] Care Team Providers Care Supervisor Machine Workers Name Role Phone Stephen Foote MD Primary Care Provider + Otis Bee MD Unavailable + Stephen Foote MD Unavailable + 0 Radha Proctor MD Unavailable + Everardo Hensley DO Unavailable + Jez Dougherty MD Unavailable + Stephen Foote MD Unavailable + 0 Sarahi Claudio [facility] Unavailable Unavailab Radha Elkins MD [...] * Reason Onset Date Comments Call Back 12/20/2021 Encounter Details Date Type Department Care Team (Late st Contact Info) Description 12/20/2021 Telephone [facility] [address] [phone] Jez Dougherty MD [address] [place] [address] SE - [id number] [place] [address] Call Back Social History Tobacco Use Types Packs/Day Years Used Date Smoking Tobacco: Every Day Cigarettes Smokeless Tobacco: Current Alcohol Use Standard Drinks/Week Comments No 0 (1 standard drink = 0.6 oz pur e alcohol) PHQ-2 Answer Date Recorded PHQ-2 Score 2 11/28/2021 Sex and Gender Information Value Date Recorded Sex Assigned at Male 06/13/2021 11:39 PM BRIM STRETCHER Gender Identity Male 06/13/2021 11:39 PM BRIM STRETCHER Sexual Orientation Straight 06/13/2021 11 :39 PM BRIM STRETCHER COVID-19 Exposure Response Date Recorded In the last 10 days, have yo u been in contact with someone who was confirmed or suspected to have Coronavirus/COVID-19? Unable to assess 12/20/2021 12:14 PM CDT documented as of this encounter Miscellaneous Notes * Telephone Encounter - [place] - 12/20/2021 12:28 PM CDT [facility] 12/20 [facility] * Telephone Encounter - Michelle Espinosa - 12/20/2021 11:06 AM CDT [facility] Phone Message May a detailed message be left on voicemail: yes Reason for Call: Other: Patient tested positive for covid 12/18/21. He cancelled appt.for today 12/20/21. Patient requests a call back to discuss [facility] appointment. Action Taken: Message routed to: [facility] [place] Travel Screening: Positive: unable to schedule an appointment, due to positive travel screen. Informed patient/caller that a message will be sent to the clinic; who will then call them back to discuss next steps. Patient screened positive for: Coronavirus documented in this encounter Plan of Treatment Upcoming Encounters Date Type Department Care Team (Late st Contact Info) Description 03/22/2024 1:00 PM BRIM STRETCHER Office Visit [facility] 1982 [facility] [address] [place] [phone] Stephen Foote MD 1982 [facility] 1 [place] [address] 05/27/2024 1:30 PM BRIM STRETCHER Office Visit [facility] Multiple Sclerosis [address] [phone] Jez Dougherty MD [address] [place] [address] - [id number] [place], [place] 480[address] documented as of this encounter Visit Diagnoses Not on filedocumented in this encounter Additional Health Concerns Infection Onset Date Last Indicated Resolved Time COVID-19 12/18/2021 12/18/2021 01/08/2022 11:3 9 PM CDT Assessment Noted Time PHQ-9 Depression Total Score: 10 07/13/2 022 11:20 AM CDT documented as of this encounter Care Teams Supervisor Machine Workers Relationship Specialty Start Date End Date Stephen Foote MD PCP - General Family Practice 05/04/18 03/16/23 Stephen Foote MD [address] [address] PCP - General Family Medicine 03/17/23 Otis Bee MD [address] [place] [address] Orthopedics 05/07/18 Stephen Foote MD Family Practice 05/07/18 03/16/23 Radha Proctor MD [address] [place] [address] Neurology 11/25/19 Everardo Hensley DO [address] [place] [address] 551095 Neurology 10/17/20 Jez Dougherty MD [address] [place] [address] 107074 Neurology 10/17/20 Stephen Foote MD [address] [place] [address] Assigned PCP 11/01/20 Sarahi Claudio, [facility] [address] [address] Pharmacist 03/01/21 Radha Proctor MD [address] [place] [address] Assigned Neuroscience Provider 12/01/21 09/13/22 Stephen Foote MD [address] [address] Assigned Pain Medication Provider 05/27/22 Jez Dougherty MD [address] [place] [address] Assigned Neuroscience Provider 09/14/22 09/20/22 Radha Proctor MD [address] [place] [address] Assigned Neuroscience Provider 09/21/22 11/29/22 Nakul Kinsey DO [address] [place] [address] Assigned Musculoskeletal Provider 10/26/22 01/17/23 Jez Dougherty MD [address] [place] [address] [address] Assigned Neuroscience Provider 11/30/22 12/13/22 Radha [place] MD [address] [place] [address] Assigned Neuroscience Provider 12/14/22 05/09/23 [place] [address] [place], [place] [address] [place] [address] Assigned Musculoskeletal Provider 01/18/23 Jez Dougherty MD [address] [place] [address] [address] Assigned Neuroscience Provider 05/10/23 documented as of this encounter
--- OUTSIDE RECORDS SUMMARY | 2024-03-01 21:17 | XMS_ITS | Encounter Summary ---
Author Organization [facility] Address [address] [place] [address] Care Team Providers Care Corporate Communications Manager Name Role Phone Stephen Foote MD Primary Care Provider + Otis Bee MD Unavailable + [phone] Stephen Foote MD Unavailable + 0 Radha Proctor MD Unavailable + Radha Proctor MD Unavailable + Jez Sam MD Unavailable +[phone] Everardo Hensley DO Unavailable + Jez Dougherty MD Unavailable + Stephen Foote MD Unavailable + 0 Sarahi Claudio [facility] Unavailable Unavailab Everardo Rodas DO Unavailable + Jez Dougehrty MD Unavailable + Radha Proctor MD Unavailable + Stephen Foote MD Unavailable + 0 Jez Dougherty MD Unavailable + Radha Proctor MD Unavailable + [phone] Nakul Kinsey DO Unavailable +[phone] Jez Dougherty MD Unavailable + [phone] Radha [place] MD Unavailable + [phone] Otis Patino MD Unavailable +[phone] Stephen Foote MD Primary Care Provider +[phone] Jez Dougherty MD Unavailable +[phone] Reason for Visit * Reason Onset Date Comments pt request 04/24/2021 please have Mahamed Hernandez call pt back... Encounter Details Date Type Department Care Team (Late st Contact Info) Description 04/24/2021 [facility] Neurology Clinic [address] [phone] Everardo Hensley, [address] [place] [address] pt request (please have Nurse Hernandez call pt back...) Social History Tobacco Use Types Packs/Day Years Used Date Smoking Tobacco: Every Day Cigarettes Smokeless Tobacco: Current Alcohol Use Standard Drinks/Week Comments No 0 (1 standard drink = 0.6 oz pur e alcohol) PHQ-2 Answer Date Recorded PHQ-2 Score 0 03/22/2020 Sex and Gender Information Value Date Recorded Sex Assigned at Male 06/13/2021 11:39 PM PIPE LINER Gender Identity Male 06/13/2021 11:39 PM PIPE LINER Sexual Orientation Straight 06/13/2021 11 :39 PM PIPE LINER documented as of this encounter Miscellaneous Notes * Telephone Encounter - Nathalia Ibrahim - 04/24/2021 12:[address] [facility] Phone Message May a detailed message be left on voicemail: yes Reason for Call: Other: pt reporting that he was unable to get back to Nurse Hernandez in time, missed an opportunity to have a video visit with Dr. Hensley. Would Nurse Hernandez please call pt back. Thank you. Action Taken: Message routed to: [facility] Travel Screening: Not Applicable LINER documented in this encounter Plan of Treatment Upcoming Encounters Date Type Department Care Team (Late st Contact Info) Description 03/22/2024 1:00 PM PIPE LINER Office Visit [facility] 1982 [facility] [address] [place] [phone] Stephen Foote MD 1982 [facility] [address] [place] [address] 05/27/2024 1:30 PM PIPE LINER Office Visit [facility] Multiple Sclerosis [address] [phone] Jez Dougherty MD [address] [place] [address] [id number] [place], [place] [address] documented as of this encounter Visit Diagnoses Not on filedocumented in this encounter Additional Health Concerns Infection Onset Date Last Indicated Resolved Time Rule Out COVID-19 12/18/2021 12/18/2021 12/18/2021 10:49 PM CDT COVID-19 12/18/2021 12/18/2021 01/08/2022 11:3 9 PM CDT Assessment Noted Time PHQ-9 Depression Total Score: 0 10/13/19 21 2:06 AM CDT documented as of this encounter Care Teams Corporate Communications Manager Relationship Specialty Start Date End Date Stephen Foote MD PCP - General Family Practice 05/04/18 03/16/23 Stephen Foote MD 1982 [facility] [address] [place] [address] PCP - General Family Medicine 03/17/23 Otis Bee MD [address] [place] [address] Orthopedics 05/07/18 Stephen Foote MD Family Practice 05/07/18 03/16/23 Radha [place] MD [address] [facility] [address] [place] [address] Neurology 11/25/19 Radha [place] MD [address] [facility] [address] [place] [address] Assigned Neuroscience Provider 03/10/20 05/05/21 Jez Sam MD 6[address] [facility] 500 [place] [phone] Assigned Surgical Provider 03/10/20 Everardo Hensley DO [address] [place] [address]95[address] Neurology 10/17/20 Jez Dougherty MD [address] [place], [place] [id number] [address] Neurology 10/17/20 Stephen Foote MD 1982 [facility] 1 [place] [address] Assigned PCP 11/01/20 Sarahi Claudio, [facility] 1982 [facility] [address] [place] [address] Pharmacist 03/01/21 Everardo Hensley DO [address] [place] [address] Assigned Neuroscience Provider 05/06/21 06/23/21 Jez Dougherty MD [address] [place] [address] Assigned Neuroscience Provider 06/24/21 11/30/21 Radha [place] MD [address] [place] [address] Assigned Neuroscience Provider 12/01/21 09/13/22 Stephen Foote MD [address] [place] [address] Assigned Pain Medication Provider 05/27/22 Jez Dougherty MD [address] [place] [address] Assigned Neuroscience Provider 09/14/22 09/20/22 Radha [place] MD [address] [place] [address] Assigned Neuroscience Provider 09/21/22 11/29/22 Nakul Kinsey DO [address] [place] [address] Assigned Musculoskeletal Provider 10/26/22 01/17/23 Jez Dougherty MD [address] [place] [address] Assigned Neuroscience Provider 11/30/22 12/13/22 Radha [place] MD [address] [facility] [address] [place] [address] Assigned Neuroscience Provider 12/14/22 05/09/23 Otis Patino MD [address] [facility] [address] [place] [address] Assigned Musculoskeletal Provider 01/18/23 Jez Dougherty MD [address] [facility] - [id number] [address] Assigned Neuroscience Provider 05/10/23 documented as of this encounter
--- OUTSIDE RECORDS SUMMARY | 2024-03-01 21:17 | XMS_ITS | Encounter Summary ---
Author Organization [facility] Address [address] [place] [address] Care Team Providers Care Sock Ironer Name Role Phone Stephen Foote MD Primary Care Provider + Otis Bee MD Unavailable + [phone] Stephen Foote MD Unavailable + 0 Radha [place] MD Unavailable + Radha [place] MD Unavailable + Jez Sam MD Unavailable +[phone] Everardo Hensley DO Unavailable + Jez Dougherty MD Unavailable + Bert Zarate DO Unavailable +[phone] Stephen Foote MD Unavailable + 0 Sarahi Claudio [facility] Unavailable Unavailab Everardo Rodas DO Unavailable + Jez Dougherty MD Unavailable + Radha [place] MD Unavailable + Stephen Foote MD Unavailable +[phone] Jez Dougherty MD Unavailable + Radha [place] MD Unavailable + Nakul Kinsey DO Unavailable +[phone] Jez Dougherty MD Unavailable +[phone] Radha [place] MD Unavailable + Otis Patino MD Unavailable +[phone] Stephen Foote MD Primary Care Provider +[phone]- Jez Dougherty MD Unavailable +[phone] Encounter Details Date Type Department Care Team (Late st Contact Info) Description 01/19/2021 Documentation Only INTERFACED REPORT Unknown, Provider Social History Tobacco Use Types Packs/Day Years Used Date Smoking Tobacco: Every Day Cigarettes Smokeless Tobacco: Current Alcohol Use Standard Drinks/Week Comments No 0 (1 standard drink = 0.6 oz pur e alcohol) PHQ-2 Answer Date Recorded PHQ-2 Score 0 03/22/2020 Sex and Gender Information Value Date Recorded Sex Assigned at Male 06/13/2021 11:39 PM PRODUCE CLERK Gender Identity Male 06/13/2021 11:39 PM PRODUCE CLERK Sexual Orientation Straight 06/13/2021 11 :39 PM PRODUCE CLERK documented as of this encounter Plan of Treatment Upcoming Encounters Date Type Department Care Team (Late st Contact Info) Description 03/22/2024 1:00 PM PRODUCE CLERK Office Visit [address] 1 [place] [phone] Stephen Foote MD [address] [place] [address] 05/27/2024 1:30 PM PRODUCE CLERK Office Visit [facility] Multiple Sclerosis [address] [phone] Jez Dougherty MD [address] [place] [address] - [id number] [place], [place] [address] documented as of this encounter Visit Diagnoses Not on filedocumented in this encounter Additional Health Concerns Infection Onset Date Last Indicated Resolved Time Rule Out COVID-19 12/18/2021 12/18/2021 12/18/2021 10:49 PM CDT COVID-19 12/18/2021 12/18/2021 01/08/2022 11:3 9 PM CDT Assessment Noted Time PHQ-9 Depression Total Score: 0 10/13/19 2:06 AM CDT documented as of this encounter Care Teams Sock Ironer Relationship Specialty Start Date End Date Stephen Foote MD PCP - General Family Practice 05/04/18 03/16/23 Stephen Foote MD [address] [place] [address] 1 [place] [address] PCP - General Family Medicine 03/17/23 Otis Bee MD [address] [place] [address] Orthopedics 05/07/18 Stephen Foote MD MD Family Practice 05/07/18 03/16/23 Radha [place] MD [address] [place] [address] Neurology 11/25/19 Radha [place] MD [address] [place] [address] Assigned Neuroscience Provider 03/10/20 05/05/21 Jez Sam MD 6363 [facility] 500 [place] [phone] Assigned Surgical Provider 03/10/20 Everardo Hensley DO 909 [place] [address] Neurology 10/17/20 Jez Dougherty MD [address] [address] Neurology 10/17/20 Bert Zarate DO [address] [place] [address] Assigned Sleep Provider 12/01/20 Stephen Foote MD [facility] [address] [place] [address] Assigned PCP 11/01/20 Sarahi Claudio, [facility] [address] [place] [address] [facility] 03/01/21 Everardo Hensley DO [address] [place] [address] Assigned Neuroscience Provider 05/06/21 06/23/21 Jez Dougherty MD [address] [place] [address] Assigned Neuroscience Provider 06/24/21 11/30/21 Radha Pro[place] MD [address] [address] Assigned Neuroscience Provider 12/01/21 09/13/22 Stephen Foote MD [address] [place] [address] Assigned Pain Medication Provider 05/27/22 Jez Dougherty MD [address] [place] [address] Assigned Neuroscience Provider 09/14/22 09/20/22 Radha Pro[place] MD [address] [place] [address] Assigned Neuroscience Provider 09/21/22 11/29/22 Nakul Kinsey DO [address] [place] [address] Assigned Musculoskeletal Provider 10/26/22 01/17/23 Jez Dougherty MD [address] [place] [address] Assigned Neuroscience Provider 11/30/22 12/13/22 Radha Pro[place] MD [address] [place] [address] Assigned Neuroscience Provider 12/14/22 05/09/23 Otis Patino MD [facility] [address] [place] [address] Assigned Musculoskeletal Provider 01/18/23 Jez Dougherty MD [address] [place] [address] Assigned Neuroscience Provider 05/10/23 documented as of this encounter
--- OUTSIDE RECORDS SUMMARY | 2024-03-01 21:17 | XMS_ITS | Encounter Summary ---
Author Organization [facility] Address [address] [place] [address] Care Team Providers Care Customer Experience Strategist Name Role Phone Stephen Foote MD Primary Care Provider + Otis Bee MD Unavailable + [phone] Stephen Foote MD Unavailable + [phone] Radha Proctor MD Unavailable + Radha Proctor MD Unavailable + Jez Sam MD Unavailable +[phone] Everardo Hensley DO Unavailable + Jez Dougherty MD Unavailable + Bert Zarate DO Unavailable +[phone] Stephen Foote MD Unavailable + 0 Sarahi Claudio [facility] Unavailable Unavailab Everardo Rodas DO Unavailable + Jez Dougherty MD Unavailable + Radha Proctor MD Unavailable + Stephen Foote MD Unavailable +[phone] Jez Dougherty MD Unavailable + Radha Proctor MD Unavailable + Nakul Kinsey DO Unavailable +[phone] Jez Dougherty MD Unavailable + Radha [place] MD Unavailable + Otis Patino MD Unavailable +[phone] Stephen Foote MD Primary Care Provider +[phone]- Jez Dougherty MD Unavailable + Encounter Details Date Type Department Care Team (Late st Contact Info) Description 01/15/2021 MyC Medical Advice [facility] Neurology Clinic [address] [place] [address] Angie Doan RN Social History Tobacco Use Types Packs/Day Years Used Date Smoking Tobacco: Every Day Cigarettes Smokeless Tobacco: Current Alcohol Use Standard Drinks/Week Comments No 0 (1 standard drink = 0.6 oz pur e alcohol) PHQ-2 Answer Date Recorded PHQ-2 Score 0 03/22/2020 Sex and Gender Information Value Date Recorded Sex Assigned at Male 06/13/2021 11:39 PM GANG VIBRATOR OPERATOR Gender Identity Male 06/13/2021 11:39 PM GANG VIBRATOR OPERATOR Sexual Orientation Straight 06/13/2021 11 :39 PM GANG VIBRATOR OPERATOR documented as of this encounter Plan of Treatment Upcoming Encounters Date Type Department Care Team (Late Contact Info) Description 03/22/2024 1:00 PM GANG VIBRATOR OPERATOR Office Visit [address] 1 [place] [phone] Stephen Foote MD [address] [place] [address] 1 [place] [address] 05/27/2024 1:30 PM GANG VIBRATOR OPERATOR Office Visit [facility] Multiple Sclerosis Clinic [address] [address] Jez Dougherty MD [address] [place] [address] - [id number] [place] [address] documented as of this encounter Visit Diagnoses Not on filedocumented in this encounter Additional Health Concerns Infection Onset Date Last Indicated Resolved Time Rule Out COVID-19 12/18/2021 12/18/2021 12/18/2021 10:49 PM CDT COVID-19 12/18/2021 12/18/2021 01/08/2022 11:3 9 PM CDT Assessment Noted Time PHQ-9 Depression Total Score: 0 10/13/19 21 2:06 AM CDT documented as of this encounter Care Teams Customer Experience Strategist Relationship Specialty Start Date End Date Stephen Foote MD PCP - General Family Practice 05/04/18 03/16/23 Stephen Foote MD [address] [place] [address] PCP - General Family Medicine 03/17/23 Otis Bee MD [address] [place] [address] Orthopedics 05/07/18 Stephen Foote MD Family Practice 05/07/18 03/16/23 Radha Proctor MD [address] [place] [address] Neurology 11/25/19 Radha Proctor MD [address] [place] [address] Assigned Neuroscience Provider 03/10/20 05/05/21 Jez Sam MD 6363 [facility] 500 [place] [address] Assigned Surgical Provider 03/10/20 Everardo Hensley DO [address] [place] [address] Neurology 10/17/20 Jez Dougherty MD [address] [place] [address] Neurology 10/17/20 Bert Zarate DO [address] [place] [address] 106 [place] [address] Assigned Sleep Provider 12/01/20 Stephen Foote MD [address] [place] [address] Assigned PCP 11/01/20 Sarahi Claudio, [facility] [address] [place] [address] 1 [place] [address] [facility] 03/01/21 Everardo Hensley DO [address] [place] [address] Assigned Neuroscience Provider 05/06/21 06/23/21 Jez Dougherty MD [address] [place] [address] Assigned Neuroscience Provider 06/24/21 11/30/21 Radha Proctor MD [address] [place] [address]121 [place] [address] Assigned Neuroscience Provider 12/01/21 09/13/22 Stephen Foote MD [address] [place] [address] Assigned Pain Medication Provider 05/27/22 Jez Dougherty MD [address] [place] [address] Assigned Neuroscience Provider 09/14/22 09/20/22 Radha Proctor MD [address] [place] [address] Assigned Neuroscience Provider 09/21/22 11/29/22 Nakul Kinsey DO [address] [place] [address] Assigned Musculoskeletal Provider 10/26/22 01/17/23 Jez Dougherty MD [address] [place] [address] Assigned Neuroscience Provider 11/30/22 12/13/22 Radha Proctor MD [address] [place] [address] Assigned Neuroscience Provider 12/14/22 05/09/23 Otis Patino MD [address] [place] [address] Assigned Musculoskeletal Provider 01/18/23 Jez Dougherty MD [address] [place] [address] Assigned Neuroscience Provider 05/10/23 documented as of this encounter
--- OUTSIDE RECORDS SUMMARY | 2024-03-01 21:17 | XMS_ITS | Encounter Summary ---
Author Organization [facility] Address [address] [place] [address] Care Team Providers Care Email Campaign Manager Name Role Phone Stephen Foote MD Primary Care Provider + Otis Bee MD Unavailable + Stephen Foote MD Unavailable + 0 Radha Proctor MD Unavailable + Everardo Hensley DO Unavailable + Jez Dougherty MD Unavailable + Stephen Foote MD Unavailable + [address] [facility] Unavailable Unavailab Jez Turner MD Unavailable + Radha Proctor MD Unavailable + Stephen Foote MD Unavailable + 0 Jez Dougherty MD Unavailable + Radha Proctor MD Unavailable + Nakul Kinsey DO Unavailable + 0 Jez Dougherty MD Unavailable + Radha Proctor MD Unavailable + Otis Patino MD Unavailable +[phone] Stephen Foote MD Primary Care Provider Jez Dougherty MD Unavailable [phone] Reason for Visit * Reason Onset Date Comments Medication Request 06/25/2021 Encounter Details Date Type Department Care Team (Late st Contact Info) Description 06/25/2021 Telephone [facility] Multiple Sclerosis [address] [address] Jez Dougherty MD [address] [place] [address] - [id number] [place] [address] Medication Request Social History Tobacco Use Types Packs/Day Years Used Date Smoking Tobacco: Every Day Cigarettes Smokeless Tobacco: Current Alcohol Use Standard Drinks/Week Comments No 0 (1 standard drink = 0.6 oz pur e alcohol) PHQ-2 Answer Date Recorded PHQ-2 Score 0 03/22/2020 Sex and Gender Information Value Date Recorded Sex Assigned at Male 06/13/2021 11:39 PM AUTO BODY MECHANIC Gender Identity Male 06/13/2021 11:39 PM AUTO BODY MECHANIC Sexual Orientation Straight 06/13/2021 11 :39 PM AUTO BODY MECHANIC COVID-19 Exposure Response Date Recorded In the last month, have you been in contact with someone who was confirmed or suspected to have Coronavirus / COVID-19? No / Unsure 06/20/2021 12:06 PM AUTO BODY MECHANIC documented as of this encounter Miscellaneous Notes * Telephone Encounter - Hailey Mike RN - 06/25/2021 2:21 PM CST Returned phone call to [facility] regarding duloxetine prescription. The prescription is written for quantity of 60 with 5 refills, and should have refills on file. Pharmacy staff informed me that 30 capsules had been dispensed last time, but that it appears that they will be able to dispense 60 capsules next time. They will contact us if anything is needed on the , which is when they will be able to process the next refill. Hailey Mike RN BODY MECHANIC * Telephone Encounter - Michelle Espinosa - 06/25/2021 9:27 AM CST Mr. Alan [facility] Call Center Phone Message May a detailed message be left on voicemail: yes Reason for Call: Medication Question or concern regarding medication Prescription Clarification Name of Medication: DULoxetine (CYMBALTA) 30 MG capsule Prescribing Provider:[facility]: [id number] - [place], [place] - [address] What on the order needs clarification? Patient requesting 60 tablets per month or 3 month supply. Patient is currently taking 2 tabs daily. Action Taken: Message routed to: [facility] Neurology Travel Screening: Not Applicable BODY MECHANIC documented in this encounter Plan of Treatment Upcoming Encounters Date Type Department Care Team (Late st Contact Info) Description 03/22/2024 1:00 PM AUTO BODY MECHANIC Office Visit [address] [place] [address] Stephen Foote MD [address] [place] [address] 05/27/2024 1:30 PM AUTO BODY MECHANIC Office Visit [facility] Multiple Sclerosis [address] [phone] Jez Dougherty MD [address] [place] [address] [id number] [place] [address] documented as of this encounter Visit Diagnoses Not on filedocumented in this encounter Additional Health Concerns Infection Onset Date Last Indicated Resolved Time Rule Out COVID-19 12/18/2021 12/18/2021 12/18/2021 10:49 PM CDT COVID-19 12/18/2021 12/18/2021 01/08/2022 11:3 9 PM CDT Assessment Noted Time PHQ-9 Depression Total Score: 0 10/13/19 21 2:06 AM CDT documented as of this encounter Care Teams Email Campaign Manager Relationship Specialty Start Date End Date Stephen Foote MD PCP - General Family Practice 05/04/18 03/16/23 Stephen Foote MD [address] [facility] 1 [place] [address] PCP - General Family Medicine 03/17/23 Otis Bee MD 9 [place] [address] Orthopedics 05/07/18 Stephen Foote MD MD Family Practice 05/07/18 03/16/23 Radha Proctor MD [address] [place] [address] Neurology 11/25/19 Everardo Hensley DO [address] [place] [address] Neurology 10/17/20 Jez Dougherty MD [address] [place] [address] Neurology 10/17/20 Stephen Foote MD [address] [facility] 1 [place] [address] Assigned PCP 11/01/20 Sarahi Claudio, [facility] [address] [facility] 1 [place] [address] Pharmacist 03/01/21 Jez Dougherty MD [address] [place] [address] Assigned Neuroscience Provider 06/24/21 11/30/21 Radha Proctor MD [address] [place] [address] Assigned Neuroscience Provider 12/01/21 09/13/22 Stephen Foote MD [address] [place] [address] Assigned Pain Medication Provider 05/27/22 Jez Dougherty MD [address] [place] [address] Assigned Neuroscience Provider 09/14/22 09/20/22 Radha Proctor MD [address] [place] [address] Assigned Neuroscience Provider 09/21/22 11/29/22 Nakul Kinsey DO [address] [place] [address] Assigned Musculoskeletal Provider 10/26/22 01/17/23 Jez Dougherty MD [address] [place] [address] Assigned Neuroscience Provider 11/30/22 12/13/22 Radha Proctor MD [address] [place] [address] Assigned Neuroscience Provider 12/14/22 05/09/23 Otis Patino MD 24[address] [facility] [address] [place] [address] Assigned Musculoskeletal Provider 01/18/23 Jez Dougherty MD 909 [facility] [id number] [place] [address] Assigned Neuroscience Provider 05/10/23 documented as of this encounter
--- OUTSIDE RECORDS SUMMARY | 2024-03-01 21:17 | XMS_ITS | Encounter Summary ---
Author Organization [facility] Address [address] [place] [address] Care Team Providers Care Coating Operator Name Role Phone Stephen Foote MD Primary Care Provider + Otis Bee MD Unavailable + [phone] Stephen Foote MD Unavailable [phone] Radha Proctor MD Unavailable + Radha Proctor MD Unavailable + Jez Sam MD Unavailable +[phone] Everardo Hensley DO Unavailable + Jez Dougherty MD Unavailable + Ann Marie Wood RN Unavailable Bert Zarate DO Unavailable +[phone] Stephen Foote MD Unavailable +[phone] Sarahi Claudio [facility] Unavailable Unavailab Everardo Rodas DO Unavailable + Jez Dougherty MD Unavailable + Radha Proctor MD Unavailable + Stephen Foote MD Unavailable +[phone] Jez Dougherty MD Unavailable + Radha Proctor MD Unavailable +[phone] Nakul Kinsey Thea CORDON Unavailable +[phone] Jez Dougherty MD Unavailable +[phone] Radha Proctor MD Unavailable +[phone] Otis Patino MD Unavailable [phone] Stephen Foote MD Primary Care Provider +[phone] Jez Dougherty MD Unavailable +[phone] Reason for Visit * Reason Onset Date Comments question from pt 01/08/2021 regarding the s cript, COPAXONE 20 MG/ML injection Prior Authorization 01/08/2021 COPAXONE 40 MG/ML injection (APPEAL DENIED) Encounter Details Date Type Department Care Team (Late st Contact Info) Description 01/08/2021 Telephone [facility] Multiple Sclerosis [address] [address] Jez Dougherty MD [address] [place] [address] [id number] [place] [address] question from pt (regarding the script, COPAXONE 20 MG/ML injection); Prior Authorization (COPAXONE 40 MG/ML injection (APPEAL DENIED)) Social History Tobacco Use Types Packs/Day Years Used Date Smoking Tobacco: Every Day Cigarettes Smokeless Tobacco: Current Alcohol Use Standard Drinks/Week Comments No 0 (1 standard drink = 0.6 oz pur e alcohol) PHQ-2 Answer Date Recorded PHQ-2 Score 0 03/22/2020 Sex and Gender Information Value Date Recorded Sex Assigned at Male 06/13/2021 11:39 PM PHYSICIAN PRACTICE MANAGER Gender Identity Male 06/13/2021 11:39 PM PHYSICIAN PRACTICE MANAGER Sexual Orientation Straight 06/13/2021 11 :39 PM PHYSICIAN PRACTICE MANAGER documented as of this encounter Miscellaneous Notes * Telephone Encounter - Rosalina Clinton - 01/16/2021 10:40 AM CDT Images from the original note were not included. MEDICATION APPEAL DENIED Medication: regarding the script, COPAXONE 20 MG/ML injection Denial Date: 01/15/2021 Denial Rational: Must try/fail Copaxone 20MG or other alternatives noted below. * Telephone Encounter - SeraSergeGracia R - 01/12/2021 7:57 AM CDT [facility] Call Center Phone Message May a detailed message be left on voicemail: yes Reason for Call: Medication Question or concern regarding medication Prescription Clarification Name of Medication: Copaxone Prescribing Provider: Dr. Dougherty Pharmacy: [facility] What on the order needs clarification? Eileen is calling in regards to the appeal. She is requesting to know if the patient has been on past medications tried and if the patient is currently on the current copaxone dose. Eileen also is faxing a form for Dr. Dougherty to review at fax number [phone]. Please call to advise. Action Taken: Message routed to: [facility] [place] [facility] Travel Screening: Not Applicable * Telephone Encounter - AlysiaAugust - 01/11/2021 4:51 PM CDT [facility] Call Center Phone Message May a detailed message be left on voicemail: yes Reason for Call: Medication Question or concern regarding medication Prescription Clarification Name of Medication: COPAXONE 40 MG/ML Prescribing Provider: Jez Dougherty MD Pharmacy: [facility] - [address] What on the order needs clarification? Patient returning call because he got a message from a nurse saying insurance approved the COPAXONE, but [facility] is telling him they haven't received any paperwork about prior authorization. Patient would like you to please send prior authorization paperwork to [facility] and notify him when this has been done. Action Taken: Message routed to: [facility] [place] ([facility] neurology Travel Screening: Not Applicable * Telephone Encounter - PatriceNathalia luong - 01/08/2021 4:26 PM CDT [facility] Phone Message May a detailed message be left on voicemail: yes Reason for Call: Medication Question or concern regarding medication Prescription Clarification Name of Medication: COPAXONE 20 MG?ML injection Prescribing Provider: Dr. Dougherty Pharmacy: [facility] What on the order needs clarification? Question if we received word from pt's insurance that the insurance will pay for upping the dosage from 20 MG/ML to 40 MG/ML? Please call pt to answer his question. Thank you. Action Taken: Message routed to: [facility] Travel Screening: Not Applicable documented in this encounter Plan of Treatment Upcoming Encounters Date Type Department Care Team (Late st Contact Info) Description 03/22/2024 1:00 PM PHYSICIAN PRACTICE MANAGER Office Visit [address] [place] [address] Stephen Foote MD [address] [place] [address] 05/27/2024 1:30 PM PHYSICIAN PRACTICE MANAGER Office Visit [facility] Multiple Sclerosis [address] [phone] Jez Dougherty MD [address] [place] [address] - [id number] [place] [address] documented as of this encounter Visit Diagnoses Not on filedocumented in this encounter Additional Health Concerns Infection Onset Date Last Indicated Resolved Time Rule Out COVID-19 12/18/2021 12/18/2021 12/18/2021 10:49 PM CDT COVID-19 12/18/2021 12/18/2021 01/08/2022 11:3 9 PM CDT Assessment Noted Time PHQ-9 Depression Total Score: 0 10/13/19 2:06 AM CDT documented as of this encounter Care Teams Coating Operator Relationship Specialty Start Date End Date Stephen Foote MD PCP - General Family Practice 05/04/18 03/16/23 Stephen Foote MD [address] [place] [address] 1 [place] [address] PCP - General Family Medicine 03/17/23 Otis Bee MD [address] [place] [address]79165 Orthopedics 05/07/18 Stephen Foote MD Family Practice 05/07/18 03/16/23 Radha Proctor MD [address] [place] [address] Neurology 11/25/19 Radha Proctor MD [address] [place] [address] Assigned Neuroscience Provider 03/10/20 05/05/21 Jez Sam MD 6[address] [facility] 500 [place] [phone] Assigned Surgical Provider 03/10/20 Everardo Hensley DO [address] [place] [address] Neurology 10/17/20 Jez Dougherty MD 909 [facility]121[facility] [place] [address] Neurology 10/17/20 Ann Marie Wood, RN Specialty Screen Printing Paster Neurology 11/06/20 Bert Zarate DO [address] [place], [place] [address]E [facility] 106 [place] [address] Assigned Sleep Provider 12/01/20 Stephen Foote MD [address] [place] [address] 1 [place] [address] Assigned PCP 11/01/20 Sarahi Claudio, [facility] 1982 [facility] 1 [place] [address] [facility] 03/01/21 Everardo Hensley DO 909 [place] [address] Assigned Neuroscience Provider 05/06/21 06/23/21 Jez Dougherty MD 909 [facility] [place] [address] Assigned Neuroscience Provider 06/24/21 11/30/21 Radha Proctor MD 909 [facility] 2121 [place] [address] Assigned Neuroscience Provider 12/01/21 09/13/22 Stephen Foote MD [address] [address] Assigned Pain Medication Provider 05/27/22 Jez Dougherty MD [address] [place] [address] Assigned Neuroscience Provider 09/14/22 09/20/22 Radha Proctor MD [address] [place] [address] Assigned Neuroscience Provider 09/21/22 11/29/22 Nakul Kinsey DO [address] [place] [address] Assigned Musculoskeletal Provider 10/26/22 01/17/23 Jez Dougherty MD [address] [place] [address] Assigned Neuroscience Provider 11/30/22 12/13/22 Radha Proctor MD [address] [place] [address] Assigned Neuroscience Provider 12/14/22 05/09/23 [place] [address] [place] [address] Assigned Musculoskeletal Provider 01/18/23 Jez Dougherty MD [address] [place] [address] Assigned Neuroscience Provider 05/10/23 documented as of this encounter
--- OUTSIDE RECORDS SUMMARY | 2024-03-01 21:17 | XMS_ITS | Encounter Summary ---
Author Organization [facility] Address [address] [place] [address] Care Team Providers Care Training Director Name Role Phone Stephen Foote MD Primary Care Provider + Otis Bee MD Unavailable + [phone] Stephen Foote MD Unavailable + [phone] Radha Proctor MD Unavailable + Radha Proctor MD Unavailable + Jez Sam MD Unavailable +[phone] Everardo Hensley DO Unavailable + Jez Dougherty MD Unavailable + Stephen Foote MD Unavailable + 0 Sarahi Claudio [facility] Unavailable Unavailab Everardo Rodas DO Unavailable + Jez Dougherty MD Unavailable + Radha Proctor MD Unavailable + Stephen Foote MD Unavailable + 0 Jez Dougherty MD Unavailable + Radha Proctor MD Unavailable + [phone] Nakul Kinsey DO Unavailable +[phone] Jez Dougherty MD Unavailable +[phone] Radha Proctor MD Unavailable + [phone] Otis Patino MD Unavailable +[phone] Stephen Foote MD Primary Care Provider Jez Dougherty MD Unavailable +[phone] Reason for Visit * Reason Onset Date Comments Forms 02/28/2021 letter of when d x with MS Encounter Details Date Type Department Care Team (Late st Contact Info) Description 02/28/[address] [facility] Multiple Sclerosis Clinic [address] [phone] Jez Dougherty MD [address] [place] [address] - [id number] [place] [address] Forms (letter of when dx with MS ) Social History Tobacco Use Types Packs/Day Years Used Date Smoking Tobacco: Every Day Cigarettes Smokeless Tobacco: Current Alcohol Use Standard Drinks/Week Comments No 0 (1 standard drink = 0.6 oz pur e alcohol) PHQ-2 Answer Date Recorded PHQ-2 Score 0 03/22/2020 Sex and Gender Information Value Date Recorded Sex Assigned at Male 06/13/2021 11:39 PM TUGBOAT OPERATOR Gender Identity Male 06/13/2021 11:39 PM TUGBOAT OPERATOR Sexual Orientation Straight 06/13/2021 11 :39 PM TUGBOAT OPERATOR COVID-19 Exposure Response Date Recorded In the last month, have you been in contact with someone who was confirmed or suspected to have Coronavirus / COVID-19? No / Unsure 02/08/2021 4:06 PM CDT documented as of this encounter Miscellaneous Notes * Telephone Encounter - Angie Doan RN - 03/06/2021 1:42 PM CDT Letter stated diagnosis date and confirmation mailed to Qaid. Angie Doan RN * Telephone Encounter - Emely Naik - 02/28/2021 4:25 PM CDT [facility] Call Center Phone Message May a detailed message be left on voicemail: yes Reason for Call: Form or Letter Type or form/letter needing completion: Pt calling in requesting a letter of when he was dx with MS, please mail form to address on chart Provider: Dr Swanson Date form needed: CELSA Once completed: Mail form to Name: Ibrahima Pinedo , at Address: [address] [place] [address] [address] [facility] [id number] Action Taken: Message routed to: [facility] neurology Travel Screening: Not Applicable documented in this encounter Plan of Treatment Upcoming Encounters Date Type Department Care Team (Late st Contact Info) Description 03/22/2024 1:00 PM TUGBOAT OPERATOR Office Visit [address] [place] [address] Stephen Foote MD [address] [place] [address] 05/27/2024 1:30 PM TUGBOAT OPERATOR Office Visit [facility] Multiple Sclerosis [address] [phone] Jez Dougherty MD [address] [place] [address] [id number] [place] [address] documented as of this encounter Visit Diagnoses Not on filedocumented in this encounter Additional Health Concerns Infection Onset Date Last Indicated Resolved Time Rule Out COVID-19 12/18/2021 12/18/2021 12/18/2021 10:49 PM CDT COVID-19 12/18/2021 12/18/2021 01/08/2022 11:3 9 PM CDT Assessment Noted Time PHQ-9 Depression Total Score: 0 10/13/19 21 2:06 AM CDT documented as of this encounter Care Teams Training Director Relationship Specialty Start Date End Date Stephen Foote MD PCP - General Family Practice 05/04/18 03/16/23 Stephen Foote MD [address] [place] [address] 1 [place] [address] PCP - General Family Medicine 03/17/23 Otis Bee MD [address] [place] [address] Orthopedics 05/07/18 Stephen Foote MD Family Practice 05/07/18 03/16/23 Radha Proctor MD [address] [place], [place] [address] [place] [address] Neurology 11/25/19 Radha Proctor MD [address] [place] [address]121 [place], [place] 304545 Assigned Neuroscience Provider 03/10/20 05/05/21 Jez Sam MD 6363 [facility] 500 [place] [phone] Assigned Surgical Provider 03/10/20 Everardo Hensley DO [address] [place] [address]3055 Neurology 10/17/20 Jez Dougherty MD [address] [place], [place] [address] [address] Neurology 10/17/20 Stephen Foote MD 1982 [facility] 1 [place] [address] Assigned PCP 11/01/20 Sarahi Claudio, [facility] [address] [address] [facility] 03/01/21 Everardo Hensley DO [address] [place] [address] Assigned Neuroscience Provider 05/06/21 06/23/21 Jez Dougherty MD [address] [place] [address] Assigned Neuroscience Provider 06/24/21 11/30/21 Radha Proctor MD [address] [place] [address] Assigned Neuroscience Provider 12/01/21 09/13/22 Stephen Foote MD [address] [address] Assigned Pain Medication Provider 05/27/22 Jez Dougherty MD [address] [address] Assigned Neuroscience Provider 09/14/22 09/20/22 Radha Proctor MD [address] [place] [address] Assigned Neuroscience Provider 09/21/22 11/29/22 Nakul Kinsey DO 909 [place] [address] Assigned Musculoskeletal Provider 10/26/22 01/17/23 Jez Dougherty MD [address] [place] [address] Assigned Neuroscience Provider 11/30/22 12/13/22 Radha Proctor MD [address] [place] [address] Assigned Neuroscience Provider 12/14/22 05/09/23 Otis Patino MD [address] [place], [place] [id number] [place] [address] Assigned Musculoskeletal Provider 01/18/23 Jez Dougherty MD [address] [place] [address] Assigned Neuroscience Provider 05/10/23 documented as of this encounter
--- OUTSIDE RECORDS SUMMARY | 2024-03-01 21:17 | XMS_ITS | Encounter Summary ---
Author Organization [facility] Address [address] [place] [address] Care Team Providers Care Desk Lieutenant Name Role Phone Stephen Foote MD Primary [...] Primary Care Provider Jez Dougherty MD Unavailable [phone] Reason for Visit * Reason Onset Date Comments Call Back 07/04/2021 BOOSTER Encounter Details Date Type Department Care Team (Late st Contact Info) Description 07/04/2021 Telephone [facility] Multiple Sclerosis [address] [phone] Jez Dougherty MD [address] [place] [address] - [id number] [address] Call Back (BOOSTER ) Social History Tobacco Use Types Packs/Day Years Used Date Smoking Tobacco: Every Day Cigarettes Smokeless Tobacco: Current Alcohol Use Standard Drinks/Week Comments No 0 (1 standard drink = 0.6 oz pur e alcohol) PHQ-2 Answer Date Recorded PHQ-2 Score 0 03/22/2020 Sex and Gender Information Value Date Recorded Sex Assigned at Male 06/13/2021 11:39 PM SHERIFF'S SERGEANT Gender Identity Male 06/13/2021 11:39 PM SHERIFF'S SERGEANT Sexual Orientation Straight 06/13/2021 11 :39 PM SHERIFF'S SERGEANT COVID-19 Exposure Response Date Recorded In the last month, have you been in contact with someone who was confirmed or suspected to have Coronavirus / COVID-19? No / Unsure 07/06/2021 10:15 AM SHERIFF'S SERGEANT documented as of this encounter Miscellaneous Notes * Telephone Encounter - Hailey Mike RN - 07/04/2021 11:51 AM CST Left voicemail for Qaid informing him that Dr Dougherty does recommend the Covid booster dose forhis patients. Also informed Qaid that Dr Dougherty does not consider patients on glatiramer acetate immunosuppressed, so may not qualify for additional dose under immunosuppressed guidelines, but should get the booster dose recommended for everyone. Hailey Mike RN IFF'S SERGEANT * Telephone Encounter - Emely Naik - 07/04/2021 10:[address] [facility] Phone Message May a detailed message be left on voicemail: yes Reason for Call: Other: Pt calling in he would like to know if Dr Swanson thinks it would be good for the pt to get a booster please call back to discuss further Action Taken: Message routed to: [facility] neurology Travel Screening: Not Applicable IFF'S SERGEANT documented in this encounter Plan of Treatment Upcoming Encounters Date Type Department Care Team (Late st Contact Info) Description 03/22/2024 1:00 PM SHERIFF'S SERGEANT Office Visit [facility] [address] [facility] [address] [place] [address] Stephen Foote MD 1982 [facility] [address] [place] [address] 05/27/2024 1:30 PM SHERIFF'S SERGEANT Office Visit [facility] Multiple Sclerosis [address] [phone] Jez Dougherty MD [address] [place] [address] [id number] [place] [address] documented as of this encounter Visit Diagnoses Not on filedocumented in this encounter Additional Health Concerns Infection Onset Date Last Indicated Resolved Time Rule Out COVID-19 12/18/2021 12/18/2021 12/18/2021 10:49 PM CDT COVID-19 12/18/2021 12/18/2021 01/08/2022 11:3 9 PM CDT Assessment Noted Time PHQ-9 Depression Total Score: 0 10/13/19 21 2:06 AM CDT documented as of this encounter Care Teams Desk Lieutenant Relationship Specialty Start Date End Date Stephen Foote MD PCP - General Family Practice 05/04/18 03/16/23 Stephen Foote MD 1982 [facility] 1 [place] [address] PCP - General Family Medicine 03/17/23 Otis Bee MD [address] [place] [address] Orthopedics 05/07/18 Stephen Foote MD MD Family Practice 05/07/18 03/16/23 Radha Proctor MD [address] [place] [address] Neurology 11/25/19 Everardo Hensley DO [address] [place] [address] Neurology 10/17/20 Jez Dougherty MD [address] [place] [address] Neurology 10/17/20 Stephen Foote MD 1982 [facility] 1 [place] [address] Assigned PCP 11/01/20 Sarahi Claudio [facility] [address] [facility] 1 [place] [address] Pharmacist 03/01/21 Jez Dougherty MD [address] [place] [address] Assigned Neuroscience Provider 06/24/21 11/30/21 Radha Proctor MD [address] [address] Assigned Neuroscience Provider 12/01/21 09/13/22 Stephen Foote MD [address] [place] [address] Assigned Pain Medication Provider 05/27/22 Jez Dougherty MD 909 [facility] [address] Assigned Neuroscience Provider 09/14/22 09/20/22 Radha Proctor MD [address] [place] [address] Assigned Neuroscience Provider 09/21/22 11/29/22 Nakul Kinsey DO [address] [place] [address] Assigned Musculoskeletal Provider 10/26/22 01/17/23 Jez Dougherty MD [address] [place] [address] Assigned Neuroscience Provider 11/30/22 12/13/22 Radha Proctor MD [address] [place] [address] Assigned Neuroscience Provider 12/14/22 05/09/23 Otis Patino MD [address] [place] [address] [address] [place] [address] Assigned Musculoskeletal Provider 01/18/23 Jez Dougherty MD 9 [facility] [address] Assigned Neuroscience Provider 05/10/23 documented as of this encounter
--- OUTSIDE RECORDS SUMMARY | 2024-03-01 21:17 | XMS_ITS | Encounter Summary ---
Author Organization [facility] Address [address] [place] [address] Care Team Providers Care Sorting Livestock Worker Name Role Phone Stephen Foote MD Primary Care Provider + Otis Bee MD Unavailable +[phone] Stephen Foote MD Unavailable + 0 Radha Proctor MD Unavailable + Everardo Hensley DO Unavailable + Jez Dougherty MD Unavailable + Stephen Foote MD Unavailable + 0 Sarahi Claudio [facility] Unavailable Unavailab Everardo Rodas DO Unavailable + Jez Dougherty MD Unavailable + Radha Proctor MD Unavailable + Stephen Foote MD Unavailable + 0 Jez Dougherty MD Unavailable + Radha Proctor MD Unavailable + Nakul Kinsey DO Unavailable + 0 Jez Dougherty MD Unavailable + Radha Proctor MD Unavailable + Otis Patino MD Unavailable +[phone] Stephen Foote MD Primary Care Provider [phone] Jez Dougherty MD Unavailable +[phone] Encounter Details Date Type Department Care Team (Late Contact Info) Description 05/25/2021 MyC Medical Advice [facility] Multiple Sclerosis [address] [phone] Hailey Mike RN Social History Tobacco Use Types Packs/Day Years Used Date Smoking Tobacco: Every Day Cigarettes Smokeless Tobacco: Current Alcohol Use Standard Drinks/Week Comments No 0 (1 standard drink = 0.6 oz pur e alcohol) PHQ-2 Answer Date Recorded PHQ-2 Score 0 03/22/2020 Sex and Gender Information Value Date Recorded Sex Assigned at Male 06/13/2021 11:39 PM CATERING TRUCK OPERATOR Gender Identity Male 06/13/2021 11:39 PM CATERING TRUCK OPERATOR Sexual Orientation Straight 06/13/2021 11 :39 PM CATERING TRUCK OPERATOR documented as of this encounter Plan of Treatment Upcoming Encounters Date Type Department Care Team (Late st Contact Info) Description 03/22/2024 1:00 PM CATERING TRUCK OPERATOR Office Visit [facility] 1982 [facility] 1 [place] [address] Stephen Foote MD [address] [place] [address] 05/27/2024 1:30 PM CATERING TRUCK OPERATOR Office Visit [facility] Multiple Sclerosis [address] [phone] Jez Dougherty MD [address] [place] [address] - [id number] [place], [place] [address] documented as of this encounter Visit Diagnoses Not on filedocumented in this encounter Additional Health Concerns Infection Onset Date Last Indicated Resolved Time Rule Out COVID-19 12/18/2021 12/18/2021 12/18/2021 10:49 PM CDT COVID-19 12/18/2021 12/18/202101/0801/08/2022 11:3 9 PM CDT Assessment Noted Time PHQ-9 Depression Total Score: 0 10/13/19 2:06 AM CDT documented as of this encounter Care Teams Sorting Livestock Worker Relationship Specialty Start Date End Date Stephen Foote MD PCP - General Family Practice 05/04/18 03/16/23 Stephen Foote MD [address] [place] [address] 1 [place] [address] PCP - General Family Medicine 03/17/23 Otis Bee MD [address] [place] [address] Orthopedics 05/07/18 Stephen Foote MD MD Family Practice 05/07/18 03/16/23 Radha Proctor MD [address] [place] [address] [place] [address] Neurology 11/25/19 Everardo Hensley DO [address] [place] [address] Neurology 10/17/20 Jez Dougherty MD [address] [place] [address]J [place], [place] 152384 Neurology 10/17/20 Stephen Foote MD [address] [place] [address] 1 [place] [address] Assigned PCP 11/01/20 Sarahi Claudio, [facility] 1982 [facility] [address] [place] [address] [facility] 03/01/21 Everardo Hensley DO [address] [place] [address] Assigned Neuroscience Provider 05/06/21 06/23/21 Jez Dougherty MD [address] [place] [address] Assigned Neuroscience Provider 06/24/21 11/30/21 Radha Proctor MD [address] [place] [address] Assigned Neuroscience Provider 12/01/21 09/13/22 Stephen Foote MD [address] [facility] [address] [place] [address] Assigned Pain Medication Provider 05/27/22 Jez Dougherty MD [address] [place] [address] Assigned Neuroscience Provider 09/14/22 09/20/22 Radha Proctor MD [address] [place] [address] Assigned Neuroscience Provider 09/21/22 11/29/22 Nakul Kinsey DO [address] [place] [address] Assigned Musculoskeletal Provider 10/26/22 01/17/23 Jez Dougherty MD 909 [facility] [address] Assigned Neuroscience Provider 11/30/22 12/13/22 Radha Proctor MD 909 [facility] 2121 [place] [address] Assigned Neuroscience Provider 12/14/22 05/09/23 Otis Patino MD 2450 [facility] [address] [place] [address] Assigned Musculoskeletal Provider 01/18/23 Jez Dougherty MD 909 [facility], [place] [address] Assigned Neuroscience Provider 05/10/23 documented as of this encounter
--- OUTSIDE RECORDS SUMMARY | 2024-03-01 21:17 | XMS_ITS | Encounter Summary ---
Author Organization [facility] Address [address] [place] [address] Care Team Providers Care Outside Repairer Special Name Role Phone Stephen Foote MD Primary Care Provider + Otis Bee MD Unavailable + [phone] Stephen Foote MD Unavailable + 0 Radha Proctor MD Unavailable + Radha Proctor MD Unavailable + Jez Sam MD Unavailable +[phone] Everardo Hensley DO Unavailable + Jez Dougherty MD Unavailable + Stephen Foote MD Unavailable + 0 Sarahi Claudio [facility] Unavailable Unavailab Everardo Rodas DO Unavailable + Jez Dougherty MD Unavailable + Radha Proctor MD Unavailable + Stephen Foote MD Unavailable + 0 Jez Dougherty MD Unavailable + Radha Proctor MD Unavailable + 6 Nakul Kinsey DO Unavailable +[phone] Jez Dougherty MD Unavailable + [phone] Radha Proctor MD Unavailable [phone] Otis Patino MD Unavailable [phone] Stephen Foote MD Primary Care Provider Jez Dougherty MD Unavailable + [phone] Reason for Visit * Reason Onset Date Comments Call Back 04/20/2021 burning sensatio n in left leg call back 04/20/2021 Encounter Details Date Type Department Care Team (Late st Contact Info) Description 04/20/2021 Telephone [facility] Multiple Sclerosis [address] [phone] Jez Dougherty MD [address] [place] [address] - [id number] [place] [address] Call Back (burning sensation in left leg); call back Social History Tobacco Use Types Packs/Day Years Used Date Smoking Tobacco: Every Day Cigarettes Smokeless Tobacco: Current Alcohol Use Standard Drinks/Week Comments No 0 (1 standard drink = 0.6 oz pur e alcohol) PHQ-2 Answer Date Recorded PHQ-2 Score 0 03/22/2020 Sex and Gender Information Value Date Recorded Sex Assigned at Male 06/13/2021 11:39 PM LOSS PREVENTION AND SAFETY MANAGER Gender Identity Male 06/13/2021 11:39 PM LOSS PREVENTION AND SAFETY MANAGER Sexual Orientation Straight 06/13/2021 11 :39 PM LOSS PREVENTION AND SAFETY MANAGER documented as of this encounter Miscellaneous Notes * Telephone Encounter - Hailey Mike RN - 05/23/2021 11:59 AM CST Spoke with Qaid to let him know Dr Dougherty has sent the Cymbalta prescription and provided instructions for taking and instructions to wait 4-6 weeks to assess if it is working. Hailey Mike RN PREVENTION AND SAFETY MANAGER * Telephone Encounter - Jez Dougherty MD - 05/23/2021 10:49 AM LOSS PREVENTION AND SAFETY MANAGER OK, I advise him to take 30 mg daily for 2 weeks and then 60 mg daily thereafter (can be taken as 30 mg twice daily or 60 mg at once). Allow 4-6 weeks from starting the medication to assess effectiveness. PREVENTION AND SAFETY MANAGER * Telephone Encounter - Hailey Mike RN - 05/23/2021 10:31 AM CST Spoke with Ibrahima. He is interested in trying Cymbalta. [facility] pharmacy in [place] is a good pharmacyfor him. Hailey Mike RN PREVENTION AND SAFETY MANAGER * Telephone Encounter - Jez Dougherty MD - 05/22/2021 5:57 PM LOSS PREVENTION AND SAFETY MANAGER We could try duloxetine (Cymbalta). PREVENTION AND SAFETY MANAGER * Telephone Encounter - Hailey Mike RN - 05/22/2021 4:17 PM CST Received message that pt called in to let us know he does not want to discuss reaction to gabapentin but that he would like to try a different medication. Will inform Dr Dougherty pt is not interested in gabapentin. Pt has appointment with Dr Dougherty scheduled for 06/14. Hailey Mike RN PREVENTION AND SAFETY MANAGER * Telephone Encounter - Hailey Mike RN - 05/22/2021 2:57 PM CST Attempted to call pt to get more information regarding reaction to gabapentin. Voicemail left and MyChart message sent. Hailey Mike RN PREVENTION AND SAFETY MANAGER * Telephone Encounter - Amy Palmer - 05/22/2021 9:34 AM CST [facility] Phone Message May a detailed message be left on voicemail: yes Reason for Call: Per pt, he tried gabapentin before and had a bad reaction to it. Please advise? [phone] Action Taken: Message routed to: [facility] ([facility]): [facility] Travel Screening: Not Applicable PREVENTION AND SAFETY MANAGER * Telephone Encounter - Hailey Mike RN - 05/21/2021 4:38 PM CST Voicemail left for pt informing him of Dr Dougherty's suggestion of gabapentin trial for burning sensation. Informed pt I will send [employer] message regarding this as well. Hailey Mike RN PREVENTION AND SAFETY MANAGER * Telephone Encounter - Jez Dougherty MD - 05/19/2021 2:21 PM LOSS PREVENTION AND SAFETY MANAGER Agree with appealing previous denial of 3x/week glatiramer, can state that patient is not tolerating daily injections. For the leg discomfort, we can offer a trial of gabapentin, which may help to block nerve pain signals. PREVENTION AND SAFETY MANAGER * Telephone Encounter - Hailey Mike RN - 05/18/2021 2:57 PM CST Spoke with Yovanny and informed him that Dr Dougherty does not recommend Kesimpta or Ocrevus due tohep B status. Asked Yovanny if he would prefer to make first available appointment with Dr Dougherty to discuss treatment options, or if he would prefer to stay on daily copaxone until due for follow-up MRI in [address] Dougherty at that time. Yovanny responded that he would likeus to resubmit prior authorization for 40 mg/ ml (3x/week dosing) of copaxone to his insurance, andto appeal if necessary. He states he has been on daily copaxone for 6 months now and it is not sustainable. He thinks injections 3x/week would be much more doable. I will contact specialty pharmacy liaison regarding this. Quaid is also requesting a response from Dr Dougherty regarding the burningsensation in his leg, which bothers him quite a bit. He reports that Dr Hensley's team has instructed him to contact Dr Dougherty with symptoms. Routing to Dr Dougherty for advise. Hailey Mike RN PREVENTION AND SAFETY MANAGER * Telephone Encounter - Jez Dougherty MD - 05/18/2021 1:29 PM LOSS PREVENTION AND SAFETY MANAGER Please tell the patient that I am sorry for not contacting him sooner: I thought that he was addressing his symptom concerns with Dr. Hensley, but it looks like that appointment was not completed. My recommendations for his care are as follows: 1) If he does not want to be on glatiramer injections, that is understandable (particularly as his insurance is demanding that he be on the daily injections for the time being). I would not recommendproducts such as Kesimpta or Ocrevus due to his hepatitis B status--regardless of symptoms in the past, there is a risk of reactivating a latent infection and causing permanent liver damage. I am happy to see him back to discuss alternative options, if desired. 2) I would also recommend that he have MRI scans of the brain and cervical spine performed in threemonths (about 1 year from the time of the previous studies). PREVENTION AND SAFETY MANAGER * Telephone Encounter - Angie Doan RN - 04/23/2021 11:20 AM CST Spoke with Ibrahima. For the past two months he has been experiencing a burning sensation on his right leg, from ankle to knee. He states this sensation is constant but seems worse at night. It's interrupting his sleep. Ibrahima has had this symptom before but it went away after he started DMT. Ibrahima does not endorse any weakness or gait difficulty associated with it. He denies any other symptoms althoughhe does report increased frequency in urination. Qaid currently on daily Copaxone injections but inquired about switching to Kesimpta. In past conversations, Dr. Dougherty has advised against this due to Ibrahima's Hepatitis B status. Ibrahima wants to know if this can be re-visited since he was never sick from Hep B. He would really like to be off daily Copaxone. Routing to Dr. Dougherty. Angie Doan RN PREVENTION AND SAFETY MANAGER * Telephone Encounter - Sirisha Colmenares - 04/23/2021 10:15 AM CST [facility] Phone Message May a detailed message be left on voicemail: yes Reason for Call: Other: Patient is requesting a call back to discuss current symptoms burning sentation in right leg below knee and above ankle pain is getting worse. Pleasecall patient at [phone] to advise. Action Taken: Message routed to: [facility] [place] Neurology Travel Screening: Not Applicable PREVENTION AND SAFETY MANAGER * Telephone Encounter - Angie Doan RN - 04/20/2021 3:11 PM CST Left [facility] for Qaid requesting more information on current symptoms. Angie Doan RN PREVENTION AND SAFETY MANAGER * Telephone Encounter - Sejal Saez - 04/20/2021 8:36 AM CST [facility] Phone Message May a detailed message be left on voicemail: yes Reason for Call: Other: Qaid calling to inform Dr. Dougherty that his right leg (from knee to ankle) has been having a burning sensation at night and keeps him from sleeping. He stated that this has been going on for about 2 months and is getting worse. Action Taken: Message routed to: [facility] [place] Travel Screening: Not Applicable PREVENTION AND SAFETY MANAGER documented in this encounter Plan of Treatment Upcoming Encounters Date Type Department Care Team (Late st Contact Info) Description 03/22/2024 1:00 PM LOSS PREVENTION AND SAFETY MANAGER Office Visit [facility] [address] [facility] [address] [place] [phone] Stephen Foote MD 1982 [facility] 1 [place] [address] 05/27/2024 1:30 PM LOSS PREVENTION AND SAFETY MANAGER Office Visit [facility] Multiple Sclerosis [address] [phone] Jez Dougherty MD [address] [place] [address] - [id number] [place] [address] documented as of this encounter Visit Diagnoses Diagnosis Neuropathic pain- Primary Neuralgia, neuritis, and radiculitis, unspecified documented in this encounter Additional Health Concerns Infection Onset Date Last Indicated Resolved Time Rule Out COVID-19 12/18/2021 12/18/2021 12/18/2021 10:49 PM CDT COVID-19 12/18/2021 12/18/2021 01/08/2022 11:3 9 PM CDT Assessment Noted Time PHQ-9 Depression Total Score: 0 10/13/19 21 2:06 AM CDT documented as of this encounter Care Teams Outside Repairer Special Relationship Specialty Start Date End Date Stephen Foote MD PCP - General Family Practice 05/04/18 03/16/23 Stephen Foote MD 1982 [facility] 1 [place] [address] PCP - General Family Medicine 03/17/23 Otis Bee MD [address] [place] [address] Orthopedics 05/07/18 Stephen Foote MD Family Practice 05/07/18 03/16/23 Radha Proctor MD 909 [facility] [address]121 [place], [place] [address] Neurology 11/25/19 Radha Proctor MD 909 [facility] [address]121 [place], [place] 9317[address] Assigned Neuroscience Provider 03/10/20 05/05/21 Jez Sam MD 6363 [facility] 500 [place] [phone] Assigned Surgical Provider 03/10/20 Everardo Hensley DO [address] [place] [address] 665395 Neurology 10/17/20 Jez Dougherty MD [address] [place] [address]J [place], [place] [address] Neurology 10/17/20 Stephen Foote MD 1982 [facility] [address] [place] [address] Assigned PCP 11/01/20 Sarahi Claudio, [facility] [address] [facility] [address] [place] [address] Pharmacist 03/01/21 Everardo Hensley DO [address] [place] [address] Assigned Neuroscience Provider 05/06/21 06/23/21 Jez Dougherty MD [address] [place] [address] Assigned Neuroscience Provider 06/24/21 11/30/21 Radha Proctor MD [address] [place] [address] Assigned Neuroscience Provider 12/01/21 09/13/22 Stephen Foote MD [address] [place] [address] Assigned Pain Medication Provider 05/27/22 Jez Dougherty MD [address] [place] [address] Assigned Neuroscience Provider 09/14/22 09/20/22 Radha Proctor MD [address] [place] [address] Assigned Neuroscience Provider 09/21/22 11/29/22 Nakul Kinsey DO [address] [place] [address] Assigned Musculoskeletal Provider 10/26/22 01/17/23 Jez Dougherty MD [address] [place] [address] Assigned Neuroscience Provider 11/30/22 12/13/22 Radha Proctor MD 909 [facility] [address]121 [place] [address] Assigned Neuroscience Provider 12/14/22 05/09/23 Otis Patino MD 2450 [facility] [address] [place], [place] 403454 Assigned Musculoskeletal Provider 01/18/23 Jez Dougherty MD 909 [facility]121[address], [place] 946834 Assigned Neuroscience Provider 05/10/23 documented as of this encounter
--- OUTSIDE RECORDS SUMMARY | 2024-03-01 21:17 | XMS_ITS | Encounter Summary ---
Author Organization [place] Address [address] [place] [address] Care Team Providers Care Prep Room Supervisor Name Role Phone Stephen Foote MD Primary Care Provider + Otis Bee MD Unavailable + [phone] Stephen Foote MD Unavailable + 0 Radha Proctor MD Unavailable + Radha Proctor MD Unavailable + Jez Sam MD Unavailable +[phone] Everardo Hensley DO Unavailable + Jez Dougherty MD Unavailable + Bert Zarate DO Unavailable +[phone] Stephen Foote MD Unavailable + 0 Sarahi Claudio [facility] Unavailable Unavailab Everardo Rodas DO Unavailable + Jez Dougherty MD Unavailable + Radha Proctor MD Unavailable + Stephen Foote MD Unavailable +[phone] Jez Dougherty MD Unavailable + Radha Proctor MD Unavailable + Nakul Kinsey DO Unavailable +[phone] Jez Dougherty MD Unavailable +[phone] Radha Proctor MD Unavailable + Otis Patino MD Unavailable + [phone] Stephen Foote MD Primary Care Provider [phone] Jez Dougherty MD Unavailable +[phone] Reason for Visit * Reason Onset Date Comments other 01/12/2021 Call Back 01/12/2021 please call pat ent as soon as possible Call Back 01/19/2021 from Angie STEEN regarding his copaxone Encounter Details Date Type Department Care Team (Late st Contact Info) Description 01/12/2021 Telephone [facility] Multiple Sclerosis [address] [phone] Jez Dougherty MD [address] [place] [address] [id number] [place], [place] [id number] other; Call Back (please call patient as soon as possible ); Call Back (from Angie STEEN regarding his copaxone) Social History Tobacco Use Types Packs/Day Years Used Date Smoking Tobacco: Every Day Cigarettes Smokeless Tobacco: Current Alcohol Use Standard Drinks/Week Comments No 0 (1 standard drink = 0.6 oz pur e alcohol) PHQ-2 Answer Date Recorded PHQ-2 Score 0 03/22/2020 Sex and Gender Information Value Date Recorded Sex Assigned at Male 06/13/2021 11:39 PM INGREDIENT SPECIALIST Gender Identity Male 06/13/2021 11:39 PM INGREDIENT SPECIALIST Sexual Orientation Straight 06/13/2021 11 :39 PM INGREDIENT SPECIALIST documented as of this encounter Miscellaneous Notes * Telephone Encounter - Angie Doan RN - 01/25/2021 8:20 AM CDT Sent patient a my chart message asking if he received his 20 mg Copaxone. Angie Doan RN * Telephone Encounter - Sejal Saez - 01/19/2021 9:53 AM CDT [facility] Phone Message May a detailed message be left on voicemail: yes Reason for Call: Other: Qaid calling to request a call back today due to him not having his medication for a week. He stated that he called [facility] this morning and they were stating that he would need another prior authorization for his medication. Qaid if very frustrated at all the phone tag and also not having his medication. Please call Qaid at your earliest convenience to discuss. Action Taken: Message routed to: [facility] ([facility]): [place] Travel Screening: Not Applicable * Telephone Encounter - Angie Doan RN - 01/17/2021 11:35 AM CDT Spoke with Danielid. He understands that the Copaxone 40 mg syringes have been denied. A verbal order for the Copaxone 20 mg syringes was called into [facility] on Friday[facility] if [facility] were the correct [facility] to fill this and that the verbal order was still in process. Copaxone 20 mg syringes script sent to [facility] today. Angie Doan, RN * Telephone Encounter - Sean Meza - 01/17/2021 10:41 AM CDT [facility] Phone Message May a detailed message be left on voicemail: yes Reason for Call: Other: Pt is very frustrated as he is still without his medication. He is requesting a phone call back CELSA to discuss what is going on with medication. He asks to have a call back and not to message via [employer]. Please call Pt back CELSA to discuss. Action Taken: Message routed to: [facility] ([facility]): Neurology Travel Screening: Not Applicable * Telephone Encounter - Angie Doan RN - 01/15/2021 4:43 PM CDT Contacted [facility] who confirmed that Copaxone 40 mg denial was upheld. Gave VO for 20 mg Copaxone and will update Qaid via my chart. Angie Doan, RN * Telephone Encounter - Sean Meza - 01/15/2021 8:07 AM CDT [facility] ?? Phone Message ?? May a detailed message be left on voicemail: yes ?? Reason for Call: Other: Patient called back regarding [facility] informing him that his doctor's office revoked the 20 mg syringes. He stated that he has not had his medication all week end. Please callpatient back CELSA. ?? Action Taken: Message routed to: [facility] ([facility]): neurology ?? Travel Screening: Not Applicable * Telephone Encounter - AlysiaAugust - 01/12/2021 4:04 PM CDT [place] [facility] [place] Phone Message May a detailed message be left on voicemail: yes Reason for Call: Other: Patient stated that he called [facility] to get the prior 20 mg syringes and [facility] informed him that his doctor's office revoked the 20 mg syringes. He stated he has one left for tomorrow and that is all. Please call patient back today. Action Taken: Message routed to: [facility] ([facility]): neurology Travel Screening: Not Applicable * Telephone Encounter - Angie Doan RN - 01/12/2021 3:53 PM CDT Left a VMM with Qaid explaining that the clinic is looking into why [facility] is stating that there is no approval. Advised Qaid to stay on the 20 mg syringes until the PA for 40 mg syringes is resolved. Apologized for the delay but explained that the clinic does not have an answer on the status of the PA. Angie Doan RN * Telephone Encounter - Nathalia Ibrahim - 01/12/2021 3:45 PM CDT [facility] Phone Message May a detailed message be left on voicemail: yes Reason for Call: Medication Refill Request Has the patient contacted the pharmacy for the refill? Yes Name of medication being requested: copaxone 40 mg Provider who prescribed the medication: Dr. Duogherty Pharmacy: [facility] Date medication is needed: pt will be OUT of this script. Pt is so upset with our clinic and does not understand why Angie has not called him back about thismedication. [facility] reporting that this script is NOT approved. Please have Angie call this pt right away. Pt is asking Angie to handle this today so that pt does not go off of this medication. Pt is asking to joyce this URGENT to ANGIE. Thank you. Action Taken: Message routed to: [facility] JABARI [facility] Travel Screening: Not Applicable * Telephone Encounter - Angie Doan RN - 01/12/2021 8:24 AM CDT Spoke with Ibrahima who stated [facility] said there is no PA on file for the Copaxone 40 mg syringes. Message sent to pharmacy liaison for further clarification. Angie Doan RN * Telephone Encounter - Sirisha Colmenares - 01/12/2021 8:06 AM CDT [facility] Phone Message May a detailed message be left on voicemail: yes Reason for Call: Other: Patient is requesting a call back to discuss Copaxone 40 mg injection medication, please call patient at [phone] to advise patient on when he can receive his medication and from what pharmacy. Patient will be out of medication today or tomorrow. Action Taken: Message routed to: [facility] Neurology Travel Screening: Not Applicable documented in this encounter Plan of Treatment Upcoming Encounters Date Type Department Care Team (Late st Contact Info) Description 03/22/2024 1:00 PM INGREDIENT SPECIALIST Office Visit [facility] [address] [facility] [address] [place] [phone] Stephen Foote MD [address] [facility] [address] [place] [address] 05/27/2024 1:30 PM INGREDIENT SPECIALIST Office Visit [facility] Multiple Sclerosis [address] [phone] Jez Dougherty MD [address] [place] [address] - [id number] [place] [address] documented as of this encounter Visit Diagnoses Diagnosis Multiple sclerosis (H) Multiple sclerosis documented in this encounter Additional Health Concerns Infection Onset Date Last Indicated Resolved Time Rule Out COVID-19 12/18/2021 12/18/2021 12/18/2021 10:49 PM CDT COVID-19 12/18/2021 12/18/2021 01/08/2022 11:3 9 PM CDT Assessment Noted Time PHQ-9 Depression Total Score: 0 10/13/19 21 2:06 AM CDT documented as of this encounter Care Teams Prep Room Supervisor Relationship Specialty Start Date End Date Stephen Foote MD PCP - General Family Practice 05/04/18 03/16/23 Stephen Foote MD [address] [facility] [address] [place] [address] PCP - General Family Medicine 03/17/23 Otis Bee MD [address] [place] [address] Orthopedics 05/07/18 Stephen Foote MD Family Practice 05/07/18 03/16/23 Radha Proctor MD [address] [place] [address] [place] [address] Neurology 11/25/19 Radha Proctor MD [address] [place] [address]121 [place] [address] Assigned Neuroscience Provider 03/10/20 05/05/21 Jez Sam MD [address] [address] [place] [phone] Assigned Surgical Provider 03/10/20 Everardo Hensley DO [address] [place] [address] Neurology 10/17/20 Jez Dougherty MD [address] [place], [place] [id number] [address] Neurology 10/17/20 Bert Zarate DO [address] [facility] [address] [place] [address] Assigned Sleep Provider 12/01/20 Stephen Foote MD [facility] 1 [place] [address] Assigned PCP 11/01/20 Sarahi Claudio, [facility] [address] [facility] 1 [place] [address] Pharmacist 03/01/21 Everardo Hensley DO [address] [place] [address] Assigned Neuroscience Provider 05/06/21 06/23/21 Jez Dougherty MD [address] [place] [address] Assigned Neuroscience Provider 06/24/21 11/30/21 Radha Proctor MD [address] [place] [address] Assigned Neuroscience Provider 12/01/21 09/13/22 Stephen Foote MD [address] [address] Assigned Pain Medication Provider 05/27/22 Jez Dougherty MD [address] [place] [address] Assigned Neuroscience Provider 09/14/22 09/20/22 Radha Proctor MD [address] [place] [address] Assigned Neuroscience Provider 09/21/22 11/29/22 Nakul Kinsey DO [address] [place] [address] Assigned Musculoskeletal Provider 10/26/22 01/17/23 Jez Dougherty MD [address] [address] Assigned Neuroscience Provider 11/30/22 12/13/22 Radha Proctor MD [address] [place] [address] 2121 [place] [address] Assigned Neuroscience Provider 12/14/22 05/09/23 [place] [address] [place] [address] R102 [place] [address] Assigned Musculoskeletal Provider 01/18/23 Jez Dougherty MD [address] [place] [address] Assigned Neuroscience Provider 05/10/23 documented as of this encounter
--- OUTSIDE RECORDS SUMMARY | 2024-03-01 21:17 | XMS_ITS | Encounter Summary ---
Author Organization [place] Address [address] [place] [address] Care Team Providers Care Travel Ot Name Role Phone Stephen Foote MD Primary Care Provider + Otis Bee MD Unavailable + [phone] Stephen Foote MD Unavailable [phone] Radha Proctor MD Unavailable + Radha Proctor MD Unavailable + Jez Sam MD Unavailable +[phone] Everardo Hensley DO Unavailable + Jez Dougherty MD Unavailable + Ann Marie Wood RN Unavailable Bert Zarate DO Unavailable +[phone] Stephen Foote MD Unavailable +[phone] Sarahi Claudio [facility] Unavailable Unavailab Everardo Rodas DO Unavailable + Jez Dougherty MD Unavailable + Radha Proctor MD Unavailable + Stephen Foote MD Unavailable [phone] Jez Dougherty MD Unavailable + Radha Proctor MD Unavailable + Nakul Kinsey Unavailable + 0 Jez Dougherty MD Unavailable +[phone] Radha Proctor MD Unavailable +[phone] Otis Patino MD Unavailable + [phone] Stephen Foote MD Primary Care Provider +[phone] Jez Dougherty MD Unavailable +[phone] Reason for Visit * Reason Onset Date Comments Call Back 12/28/2020 regarding gettin g the covid vaccine Encounter Details Date Type Department Care Team (Late st Contact Info) Description 12/28/2020 Telephone [facility] Multiple Sclerosis [address] [phone] Jez Dougherty MD [address] [place] [address] - [id number] [place] [address] Call Back (regarding getting the covid vaccine) Social History Tobacco Use Types Packs/Day Years Used Date Smoking Tobacco: Every Day Cigarettes Smokeless Tobacco: Current Alcohol Use Standard Drinks/Week Comments No 0 (1 standard drink = 0.6 oz pur e alcohol) PHQ-2 Answer Date Recorded PHQ-2 Score 0 03/22/2020 Sex and Gender Information Value Date Recorded Sex Assigned at Male 06/13/2021 11:39 PM METALLURGIST HELPER Gender Identity Male 06/13/2021 11:39 PM METALLURGIST HELPER Sexual Orientation Straight 06/13/2021 11 :39 PM METALLURGIST HELPER COVID-19 Exposure Response Date Recorded In the last month, have you been in contact with someone who was confirmed or suspected to have Coronavirus / COVID-19? No / Unsure 12/08/2020 8:38 AM CDT documented as of this encounter Miscellaneous Notes * Telephone Encounter - Angie Doan RN - 12/28/2020 9:46 AM CDT Called back Qaid and advised him that Dr. Dougherty is recommending his patients receive the Covid vaccine. Angie Doan, RN * Telephone Encounter - Ezequiel Saeznna - 12/28/2020 9:14 AM CDT [facility] Phone Message May a detailed message be left on voicemail: yes Reason for Call: Other: Qaid calling to request a call back to discuss if Dr. Dougherty has any objections to him receiving the covid vaccine today. He does need to leave by 11:00 to get to his appointment today. Please call Qaid at your earliest convenience to discuss. Action Taken: Message routed to: [facility] [place] Travel Screening: Not Applicable documented in this encounter Plan of Treatment Upcoming Encounters Date Type Department Care Team (Late st Contact Info) Description 03/22/2024 1:00 PM METALLURGIST HELPER Office Visit [address] [phone] Stephen Foote MD [address] [place] [address] 05/27/2024 1:30 PM METALLURGIST HELPER Office Visit [facility] Multiple Sclerosis [address] [phone] Jez Dougherty MD [address] [place] [address] - [id number] [place] [address] documented as of this encounter Visit Diagnoses Not on filedocumented in this encounter Additional Health Concerns Infection Onset Date Last Indicated Resolved Time Rule Out COVID-19 12/18/2021 12/18/2021 12/18/2021 10:49 PM CDT COVID-19 12/18/2021 12/18/2021 01/08/2022 11:3 9 PM CDT Assessment Noted Time PHQ-9 Depression Total Score: 0 10/13/19 21 2:06 AM CDT documented as of this encounter Care Teams Travel Ot Relationship Specialty Start Date End Date Stephen Foote MD PCP - General Family Practice 05/04/18 03/16/23 Stephen Foote MD [address] [place] [address] 1 [place] [address] PCP - General Family Medicine 03/17/23 Otis Bee MD [address] [place] [address] 627385 Orthopedics 05/07/18 Stephen Foote MD Family Practice 05/07/18 03/16/23 Radha Proctor MD [address] [place] [address] Neurology 11/25/19 Radha Proctor MD [address] [place] [address] Assigned Neuroscience Provider 03/10/20 05/05/21 Jez Sam MD 6363 [facility] 500 [place] [phone] Assigned Surgical Provider 03/10/20 Everardo Hensley DO [address] [place] [address] Neurology 10/17/20 Jez Dougherty MD 909 [facility]121[address]J [place] [address] Neurology 10/17/20 Ann Marie Wood, RN Specialty Welding Lead Burner Neurology 11/06/20 Bert Zarate DO [address] [place], [place] [address]E [facility] 106 [place] [address] Assigned Sleep Provider 12/01/20 Stephen Foote MD [address] [address] Assigned PCP 11/01/20 Sarahi Claudio [facility] [address] [address] [facility] 03/01/21 Everardo Hensley DO 9 [place] [address] Assigned Neuroscience Provider 05/06/21 06/23/21 Jez Dougherty MD [address]09 [place] [address], [place] [address] Assigned Neuroscience Provider 06/24/21 11/30/21 Radha Proctor MD [address] [address] Assigned Neuroscience Provider 12/01/21 09/13/22 Stephen Foote MD [address] [address] Assigned Pain Medication Provider 05/27/22 Jez Dougherty MD [address] [place] [address] Assigned Neuroscience Provider 09/14/22 09/20/22 Radha Proctor MD [address] [place] [address] Assigned Neuroscience Provider 09/21/22 11/29/22 Nakul Kinsey DO [address] [place] [address] Assigned Musculoskeletal Provider 10/26/22 01/17/23 Jez Dougherty MD [address] [place] [address] Assigned Neuroscience Provider 11/30/22 12/13/22 Radha Proctor MD [address] [place] [address] Assigned Neuroscience Provider 12/14/22 05/09/23 Otis Patino MD [address] [place], [place] [address] [place] [address] Assigned Musculoskeletal Provider 01/18/23 Jez Dougherty MD [address] [place] [address] Assigned Neuroscience Provider 05/10/23 documented as of this encounter
--- OUTSIDE RECORDS SUMMARY | 2024-03-01 21:17 | XMS_ITS | Encounter Summary ---
Author Organization [place] Address [address] [place] [address] Care Team Providers Care Performance Management Consultant Name Role Phone Stephen Foote MD Primary Care Provider + Otis Bee MD Unavailable +[phone] Stephen Foote MD Unavailable + 0 Radha Proctor MD Unavailable + Everardo Hensley DO Unavailable + Jez Dougherty MD Unavailable + Stephen Foote MD Unavailable + 0 Sarahi Claudio [facility] Unavailable Unavailab Everardo Rodas DO Unavailable + Jez Dougherty MD Unavailable + Radha Proctor MD Unavailable + Stephen Foote MD Unavailable + 0 Jez Dougherty MD Unavailable + Radha Proctor MD Unavailable + Nakul Kinsey DO Unavailable + 0 Jez Dougherty MD Unavailable + Radha Proctor MD Unavailable + Otis Patino MD Unavailable +[phone] Stephen Foote MD Primary Care Provider Jez Dougherty MD Unavailable +[phone] Reason for Visit * Reason Onset Date Comments Patient Request 05/22/2021 not taking gabep entin Encounter Details Date Type Department Care Team (Late st Contact Info) Description 05/22/2021 Telephone [facility] Multiple Sclerosis [address] [phone] Jez Dougherty MD [address] [place] [address] - [id number] [place] [address] Patient Request (not taking gabepentin) Social History Tobacco Use Types Packs/Day Years Used Date Smoking Tobacco: Every Day Cigarettes Smokeless Tobacco: Current Alcohol Use Standard Drinks/Week Comments No 0 (1 standard drink = 0.6 oz pur e alcohol) PHQ-2 Answer Date Recorded PHQ-2 Score 0 03/22/2020 Sex and Gender Information Value Date Recorded Sex Assigned at Male 06/13/2021 11:39 PM VITICULTURIST Gender Identity Male 06/13/2021 11:39 PM VITICULTURIST Sexual Orientation Straight 06/13/2021 11 :39 PM VITICULTURIST documented as of this encounter Miscellaneous Notes * Telephone Encounter - Hailey Mike RN - 05/22/2021 4:25 PM CST Addressed in separate encounter. Hailey Mike RN CULTURIST * Telephone Encounter - Erica Juan - 05/22/2021 3:57 PM CST [facility] Phone Message May a detailed message be left on voicemail: yes Reason for Call: Other: patient is returning a call from YANELIS Hart. He does not want to take Gabapentin and does not want to discuss the effects and reasons why. Please move on to another medication per his request. Action Taken: Message routed to: [facility] neurology Travel Screening: Not Applicable CULTURIST documented in this encounter Plan of Treatment Upcoming Encounters Date Type Department Care Team (Late st Contact Info) Description 03/22/2024 1:00 PM VITICULTURIST Office Visit [facility] [address] [facility] [address] [place] [phone] Stephen Foote MD [address] [facility] [address] [place] [address] 05/27/2024 1:30 PM VITICULTURIST Office Visit [facility] Multiple Sclerosis [address] [phone] Jez Dougherty MD [address] [place], [place] [address], [place] [address] documented as of this encounter Visit Diagnoses Not on filedocumented in this encounter Additional Health Concerns Infection Onset Date Last Indicated Resolved Time Rule Out COVID-19 12/18/2021 12/18/2021 12/18/2021 10:49 PM CDT COVID-19 12/18/2021 12/18/2021 01/08/2022 11:3 9 PM CDT Assessment Noted Time PHQ-9 Depression Total Score: 0 10/13/19 21 2:06 AM CDT documented as of this encounter Care Teams Performance Management Consultant Relationship Specialty Start Date End Date Stephen Foote MD PCP - General Family Practice 05/04/18 03/16/23 Stephen Foote MD 1982 [facility] 1 [place] [address] PCP - General Family Medicine 03/17/23 Otis Bee MD [address] [place] [address] Orthopedics 05/07/18 Stephen Foote MD Family Practice 05/07/18 03/16/23 Radha Proctor MD [address] [place] [address] 646675 Neurology 11/25/19 Everardo Hensley DO [address] [place] [address] 685885 Neurology 10/17/20 Jez Dougherty MD [address] [place] [address] Neurology 10/17/20 Stephen Foote MD [address] [place] [address] 1 [place] [address] Assigned PCP 11/01/20 Sarahi Claudio, [facility] [address] [place] [address] 1 [place] [address] Pharmacist 03/01/21 Everardo Hensley DO [address] [place] [address] Assigned Neuroscience Provider 05/06/21 06/23/21 Jez Dougherty MD [address] [place] [address] Assigned Neuroscience Provider 06/24/21 11/30/21 Radha Proctor MD [address] [place] [address] Assigned Neuroscience Provider 12/01/21 09/13/22 Stephen Foote MD [address] [place] [address] Assigned Pain Medication Provider 05/27/22 Jez Dougherty MD 909 [facility]2121[place], [place] [address] Assigned Neuroscience Provider 09/14/22 09/20/22 Radha Proctor MD [address] [place] [address] Assigned Neuroscience Provider 09/21/22 11/29/22 Nakul Kinsey DO [address] [place] [address] Assigned Musculoskeletal Provider 10/26/22 01/17/23 Jez Dougherty MD [address] [place] [address] Assigned Neuroscience Provider 11/30/22 12/13/22 Radha Proctor MD [address] [place] [address] Assigned Neuroscience Provider 12/14/22 05/09/23 Otis Patino MD [address] [facility] [address] [place] [address] Assigned Musculoskeletal Provider 01/18/23 Jez Dougherty MD 909 [facility] SE - [id number] [place] [address] Assigned Neuroscience Provider 05/10/23 documented as of this encounter
--- OUTSIDE RECORDS SUMMARY | 2024-03-01 21:17 | XMS_ITS | Encounter Summary ---
Author Organization [place] Address [address] [place] [address] Care Team Providers Care Wire Spring Relay Adjuster Name Role Phone Stephen Foote MD Primary Care Provider + Otis Bee MD Unavailable +0 Stephen Foote MD Unavailable + 0 Radha Proctor MD Unavailable + Everardo Hensley DO Unavailable + Jez Dougherty MD Unavailable + Stephen Foote MD Unavailable + 0 Sarahi Claudio [facility] Unavailable Unavailab Everardo Rodas DO Unavailable + Jez Dougherty MD Unavailable + Radha Proctor MD Unavailable + Stephen Foote MD Unavailable + 0 Jez Dougherty MD Unavailable + Radha Proctor MD Unavailable + Nakul Kinsey DO Unavailable + 0 Jez Dougherty MD Unavailable + Radha Proctor MD Unavailable + Otis Patino MD Unavailable +[phone] Stephen Foote MD Primary Care Provider Jez Dougherty MD Unavailable +[phone] Encounter Details Date Type Department Care Team (Late Contact Info) Description 05/21/2021 MyC Medical Advice [facility] Multiple Sclerosis [address] [phone] Hailey Mike RN Social History Tobacco Use Types Packs/Day Years Used Date Smoking Tobacco: Every Day Cigarettes Smokeless Tobacco: Current Alcohol Use Standard Drinks/Week Comments No 0 (1 standard drink = 0.6 oz pur e alcohol) PHQ-2 Answer Date Recorded PHQ-2 Score 0 03/22/2020 Sex and Gender Information Value Date Recorded Sex Assigned at Male 06/13/2021 11:39 PM ENGINEERING PSYCHOLOGIST Gender Identity Male 06/13/2021 11:39 PM ENGINEERING PSYCHOLOGIST Sexual Orientation Straight 06/13/2021 11 :39 PM ENGINEERING PSYCHOLOGIST documented as of this encounter Plan of Treatment Upcoming Encounters Date Type Department Care Team (Late st Contact Info) Description 03/22/2024 1:00 PM ENGINEERING PSYCHOLOGIST [facility] 1982 [facility] 1 [place] [address] Stephen Foote MD [address] [place] [address] 05/27/2024 1:30 PM ENGINEERING PSYCHOLOGIST Office Visit [facility] Multiple Sclerosis [address] [phone] Jez Dougherty MD [address] [place] [address] - [id number] [place], [place] 377784 documented as of this encounter Visit Diagnoses Not on filedocumented in this encounter Additional Health Concerns Infection Onset Date Last Indicated Resolved Time Rule Out COVID-19 12/18/2021 12/18/2021 12/18/2021 10:49 PM CDT COVID-19 12/18/2021 12/18/202101/0801/08/2022 11:3 9 PM CDT Assessment Noted Time PHQ-9 Depression Total Score: 0 10/13/19 2:06 AM CDT documented as of this encounter Care Teams Wire Spring Relay Adjuster Relationship Specialty Start Date End Date Stephen Foote MD PCP - General Family Practice 05/04/18 03/16/23 Stephen Foote MD [address] [place] [address] 1 [place] [address] PCP - General Family Medicine 03/17/23 Otis Bee MD [address] [place] [address] Orthopedics 05/07/18 Stephen Foote MD MD Family Practice 05/07/18 03/16/23 Radha Proctor MD [address] [place] [address] 2121 [place] [address] Neurology 11/25/19 Everardo Hensley DO [address] [place] [address] Neurology 10/17/20 Jez Dougherty MD [address] [place], [place] [address]CJ [place], [place] [address] Neurology 10/17/20 Stephen Foote MD [address] [place] [address] 1 [place] [address] Assigned PCP 11/01/20 Sarahi Claudio, [facility] 1982 [facility] [address] [place] [address] [facility] 03/01/21 Everardo Hensley DO [address] [place] [address] Assigned Neuroscience Provider 05/06/21 06/23/21 Jez Dougherty MD [address] [place] [address] Assigned Neuroscience Provider 06/24/21 11/30/21 Radha Proctor MD [address] [place] [address] Assigned Neuroscience Provider 12/01/21 09/13/22 Stephen Foote MD 1982 [facility] [address] 1 [place] [address] Assigned Pain Medication Provider 05/27/22 Jez Dougherty MD [address] [place] [address] Assigned Neuroscience Provider 09/14/22 09/20/22 Radha Proctor MD [address] [place] [address] Assigned Neuroscience Provider 09/21/22 11/29/22 Nakul Kinsey DO [address] [place] [address] Assigned Musculoskeletal Provider 10/26/22 01/17/23 Jez Dougherty MD 909 [facility]2121[place] [address] Assigned Neuroscience Provider 11/30/22 12/13/22 Radha Proctor MD 909 [facility] 2121 [place] [address] Assigned Neuroscience Provider 12/14/22 05/09/23 Otis Patino MD 2450 [facility] [address] [place] [address] Assigned Musculoskeletal Provider 01/18/23 Jez Dougherty MD 909 [facility]2121[place], [place] [address] Assigned Neuroscience Provider 05/10/23 documented as of this encounter
--- OUTSIDE RECORDS SUMMARY | 2024-03-01 21:17 | XMS_ITS | Encounter Summary ---
Author Organization [facility] Address [address] [place] [address] Care Team Providers Care Piece Presser Name Role Phone Stephen Foote MD Primary Care Provider + Otis Bee MD Unavailable + [phone] Stephen Foote MD Unavailable +[phone] Radha Proctor MD Unavailable + Radha Proctor MD Unavailable + Jez Sam MD Unavailable +[phone] Everardo Hensley DO Unavailable + Jez Dougherty MD Unavailable + Ann Marie Wood RN Unavailable Bert Zarate DO Unavailable +[phone] Stephen Foote MD Unavailable +[phone] Sarahi Claudio [facility] Unavailable Unavailab Everardo Rodas DO Unavailable + Jez Dougherty MD Unavailable + Radha Proctor MD Unavailable + Stephen Foote MD Unavailable +[phone] Jez Dougherty MD Unavailable + Radha Proctor MD Unavailable + Nakul Kinsey DO Unavailable + 0 Jez Dougherty MD Unavailable + Radha Proctor MD Unavailable + Otis Patino MD Unavailable +[phone] Stephen Foote MD Primary Care Provider + Jez Dougherty MD Unavailable + Encounter Details Date Type Department Care Team (Late st Contact Info) Description 12/29/2020 Documentation Only INTERFACED REPORT Unknown, Provider Social History Tobacco Use Types Packs/Day Years Used Date Smoking Tobacco: Every Day Cigarettes Smokeless Tobacco: Current Alcohol Use Standard Drinks/Week Comments No 0 (1 standard drink = 0.6 oz pur e alcohol) PHQ-2 Answer Date Recorded PHQ-2 Score 0 03/22/2020 Sex and Gender Information Value Date Recorded Sex Assigned at Male 06/13/2021 11:39 PM CADET DECK Gender Identity Male 06/13/2021 11:39 PM CADET DECK Sexual Orientation Straight 06/13/2021 11 :39 PM CADET DECK COVID-19 Exposure Response Date Recorded In the last month, have you been in contact with someone who was confirmed or suspected to have Coronavirus / COVID-19? No / Unsure 12/08/2020 8:38 AM CDT documented as of this encounter Plan of Treatment Upcoming Encounters Date Type Department Care Team (Late st Contact Info) Description 03/22/2024 1:00 PM CADET DECK Office Visit [facility] 1982 [facility] 1 [place] [phone] Stephen Foote MD [address] [place] [address] 1 [place] [address] 05/27/2024 1:30 PM CADET DECK Office Visit [facility] Multiple Sclerosis [address] [phone] Jez Dougherty MD [address] [place] [address] [id number] [address] documented as of this encounter Visit Diagnoses Not on filedocumented in this encounter Additional Health Concerns Infection Onset Date Last Indicated Resolved Time Rule Out COVID-19 12/18/2021 12/18/2021 12/18/2021 10:49 PM CDT COVID-19 12/18/2021 12/18/2021 01/08/2022 11:3 9 PM CDT Assessment Noted Time PHQ-9 Depression Total Score: 0 10/13/19 21 2:06 AM CDT documented as of this encounter Care Teams Piece Presser Relationship Specialty Start Date End Date Stephen Foote MD PCP - General Family Practice 05/04/18 03/16/23 Stephen Foote MD [address] [place] [address] PCP - General Family Medicine 03/17/23 Otis Bee MD [address] [place] [address] Orthopedics 05/07/18 Stephen Foote MD MD Family Practice 05/07/18 03/16/23 Radha Proctor MD [address] [place] [address] Neurology 11/25/19 Radha Proctor MD [address] [address] Assigned Neuroscience Provider 03/10/20 05/05/21 Jez Sam MD [address] [facility] [address] [place] [phone] Assigned Surgical Provider 03/10/20 Everardo Hensley DO [address] [place] [address] Neurology 10/17/20 Jez Dougherty MD [address] [place] [address] Neurology 10/17/20 Ann Marie Wood, YANELIS Specialty Poker Supervisor Neurology 11/06/20 Bert Zarate DO [address] [facility] [address] [facility] 106 [place] [address] Assigned Sleep Provider 12/01/20 Stephen Foote MD [address] [place] [address] 1 [place] [address] Assigned PCP 11/01/20 Sarahi Claudio, [facility] [address] [place] [address] 1 [place] [address] [facility] 03/01/21 Everardo Hensley DO [address] [place] [address] Assigned Neuroscience Provider 05/06/21 06/23/21 Jez Dougherty MD [address] [place] [address] Assigned Neuroscience Provider 06/24/21 11/30/21 Radha Proctor MD [address] [place] [address] Assigned Neuroscience Provider 12/01/21 09/13/22 Stephen Foote MD [address] [place] [address] Assigned Pain Medication Provider 05/27/22 Jez Dougherty MD [address] [place] [address] Assigned Neuroscience Provider 09/14/22 09/20/22 Radha Proctor MD [address] [place] [address] Assigned Neuroscience Provider 09/21/22 11/29/22 Nakul Kinsey DO [address] [place] [address] Assigned Musculoskeletal Provider 10/26/22 01/17/23 Jez Dougherty MD [address] [place] [address] Assigned Neuroscience Provider 11/30/22 12/13/22 Radha Proctor MD [address] [place] [address] Assigned Neuroscience Provider 12/14/22 05/09/23 Otis Patino MD [address] [place] [address] R102 [place] [address] Assigned Musculoskeletal Provider 01/18/23 Jez Dougherty MD 909 [facility] [id number] [place] [address] Assigned Neuroscience Provider 05/10/23 documented as of this encounter
--- OUTSIDE RECORDS SUMMARY | 2024-03-01 21:17 | XMS_ITS | Encounter Summary ---
Author Organization [place] Address [address] [place] [address] Care Team Providers Care C++ Quant Developer Name Role Phone Stephen Foote MD Primary Care Provider + Otis Bee MD Unavailable + [phone] Stephen Foote MD Unavailable + 0 Radha Proctor MD Unavailable + Radha Proctor MD Unavailable + Jez Sam MD Unavailable +[phone] Everardo Hensley DO Unavailable + Jez Dougherty MD Unavailable + Stephen Foote MD Unavailable + 0 Sarahi Claudio [facility] Unavailable Unavailab Everardo Rodas DO Unavailable + Jez Dougherty MD Unavailable + Radha Proctor MD Unavailable + Stephen Foote MD Unavailable + 0 Jez Dougherty MD Unavailable + Radha Proctor MD Unavailable + [phone] Nakul Kinsey DO Unavailable +[phone] Jez Dougherty MD Unavailable + [phone] Radha Proctor MD Unavailable + [phone] Otis Patino MD Unavailable +[phone] Stephen Foote MD Primary Care Provider [phone] Jez Dougherty MD Unavailable +[phone] Reason for Visit * Reason Onset Date Comments other 02/06/2021 Encounter Details Date Type Department Care Team (Late st Contact Info) Description 02/06/2021 Telephone [facility] Multiple Sclerosis [address] [phone] Jez Dougherty MD [address] [place] [address] - [id number] [place] [address] other Social History Tobacco Use Types Packs/Day Years Used Date Smoking Tobacco: Every Day Cigarettes Smokeless Tobacco: Current Alcohol Use Standard Drinks/Week Comments No 0 (1 standard drink = 0.6 oz pur e alcohol) PHQ-2 Answer Date Recorded PHQ-2 Score 0 03/22/2020 Sex and Gender Information Value Date Recorded Sex Assigned at Male 06/13/2021 11:39 PM RESEARCH INTERN Gender Identity Male 06/13/2021 11:39 PM RESEARCH INTERN Sexual Orientation Straight 06/13/2021 11 :39 PM RESEARCH INTERN COVID-19 Exposure Response Date Recorded In the last month, have you been in contact with someone who was confirmed or suspected to have Coronavirus / COVID-19? No / Unsure 02/08/2021 4:06 PM CDT documented as of this encounter Miscellaneous Notes * Telephone Encounter - Angie Doan RN - 02/07/2021 11:16 AM CDT Letter confirming diagnosis faxed to number provided by [employer] (fax [phone]). Angie Doan RN * Telephone Encounter - Sirisha Colmenares - 02/06/2021 2:28 PM CDT [facility] Phone Message May a detailed message be left on voicemail: yes Reason for Call: Other: Patient is requesting for paperwork stating patient diagnosis to be faxed to [phone], please call patient at [phone] for any questions. Action Taken: Message routed to: [facility] Neurology Travel Screening: Not Applicable documented in this encounter Plan of Treatment Upcoming Encounters Date Type Department Care Team (Late st Contact Info) Description 03/22/2024 1:00 PM RESEARCH INTERN Office Visit [address] [place] [phone] Stephen Foote MD [address] [place] [address] [id number] 05/27/2024 1:30 PM RESEARCH INTERN Office Visit [facility] Multiple Sclerosis [address] [phone] Jez Dougherty MD [address] [place] [address] [id number] [place], [place] 8[address] documented as of this encounter Visit Diagnoses Not on filedocumented in this encounter Additional Health Concerns Infection Onset Date Last Indicated Resolved Time Rule Out COVID-19 12/18/2021 12/18/2021 12/18/2021 10:49 PM CDT COVID-19 12/18/2021 12/18/2021 01/08/2022 11:3 9 PM CDT Assessment Noted Time PHQ-9 Depression Total Score: 0 10/13/19 2:06 AM CDT documented as of this encounter Care Teams C++ Quant Developer Relationship Specialty Start Date End Date Stephen Foote MD PCP - General Family Practice 05/04/18 03/16/23 Stephen Foote MD [address] [place] [address] 1 [place] [address] PCP - General Family Medicine 03/17/23 Otis Bee MD 9 [place] [address] Orthopedics 05/07/18 Stephen Foote MD Family Practice 05/07/18 03/16/23 Radha Proctor MD [address] [place] [address] Neurology 11/25/19 Radha Proctor MD [address] [place] [address] Assigned Neuroscience Provider 03/10/20 05/05/21 Jez Sam MD 6363 [facility] 500 [place] [phone] Assigned Surgical Provider 03/10/20 Everardo Hensley DO [address] [place] [address] Neurology 10/17/20 Jez Dougherty MD [address] [place], [place] [id number] [address] Neurology 10/17/20 Stephen Foote MD [address] [place] [address] 1 [place] [address] Assigned PCP 11/01/20 Sarahi Claudio, [facility] 1982 [facility] 1 [place] [address] Pharmacist 03/01/21 Everardo Hensley DO [address] [place] [address] Assigned Neuroscience Provider 05/06/21 06/23/21 Jez Dougherty MD [address] [place] [address] Assigned Neuroscience Provider 06/24/21 11/30/21 Radha Proctor MD [address] [place] [address] Assigned Neuroscience Provider 12/01/21 09/13/22 Stephen Foote MD 1982 [facility] 1 [place] [address] Assigned Pain Medication Provider 05/27/22 Jez Dougherty MD [address] [place] [address] Assigned Neuroscience Provider 09/14/22 09/20/22 Radha Proctor MD [address] [place] [address] Assigned Neuroscience Provider 09/21/22 11/29/22 Nakul Kinsey DO [address] [place] [address] Assigned Musculoskeletal Provider 10/26/22 01/17/23 Jez Dougherty MD 909 [facility] [place] [address] Assigned Neuroscience Provider 11/30/22 12/13/22 Radha Proctor MD [address] [place], [place] [address] [place] [address] Assigned Neuroscience Provider 12/14/22 05/09/23 [place] [address] [place] [address] [address] [place] [address] Assigned Musculoskeletal Provider 01/18/23 Jez Dougherty MD [address] [place] [address] Assigned Neuroscience Provider 05/10/23 documented as of this encounter
--- OUTSIDE RECORDS SUMMARY | 2024-03-01 21:18 | XMS_ITS | Encounter Summary ---
Author Organization [place] Address [address] [place] [address] Care Team Providers Care Mergers And Acquisitions Manager Name Role Phone Stephen Foote MD Primary Care Provider + Otis Bee MD Unavailable + [phone] Stephen Foote MD Unavailable [phone] Radha Proctor MD Unavailable + Radha Proctor MD Unavailable + Jez Sam MD Unavailable +[phone] Everardo Hensley DO Unavailable + Jez Dougherty MD Unavailable + Ann Marie Wood RN Unavailable Bert Zarate DO Unavailable +[phone] Stephen Foote MD Unavailable +[phone] [address]i Cl[address] [facility] Unavailable Unavailab Everardo Rodas DO Unavailable + Jez Dougherty MD Unavailable + Radha Proctor MD Unavailable + Stephen Foote MD Unavailable +[phone] Jez Dougherty MD Unavailable + Radha Proctor MD Unavailable +[phone] KwasiNakul salazar Thea [facility] Unavailable + 0 Jez Dougherty MD Unavailable +48 Radha Proctor MD Unavailable +[phone] Otsi Patino MD Unavailable + [phone] Stephen Foote MD Primary Care Provider +[phone] Jez Dougherty MD Unavailable +[phone] Reason for Visit * Reason Onset Date Comments Prior Auth - Medication 11/30/2020 COPAXONE Encounter Details Date Type Department Care Team (Late st Contact Info) Description 11/30/2020 [facility] Multiple Sclerosis [address] [phone] Jez Dougherty MD [address] [place] [address] - [id number] [place] [address] Prior Auth - Medication (COPAXONE ) Social History Tobacco Use Types Packs/Day Years Used Date Smoking Tobacco: Every Day Cigarettes Smokeless Tobacco: Current Alcohol Use Standard Drinks/Week Comments No 0 (1 standard drink = 0.6 oz pur e alcohol) PHQ-2 Answer Date Recorded PHQ-2 Score 0 03/22/2020 Sex and Gender Information Value Date Recorded Sex Assigned at Male 06/13/2021 11:39 PM STUDENT SERVICES REP Gender Identity Male 06/13/2021 11:39 PM STUDENT SERVICES REP Sexual Orientation Straight 06/13/2021 11 :39 PM STUDENT SERVICES REP COVID-19 Exposure Response Date Recorded In the last month, have you been in contact with someone who was confirmed or suspected to have Coronavirus / COVID-19? No / Unsure 11/02/2020 11:06 AM CDT documented as of this encounter Miscellaneous Notes * Telephone Encounter - Sean Meza - 11/30/2020 9:[address] [facility] Phone Message May a detailed message be left on voicemail: yes Reason for Call: Other: Pt returning missed call from HEATHER Adams regarding appealing denial of COPAXONE 40. Pt states that he would like Angie to go ahead and pursue the appeal. Action Taken: Message routed to: [facility] ([facility] Neurology Travel Screening: Not Applicable documented in this encounter Plan of Treatment Upcoming Encounters Date Type Department Care Team (Late st Contact Info) Description 03/22/2024 1:00 PM STUDENT SERVICES REP Office Visit [facility] [place] 1982 [facility] [address] [place] [phone] Stephen Foote MD 1982 [facility] [address] [place], [place] [id number] 05/27/2024 1:30 PM STUDENT SERVICES REP Office Visit [facility] Multiple Sclerosis [address] [phone] Jez Dougherty MD [address] [place] [address] - [id number] [place] [address] documented as of this encounter Visit Diagnoses Not on filedocumented in this encounter Additional Health Concerns Infection Onset Date Last Indicated Resolved Time Rule Out COVID-19 12/18/2021 12/18/2021 12/18/2021 10:49 PM CDT COVID-19 12/18/2021 12/18/2021 01/08/2022 11:3 9 PM CDT Assessment Noted Time PHQ-9 Depression Total Score: 0 10/13/19 21 2:06 AM CDT documented as of this encounter Care Teams Mergers And Acquisitions Manager Relationship Specialty Start Date End Date Stephen Foote MD PCP - General Family Practice 05/04/18 03/16/23 Stephen Foote MD 1982 [facility] [address] [place] [address] PCP - General Family Medicine 03/17/23 Otis Bee MD [address] [place] [address] Orthopedics 05/07/18 Stephen Foote MD Family Practice 05/07/18 03/16/23 Radha Proctor MD [address] [place] [address] [place] [address] Neurology 11/25/19 Radha Proctor MD [address] [place] [address] [place] [address] Assigned Neuroscience Provider 03/10/20 05/05/21 Jez Sam MD 6363 [facility] [place] [phone] Assigned Surgical Provider 03/10/20 Everardo Hensley DO [address] [place] [address] Neurology 10/17/20 Jez Dougherty MD [address] [place] [address] [address] Neurology 10/17/20 Ann Marie Wood, RN Specialty Seat Covers Trimmer Neurology 11/06/20 Bert Zarate DO [address] [place] [address] Assigned Sleep Provider 12/01/20 Stephen Foote MD [address] [place] [address] Assigned PCP 11/01/20 Sarahi Claudio, [facility] [address] [place] [address] [facility] 03/01/21 Everardo Hensley DO [address] [place] [address] Assigned Neuroscience Provider 05/06/21 06/23/21 Jez Dougherty MD [address] [place] [address] Assigned Neuroscience Provider 06/24/21 11/30/21 Radha Proctor MD [address] [place] [address] Assigned Neuroscience Provider 12/01/21 09/13/22 Stephen Foote MD [address] [place] [address] Assigned Pain Medication Provider 05/27/22 Jez Dougherty MD [address] [place] [address] Assigned Neuroscience Provider 09/14/22 09/20/22 Radha Proctor MD [address] [place] [address] Assigned Neuroscience Provider 09/21/22 11/29/22 Nakul Kinsey DO 909 [place] [address] Assigned Musculoskeletal Provider 10/26/22 01/17/23 Jez Dougherty MD [address] [place] [address] Assigned Neuroscience Provider 11/30/22 12/13/22 Radha Proctor MD [address] [place] [address] 2121 [place] [address] Assigned Neuroscience Provider 12/14/22 05/09/23 [place] [address] [place] [address] [address] [place] [address] Assigned Musculoskeletal Provider 01/18/23 Jez Dougherty MD [address] [place] [address] Assigned Neuroscience Provider 05/10/23 documented as of this encounter
--- OUTSIDE RECORDS SUMMARY | 2024-03-01 21:18 | XMS_ITS | Encounter Summary ---
Author Organization [facility] Address [address] [place] [address] Care Team Providers Care Account Assistant Name Role Phone Stephen Foote MD Primary Care Provider + Otis Bee MD Unavailable + [phone] Stephen Foote MD Unavailable +[phone] Radha Proctor MD Unavailable + Radha Proctor MD Unavailable + Jez Sam MD Unavailable +[phone] Everardo Hensley DO Unavailable + Jez Dougherty MD Unavailable + Ann Marie Wood RN Unavailable Bert Zarate DO Unavailable +[phone] Stephen Foote MD Unavailable +[phone] Sarahi Claudio [facility] Unavailable Unavailab Everardo Rodas DO Unavailable + Jez Dougherty MD Unavailable + Radha Proctor MD Unavailable + Stephen Foote MD Unavailable +[phone] Jez Dougherty MD Unavailable + Radha Proctor MD Unavailable +[phone] Nakul Kinsey Unavailable + 0 Jez Dougherty MD Unavailable +[phone] Radha Proctor MD Unavailable +[phone] Otis Patino MD Unavailable + [phone] Stephen Foote MD Primary Care Provider +[phone] Jez Dougherty MD Unavailable +[phone] Reason for Visit * Reason Onset Date Comments Medication Question 12/18/2020 Call Back 12/18/2020 Encounter Details Date Type Department Care Team (Late st Contact Info) Description 12/18/2020 Telephone [facility] [address] [phone] Jez Dougherty MD [address] [place] [address] - [id number] [place], [place] [address] Medication Question; Call Back Social History Tobacco Use Types Packs/Day Years Used Date Smoking Tobacco: Every Day Cigarettes Smokeless Tobacco: Current Alcohol Use Standard Drinks/Week Comments No 0 (1 standard drink = 0.6 oz pur e alcohol) PHQ-2 Answer Date Recorded PHQ-2 Score 0 03/22/2020 Sex and Gender Information Value Date Recorded Sex Assigned at Male 06/13/2021 11:39 PM USABILITY STRATEGIST Gender Identity Male 06/13/2021 11:39 PM USABILITY STRATEGIST Sexual Orientation Straight 06/13/2021 11 :39 PM USABILITY STRATEGIST COVID-19 Exposure Response Date Recorded In the last month, have you been in contact with someone who was confirmed or suspected to have Coronavirus / COVID-19? No / Unsure 12/08/2020 8:38 AM CDT documented as of this encounter Miscellaneous Notes * Telephone Encounter - Angie Doan RN - 12/20/2020 1:17 PM CDT Called [employer] who was not able to provide an update on the appeal. Suggested that the appeal letter be faxed over again to a different fax number. Appeal letter faxed to [phone]. Left Qaid a VMM that the appeal is currently pending. Angie Doan RN * Telephone Encounter - Sirisha Colmenares - 12/18/2020 9:[address] [facility] Phone Message May a detailed message be left on voicemail: yes Reason for Call: Other: Patient is requesting a call to discuss if COPAXONE 40 MG/ML injection was approved. Patient is requesting that the medication request be resubmitted. Please call patient at [phone] to advise. Action Taken: Message routed to: [facility] Neurology Travel Screening: Not Applicable documented in this encounter Plan of Treatment Upcoming Encounters Date Type Department Care Team (Late st Contact Info) Description 03/22/2024 1:00 PM USABILITY STRATEGIST Office Visit [address] [phone] Stephen Foote MD [address] [place] [address] 05/27/2024 1:30 PM USABILITY STRATEGIST Office Visit [facility] Multiple Sclerosis [address] [phone] Jez Dougherty MD [address] [place] [address] - [id number] [place] [address] documented as of this encounter Visit Diagnoses Not on filedocumented in this encounter Additional Health Concerns Infection Onset Date Last Indicated Resolved Time Rule Out COVID-19 12/18/2021 12/18/2021 12/18/2021 10:49 PM CDT COVID-19 12/18/2021 12/18/2021 01/08/2022 11:3 9 PM CDT Assessment Noted Time PHQ-9 Depression Total Score: 0 10/13/19 21 2:06 AM CDT documented as of this encounter Care Teams Account Assistant Relationship Specialty Start Date End Date Stephen Foote MD PCP - General Family Practice 05/04/18 03/16/23 Stephen Foote MD [address] [place] [address] PCP - General Family Medicine 03/17/23 Otis Bee MD [address] [place] [address] [phone] Orthopedics 05/07/18 Stephen Foote MD Family Practice 05/07/18 03/16/23 Radha Proctor MD [address] [place] [address] Neurology 11/25/19 Radha Proctor MD [address] [place] [address] Assigned Neuroscience Provider 03/10/20 05/05/21 Jez Sam MD 6363 [facility] 500 [place] [phone] Assigned Surgical Provider 03/10/20 Everardo Hensley DO [address] [place] [address] Neurology 10/17/20 Jez Dougherty MD [address] [address] Neurology 10/17/20 Ann Marie Wood, RN Specialty Wafer Fabrication Technician Neurology 11/06/20 Bert Zarate DO [address] [facility] 106 [place], [place] [address] Assigned Sleep Provider 12/01/20 Stephen Foote MD [address] [place] [address] Assigned PCP 11/01/20 Sarahi Claudio, [facility] [address] [place] [address] [facility] 03/01/21 Everardo Hensley DO [address] [place] [address] Assigned Neuroscience Provider 05/06/21 06/23/21 Jez Dougherty MD [address] [address] Assigned Neuroscience Provider 06/24/21 11/30/21 Radha Proctor MD [address] [address] Assigned Neuroscience Provider 12/01/21 09/13/22 Stephen Foote MD [address] [place] [address] [address] [place] [address] Assigned Pain Medication Provider 05/27/22 Jez Dougherty MD [address] [place] [address] Assigned Neuroscience Provider 09/14/22 09/20/22 Radha Proctor MD [address] [place] [address] Assigned Neuroscience Provider 09/21/22 11/29/22 Nakul Kinsey DO [address] [place] [address] Assigned Musculoskeletal Provider 10/26/22 01/17/23 Jez Dougherty MD [address] [place] [address] Assigned Neuroscience Provider 11/30/22 12/13/22 Radha Proctor MD [address] [place] [address] Assigned Neuroscience Provider 12/14/22 05/09/23 [place] [address] [place], [place] [phone] [place] [address] Assigned Musculoskeletal Provider 01/18/23 Jez Dougherty MD [address] [place] [address] Assigned Neuroscience Provider 05/10/23 documented as of this encounter
--- OUTSIDE RECORDS SUMMARY | 2024-03-01 21:18 | XMS_ITS | Encounter Summary ---
Author Organization [facility] Address [address] [place] [address] Care Team Providers Care Master Mechanic Name Role Phone Stephen Foote MD Primary Care Provider + Otis Bee MD Unavailable + [phone] Stephen Foote MD Unavailable [phone] Radha Proctor MD Unavailable + Radha Proctor MD Unavailable + Jez Sam MD Unavailable +[phone] Everardo Hensley DO Unavailable + Jez Dougherty MD Unavailable + Ann Marie Wood RN Unavailable Bert Zarate DO Unavailable +[phone] Stephen Foote MD Unavailable +[phone] Sarahi Claudio [facility] Unavailable Unavailab Everardo Rodas DO Unavailable + Jez Dougherty MD Unavailable + Radha Proctor MD Unavailable + Stephen Foote MD Unavailable +[phone] Jez Dougherty MD Unavailable + Radha Proctor MD Unavailable + Kwasimarie Eladio DO Unavailable +[phone] Jez Dougherty MD Unavailable +[phone] Radha Proctor MD Unavailable +36 Otis Patino MD Unavailable + [phone] Stephen Foote MD Primary Care Provider +[phone] Jez Dougherty MD Unavailable +[phone] Reason for Visit * Reason Onset Date Comments Medication Question 09/08/2020 Methylpredni solone Encounter Details Date Type Department Care Team (Late st Contact Info) Description 09/08/2020 Telephone [facility] [address] [phone] Everardo Hensley DO [address] [place] [address] Medication Question (Methylprednisolone) Social History Tobacco Use Types Packs/Day Years Used Date Smoking Tobacco: Every Day Cigarettes Smokeless Tobacco: Current Alcohol Use Standard Drinks/Week Comments No 0 (1 standard drink = 0.6 oz pur e alcohol) PHQ-2 Answer Date Recorded PHQ-2 Score 0 03/22/2020 Sex and Gender Information Value Date Recorded Sex Assigned at Male 06/13/2021 11:39 PM PLASTER TENDER Gender Identity Male 06/13/2021 11:39 PM PLASTER TENDER Sexual Orientation Straight 06/13/2021 11 :39 PM PLASTER TENDER COVID-19 Exposure Response Date Recorded In the last month, have you been in contact with someone who was confirmed or suspected to have Coronavirus / COVID-19? No / Unsure 08/22/2020 10:44 AM CDT documented as of this encounter Miscellaneous Notes * Telephone Encounter - Valentin Conde MD - 09/08/2020 6:46 PM CDT Called pharmacy back and confirmed dosage of methylprednisolone 1000 mg qAM for 5 days. Valentin Conde MD * Telephone Encounter - Emely Naik - 09/08/2020 4:49 PM CDT [facility] Call Center Phone Message May a detailed message be left on voicemail: yes Reason for Call: Medication Question or concern regarding medication Prescription ClarificationName of Medication: Methylprednisolone Prescribing Provider: Dr Hensley Pharmacy: [id number] - [place], [place] - [address] [address] What on the order needs clarification? Pharmacy calling in they would like clarification on the doseage, law writer unable to find medication on pt medication list Action Taken: Message routed to: [facility] Travel Screening: Not Applicable documented in this encounter Plan of Treatment Upcoming Encounters Date Type Department Care Team (Late st Contact Info) Description 03/22/2024 1:00 PM PLASTER TENDER Office Visit [facility] [address] [facility] [address] [place] [phone] Stephen Foote MD [address] [place] [address] 05/27/2024 1:30 PM PLASTER TENDER Office Visit [facility] Multiple Sclerosis [address] [phone] Jez Dougherty MD [address] [place] [address] - [id number] [place] [address] documented as of this encounter Visit Diagnoses Not on filedocumented in this encounter Additional Health Concerns Infection Onset Date Last Indicated Resolved Time Rule Out COVID-19 12/18/2021 12/18/2021 12/18/2021 10:49 PM CDT COVID-19 12/18/2021 12/18/2021 01/08/2022 11:3 9 PM CDT Assessment Noted Time PHQ-9 Depression Total Score: 0 10/13/19 21 2:06 AM CDT documented as of this encounter Care Teams Master Mechanic Relationship Specialty Start Date End Date Stephen Foote MD PCP - General Family Practice 05/04/18 03/16/23 Stephen Foote MD [address] [place] [address] 1 [place] [address] PCP - General Family Medicine 03/17/23 Otis Bee MD [address] [place] [address] Orthopedics 05/07/18 Stephen Foote MD Family Practice 05/07/18 03/16/23 Radha Proctor MD [address] [place] [address] Neurology 11/25/19 Radha Proctor MD [address] [place] [address] Assigned Neuroscience Provider 03/10/20 05/05/21 Jez Sam MD 6363 [facility] 500 [place] [phone] Assigned Surgical Provider 03/10/20 Everardo Hensley DO [address] [place] [address] Neurology 10/17/20 Jez Dougherty MD [address] [place] [id number] [place] [address] Neurology 10/17/20 Ann Marie Wood, RN Specialty Chief Of Vital Statistics Neurology 11/06/20 Bert Zarate DO [address] [facility] 106 [place] [address] Assigned Sleep Provider 12/01/20 Stephen Foote MD 1982 [facility] 1 [place] [address] Assigned PCP 11/01/20 Sarahi Claudio [facility] 1982 [facility] 1 [place] [address] [facility] 03/01/21 Everardo Hensley DO 909 [place] [address] Assigned Neuroscience Provider 05/06/21 06/23/21 Jez Dougherty MD 909 [facility], [place] [address] Assigned Neuroscience Provider 06/24/21 11/30/21 Radha Proctor MD 909 [facility] 2121 [place] [address] Assigned Neuroscience Provider 12/01/21 09/13/22 Stephen Foote MD 1982 [facility] 1 [place] [address] Assigned Pain Medication Provider 05/27/22 Jez Dougherty MD [address] [place] [address] Assigned Neuroscience Provider 09/14/22 09/20/22 Radha Proctor MD [address] [place] [address] Assigned Neuroscience Provider 09/21/22 11/29/22 Nakul Kinsey DO [address] [place] [address] Assigned Musculoskeletal Provider 10/26/22 01/17/23 Jez Dougherty MD [address] [place] [address] Assigned Neuroscience Provider 11/30/22 12/13/22 Radha Proctor MD [address] [place] [address] Assigned Neuroscience Provider 12/14/22 05/09/23 Otis Patino MD [address] [place] [address] Assigned Musculoskeletal Provider 01/18/23 Jez Dougherty MD [address] [place] [address] Assigned Neuroscience Provider 05/10/23 documented as of this encounter
--- OUTSIDE RECORDS SUMMARY | 2024-03-01 21:18 | XMS_ITS | Encounter Summary ---
Author Organization [facility] Address [address] [place] [address] Care Team Providers Care Test Tube Maker Name Role Phone Stephen Foote MD Primary Care Provider + Otis Bee MD Unavailable + [phone] Stephen Foote MD Unavailable +[phone] Radha Proctor MD Unavailable + Radha Proctor MD Unavailable + Jez Sam MD Unavailable +[phone] Everardo Hensley DO Unavailable + Jez Dougherty MD Unavailable + Ann Marie Wood RN Unavailable Bert Zarate DO Unavailable +[phone] Stephen Foote MD Unavailable +[phone] Sarahi Claudio [facility] Unavailable Unavailab Everardo Rodas DO Unavailable + Jez Dougherty MD Unavailable + Radha Proctor MD Unavailable + Stephen Foote MD Unavailable +[phone] Jez Dougherty MD Unavailable + Radha Proctor MD Unavailable + Nakul Kinsey DO Unavailable + 0 Jez Dougherty MD Unavailable + Radha Proctor MD Unavailable + Otis Patino MD Unavailable +[phone] Stephen Foote MD Primary Care Provider + Jez Dougherty MD Unavailable + Encounter Details Date Type Department Care Team (Late st Contact Info) Description 10/06/2020 Records - [facility] CONVERSION Scan, Non-Provider Social History Tobacco Use Types Packs/Day Years Used Date Smoking Tobacco: Every Day Cigarettes Smokeless Tobacco: Current Alcohol Use Standard Drinks/Week Comments No 0 (1 standard drink = 0.6 oz pur e alcohol) PHQ-2 Answer Date Recorded PHQ-2 Score 0 03/22/2020 Sex and Gender Information Value Date Recorded Sex Assigned at Male 06/13/2021 11:39 PM SENIOR SOLUTIONS ARCHITECT Gender Identity Male 06/13/2021 11:39 PM SENIOR SOLUTIONS ARCHITECT Sexual Orientation Straight 06/13/2021 11 :39 PM SENIOR SOLUTIONS ARCHITECT COVID-19 Exposure Response Date Recorded In the last month, have you been in contact with someone who was confirmed or suspected to have Coronavirus / COVID-19? No / Unsure 09/12/2020 8:10 AM CDT documented as of this encounter Plan of Treatment Upcoming Encounters Date Type Department Care Team (Late Contact Info) Description 03/22/2024 1:00 PM SENIOR SOLUTIONS ARCHITECT Office Visit [address] [phone] Stephen Foote MD [address] [place] [id number] 05/27/2024 1:30 PM SENIOR SOLUTIONS ARCHITECT Office Visit [facility] Multiple Sclerosis [address] [address] Jez Dougherty MD [address] [place] [address] [id number] [place] [address] documented as of this encounter Visit Diagnoses Not on filedocumented in this encounter Additional Health Concerns Infection Onset Date Last Indicated Resolved Time Rule Out COVID-19 12/18/2021 12/18/2021 12/18/2021 10:49 PM CDT COVID-19 12/18/2021 12/18/2021 01/08/2022 11:3 9 PM CDT Assessment Noted Time PHQ-9 Depression Total Score: 0 10/13/19 2:06 AM CDT documented as of this encounter Care Teams Test Tube Maker Relationship Specialty Start Date End Date Stephen Foote MD PCP - General Family Practice 05/04/18 03/16/23 Stephen Foote MD [address] [place] [address] PCP - General Family Medicine 03/17/23 Otis Bee MD [address] [place] [address] Orthopedics 05/07/18 Stephen Foote MD MD Family Practice 05/07/18 03/16/23 Radha Proctor MD [address] [address] Neurology 11/25/19 Radha Proctor MD [address] [address] Assigned Neuroscience Provider 03/10/20 05/05/21 Jez Sam MD [address] [facility] [address] [place] [phone] Assigned Surgical Provider 03/10/20 Everardo Hensley DO [address] [place] [address] Neurology 10/17/20 Jez Dougherty MD [address] [place] [address] Neurology 10/17/20 Ann Marie Wood, YANELIS Specialty Region Manager Neurology 11/06/20 Bert Zarate DO [address] [facility] 106 [place] [address] Assigned Sleep Provider 12/01/20 Stephen Foote MD [address] [place] [address] 1 [place] [address] Assigned PCP 11/01/20 Sarahi Claudio, [facility] [address] [place] [address] 1 [place] [address] [facility] 03/01/21 Everardo Hensley DO [address] [place] [address] Assigned Neuroscience Provider 05/06/21 06/23/21 Jez Dougheryt MD [address] [place] [address] Assigned Neuroscience Provider 06/24/21 11/30/21 Radha Proctor MD [address] [place] [address] Assigned Neuroscience Provider 12/01/21 09/13/22 Stephen Foote MD [address] [place] [address] Assigned Pain Medication Provider 05/27/22 Jez Dougherty MD [address] [place] [address] Assigned Neuroscience Provider 09/14/22 09/20/22 Radha Proctor MD [address] [place] [address] Assigned Neuroscience Provider 09/21/22 11/29/22 Nakul Kinsey DO [address] [place] [address] Assigned Musculoskeletal Provider 10/26/22 01/17/23 Jez Dougherty MD [address] [place] [address] Assigned Neuroscience Provider 11/30/22 12/13/22 Radha Proctor MD [address] [place] [address] Assigned Neuroscience Provider 12/14/22 05/09/23 Otis Patino MD [address] [facility] [place] [address] Assigned Musculoskeletal Provider 01/18/23 Jez Dougherty MD 909 [facility] [id number] [place] [address] Assigned Neuroscience Provider 05/10/23 documented as of this encounter
--- OUTSIDE RECORDS SUMMARY | 2024-03-01 21:18 | XMS_ITS | Encounter Summary ---
Author Organization [facility] Address [address] [place] [address] Care Team Providers Care Radiographic Technologist Name Role Phone Stephen Foote MD Primary Care Provider + Otis Bee MD Unavailable + [phone] Stephen Foote MD Unavailable [phone] Radha Proctor MD Unavailable + Radha Proctor MD Unavailable + Jez Sam MD Unavailable +[phone] Everardo Hensley DO Unavailable + Jez Dougherty MD Unavailable + Ann Marie Wood RN Unavailable Bert Zarate DO Unavailable +[phone] Stephen Foote MD Unavailable +[phone] Sarahi Claudio [facility] Unavailable Unavailab Everardo Rodas DO Unavailable + Jez Dougherty MD Unavailable + Radha Proctor MD Unavailable + Stephen Foote MD Unavailable +[phone] Jez Dougherty MD Unavailable + Radha Proctor MD Unavailable + KwasiNakul salazar Thea CORDON Unavailable + 0 Jez Dougherty MD Unavailable + Radha Proctor MD Unavailable + Otis Patino MD Unavailable + [phone] Stephen Foote MD Primary Care Provider +[phone] Jez Dougherty MD Unavailable +[phone] Reason for Visit * Reason Onset Date Comments Call Back 12/27/2020 covid vaccine Call Back 12/28/2020 CELSA Encounter Details Date Type Department Care Team ([facility] st Contact Info) Description 12/27/2020 Telephone [facility] [address] [place] [address] Laina Mancia APRN [id number] [place] [address] Call Back (covid vaccine ); Call Back (CELSA ) Social History Tobacco Use Types Packs/Day Years Used Date Smoking Tobacco: Every Day Cigarettes Smokeless Tobacco: Current Alcohol Use Standard Drinks/Week Comments No 0 (1 standard drink = 0.6 oz pur e alcohol) PHQ-2 Answer Date Recorded PHQ-2 Score 0 03/22/2020 Sex and Gender Information Value Date Recorded Sex Assigned at Male 06/13/2021 11:39 PM DESIGN CELL ENGINEER Gender Identity Male 06/13/2021 11:39 PM DESIGN CELL ENGINEER Sexual Orientation Straight 06/13/2021 11 :39 PM DESIGN CELL ENGINEER COVID-19 Exposure Response Date Recorded In the last month, have you been in contact with someone who was confirmed or suspected to have Coronavirus / COVID-19? No / Unsure 12/08/2020 8:38 AM CDT documented as of this encounter Miscellaneous Notes * Telephone Encounter - Angie Doan RN - 12/28/2020 9:47 AM CDT Spoke with Qaid; addressed in separate encounter. Angie Casa, RN * Telephone Encounter - Asia Olea - 12/28/2020 9:03 AM CDT [facility] Phone Message May a detailed message be left on voicemail: yes Reason for Call: Other: Roopa an Access Health Coordinator calling looking to speak with patients care team to discuss patient getting COVID vaccine. States that patient will have to leave by 11:00 today and they are needing to know CELSA if there are any objections to patient getting the vaccine. Mentions patient called yesterday also and has not heard back from care team. Please advise and call Roopa back at your earliest convenience Action Taken: Other: MS Travel Screening: Not Applicable * Telephone Encounter - Emely Naik - 12/27/2020 3:56 PM CDT [facility] Phone Message May a detailed message be left on voicemail: yes Reason for Call: Other: Pt calling in he would like to know with his MS if it is safe for him to take the covid vaccine, please call back to discuss further Action Taken: Message routed to[facility] neuro Travel Screening: Not Applicable documented in this encounter Plan of Treatment Upcoming Encounters Date Type Department Care Team (Late st Contact Info) Description 03/22/2024 1:00 PM DESIGN CELL ENGINEER [facility] [address] [facility] 1 [place] [address] Stephen Foote MD [address] [facility] 1 [place] [address] 05/27/2024 1:30 PM DESIGN CELL ENGINEER Office Visit [facility] Multiple Sclerosis [address] [address] Jez Dougherty MD [address] [place] [address] [id number] [place] [address] documented as of this encounter Visit Diagnoses Not on filedocumented in this encounter Additional Health Concerns Infection Onset Date Last Indicated Resolved Time Rule Out COVID-19 12/18/2021 12/18/2021 12/18/2021 10:49 PM CDT COVID-19 12/18/2021 12/18/2021 01/08/2022 11:3 9 PM CDT Assessment Noted Time PHQ-9 Depression Total Score: 0 10/13/19 21 2:06 AM CDT documented as of this encounter Care Teams Radiographic Technologist Relationship Specialty Start Date End Date Stephen Foote MD PCP - General Family Practice 05/04/18 03/16/23 Stephen Foote MD [address] [place] [address] PCP - General Family Medicine 03/17/23 Otis Bee MD [address] [place] [address] Orthopedics 05/07/18 Stephen Foote MD Family Practice 05/07/18 03/16/23 Radha Proctor MD [address] [place] [address] Neurology 11/25/19 Radha Proctor MD [address] [place] [address] Assigned Neuroscience Provider 03/10/20 05/05/21 Jez Sam MD [address] [facility] [address] [place] [address] Assigned Surgical Provider 03/10/20 Everardo Hensley DO [address] [place] [address] Neurology 10/17/20 Jez Dougherty MD [address] [place] [address] 752684 Neurology 10/17/20 Ann Marie Wood, YANELIS Specialty Life Skills Coordinator Volunteer Neurology 11/06/20 Bert Zarate DO [address] [facility] 106 [place], [place] [address] Assigned Sleep Provider 12/01/20 Stephen Foote MD [address] [facility] 1 [place] [address] Assigned PCP 11/01/20 Sarahi Claudio, [facility] [address] [facility] [address] [place] [address] Pharmacist 03/01/21 Everardo Hensley DO [address] [place] [address] Assigned Neuroscience Provider 05/06/21 06/23/21 Jez Dougherty MD [address] [place] [address] Assigned Neuroscience Provider 06/24/21 11/30/21 Radha Proctor MD [address] [place] [address] Assigned Neuroscience Provider 12/01/21 09/13/22 Stephen Foote MD [address] [place] [address] Assigned Pain Medication Provider 05/27/22 Jez Dougherty MD [address] [place] [address] Assigned Neuroscience Provider 09/14/22 09/20/22 Radha Proctor MD [address] [place] [address] Assigned Neuroscience Provider 09/21/22 11/29/22 Nakul Kinsey DO [address] [place] [address] Assigned Musculoskeletal Provider 10/26/22 01/17/23 Jez Dougherty MD [address] [place] [address] Assigned Neuroscience Provider 11/30/22 12/13/22 Radha Proctor MD [address] [place] [address] Assigned Neuroscience Provider 12/14/22 05/09/23 Otis Patino MD [address] [facility] [address] [place], [place] 0[address] Assigned Musculoskeletal Provider 01/18/23 Jez Dougherty MD [address] [facility] [id number] [place], [place] [address] Assigned Neuroscience Provider 05/10/23 documented as of this encounter
--- OUTSIDE RECORDS SUMMARY | 2024-03-01 21:18 | XMS_ITS | Encounter Summary ---
Author Organization [facility] Address [address] [place] [address] Care Team Providers Care Wafer Polisher Name Role Phone Stephen Foote MD Primary Care Provider + Otis Bee MD Unavailable + [phone] Stephen Foote MD Unavailable [phone] Radha Proctor MD Unavailable + Radha Proctor MD Unavailable + Jez Sam MD Unavailable +[phone] Everardo Hensley DO Unavailable + Jez Dougherty MD Unavailable + Ann Marie Wood RN Unavailable Bert Zarate DO Unavailable +[phone] Stephen Foote MD Unavailable +[phone] Sarahi Claudio [facility] Unavailable Unavailab Everardo Rodas DO Unavailable + Jez Dougherty MD Unavailable + Radha Proctor MD Unavailable + Stephen Foote MD Unavailable +[phone] Jez Dougherty MD Unavailable + Radha Proctor MD Unavailable + Nakul Kinsey DO Unavailable + [phone] Jez Dougherty MD Unavailable + Radha Proctor MD Unavailable + Otis Patino MD Unavailable +[phone] Stephen Foote MD Primary Care Provider +[phone] Jez Dougherty MD Unavailable + Reason for Visit * Reason Onset Date Comments Appointment 09/12/2020 Dx- Vertigo, Nys tagmus Encounter Details Date Type Department Care Team (Late st Contact Info) Description 09/12/2020 [facility] Audiology [address] [address] None Appointment (Dx- Vertigo, Nystagmus) Social History Tobacco Use Types Packs/Day Years Used Date Smoking Tobacco: Every Day Cigarettes Smokeless Tobacco: Current Alcohol Use Standard Drinks/Week Comments No 0 (1 standard drink = 0.6 oz pur e alcohol) PHQ-2 Answer Date Recorded PHQ-2 Score 0 03/22/2020 Sex and Gender Information Value Date Recorded Sex Assigned at Male 06/13/2021 11:39 PM FIBERGLASS BOAT BUILDER Gender Identity Male 06/13/2021 11:39 PM FIBERGLASS BOAT BUILDER Sexual Orientation Straight 06/13/2021 11 :39 PM FIBERGLASS BOAT BUILDER COVID-19 Exposure Response Date Recorded In the last month, have you been in contact with someone who was confirmed or suspected to have Coronavirus / COVID-19? No / Unsure 09/12/2020 8:10 AM CDT documented as of this encounter Miscellaneous Notes * Telephone Encounter - Berna Oseguera - 09/12/2020 8:38 AM CDT [facility] Phone Message May a detailed message be left on voicemail: yes Reason for Call: Appointment Intake Referring Provider Name: Everardo Hensley DO in [facility] Diagnosis and/or Symptoms: Dx- Vertigo, Nystagmus Pt has referral in Finalized Requests but he never had the Appt Action Taken: Message routed to: [facility]): Audiology Travel Screening: Not Applicable documented in this encounter Plan of Treatment Upcoming Encounters Date Type Department Care Team (Late st Contact Info) Description 03/22/2024 1:00 PM FIBERGLASS BOAT BUILDER Office Visit [facility] [address] [facility] [address] [place] [address] Stephen Foote MD 1982 [facility] 1 [place] [address] 05/27/2024 1:30 PM FIBERGLASS BOAT BUILDER Office Visit [facility] Multiple Sclerosis [address] [phone] Jez Dougherty MD [address] [place] [address] [id number] [place] [address] documented as of this encounter Visit Diagnoses Not on filedocumented in this encounter Additional Health Concerns Infection Onset Date Last Indicated Resolved Time Rule Out COVID-19 12/18/2021 12/18/2021 12/18/2021 10:49 PM CDT COVID-19 12/18/2021 12/18/2021 01/08/2022 11:3 9 PM CDT Assessment Noted Time PHQ-9 Depression Total Score: 0 10/13/19 21 2:06 AM CDT documented as of this encounter Care Teams Wafer Polisher Relationship Specialty Start Date End Date Stephen Foote MD PCP - General Family Practice 05/04/18 03/16/23 Stephen Foote MD [address] [address] PCP - General Family Medicine 03/17/23 Otis Bee MD [address] [place] [address] [place] [address] Orthopedics 05/07/18 Stephen Foote MD Family Practice 05/07/18 03/16/23 Radha Proctor MD [address] [place] [address] Neurology 11/25/19 Radha Proctor MD [address] [place] [address] Assigned Neuroscience Provider 03/10/20 05/05/21 Jez Sam MD 6[address] [facility] 500 [place] [address] Assigned Surgical Provider 03/10/20 Everardo Hensley DO [address] [place] [address] Neurology 10/17/20 Jez Dougherty MD [address] [place] [id number] [address] Neurology 10/17/20 Ann Marie Wood, RN Specialty Loan Funder Neurology 11/06/20 Bert Zarate DO [address] [facility] [address] [facility] 106 [place] [address] Assigned Sleep Provider 12/01/20 Stephen Foote MD 1982 [facility] 1 [place] [address] Assigned PCP 11/01/20 Sarahi Claudio, [facility] 1982 [facility] 1 [place] [address] [facility] 03/01/21 Everardo Hensley DO [address] [place] [address] Assigned Neuroscience Provider 05/06/21 06/23/21 Jez Dougherty MD [address] [place] [address] Assigned Neuroscience Provider 06/24/21 11/30/21 Radha Proctor MD [address] [place] [address] [id number] Assigned Neuroscience Provider 12/01/21 09/13/22 Stephen Foote MD [address] [address] Assigned Pain Medication Provider 05/27/22 Jez Dougherty MD [address] [address] Assigned Neuroscience Provider 09/14/22 09/20/22 Radha Proctor MD [address] [address] Assigned Neuroscience Provider 09/21/22 11/29/22 Nakul Kinsey DO 909 [place] [address] Assigned Musculoskeletal Provider 10/26/22 01/17/23 Jez Dougherty MD [address] [place] [address] Assigned Neuroscience Provider 11/30/22 12/13/22 Radha Proctor MD [address] [place] [address] Assigned Neuroscience Provider 12/14/22 05/09/23 Otis Patino MD [address] [place], [place] [address] [place] [address] Assigned Musculoskeletal Provider 01/18/23 Jez Dougherty MD [address] [place] [address] Assigned Neuroscience Provider 05/10/23 documented as of this encounter
--- OUTSIDE RECORDS SUMMARY | 2024-03-01 21:18 | XMS_ITS | Encounter Summary ---
Author Organization [facility] Address [address] [place] [address] Care Team Providers Care Telegraph Plant Maintainer Name Role Phone Stephen Foote MD Primary Care Provider + Otis Bee MD Unavailable + [phone] Stephen Foote MD Unavailable [phone] Radha Proctor MD Unavailable + Radha Proctor MD Unavailable + Jez Sam MD Unavailable +[phone] Everardo Hensley DO Unavailable + Jez Dougherty MD Unavailable + Ann Marie Wood RN Unavailable Bert Zarate DO Unavailable +[phone] Stephen Foote MD Unavailable +[phone] Sarahi Claudio [facility] Unavailable Unavailab Everardo Rodas DO Unavailable + Jez Dougherty MD Unavailable + Radha Proctor MD Unavailable + Stephen Foote MD Unavailable [phone] Jez Dougherty MD Unavailable + Radha Proctor MD Unavailable + Nakul Kinsey DO Unavailable + [phone] Jez Dougherty MD Unavailable + Radha Proctor MD Unavailable + Otis Patino MD Unavailable +[phone] Stephen Foote MD Primary Care Provider + Jez Dougherty MD Unavailable + Encounter Details Date Type Department Care Team (Late st Contact Info) Description 11/21/2020 Records - [facility] CONVERSION Scan, Non-Provider Social History Tobacco Use Types Packs/Day Years Used Date Smoking Tobacco: Every Day Cigarettes Smokeless Tobacco: Current Alcohol Use Standard Drinks/Week Comments No 0 (1 standard drink = 0.6 oz pur e alcohol) PHQ-2 Answer Date Recorded PHQ-2 Score 0 03/22/2020 Sex and Gender Information Value Date Recorded Sex Assigned at Male 06/13/2021 11:39 PM FEATHER DRYING MACHINE OPERATOR Gender Identity Male 06/13/2021 11:39 PM FEATHER DRYING MACHINE OPERATOR Sexual Orientation Straight 06/13/2021 11 :39 PM FEATHER DRYING MACHINE OPERATOR COVID-19 Exposure Response Date Recorded In the last month, have you been in contact with someone who was confirmed or suspected to have Coronavirus / COVID-19? No / Unsure 11/02/2020 11:06 AM CDT documented as of this encounter Plan of Treatment Upcoming Encounters Date Type Department Care Team (Late Contact Info) Description 03/22/2024 1:00 PM FEATHER DRYING MACHINE OPERATOR Office Visit [address] [phone] Stephen Foote MD [address] [place] [id number] 05/27/2024 1:30 PM FEATHER DRYING MACHINE OPERATOR Office [facility] Multiple Sclerosis [address] [address] Jez Dougherty MD [address] [place] [address] [id number] [place] [address] documented as of this encounter Visit Diagnoses Not on filedocumented in this encounter Additional Health Concerns Infection Onset Date Last Indicated Resolved Time Rule Out COVID-19 12/18/2021 12/18/2021 12/18/2021 10:49 PM CDT COVID-19 12/18/2021 12/18/2021 01/08/2022 11:3 9 PM CDT Assessment Noted Time PHQ-9 Depression Total Score: 0 10/13/19 2:06 AM CDT documented as of this encounter Care Teams Telegraph Plant Maintainer Relationship Specialty Start Date End Date Stephen Foote MD PCP - General Family Practice 05/04/18 03/16/23 Stephen Foote MD [address] [place] [address] PCP - General Family Medicine 03/17/23 Otis Bee MD [address] [place] [address] Orthopedics 05/07/18 Stephen Foote MD MD Family Practice 05/07/18 03/16/23 Radha Proctor MD [address] [address] Neurology 11/25/19 Radha Proctor MD [address] [address] Assigned Neuroscience Provider 03/10/20 05/05/21 Jez Sam MD [address] [facility] [address] [place] [phone] Assigned Surgical Provider 03/10/20 Everardo Hensley DO [address] [place] [address] Neurology 10/17/20 Jez Dougherty MD [address] [place] [address] Neurology 10/17/20 Ann Marie Wood, YANELIS Specialty Wearing Apparel Assembler Neurology 11/06/20 Bert Zarate DO [address] [facility] 106 [place] [address] Assigned Sleep Provider 12/01/20 Stephen Foote MD [address] [place] [address] 1 [place] [address] Assigned PCP 11/01/20 Sarahi Claudio, [facility] [address] [place] [address] 1 [place] [address] [facility] 03/01/21 Everardo Hensley DO [address] [place] [address] Assigned Neuroscience Provider 05/06/21 06/23/21 Jez Dougherty MD [address] [place] [address] Assigned Neuroscience Provider 06/24/21 11/30/21 Radha Proctor MD [address] [place] [address] Assigned Neuroscience Provider 12/01/21 09/13/22 Stephen Foote MD [address] [place] [address] Assigned Pain Medication Provider 05/27/22 Jez Dougherty MD [address] [place] [address] Assigned Neuroscience Provider 09/14/22 09/20/22 Radha Proctor MD [address] [place] [address] Assigned Neuroscience Provider 09/21/22 11/29/22 Nakul Kinsey DO [address] [place] [address] Assigned Musculoskeletal Provider 10/26/22 01/17/23 Jez Dougherty MD [address] [place] [address] Assigned Neuroscience Provider 11/30/22 12/13/22 Radha Proctor MD [address] [place] [address] Assigned Neuroscience Provider 12/14/22 05/09/23 Otis Patino MD [address] [facility] [address] [place] [address] Assigned Musculoskeletal Provider 01/18/23 Jez Dougherty MD 909 [facility] [id number] [place] [address] Assigned Neuroscience Provider 05/10/23 documented as of this encounter
--- OUTSIDE RECORDS SUMMARY | 2024-03-01 21:18 | XMS_ITS | Encounter Summary ---
Author Organization [facility] Address [address] [place] [address] Care Team Providers Care Petroleum Refining Firer Name Role Phone Stephen Foote MD Primary Care Provider + Otis Bee MD Unavailable + [phone] Stephen Foote MD Unavailable +[phone] Radha Proctor MD Unavailable + Radha Proctor MD Unavailable + Jez Sam MD Unavailable +[phone] Everardo Hensley DO Unavailable + Jez Dougherty MD Unavailable + Ann Marie Wood RN Unavailable Bert Zarate DO Unavailable +[phone] Stephen Foote MD Unavailable +[phone] Sarahi Claudio [facility] Unavailable Unavailab Everardo Rodas DO Unavailable + Jez Dougherty MD Unavailable + Radha Proctor MD Unavailable + Stephen Foote MD Unavailable +[phone] Jez Dougherty MD Unavailable + Radha Proctor MD Unavailable + Nakul Kinsey DO Unavailable + [phone] Jez Dougherty MD Unavailable + Radha Proctor MD Unavailable + Otis Patino MD Unavailable +[phone] Stephen Foote MD Primary Care Provider + Jez Dougherty MD Unavailable +[phone] Reason for Visit * Reason Onset Date Comments Call Back 11/09/2020 homecare nurse Encounter Details Date Type Department Care Team ([facility] st Contact Info) Description 11/09/2020 Telephone [facility] Multiple Sclerosis [address] [address] Jez Dougherty MD [address] [place] [address] - [id number] [address] Call Back (homecare nurse ) Social History Tobacco Use Types Packs/Day Years Used Date Smoking Tobacco: Every Day Cigarettes Smokeless Tobacco: Current Alcohol Use Standard Drinks/Week Comments No 0 (1 standard drink = 0.6 oz pur e alcohol) PHQ-2 Answer Date Recorded PHQ-2 Score 0 03/22/2020 Sex and Gender Information Value Date Recorded Sex Assigned at Male 06/13/2021 11:39 PM LIQUOR INSPECTOR Gender Identity Male 06/13/2021 11:39 PM LIQUOR INSPECTOR Sexual Orientation Straight 06/13/2021 11 :39 PM LIQUOR INSPECTOR COVID-19 Exposure Response Date Recorded In the last month, have you been in contact with someone who was confirmed or suspected to have Coronavirus / COVID-19? No / Unsure 11/02/2020 11:06 AM CDT documented as of this encounter Miscellaneous Notes * Telephone Encounter - Angie Doan, RN - 11/10/2020 11:49 AM CDT Called back Qaid who stated he has not heard [employer] to set up his injection training. Messaged [employer] contact and will follow up when he replies. Angie Doan, RN * Telephone Encounter - Emely Naik - 11/09/2020 2:29 PM CDT [facility] Call Center Phone Message May a detailed message be left on voicemail: yes Reason for Call: Other: Pt calling in to inform a homecare nurse was supposed to come to his house and show him how to administer his injection however no one showed up, pt is requesting a call back to discuss further. Thank You Action Taken: Message routed to: [facility] neuro Travel Screening: Not Applicable documented in this encounter Plan of Treatment Upcoming Encounters Date Type Department Care Team (Late st Contact Info) Description 03/22/2024 1:00 PM LIQUOR INSPECTOR Office Visit [address] [place] [phone] Stephen Foote MD [address] [place] [address] 05/27/2024 1:30 PM LIQUOR INSPECTOR Office Visit [facility] Multiple Sclerosis [address] [phone] Jez Dougherty MD [address] [place] [address] - [id number] [address] documented as of this encounter Visit Diagnoses Not on filedocumented in this encounter Additional Health Concerns Infection Onset Date Last Indicated Resolved Time Rule Out COVID-19 12/18/2021 12/18/2021 12/18/2021 10:49 PM CDT COVID-19 12/18/2021 12/18/2021 01/08/2022 11:3 9 PM CDT Assessment Noted Time PHQ-9 Depression Total Score: 0 10/13/19 2:06 AM CDT documented as of this encounter Care Teams Petroleum Refining Firer Relationship Specialty Start Date End Date Stephen Foote MD PCP - General Family Practice 05/04/18 03/16/23 Stephen Foote MD [address] [place] [address] 1 [place] [address] PCP - General Family Medicine 03/17/23 Otis Bee MD [address] [place] [address] Orthopedics 05/07/18 Stephen Foote MD MD Family Practice 05/07/18 03/16/23 Radha Proctor MD [address] [place] [address] Neurology 11/25/19 Radha Proctor MD [address] [place] [address] Assigned Neuroscience Provider 03/10/20 05/05/21 Jez Sam MD 6363 [facility] 500 [place] [phone] Assigned Surgical Provider 03/10/20 Everardo Hensley DO [address] [place] [address] Neurology 10/17/20 Jez Dougherty MD [address] [place], [place] [id number] [address] Neurology 10/17/20 Ann Marie Wood, RN Specialty Perlite Grinder Neurology 11/06/20 Bert Zarate DO [address] [facility] 106 [place], [place] [address] Assigned Sleep Provider 12/01/20 Stephen Foote MD 1982 [facility] 1 [place] [address] Assigned PCP 11/01/20 Sarahi Claudio [facility] 1982 [facility] 1 [place] [address] [facility] 03/01/21 Everardo Hensley DO 909 [place] [address] Assigned Neuroscience Provider 05/06/21 06/23/21 Jez Dougherty MD [address] [place] [address], [place] [address] Assigned Neuroscience Provider 06/24/21 11/30/21 Radha Proctor MD 909 [facility] [address] [place] [address] Assigned Neuroscience Provider 12/01/21 09/13/22 Stephen Foote MD 1982 [facility] 1 [place] [address] Assigned Pain Medication Provider 05/27/22 Jez Dougherty MD [address] [place] [address] Assigned Neuroscience Provider 09/14/22 09/20/22 Radha Proctor MD [address] [place] [address] Assigned Neuroscience Provider 09/21/22 11/29/22 Nakul Kinsey DO [address] [place] [address] Assigned Musculoskeletal Provider 10/26/22 01/17/23 Jez Dougherty MD [address] [place] [address] Assigned Neuroscience Provider 11/30/22 12/13/22 Radha Proctor MD [address] [place] [address] Assigned Neuroscience Provider 12/14/22 05/09/23 Otis Patino MD [address] [place] [address] Assigned Musculoskeletal Provider 01/18/23 Jez Dougherty MD [address] [place] [address] Assigned Neuroscience Provider 05/10/23 documented as of this encounter
--- OUTSIDE RECORDS SUMMARY | 2024-03-01 21:18 | XMS_ITS | Encounter Summary ---
Author Organization [facility] Address [address] [place] [address] Care Team Providers Care Tanning Solution Maker Name Role Phone Stephen Foote MD Primary Care Provider + Otis Bee MD Unavailable + [phone] Stephen Foote MD Unavailable [phone] Radha Proctor MD Unavailable + Radha Proctor MD Unavailable + Jez Sam MD Unavailable +[phone] Everardo Hensley DO Unavailable + Jez Dougherty MD Unavailable + Ann Marie Wood RN Unavailable Bert Zarate DO Unavailable +[phone] Stephen Foote MD Unavailable +[phone] Sarahi Claudio [facility] Unavailable Unavailab Everardo Rodas DO Unavailable + Jez Dougherty MD Unavailable + Radha Proctor MD Unavailable + Stephen Foote MD Unavailable +[phone] Jez Dougherty MD Unavailable + Radha Proctor MD Unavailable + Nakul Kinsey Unavailable + [phone] Jez Dougherty MD Unavailable + Radha Proctor MD Unavailable + Otis Patino MD Unavailable +[phone] Stephen Foote MD Primary Care Provider + Jez Dougherty MD Unavailable + Encounter Details Date Type Department Care Team (Late st Contact Info) Description 09/13/2020 MyC Medical Advice [facility] [address] [phone] Kath Chamberlain, YANELIS Social History Tobacco Use Types Packs/Day Years Used Date Smoking Tobacco: Every Day Cigarettes Smokeless Tobacco: Current Alcohol Use Standard Drinks/Week Comments No 0 (1 standard drink = 0.6 oz pur e alcohol) PHQ-2 Answer Date Recorded PHQ-2 Score 0 03/22/2020 Sex and Gender Information Value Date Recorded Sex Assigned at Male 06/13/2021 11:39 PM FORMING PROCESS LINE WORKER Gender Identity Male 06/13/2021 11:39 PM FORMING PROCESS LINE WORKER Sexual Orientation Straight 06/13/2021 11 :39 PM FORMING PROCESS LINE WORKER COVID-19 Exposure Response Date Recorded In the last month, have you been in contact with someone who was confirmed or suspected to have Coronavirus / COVID-19? No / Unsure 09/12/2020 8:10 AM CDT documented as of this encounter Plan of Treatment Upcoming Encounters Date Type Department Care Team (Late st Contact Info) Description 03/22/2024 1:00 PM FORMING PROCESS LINE WORKER Office Visit [facility] [address] [facility] 1 [place] [address] Stephen Foote MD 1982 [facility] 1 [place] [address] 05/27/2024 1:30 PM FORMING PROCESS LINE WORKER Office Visit [facility] Multiple Sclerosis Clinic [address] [address] Jez Dougherty MD 909 [id number] [place], [place] [address] documented as of this encounter Visit Diagnoses Not on filedocumented in this encounter Additional Health Concerns Infection Onset Date Last Indicated Resolved Time Rule Out COVID-19 12/18/2021 12/18/2021 12/18/2021 10:49 PM CDT COVID-19 12/18/2021 12/18/2021 01/08/2022 11:3 9 PM CDT Assessment Noted Time PHQ-9 Depression Total Score: 0 10/13/19 21 2:06 AM CDT documented as of this encounter Care Teams Tanning Solution Maker Relationship Specialty Start Date End Date Stephen Foote MD PCP - General Family Practice 05/04/18 03/16/23 Stephen Foote MD [address] [place] [address] PCP - General Family Medicine 03/17/23 Otis Bee MD [address] [place] [address] Orthopedics 05/07/18 Stephen Foote MD Family Practice 05/07/18 03/16/23 Radha Proctor MD [address] [place] [address] Neurology 11/25/19 Radha Proctor MD [address] [place] [address] 516975 Assigned Neuroscience Provider 03/10/20 05/05/21 Jez Sam MD 6363 [facility] [place] 500 [place] [phone] Assigned Surgical Provider 03/10/20 Everardo Hensley DO 909 [place] [address] Neurology 10/17/20 Jez Dougherty MD [address] [place] [address] [id number] [place] [address] Neurology 10/17/20 Ann Marie Wood, YANELIS Specialty Acds Block 1 Operator Neurology 11/06/20 Bert Zarate DO [address] [facility] [address] [facility] 106 [place] [address] Assigned Sleep Provider 12/01/20 Stephen Foote MD 1982 [facility] 1 [place] [address] Assigned PCP 11/01/20 Sarahi Claudio, [facility] 1982 [facility] 1 [place] [address] [facility] 03/01/21 Everardo Hensley DO [address] [place] [address] Assigned Neuroscience Provider 05/06/21 06/23/21 Jez Dougherty MD [address] [address] Assigned Neuroscience Provider 06/24/21 11/30/21 Radha Proctor MD [address] [place] [address] Assigned Neuroscience Provider 12/01/21 09/13/22 Stephen Foote MD [address] [place] [address] Assigned Pain Medication Provider 05/27/22 Jez Dougherty MD [address] [place] [address] Assigned Neuroscience Provider 09/14/22 09/20/22 Radha Proctor MD [address] [place] [address] Assigned Neuroscience Provider 09/21/22 11/29/22 Nakul Kinsey DO [address] [place] [address] Assigned Musculoskeletal Provider 10/26/22 01/17/23 Jez Dougherty MD [address] [place] [address] Assigned Neuroscience Provider 11/30/22 12/13/22 Radha Proctor MD [address] [place] [address] Assigned Neuroscience Provider 12/14/22 05/09/23 Otis Patino MD 24[address] [facility] [address] [place] [address] Assigned Musculoskeletal Provider 01/18/23 Jez Dougherty MD 909 [facility] - [id number] [place] [address] Assigned Neuroscience Provider 05/10/23 documented as of this encounter
--- OUTSIDE RECORDS SUMMARY | 2024-03-01 21:18 | XMS_ITS | Encounter Summary ---
Author Organization [facility] Address [address] [place] [address] Care Team Providers Care Ux Design Manager Name Role Phone Stephen Foote MD Primary Care Provider + Otis Bee MD Unavailable + [phone] Stephen Foote MD Unavailable [phone] Radha Proctor MD Unavailable + Radha Proctor MD Unavailable + Jez Sam MD Unavailable +[phone] Everardo Hensley DO Unavailable + Jez Dougherty MD Unavailable + Ann Marie Wood RN Unavailable Bert Zarate DO Unavailable +[phone] Stephen Foote MD Unavailable +[phone] Sarahi Claudio [facility] Unavailable Unavailab Everardo Rodas DO Unavailable + Jez Dougherty MD Unavailable + Radha Proctor MD Unavailable + Stephen Foote MD Unavailable +[phone] Jez Dougherty MD Unavailable + Radha Proctor MD Unavailable + Nakul Kinsey DO Unavailable + 0 Jez Dougherty MD Unavailable +[phone] Radha Proctor MD Unavailable + Otis Patino MD Unavailable + [phone] Stephen Foote MD Primary Care Provider + Jez Dougherty MD Unavailable +[phone] Reason for Visit * Reason Onset Date Comments Call Back 09/11/2020 Encounter Details Date Type Department Care Team ([facility] st Contact Info) Description 09/11/2020 [facility] Neurology Clinic [address] [address] Everardo Hensley DO [address] [place] [address] Call Back Social History Tobacco Use Types Packs/Day Years Used Date Smoking Tobacco: Every Day Cigarettes Smokeless Tobacco: Current Alcohol Use Standard Drinks/Week Comments No 0 (1 standard drink = 0.6 oz pur e alcohol) PHQ-2 Answer Date Recorded PHQ-2 Score 0 03/22/2020 Sex and Gender Information Value Date Recorded Sex Assigned at Male 06/13/2021 11:39 PM NETWORK SERVICES PROJECT MANAGER Gender Identity Male 06/13/2021 11:39 PM NETWORK SERVICES PROJECT MANAGER Sexual Orientation Straight 06/13/2021 11 :39 PM NETWORK SERVICES PROJECT MANAGER COVID-19 Exposure Response Date Recorded In the last month, have you been in contact with someone who was confirmed or suspected to have Coronavirus / COVID-19? No / Unsure 09/12/2020 8:10 AM CDT documented as of this encounter Miscellaneous Notes * Telephone Encounter - Jorgito Florence L - 09/11/2020 10:08 AM CDT [facility] Call Center Phone Message May a detailed message be left on voicemail: yes Reason for Call: Other: Patient calling to set up an appointment for the [place]. Real Estate Site Analyst attempted to schedule but no available appointments. Patient also mentioned he's suppose to see ENT, MRI and PT. Please call to discuss Action Taken: Other: [facility] neurology Travel Screening: Not Applicable documented in this encounter Plan of Treatment Upcoming Encounters Date Type Department Care Team (Late st Contact Info) Description 03/22/2024 1:00 PM NETWORK SERVICES PROJECT MANAGER Office Visit [facility] [address] [facility] [address] [place] [phone] Stephen Foote MD 1982 [facility] 1 [place] [address] 05/27/2024 1:30 PM NETWORK SERVICES PROJECT MANAGER Office Visit [facility] Multiple Sclerosis [address] [phone] Jez Dougherty MD [address] [place] [address] - [id number] [place], [place] [address] documented as of this encounter Visit Diagnoses Not on filedocumented in this encounter Additional Health Concerns Infection Onset Date Last Indicated Resolved Time Rule Out COVID-19 12/18/2021 12/18/2021 12/18/2021 10:49 PM CDT COVID-19 12/18/2021 12/18/2021 01/08/2022 11:3 9 PM CDT Assessment Noted Time PHQ-9 Depression Total Score: 0 10/13/19 21 2:06 AM CDT documented as of this encounter Care Teams Ux Design Manager Relationship Specialty Start Date End Date Stephen Foote MD PCP - General Family Practice 05/04/18 03/16/23 Stephen Foote MD 1982 [facility] 1 [place] [address] PCP - General Family Medicine 03/17/23 Otis Bee MD 909 [place] [address] Orthopedics 05/07/18 Stephen Foote MD Family Practice 05/07/18 03/16/23 Radha Proctor MD [address] [place] [address] Neurology 11/25/19 Radha Proctor MD [address] [place] [address] Assigned Neuroscience Provider 03/10/20 05/05/21 Jez Sam MD 6363 [facility] 500 [place] [phone] Assigned Surgical Provider 03/10/20 Everardo Hensley DO [address] [place] [address] Neurology 10/17/20 Jez Dougherty MD [address] [place] [id number] [address] Neurology 10/17/20 Ann Marie Wood, RN Specialty Home Security Alarm Installer Neurology 11/06/20 Bert Zarate DO [address] [facility] [address] [facility] 106 [place] [address] Assigned Sleep Provider 12/01/20 Stephen Foote MD 1982 [facility] 1 [place] [address] Assigned PCP 11/01/20 Sarahi Claudio, [facility] [address] [address] [facility] 03/01/21 Everardo Hensley DO [address] [place] [address] Assigned Neuroscience Provider 05/06/21 06/23/21 Jez Dougherty MD [address] [place] [address] Assigned Neuroscience Provider 06/24/21 11/30/21 Radha Proctor MD [address] [place] [address]295 Assigned Neuroscience Provider 12/01/21 09/13/22 Stephen Foote MD [address] [place] [address] Assigned Pain Medication Provider 05/27/22 Jez Dougherty MD [address] [place] [address] Assigned Neuroscience Provider 09/14/22 09/20/22 Radha Proctor MD [address] [place] [address] Assigned Neuroscience Provider 09/21/22 11/29/22 Nakul Kinsey DO 909 [place] [address] Assigned Musculoskeletal Provider 10/26/22 01/17/23 Jez Dougherty MD [address] [place] [address] Assigned Neuroscience Provider 11/30/22 12/13/22 Radha Proctor MD [address] [place] [address] Assigned Neuroscience Provider 12/14/22 05/09/23 Otis Patino MD [address] [place] [address] Assigned Musculoskeletal Provider 01/18/23 Jez Dougherty MD [address] [place] [address] Assigned Neuroscience Provider 05/10/23 documented as of this encounter
--- OUTSIDE RECORDS SUMMARY | 2024-03-01 21:18 | XMS_ITS | Encounter Summary ---
Author Organization [place] Address [address] [place] [address] Care Team Providers Care Dredge Boat Engineer Name Role Phone Stephen Foote MD Primary Care Provider + Otis Bee MD Unavailable + [phone] Stephen Foote MD Unavailable +[phone] Radha Proctor MD Unavailable + Radha Proctor MD Unavailable + Jez Sam MD Unavailable +[phone] Everardo Hensley DO Unavailable + Jez Dougherty MD Unavailable + Ann Marie Wood RN Unavailable Bert Zarate DO Unavailable +[phone] Stephen Foote MD Unavailable +[phone] Sarahi Claudio [facility] Unavailable Unavailab Everardo Rodas DO Unavailable + Jez Dougherty MD Unavailable + Radha Proctor MD Unavailable + Stephen Foote MD Unavailable +[phone] Jez Dougherty MD Unavailable + Radha Proctor MD Unavailable + Nakul Kinsey DO Unavailable + 0 Jez Dougherty MD Unavailable +[phone] Radha Proctor MD Unavailable + Otis Patino MD Unavailable + [phone] Stephen Foote MD Primary Care Provider + Jez Dougherty MD Unavailable +[phone] Reason for Visit * Reason Onset Date Comments Medication Question 12/04/2020 Encounter Details Date Type Department Care Team (Late st Contact Info) Description 12/04/2020 Telephone [facility] Multiple Sclerosis [address] [address] Jez Dougherty MD [address] [place] [address] - [id number] [place] [address] Medication Question Social History Tobacco Use Types Packs/Day Years Used Date Smoking Tobacco: Every Day Cigarettes Smokeless Tobacco: Current Alcohol Use Standard Drinks/Week Comments No 0 (1 standard drink = 0.6 oz pur e alcohol) PHQ-2 Answer Date Recorded PHQ-2 Score 0 03/22/2020 Sex and Gender Information Value Date Recorded Sex Assigned at Male 06/13/2021 11:39 PM FISH HEADER Gender Identity Male 06/13/2021 11:39 PM FISH HEADER Sexual Orientation Straight 06/13/2021 11 :39 PM FISH HEADER documented as of this encounter Miscellaneous Notes * Telephone Encounter - Angie Doan RN - 12/04/2020 11:07 AM CDT Spoke with Ibrahima who stated he is experiencing swelling (like knots) at his injections sites. Directed Danielid to ice the areas before and after injections. Also explained that the clinic is in the process of appealing the Copaxone 40 mg formulation and will keep Danielid updated on the process. Angie Doan RN * Telephone Encounter - Sirisha Colmenares - 12/04/2020 9:35 AM CDT [facility] Phone Message May a detailed message be left on voicemail: yes Reason for Call: Medication Question or concern regarding medication Prescription Clarification Name of Medication: COPAXONE 20 MG/ML injection Prescribing Provider: [facility]:N/A What on the order needs clarification? Patient have knots in thighs and stomach, please call patient at [phone] to advised. Action Taken: Message routed [facility] Neurology Travel Screening: Not Applicable documented in this encounter Plan of Treatment Upcoming Encounters Date Type Department Care Team (Late st Contact Info) Description 03/22/2024 1:00 PM FISH HEADER Office Visit [address] [place] [address] Stephen Foote MD [address] [place] [address] 05/27/2024 1:30 PM FISH HEADER Office Visit [facility] Multiple Sclerosis [address] [phone] Jez Dougherty MD [address] [place] [address] - [id number] [place] [address] documented as of this encounter Visit Diagnoses Not on filedocumented in this encounter Additional Health Concerns Infection Onset Date Last Indicated Resolved Time Rule Out COVID-19 12/18/2021 12/18/2021 12/18/2021 10:49 PM CDT COVID-19 12/18/2021 12/18/2021 01/08/2022 11:3 9 PM CDT Assessment Noted Time PHQ-9 Depression Total Score: 0 10/13/19 21 2:06 AM CDT documented as of this encounter Care Teams Dredge Boat Engineer Relationship Specialty Start Date End Date Stephen Foote MD PCP - General Family Practice 05/04/18 03/16/23 Stephen Foote MD [address] [place] [address] 1 [place] [address] PCP - General Family Medicine 03/17/23 Otis Bee MD [address] [place] [address] Orthopedics 05/07/18 Stephen Foote MD MD Family Practice 05/07/18 03/16/23 Radha Proctor MD [address] [place] [address] [id number] Neurology 11/25/19 Radha Proctor MD [address] [place] [address] [id number] Assigned Neuroscience Provider 03/10/20 05/05/21 Jez Sam MD 6363 [facility] 500 [place] [phone] Assigned Surgical Provider 03/10/20 Everardo Hensley DO [address] [place] [address] 099865 Neurology 10/17/20 Jez Dougherty MD [address] [place], [place] [id number], [place] 67[address] Neurology 10/17/20 Ann Marie Wood, RN Specialty Fish Liver Sorter Neurology 11/06/20 Bert Zarate DO [address] [facility] 106 [place], [place] 170194 Assigned Sleep Provider 12/01/20 Stephen Foote MD [address] [facility] 1 [place] [address] Assigned PCP 11/01/20 Sarahi Claudio [facility] [address] [facility] 1 [place] [address] [facility] 03/01/21 Everardo Hensley DO 9 [place] [address] Assigned Neuroscience Provider 05/06/21 06/23/21 Jez Dougherty MD [address] [place] [address] [address] Assigned Neuroscience Provider 06/24/21 11/30/21 Radha Proctor MD 9 [facility] 2121 [place] [address] Assigned Neuroscience Provider 12/01/21 09/13/22 Stephen Foote MD [address] [facility] 1 [place], [place] [id number] Assigned Pain Medication Provider 05/27/22 Jez Dougherty MD [address] [address], [place] [address] Assigned Neuroscience Provider 09/14/22 09/20/22 Radha Proctor MD [address] [place] [address] Assigned Neuroscience Provider 09/21/22 11/29/22 Nakul Kinsey DO [address] [place] [address] Assigned Musculoskeletal Provider 10/26/22 01/17/23 Jez Dougherty MD [address] [place] [address] Assigned Neuroscience Provider 11/30/22 12/13/22 Radha Proctor MD [address] [place] [address] Assigned Neuroscience Provider 12/14/22 05/09/23 [place] [address] [place] [address] [address] [place] [address] Assigned Musculoskeletal Provider 01/18/23 Jez Dougherty MD [address] [place] [address] Assigned Neuroscience Provider 05/10/23 documented as of this encounter
--- OUTSIDE RECORDS SUMMARY | 2024-03-01 21:18 | XMS_ITS | Encounter Summary ---
Author Organization [place] Address [address] [place] [address] Care Team Providers Care Rug Cutter Name Role Phone Stephen Foote MD Primary Care Provider + Otis Bee MD Unavailable + [phone] Stephen Foote MD Unavailable [phone] Radha Proctor MD Unavailable + Radha Proctor MD Unavailable + Jez Sam MD Unavailable +[phone] Everardo Hensley DO Unavailable + Jez Dougherty MD Unavailable + Ann Marie Wood RN Unavailable Bert Zarate DO Unavailable +[phone] Stephen Foote MD Unavailable +[phone] Sarahi Claudio [facility] Unavailable Unavailab Everardo Rodas DO Unavailable + Jez Dougherty MD Unavailable + Radha Proctor MD Unavailable + Stephen Foote MD Unavailable +[phone] Jez Dougherty MD Unavailable + Radha Proctor MD Unavailable + Nakul Kinsey DO Unavailable + 0 Jez Dougherty MD Unavailable +[phone] Radha Proctor MD Unavailable +[phone] Otis Patino MD Unavailable + [phone] Stephen Foote MD Primary Care Provider +[phone] Jez Dougherty MD Unavailable +[phone] Reason for Visit * Reason Onset Date Comments Medication Question 11/22/2020 PT wants to know if he can be put on Ocrevus Encounter Details Date Type Department Care Team (Late st Contact Info) Description 11/22/2020 Telephone [facility] Multiple Sclerosis [address] [address] Jez Dougherty MD [address] [place] [address] - [id number] [place], [place] [id number] Medication Question (PT wants to know if he can be put on Ocrevus) Social History Tobacco Use Types Packs/Day Years Used Date Smoking Tobacco: Every Day Cigarettes Smokeless Tobacco: Current Alcohol Use Standard Drinks/Week Comments No 0 (1 standard drink = 0.6 oz pur e alcohol) PHQ-2 Answer Date Recorded PHQ-2 Score 0 03/22/2020 Sex and Gender Information Value Date Recorded Sex Assigned at Male 06/13/2021 11:39 PM SQUAD SERGEANT Gender Identity Male 06/13/2021 11:39 PM SQUAD SERGEANT Sexual Orientation Straight 06/13/2021 11 :39 PM SQUAD SERGEANT COVID-19 Exposure Response Date Recorded In the last month, have you been in contact with someone who was confirmed or suspected to have Coronavirus / COVID-19? No / Unsure 11/02/2020 11:06 AM CDT documented as of this encounter Miscellaneous Notes * Telephone Encounter - Jez Dougherty MD - 11/24/2020 11:35 AM CDT We can try to appeal to get 40 mg Copaxone covered for him at any time, but I am not sure that his insurer is going to allow this unless he fails another, different product as well. This is not really clear from the initial denial letter. * Telephone Encounter - Angie Doan, YANELIS - 11/23/2020 10:42 AM CDT Called Ibrahima and explained that Ocrevus is not advised for him per Dr. Dougherty. Ibrahima understandsbut is having a lot of trouble with daily injections of Copaxone. He describes burning while injecting and has a hard time injecting in some of the preferred spots. He would like to switch to Copaxone 40 mg but insurance is not allowing at this time. Advised Ibrahima to continue with his injections at this time and the clinic will follow up on plan. Angie Doan RN * Telephone Encounter - Sonya Tarango - 11/22/2020 11:38 AM CDT [facility] Phone Message May a detailed message be left on voicemail: yes Reason for Call: Other: Pt wants to know if he can be put on the medication Ocrevus. Would like a call back to discuss. Thanks! Action Taken: Message routed to: [facility] neuro Travel Screening: Not Applicable documented in this encounter Plan of Treatment Upcoming Encounters Date Type Department Care Team (Late st Contact Info) Description 03/22/2024 1:00 PM SQUAD SERGEANT Office Visit [facility] 1982 [facility] 1 [place] [address] Stephen Foote MD 1982 [facility] 1 [place] [address] 05/27/2024 1:30 PM SQUAD SERGEANT Office Visit [facility] Multiple [facility] Clinic [address] [phone] Jez Dougherty MD [address] [place] [address] - [id number] [place], [place] [address] documented as of this encounter Visit Diagnoses Not on filedocumented in this encounter Additional Health Concerns Infection Onset Date Last Indicated Resolved Time Rule Out COVID-19 12/18/2021 12/18/2021 12/18/2021 10:49 PM CDT COVID-19 12/18/2021 12/18/2021 01/08/2022 11:3 9 PM CDT Assessment Noted Time PHQ-9 Depression Total Score: 0 10/13/19 21 2:06 AM CDT documented as of this encounter Care Teams Rug Cutter Relationship Specialty Start Date End Date Stephen Foote MD PCP - General Family Practice 05/04/18 03/16/23 Stephen Foote MD [address] [place] [address] PCP - General Family Medicine 03/17/23 Otis Bee MD [address] [place] [address] Orthopedics 05/07/18 Stephen Foote MD MD Family Practice 05/07/18 03/16/23 Radha Proctor MD [address] [place] [address] Neurology 11/25/19 Radha Proctor MD [address] [place] [address] [place] [address] Assigned Neuroscience Provider 03/10/20 05/05/21 Jez Sam MD 6363 [facility] 500 [place] [address] Assigned Surgical Provider 03/10/20 Everardo Hensley DO 909 [place] [address] Neurology 10/17/20 Jez Dougherty MD 909 [facility]2121[address]J [place] [address] Neurology 10/17/20 Ann Marie Wood, RN Specialty Divisional Human Resources Director Neurology 11/06/20 Bert Zarate DO [address] [facility] [address] [place] [address] [place] [address] Assigned Sleep Provider 12/01/20 Stephen Foote MD 1982 [facility] 1 [place] [address] Assigned PCP 11/01/20 Sarahi Claudio, [facility] [address] [facility] 1 [place] [address] Pharmacist 03/01/21 Everardo Hensley DO 909 [place] [address] Assigned Neuroscience Provider 05/06/21 06/23/21 Jez Dougherty MD [address] [place] [address] Assigned Neuroscience Provider 06/24/21 11/30/21 Radha Proctor MD [address] [place] [address] Assigned Neuroscience Provider 12/01/21 09/13/22 Stephen Foote MD [address] [place] [address] Assigned Pain Medication Provider 05/27/22 Jez Dougherty MD [address] [place] [address] Assigned Neuroscience Provider 09/14/22 09/20/22 Radha Proctor MD [address] [place] [address] Assigned Neuroscience Provider 09/21/22 11/29/22 Nakul Kinsey DO [address] [place] [address] Assigned Musculoskeletal Provider 10/26/22 01/17/23 Jez Dougherty MD [address] [place] [address] Assigned Neuroscience Provider 11/30/22 12/13/22 Radha Proctor MD [address] [place] [address] Assigned Neuroscience Provider 12/14/22 05/09/23 Otis Patino MD 2450 [facility] [address] [place] [address] Assigned Musculoskeletal Provider 01/18/23 Jez Dougherty MD 909 [facility] [id number] [place] [address] Assigned Neuroscience Provider 05/10/23 documented as of this encounter
--- OUTSIDE RECORDS SUMMARY | 2024-03-01 21:18 | XMS_ITS | Encounter Summary ---
Author Organization [place] Address [address] [place] [address] Care Team Providers Care Audit Senior Associate Name Role Phone Stephen Foote MD Primary Care Provider + Otis Bee MD Unavailable + [phone] Stephen Foote MD Unavailable [phone] Radha Proctor MD Unavailable + Radha Proctor MD Unavailable + Jez Sam MD Unavailable +[phone] Everardo Hensley DO Unavailable + Jez Dougherty MD Unavailable + Ann Marie Wood RN Unavailable Bert Zarate DO Unavailable +[phone] Stephen Foote MD Unavailable +[phone] Sarahi Claudio [facility] Unavailable Unavailab Everardo Rodas DO Unavailable + Jez Dougherty MD Unavailable + Radha Proctor MD Unavailable + Stephen Foote MD Unavailable +[phone] Jez Dougherty MD Unavailable + Radha Proctor MD Unavailable + Nakul Kinsey DO Unavailable + 0 Jez Dougherty MD Unavailable + Radha Proctor MD Unavailable + Otis Patino MD Unavailable +[phone] Stephen Foote MD Primary Care Provider + Jez Dougherty MD Unavailable + Encounter Details Date Type Department Care Team (Late st Contact Info) Description 09/27/2020 Records - [facility] CONVERSION Scan, Non-Provider Social History Tobacco Use Types Packs/Day Years Used Date Smoking Tobacco: Every Day Cigarettes Smokeless Tobacco: Current Alcohol Use Standard Drinks/Week Comments No 0 (1 standard drink = 0.6 oz pur e alcohol) PHQ-2 Answer Date Recorded PHQ-2 Score 0 03/22/2020 Sex and Gender Information Value Date Recorded Sex Assigned at Male 06/13/2021 11:39 PM REGIONAL RETAIL SALES MANAGER Gender Identity Male 06/13/2021 11:39 PM REGIONAL RETAIL SALES MANAGER Sexual Orientation Straight 06/13/2021 11 :39 PM REGIONAL RETAIL SALES MANAGER COVID-19 Exposure Response Date Recorded In the last month, have you been in contact with someone who was confirmed or suspected to have Coronavirus / COVID-19? No / Unsure 09/12/2020 8:10 AM CDT documented as of this encounter Plan of Treatment Upcoming Encounters Date Type Department Care Team (Late Contact Info) Description 03/22/2024 1:00 PM REGIONAL RETAIL SALES MANAGER Office Visit [address] [phone] Stephen Foote MD [address] [place] [address] [id number] 05/27/2024 1:30 PM REGIONAL RETAIL SALES MANAGER Office Visit [facility] Multiple Sclerosis [address] [address] Jez Dougherty MD [address] [place] [address] [id number] [place] [address] documented as of this encounter Visit Diagnoses Not on filedocumented in this encounter Additional Health Concerns Infection Onset Date Last Indicated Resolved Time Rule Out COVID-19 12/18/2021 12/18/2021 12/18/2021 10:49 PM CDT COVID-19 12/18/2021 12/18/2021 01/08/2022 11:3 9 PM CDT Assessment Noted Time PHQ-9 Depression Total Score: 0 10/13/19 2:06 AM CDT documented as of this encounter Care Teams Audit Senior Associate Relationship Specialty Start Date End Date Stephen Foote MD PCP - General Family Practice 05/04/18 03/16/23 Stephen Foote MD [address] [place] [address] PCP - General Family Medicine 03/17/23 Otis Bee MD [address] [place] [address] Orthopedics 05/07/18 Stephen Foote MD MD Family Practice 05/07/18 03/16/23 Radha Proctor MD [address] [address] Neurology 11/25/19 Radha Proctor MD [address] [address] Assigned Neuroscience Provider 03/10/20 05/05/21 Jez Sam MD [address] [facility] [address] [place] 500 [place] [phone] Assigned Surgical Provider 03/10/20 Everardo Hensley DO [address] [place] [address] Neurology 10/17/20 Jez Dougherty MD [address] [place] [address] Neurology 10/17/20 Ann Marie Wood, YANELIS Specialty Felling Bucking Supervisor Neurology 11/06/20 Bert Zarate DO [address] [facility] 106 [place] [address] Assigned Sleep Provider 12/01/20 Stephen Foote MD [address] [place] [address] 1 [place] [address] Assigned PCP 11/01/20 Sarahi Claudio, [facility] [address] [place] [address] 1 [place] [address] [facility] 03/01/21 Everardo Hensley DO [address] [place] [address] Assigned Neuroscience Provider 05/06/21 06/23/21 Jez Dougherty MD [address] [place] [address] Assigned Neuroscience Provider 06/24/21 11/30/21 Radha Proctor MD [address] [place] [address] Assigned Neuroscience Provider 12/01/21 09/13/22 Stephen Foote MD [address] [place] [address] Assigned Pain Medication Provider 05/27/22 Jez Dougherty MD [address] [place] [address] Assigned Neuroscience Provider 09/14/22 09/20/22 Radha Proctor MD [address] [place] [address] Assigned Neuroscience Provider 09/21/22 11/29/22 Nakul Kinsey DO [address] [place] [address] Assigned Musculoskeletal Provider 10/26/22 01/17/23 Jez Dougherty MD [address] [place] [address] Assigned Neuroscience Provider 11/30/22 12/13/22 Radha Proctor MD [address] [place] [address] Assigned Neuroscience Provider 12/14/22 05/09/23 Otis Patino MD [facility] [address] [place] [address] Assigned Musculoskeletal Provider 01/18/23 Jez Dougherty MD 909 [facility] [id number] [place] [address] Assigned Neuroscience Provider 05/10/23 documented as of this encounter
--- OUTSIDE RECORDS SUMMARY | 2024-03-01 21:19 | XMS_ITS | Encounter Summary ---
Author Organization [place] Address [address] [place] [address] Care Team Providers Care Tool Specialist Name Role Phone Stephen Foote MD Primary Care Provider + Otis Bee MD Unavailable + [phone] Stephen Foote MD Unavailable +[phone] Radha Proctor MD Unavailable + Radha Proctor MD Unavailable + Jez Sam MD Unavailable +[phone] Eevrardo Hensley DO Unavailable + Jez Dougherty MD Unavailable + Ann Marie Wood RN Unavailable Bret Zarate DO Unavailable +[phone] Stephen Foote MD Unavailable +[phone] Sarahi Claudio [facility] Unavailable Unavailab Everardo Rodas DO Unavailable + Jez Dougherty MD Unavailable + Radha Proctor MD Unavailable + Stephen Foote MD Unavailable +[phone] Jez Dougherty MD Unavailable + Radha Proctor MD Unavailable + Nakul Kinsey Unavailable + 0 Jez Dougherty MD Unavailable + Radha Proctor MD Unavailable + Otis Patino MD Unavailable +[phone] Stephen Foote MD Primary Care Provider + Jez Dougherty MD Unavailable + Encounter Details Date Type Department Care Team (Late st Contact Info) Description 08/09/2020 Documentation Only [facility] [address] [place] [address] Unknown, Provider Social History Tobacco Use Types Packs/Day Years Used Date Smoking Tobacco: Every Day Cigarettes Smokeless Tobacco: Current Alcohol Use Standard Drinks/Week Comments No 0 (1 standard drink = 0.6 oz pur e alcohol) PHQ-2 Answer Date Recorded PHQ-2 Score 0 03/22/2020 Sex and Gender Information Value Date Recorded Sex Assigned at Male 06/13/2021 11:39 PM ARCHITECTURE DRAFTER Gender Identity Male 06/13/2021 11:39 PM ARCHITECTURE DRAFTER Sexual Orientation Straight 06/13/2021 11 :39 PM ARCHITECTURE DRAFTER COVID-19 Exposure Response Date Recorded In the last month, have you been in contact with someone who was confirmed or suspected to have Coronavirus / COVID-19? Unable to assess 08/11/2020 11:12 AM CDT documented as of this encounter Plan of Treatment Upcoming Encounters Date Type Department Care Team (Late st Contact Info) Description 03/22/2024 1:00 PM ARCHITECTURE DRAFTER [facility] [address] [place] [address] [address] [place] [phone] Stephen Foote MD [address] [place] [address] 05/27/2024 1:30 PM ARCHITECTURE DRAFTER Office Visit [facility] Multiple Sclerosis [address] [address] Jez Dougherty MD 909 [facility] - [id number] [address] documented as of this encounter Visit Diagnoses Not on filedocumented in this encounter Additional Health Concerns Infection Onset Date Last Indicated Resolved Time Rule Out COVID-19 08/11/2020 08/11/2020 08/11/2020 5:30 PM CDT Rule Out COVID-19 12/18/2021 12/18/2021 12/18/2021 10:49 PM CDT COVID-19 12/18/2021 12/18/2021 01/08/2022 11:3 9 PM CDT Assessment Noted Time PHQ-9 Depression Total Score: 0 10/13/19 2:06 AM CDT documented as of this encounter Care Teams Tool Specialist Relationship Specialty Start Date End Date Stephen Foote MD PCP - General Family Practice 05/04/18 03/16/23 Stephen Foote MD [address] [place] [address] PCP - General Family Medicine 03/17/23 Otis Bee MD [address] [place] [address] Orthopedics 05/07/18 Stephen Foote MD Family Practice 05/07/18 03/16/23 Radha Proctor MD [address] [place] [address] 2121 [place] [address] Neurology 11/25/19 Radha Proctor MD 909 [facility] 2121 [place] [address] Assigned Neuroscience Provider 03/10/20 05/05/21 Jez Sam MD 6363 [facility] 500 [place] [address] Assigned Surgical Provider 03/10/20 vEerardo Hensley DO 909 [place] [address] Neurology 10/17/20 Jez Dougherty MD 909 [id number] [place] [address] Neurology 10/17/20 Ann Marie Wodo, RN Specialty Cooky Packer Neurology 11/06/20 Bert Zarate DO [address] [place] [address] 106 [place] [address] Assigned Sleep Provider 12/01/20 Stephen Foote MD [address] [place] [address] 1 [place] [address] Assigned PCP 11/01/20 Sarahi Claudio, [facility] 1982 [facility] 1 [place] [address] Pharmacist 03/01/21 Everardo Hensley DO [address] [place] [address] Assigned Neuroscience Provider 05/06/21 06/23/21 Jez Dougherty MD [address] [place] [address] Assigned Neuroscience Provider 06/24/21 11/30/21 Radha Proctor MD [address] [place] [address] Assigned Neuroscience Provider 12/01/21 09/13/22 Stephen Foote MD [address] [place] [address] Assigned Pain Medication Provider 05/27/22 Jez Dougherty MD [address] [place] [address] Assigned Neuroscience Provider 09/14/22 09/20/22 Radha Proctor MD [address] [place] [address] Assigned Neuroscience Provider 09/21/22 11/29/22 Nakul Kinsey DO [address] [place] [address] Assigned Musculoskeletal Provider 10/26/22 01/17/23 Jez Dougherty MD [address] [place] [address] Assigned Neuroscience Provider 11/30/22 12/13/22 Radha Proctor MD [address] [place] [address] Assigned Neuroscience Provider 12/14/22 05/09/23 Otis Patino MD 2450 [facility] [address] [place] [address] Assigned Musculoskeletal Provider 01/18/23 Jez Dougherty MD 909 [id number] [place] [address] Assigned Neuroscience Provider 05/10/23 documented as of this encounter
--- OUTSIDE RECORDS SUMMARY | 2024-03-01 21:19 | XMS_ITS | Encounter Summary ---
Author Organization [place] Address [address] [place] [address] Care Team Providers Care Merchandise Director Name Role Phone Stephen Foote MD Primary Care Provider + Otis Bee MD Unavailable + [phone] Stephen Foote MD Unavailable +[phone] Radha Proctor MD Unavailable + Rahda Proctor MD Unavailable + Jez Sam MD Unavailable +[phone] Everardo Hensley DO Unavailable + Jez Dougherty MD Unavailable + Ann Marie Wood RN Unavailable Bert Zarate DO Unavailable +[phone] Stephen Foote MD Unavailable +[phone] Sarahi Claudio [facility] Unavailable Unavailab Everardo Rodas DO Unavailable + Jez Dougherty MD Unavailable + Radha Proctor MD Unavailable + Stephen Foote MD Unavailable Jez Dougherty MD Unavailable + Radha Proctor MD Unavailable + Nakul Kinsey DO Unavailable + 0 Jez Dougherty MD Unavailable + Radha Proctor MD Unavailable + Otis Patino MD Unavailable +[phone] Stephen Foote MD Primary Care Provider + Jez Dougherty MD Unavailable + Encounter Details Date Type Department Care Team (Late st Contact Info) Description 08/02/2020 Records - [facility] CONVERSION Scan, Non-Provider Social History Tobacco Use Types Packs/Day Years Used Date Smoking Tobacco: Every Day Cigarettes Smokeless Tobacco: Current Alcohol Use Standard Drinks/Week Comments No 0 (1 standard drink = 0.6 oz pur e alcohol) PHQ-2 Answer Date Recorded PHQ-2 Score 0 03/22/2020 Sex and Gender Information Value Date Recorded Sex Assigned at Male 06/13/2021 11:39 PM OPERATOR COATING FURNACE Gender Identity Male 06/13/2021 11:39 PM OPERATOR COATING FURNACE Sexual Orientation Straight 06/13/2021 11 :39 PM OPERATOR COATING FURNACE COVID-19 Exposure Response Date Recorded In the last month, have you been in contact with someone who was confirmed or suspected to have Coronavirus / COVID-19? No / Unsure 08/02/2020 2:24 PM CDT documented as of this encounter Plan of Treatment Upcoming Encounters Date Type Department Care Team (Late Contact Info) Description 03/22/2024 1:00 PM OPERATOR COATING FURNACE Office Visit [address] [phone] Stephen Foote MD [address] [place] [id number] 05/27/2024 1:30 PM OPERATOR COATING FURNACE Office Visit [facility] Multiple Sclerosis [address] [address] Jez Dougherty MD [address] [place] [address] [id number] [place] [address] documented as of this encounter Visit Diagnoses [...] documented as of this encounter Care Teams Merchandise Director Relationship Specialty Start Date End Date Stephen Foote MD PCP - General Family Practice 05/04/18 03/16/23 Stephen Foote MD [address] [place] [address] PCP - General Family Medicine 03/17/23 Otis Bee MD [address] [place] [address] Orthopedics 05/07/18 Stephen Foote MD Family Practice 05/07/18 03/16/23 Radha Proctor MD [address] [place] [address] Neurology 11/25/19 Radha Proctor MD [address] [place] [address] 598865 Assigned Neuroscience Provider 03/10/20 05/05/21 Jez Sam MD 6363 [facility] S [facility] 500 [place] [address] Assigned Surgical Provider 03/10/20 Everardo Hensley DO 909 [place] [address] Neurology 10/17/20 Jez Dougherty MD [address] [place] [address] [address] Neurology 10/17/20 Ann Marie Wood, YANELIS Specialty Service Parts Driver Neurology 11/06/20 Bert Zarate DO [address] [facility] [address] [facility] 106 [place] [address] Assigned Sleep Provider 12/01/20 Stephen Foote MD 1982 [facility] 1 [place] [address] Assigned PCP 11/01/20 Sarahi Claudio, [facility] 1982 [facility] 1 [place] [address] [facility] 03/01/21 Everardo Hensley DO [address] [place] [address] Assigned Neuroscience Provider 05/06/21 06/23/21 Jez Dougherty MD [address] [address] Assigned Neuroscience Provider 06/24/21 11/30/21 Radha Proctor MD [address] [place] [address] Assigned Neuroscience Provider 12/01/21 09/13/22 Stephen Foote MD [address] [place] [address] Assigned Pain Medication Provider 05/27/22 Jez Dougherty MD [address] [place] [address] Assigned Neuroscience Provider 09/14/22 09/20/22 Radha Proctor MD [address] [place] [address] Assigned Neuroscience Provider 09/21/22 11/29/22 Nakul Kinsey DO [address] [place] [address] Assigned Musculoskeletal Provider 10/26/22 01/17/23 Jez Dougherty MD [address] [place] [address] Assigned Neuroscience Provider 11/30/22 12/13/22 Radha Proctor MD [address] [place] [address] Assigned Neuroscience Provider 12/14/22 05/09/23 Otis Patino MD 2450 [facility] [address] [place] [address] Assigned Musculoskeletal Provider 01/18/23 Jez Dougherty MD 909 [facility] - [id number] [place] [address] Assigned Neuroscience Provider 05/10/23 documented as of this encounter
--- OUTSIDE RECORDS SUMMARY | 2024-03-01 21:19 | XMS_ITS | Encounter Summary ---
Author Organization [place] Address [address] [place] [address] Care Team Providers Care Traffic Director Name Role Phone Stephen Foote MD Primary Care Provider + Otis Bee MD Unavailable + [phone] Stephen Foote MD Unavailable +[phone] Radha Proctor MD Unavailable + Radha Proctor MD Unavailable + Jez Sam MD Unavailable +[phone] Everardo Hensley DO Unavailable + Jez Dougherty MD Unavailable + Ann Marie Wood RN Unavailable Bert Zarate DO Unavailable +[phone] Stephen Foote MD Unavailable +[phone] Sarahi Claudio [facility] Unavailable Unavailab Everardo Rodas DO Unavailable + Jez Dougherty MD Unavailable + Radha Proctor MD Unavailable + Stephen Foote MD Unavailable +[phone] Jez Dougherty MD Unavailable + Radha Proctor MD Unavailable + KwasiNakul salazar Thea CORDON Unavailable + 0 Jez Dougherty MD Unavailable + Radha Proctor MD Unavailable + Otis Patino MD Unavailable +[phone] Stephen Foote MD Primary Care Provider + Jez Dougherty MD Unavailable + Reason for Visit * Reason Onset Date Comments Appointment 08/04/2020 Balance testing Encounter Details Date Type Department Care Team (Late st Contact Info) Description 08/04/2020 [facility] [place] [address] [facility] [place] [address] Gavi Barlow, [facility] 909 [place] [address] Appointment (Balance testing) Social History Tobacco Use Types Packs/Day Years Used Date Smoking Tobacco: Every Day Cigarettes Smokeless Tobacco: Current Alcohol Use Standard Drinks/Week Comments No 0 (1 standard drink = 0.6 oz pur e alcohol) PHQ-2 Answer Date Recorded PHQ-2 Score 0 03/22/2020 Sex and Gender Information Value Date Recorded Sex Assigned at Male 06/13/2021 11:39 PM VENEER SUPERVISOR Gender Identity Male 06/13/2021 11:39 PM VENEER SUPERVISOR Sexual Orientation Straight 06/13/2021 11 :39 PM VENEER SUPERVISOR COVID-19 Exposure Response Date Recorded In the last month, have you been in contact with someone who was confirmed or suspected to have Coronavirus / COVID-19? No / Unsure 08/02/2020 2:24 PM CDT documented as of this encounter Miscellaneous Notes * Telephone Encounter - Alyse Archuleta - 08/10/2020 4:23 PM CDT [facility] Phone Message May a detailed message be left on voicemail: yes Reason for Call: Other: Pt called back returning Jose's VML. No answer at Jose's direct line. Pt will be available at [phone] to schedule. Thank you Action Taken: Message routed to: [facility] [place] ([facility]): Audiology Travel Screening: Not Applicable * Telephone Encounter - Aleyda Sheridan - 08/04/2020 3:56 PM CDT [facility] Phone Message May a detailed message be left on voicemail: yes Reason for Call: Appointment Intake Referring Provider Name: Everardo Hensley DO Diagnosis and/or Symptoms: Vertigo, nystagmus. Pt calling in to schedule for balance testing. Action Taken: Message routed to: [facility] ([facility]): Audiology Travel Screening: Not Applicable documented in this encounter Plan of Treatment Upcoming Encounters Date Type Department Care Team (Late st Contact Info) Description 03/22/2024 1:00 PM VENEER SUPERVISOR Office Visit [facility] [address] [phone] Stephen Foote MD [address] [place] [address] 05/27/2024 1:30 PM VENEER SUPERVISOR Office Visit [facility] Multiple Sclerosis [address] [phone] Jez Dougherty MD [address] [place] [address] - [id number] [place] [address] documented as of this encounter Visit Diagnoses [...] as of this encounter Care Teams Traffic Director Relationship Specialty Start Date End Date Stephen Foote MD PCP - General Family Practice 05/04/18 03/16/23 Stephen Foote MD [address] [place] [address] PCP - General Family Medicine 03/17/23 Otis Bee MD [address] [place] [address] Orthopedics 05/07/18 Stephen Foote MD MD Family Practice 05/07/18 03/16/23 Radha Proctor MD [address] [place] [address] Neurology 11/25/19 Radha Proctor MD [address] [place] [address] Assigned Neuroscience Provider 03/10/20 05/05/21 Jez Sam MD 6363 [facility] 500 [place] [address] Assigned Surgical Provider 03/10/20 Everardo Hensley DO [address] [place] [address] Neurology 10/17/20 Jez Dougherty MD [address] [place] [address] Neurology 10/17/20 Ann Marie Wood, YANELIS Specialty Production Support Developer Neurology 11/06/20 Bert Zarate DO [address] [place] [address] Assigned Sleep Provider 12/01/20 Stephen Foote MD [address] [place] [address] Assigned PCP 11/01/20 Sarahi Claudio, [facility] [address] [place] [address] [facility] 03/01/21 Everardo Hensley DO [address] [place] [address] Assigned Neuroscience Provider 05/06/21 06/23/21 Jez Dougherty MD [address] [place] [address] Assigned Neuroscience Provider 06/24/21 11/30/21 Radha Proctor MD [address] [place], [place] [address] [place] [address] Assigned Neuroscience Provider 12/01/21 09/13/22 Stephen Foote MD [address] [place] [address]87 Assigned Pain Medication Provider 05/27/22 Jez Dougherty MD [address] [place] [address] Assigned Neuroscience Provider 09/14/22 09/20/22 Radha Proctor MD [address] [place] [address] Assigned Neuroscience Provider 09/21/22 11/29/22 Nakul Kinsey DO [address] [place] [address] Assigned Musculoskeletal Provider 10/26/22 01/17/23 Jez Dougherty MD [address] [place] [address] Assigned Neuroscience Provider 11/30/22 12/13/22 Radha Proctor MD [address] [place] [address] 1939[address] Assigned Neuroscience Provider 12/14/22 05/09/23 Otis Patino MD [address] [place] [address] Assigned Musculoskeletal Provider 01/18/23 Jez Dougherty MD [address] [place] [address] Assigned Neuroscience Provider 05/10/23 documented as of this encounter
--- OUTSIDE RECORDS SUMMARY | 2024-03-01 21:19 | XMS_ITS | Encounter Summary ---
Author Organization [place] Address [address] [place] [address] Care Team Providers Care Retail Salesman Name Role Phone Stephen Foote MD Primary Care Provider + Otis Bee MD Unavailable + [phone] Stephen Foote MD Unavailable +[phone] Radha Proctor MD Unavailable + Radha Proctor MD Unavailable + Jez Sam MD Unavailable +[phone] Everardo Hensley DO Unavailable + Jez Dougherty MD Unavailable + Ann Marie Wood RN Unavailable Bert Zarate DO Unavailable +[phone] Stephen Foote MD Unavailable +[phone] Sarahi Claudio [facility] Unavailable Unavailab Everardo Rodas DO Unavailable + Jez Dougherty MD Unavailable + Radha Proctor MD Unavailable + Stephen Foote MD Unavailable +[phone] Jez Dougherty MD Unavailable + Radha Proctor MD Unavailable + KwasiNakul salazar Thea CORDON Unavailable + 0 Jez Dougherty MD Unavailable + Radha Proctor MD Unavailable + Otis Patino MD Unavailable +[phone] Stephen Foote MD Primary Care Provider + Jez Dougherty MD Unavailable + Reason for Visit * Reason Onset Date Comments Appointment 08/22/2020 Balance Testing Encounter Details Date Type Department Care Team (Late st Contact Info) Description 08/22/2020 [facility] Audiology [address] [phone] None Appointment (Balance Testing) Social History Tobacco Use Types Packs/Day Years Used Date Smoking Tobacco: Every Day Cigarettes Smokeless Tobacco: Current Alcohol Use Standard Drinks/Week Comments No 0 (1 standard drink = 0.6 oz pur e alcohol) PHQ-2 Answer Date Recorded PHQ-2 Score 0 03/22/2020 Sex and Gender Information Value Date Recorded Sex Assigned at Male 06/13/2021 11:39 PM SUPERVISOR SEWER SYSTEM Gender Identity Male 06/13/2021 11:39 PM SUPERVISOR SEWER SYSTEM Sexual Orientation Straight 06/13/2021 11 :39 PM SUPERVISOR SEWER SYSTEM COVID-19 Exposure Response Date Recorded In the last month, have you been in contact with someone who was confirmed or suspected to have Coronavirus / COVID-19? No / Unsure 08/22/2020 10:44 AM CDT documented as of this encounter Miscellaneous Notes * Telephone Encounter - Leeanna Nguyen - 08/22/2020 3:49 PM CDT [facility] Phone Message May a detailed message be left on voicemail: yes Reason for Call: Appointment Intake Referring Provider Name: Dr. Hensley Diagnosis and/or Symptoms: Balance Testing Action Taken: Message routed to: [facility] AUDIOLOGY Travel Screening: Not Applicable documented in this encounter Plan of Treatment Upcoming Encounters Date Type Department Care Team (Late st Contact Info) Description 03/22/2024 1:00 PM SUPERVISOR SEWER SYSTEM Office Visit [facility] 1982 [facility] [address] [place] [phone] Stephen Foote MD [address] [facility] 1 [place] [address] 05/27/2024 1:30 PM SUPERVISOR SEWER SYSTEM Office Visit [facility] Multiple Sclerosis [address] [phone] Jez Dougherty MD [address] [place] [address] - [id number] [place], [place] [id number] documented as of this encounter Visit Diagnoses Not on filedocumented in this encounter Additional Health Concerns Infection Onset Date Last Indicated Resolved Time Rule Out COVID-19 12/18/2021 12/18/2021 12/18/2021 10:49 PM CDT COVID-19 12/18/2021 12/18/2021 01/08/2022 11:3 9 PM CDT Assessment Noted Time PHQ-9 Depression Total Score: 0 10/13/19 2:06 AM CDT documented as of this encounter Care Teams Retail Salesman Relationship Specialty Start Date End Date Stephen Foote MD PCP - General Family Practice 05/04/18 03/16/23 Stephen Foote MD 1982 [facility] 1 [place] [address] PCP - General Family Medicine 03/17/23 Otis Bee MD [address] [place] [address] Orthopedics 05/07/18 Stephen Foote MD Family Practice 05/07/18 03/16/23 Radha Proctor MD 909 [facility] [address] [place] [address] Neurology 11/25/19 Radha Proctor MD [address] [facility] [address] [place] [address] Assigned Neuroscience Provider 03/10/20 05/05/21 Jez Sam MD [address] [facility] [address] [facility] 500 [place] [phone] Assigned Surgical Provider 03/10/20 Everardo Hensley DO 909 [place] [address] Neurology 10/17/20 Jez Dougherty MD 909 [id number] [place] [address] Neurology 10/17/20 Ann Marie Wood, RN Specialty Portable Irrigation Operator Neurology 11/06/20 Bert Zarate DO [address] [facility] 106 [place] [address] Assigned Sleep Provider 12/01/20 Stephen Foote MD [address] [place] [address] 1 [place] [address] Assigned PCP 11/01/20 Sarahi Claudio, [facility] 1982 [facility] 1 [place] [address] Pharmacist 03/01/21 Everardo Hensley DO [address] [place] [address] Assigned Neuroscience Provider 05/06/21 06/23/21 Jez Dougherty MD [address] [place] [address] Assigned Neuroscience Provider 06/24/21 11/30/21 Radha Proctor MD [address] [place] [address] Assigned Neuroscience Provider 12/01/21 09/13/22 Stephen Foote MD [address] [place] [address] Assigned Pain Medication Provider 05/27/22 Jez Dougherty MD [address] [place] [address] Assigned Neuroscience Provider 09/14/22 09/20/22 Radha Proctor MD [address] [place] [address] Assigned Neuroscience Provider 09/21/22 11/29/22 Nakul Kinsey DO [address] [place] [address] Assigned Musculoskeletal Provider 10/26/22 01/17/23 Jez Dougherty MD 909 [facility]2121[place], [place] [address] Assigned Neuroscience Provider 11/30/22 12/13/22 Radha Proctor MD [address] [place] [address] 2121 [place] [address] Assigned Neuroscience Provider 12/14/22 05/09/23 [place] [address] [place] [address] R102 [place] [address] Assigned Musculoskeletal Provider 01/18/23 Jez Dougherty MD [address] [place] [address] Assigned Neuroscience Provider 05/10/23 documented as of this encounter
--- OUTSIDE RECORDS SUMMARY | 2024-03-01 21:19 | XMS_ITS | Encounter Summary ---
Author Organization [facility] Address [address] [place] [address] Care Team Providers Care Dynamometer Mechanic Name Role Phone Stephen Foote MD Primary Care Provider + Otis Bee MD Unavailable + [phone] Stephen Foote MD Unavailable +[phone] Radha Proctor MD Unavailable + Radha Proctor MD Unavailable + Jez Sam MD Unavailable +[phone] Everardo Hensley DO Unavailable + Jez Dougherty MD Unavailable + Ann Marie Wood RN Unavailable Bert Zarate DO Unavailable +[phone] Stephen Foote MD Unavailable +[phone] Sarahi Claudio [facility] Unavailable Unavailab Everardo Rodas DO Unavailable + Jez Dougherty MD Unavailable + Radha Proctor MD Unavailable + Stephen Foote MD Unavailable +[phone] Jez Dougherty MD Unavailable + Radha Proctor MD Unavailable + Nakul Kinsey DO Unavailable + [phone] Jez Dougherty MD Unavailable + Radha Proctor MD Unavailable + Otis Patino MD Unavailable +[phone] Stephen Foote MD Primary Care Provider + Jez Dougherty MD Unavailable + Encounter Details Date Type Department Care Team (Late st Contact Info) Description 06/06/2020 Records - [facility] CONVERSION Scan, Non-Provider Social History Tobacco Use Types Packs/Day Years Used Date Smoking Tobacco: Every Day Cigarettes Smokeless Tobacco: Current Alcohol Use Standard Drinks/Week Comments No 0 (1 standard drink = 0.6 oz pur e alcohol) PHQ-2 Answer Date Recorded PHQ-2 Score 0 03/22/2020 Sex and Gender Information Value Date Recorded Sex Assigned at Male 06/13/2021 11:39 PM SAMPLE CARD MAKER Gender Identity Male 06/13/2021 11:39 PM SAMPLE CARD MAKER Sexual Orientation Straight 06/13/2021 11 :39 PM SAMPLE CARD MAKER documented as of this encounter Plan of Treatment Upcoming Encounters Date Type Department Care Team (Late st Contact Info) Description 03/22/2024 1:00 PM SAMPLE CARD MAKER Office Visit [address] [phone] Stephen Foote MD [address] [place] [address] 05/27/2024 1:30 PM SAMPLE CARD MAKER Office Visit [facility] Multiple Sclerosis [address] [phone] Jez Dougherty MD [address] [place] [address] - [id number] [address] documented as of this encounter Visit Diagnoses [...] documented as of this encounter Care Teams Dynamometer Mechanic Relationship Specialty Start Date End Date Stephen Foote MD PCP - General Family Practice 05/04/18 03/16/23 Stephen Foote MD [address] [place] [address] PCP - General Family Medicine 03/17/23 Otis Bee MD [address] [place] [address] Orthopedics 05/07/18 Stephen Foote MD MD Family Practice 05/07/18 03/16/23 Radha Proctor MD [address] [place] [address] Neurology 11/25/19 Radha Proctor MD [address] [address] Assigned Neuroscience Provider 03/10/20 05/05/21 Jez Sma MD 6363 [facility] 500 [place] [address] Assigned Surgical Provider 03/10/20 Everardo Hensley DO [address] [place] [address] Neurology 10/17/20 Jez Dougherty MD [address] [place] [address] Neurology 10/17/20 Ann Marie Wood, YANELIS Specialty Conservation Enforcement Officer Neurology 11/06/20 Bert Zarate DO [address] [place] [address] Assigned Sleep Provider 12/01/20 Stephen Foote MD [address] [place] [address] 1 [place] [address] Assigned PCP 11/01/20 Sarahi Claudio, [facility] [address] [place] [address] 1 [place] [address] [facility] 03/01/21 Everardo Hensley DO [address] [place] [address] Assigned Neuroscience Provider 05/06/21 06/23/21 Jez Dougherty MD [address] [place] [address] Assigned Neuroscience Provider 06/24/21 11/30/21 Radha Proctor MD [address] [place] [address] Assigned Neuroscience Provider 12/01/21 09/13/22 Stephen Foote MD [address] [place] [address] Assigned Pain Medication Provider 05/27/22 Jez Dougherty MD [address] [place] [address] Assigned Neuroscience Provider 09/14/22 09/20/22 Radha Proctor MD [address] [place] [address] Assigned Neuroscience Provider 09/21/22 11/29/22 Nakul Kinsey DO [address] [place] [address] 757965 Assigned Musculoskeletal Provider 10/26/22 01/17/23 Jez Dougherty MD [address] [place] [address] Assigned Neuroscience Provider 11/30/22 12/13/22 Radha Proctor MD [address] [place] [address] 381845 Assigned Neuroscience Provider 12/14/22 05/09/23 Otis Patino MD [address] [place] [address] 740034 Assigned Musculoskeletal Provider 01/18/23 Jez Dougherty MD 909 [facility]121[place] [address] Assigned Neuroscience Provider 05/10/23 documented as of this encounter
--- OUTSIDE RECORDS SUMMARY | 2024-03-01 21:19 | XMS_ITS | Encounter Summary ---
Author Organization [facility] Address [address] [place] [address] Care Team Providers Care Television Producer Name Role Phone Stephen Foote MD Primary Care Provider + Otis Bee MD Unavailable + [phone] Stephen Foote MD Unavailable +[phone] Radha Proctor MD Unavailable + Radha Proctor MD Unavailable + Jez Sam MD Unavailable +[phone] Everardo Hensley DO Unavailable + Jez Dougherty MD Unavailable + Ann Marie Wood RN Unavailable Bert Zarate DO Unavailable +[phone] Stephen Foote MD Unavailable +[phone] Sarahi Claudio [facility] Unavailable Unavailab Everardo Rodas DO Unavailable + Jez Dougherty MD Unavailable + Radha Proctor MD Unavailable + Stephen Foote MD Unavailable +[phone] Jez Dougherty MD Unavailable + Radha Proctor MD Unavailable +[phone] KwasiNakul salazar Thea [facility] Unavailable + 0 Jez Dougherty MD Unavailable +[phone] Radha Proctor MD Unavailable +[phone] Otis Patino MD Unavailable + [phone] Stephen Foote MD Primary Care Provider + Jez Dougherty MD Unavailable +[phone] Encounter Details Date Type Department Care Team (Late st Contact Info) Description 02/16/2020 Telephone [facility] 909 [facility] 3rd [place] [address] Radha Proctor MD [address] [place] [address] Social History Tobacco Use Types Packs/Day Years Used Date Smoking Tobacco: Every Day Cigarettes Smokeless Tobacco: Current Alcohol Use Standard Drinks/Week Comments No 0 (1 standard drink = 0.6 oz pur e alcohol) Sex and Gender Information Value Date Recorded Sex Assigned at Male 06/13/2021 11:39 PM SIGHT EFFECTS SPECIALIST Gender Identity Male 06/13/2021 11:39 PM SIGHT EFFECTS SPECIALIST Sexual Orientation Straight 06/13/2021 11 :39 PM SIGHT EFFECTS SPECIALIST COVID-19 Exposure Response Date Recorded In the last month, have you been in contact with someone who was confirmed or suspected to have Coronavirus / COVID-19? No / Unsure 01/26/2020 1:52 PM CDT documented as of this encounter Miscellaneous Notes * Telephone Encounter - Charlie Siegel - 02/16/2020 12:21 PM CDT ERROR documented in this encounter Plan of Treatment Upcoming Encounters Date Type Department Care Team (Late st Contact Info) Description 03/22/2024 1:00 PM SIGHT EFFECTS SPECIALIST Office Visit [address] [phone] Stephen Foote MD 1982 [facility] 1 [place] [address] 05/27/2024 1:30 PM SIGHT EFFECTS SPECIALIST Office Visit [facility] Multiple Sclerosis [address] [phone] Jez Dougherty MD [address] [place] [address] - [id number] [place], [place] 403[address] documented as of this encounter Visit Diagnoses Not on filedocumented in this encounter Additional Health Concerns Infection Onset Date Last Indicated Resolved Time Rule Out COVID-19 08/11/2020 08/11/2020 08/11/2020 5:30 PM CDT Rule Out COVID-19 12/18/2021 12/18/2021 12/18/2021 10:49 PM CDT COVID-19 12/18/2021 12/18/2021 01/08/2022 11:3 9 PM CDT Assessment Noted Time PHQ-9 Depression Total Score: 10 021 6:00 AM CDT documented as of this encounter Care Teams Television Producer Relationship Specialty Start Date End Date Stephen Foote MD PCP - General Family Practice 05/04/18 03/16/23 Stephen Foote MD [address] [address] PCP - General Family Medicine 03/17/23 Otis Bee MD [address] [place] [address] 665175 Orthopedics 05/07/18 Stephen Foote MD MD Family Practice 05/07/18 03/16/23 Radha Proctor MD 909 [facility] 2121 [place] [address] Neurology 11/25/19 Radha Proctor MD 909 [facility] 2121 [place] [address] Assigned Neuroscience Provider 03/10/20 05/05/21 Jez Sam MD [address] [facility] [address] [place] [address] [place] [phone] Assigned Surgical Provider 03/10/20 Everardo Hensley DO 9 [place] [address] Neurology 10/17/20 Jez Dougherty MD 9 [id number] [address] Neurology 10/17/20 Ann Marie Wood, RN Specialty Instrumental Musician Neurology 11/06/20 Bert Zarate DO [address] [facility] 106 [place] [address] Assigned Sleep Provider 12/01/20 Stephen Foote MD [address] [place] [address] 1 [place] [address] Assigned PCP 11/01/20 Sarahi Claudio, [facility] [address] [place] [address] 1 [place] [address] Pharmacist 03/01/21 Everardo Hensley DO [address] [place] [address] Assigned Neuroscience Provider 05/06/21 06/23/21 Jez Dougherty MD [address] [place] [address] Assigned Neuroscience Provider 06/24/21 11/30/21 Radha Proctor MD [address] [place] [address] Assigned Neuroscience Provider 12/01/21 09/13/22 Stephen Foote MD [address] [place] [address] Assigned Pain Medication Provider 05/27/22 Jez Dougherty MD [address] [place] [address] Assigned Neuroscience Provider 09/14/22 09/20/22 Radha Proctor MD [address] [place] [address] Assigned Neuroscience Provider 09/21/22 11/29/22 Nakul Kinsey DO [address] [place] [address] Assigned Musculoskeletal Provider 10/26/22 01/17/23 Jez Dougherty MD 909 [id number] [address] Assigned Neuroscience Provider 11/30/22 12/13/22 Radha Proctor MD 909 [facility] 2121 [place] [address] Assigned Neuroscience Provider 12/14/22 05/09/23 Otis Patino MD 2450 [facility] [address] [place] [address] Assigned Musculoskeletal Provider 01/18/23 Jez Dougherty MD 909 [facility]121[place] [address] Assigned Neuroscience Provider 05/10/23 documented as of this encounter
--- OUTSIDE RECORDS SUMMARY | 2024-03-01 21:19 | XMS_ITS | Encounter Summary ---
Author Organization [facility] Address [address] [place] [address] Care Team Providers Care Marketing Support Coordinator Name Role Phone Stephen Foote MD Primary Care Provider + Otis Bee MD Unavailable + [phone] Stephen Foote MD Unavailable +[phone] Radha Proctor MD Unavailable + Radha Proctor MD Unavailable + Jez Sam MD Unavailable +[phone] Everardo Hensley DO Unavailable + Jez Dougherty MD Unavailable + Ann Marie Wood RN Unavailable Bert Zarate DO Unavailable +[phone] Stephen Foote MD Unavailable +[phone] Sarahi Claudio [facility] Unavailable Unavailab Everardo Rodas DO Unavailable [...] Department Care Team (Late Contact Info) Description 02/03/2020 Records - [facility] CONVERSION Scan, Non-Provider Social History Tobacco Use Types Packs/Day Years Used Date Smoking Tobacco: Every Day Cigarettes Smokeless Tobacco: Current Alcohol Use Standard Drinks/Week Comments No 0 (1 standard drink = 0.6 oz pur e alcohol) Sex and Gender Information Value Date Recorded Sex Assigned at Male 06/13/2021 11:39 PM SPEECH THERAPIST Gender Identity Male 06/13/2021 11:39 PM SPEECH THERAPIST Sexual Orientation Straight 06/13/2021 11 :39 PM SPEECH THERAPIST COVID-19 Exposure Response Date Recorded In the last month, have you been in contact with someone who was confirmed or suspected to have Coronavirus / COVID-19? No / Unsure 01/26/2020 1:52 PM CDT documented as of this encounter Plan of Treatment Upcoming Encounters Date Type Department Care Team (Late Contact Info) Description 03/22/2024 1:00 PM SPEECH THERAPIST Office Visit [facility] [address] [phone] Stephen Foote MD [address] [place] [address] 05/27/2024 1:30 PM SPEECH THERAPIST Office Visit [facility] Multiple Sclerosis [address] [phone] Jez Dougherty MD [address] [place] [address] - [id number] [place], [place] 6[address] documented as of this encounter Visit Diagnoses [...] documented as of this encounter Care Teams Marketing Support Coordinator Relationship Specialty Start Date End Date Stephen Foote MD PCP - General Family Practice 05/04/18 03/16/23 Stephen Foote MD [address] [place] [address] PCP - General Family Medicine 03/17/23 Otis Bee MD [address] [place] [address] [phone] Orthopedics 05/07/18 Stephen Foote MD Family Practice 05/07/18 03/16/23 Radha Proctor MD [address] [place] [address] Neurology 11/25/19 Radha Proctor MD [address] [place] [address] Assigned Neuroscience Provider 03/10/20 05/05/21 Jez Sam MD [address] [facility] [address] [place] [address] [place] [phone] Assigned Surgical Provider 03/10/20 Everardo Hensley DO [address] [place] [address] Neurology 10/17/20 Jez Dougherty MD [address] [place] [address] 340324 Neurology 10/17/20 Ann Marie Wood, YANELIS Specialty Medical Technologist Chief Neurology 11/06/20 Bert Zarate DO [address] [facility] 106 [place], [place] 465484 Assigned Sleep Provider 12/01/20 Stephen Foote MD 1982 [facility] 1 [place] [address] Assigned PCP 11/01/20 Sarahi Claudio, [facility] 1982 [facility] [address] [place] [address] [facility] 03/01/21 Everardo Hensley DO [address] [place] [address] Assigned Neuroscience Provider 05/06/21 06/23/21 Jez Dougherty MD [address] [place] [address] Assigned Neuroscience Provider 06/24/21 11/30/21 Radha Proctor MD [address] [place] [address] Assigned Neuroscience Provider 12/01/21 09/13/22 Stephen Foote MD [address] [place] [address] Assigned Pain Medication Provider 05/27/22 Jez Dougherty MD [address] [place] [address] Assigned Neuroscience Provider 09/14/22 09/20/22 Radha Proctor MD [address] [place] [address] Assigned Neuroscience Provider 09/21/22 11/29/22 Nakul Kinsey DO [address] [place] [address] Assigned Musculoskeletal Provider 10/26/22 01/17/23 Jez Dougherty MD [address] [place] [address] Assigned Neuroscience Provider 11/30/22 12/13/22 Radha Proctor MD [address] [place] [address] Assigned Neuroscience Provider 12/14/22 05/09/23 Otis Patino MD 2450 [facility] [address]102 [place], [place] 980204 Assigned Musculoskeletal Provider 01/18/23 Jez Dougherty MD [address] [facility] - [id number] [place], [place] 373954 Assigned Neuroscience Provider 05/10/23 documented as of this encounter
--- OUTSIDE RECORDS SUMMARY | 2024-03-01 21:19 | XMS_ITS | Encounter Summary ---
Author Organization [facility] Address [address] [place] [address] Care Team Providers Care Talent Consultant Name Role Phone Stephen Foote MD Primary Care Provider + Otis Bee MD Unavailable + [phone] Stephen Foote MD Unavailable [phone] Radha Proctor MD Unavailable + Radha Proctor MD Unavailable + Jez Sam MD Unavailable +[phone] Everardo Hensley DO Unavailable + Jez Dougherty MD Unavailable + Ann Marie Wood RN Unavailable Bert Zarate DO Unavailable +[phone] Stephen Foote MD Unavailable +[phone] Sarahi Claudio [facility] Unavailable Unavailab Everardo Rodas DO Unavailable + [...] Care Team (Late st Contact Info) Description 03/20/2020 Records - [facility] CONVERSION Scan, Non-Provider Social History Tobacco Use Types Packs/Day Years Used Date Smoking Tobacco: Every Day Cigarettes Smokeless Tobacco: Current Alcohol Use Standard Drinks/Week Comments No 0 (1 standard drink = 0.6 oz pur e alcohol) PHQ-2 Answer Date Recorded PHQ-2 Score 0 03/22/2020 Sex and Gender Information Value Date Recorded Sex Assigned at Male 06/13/2021 11:39 PM IRRIGATION SPECIALIST Gender Identity Male 06/13/2021 11:39 PM IRRIGATION SPECIALIST Sexual Orientation Straight 06/13/2021 11 :39 PM IRRIGATION SPECIALIST documented as of this encounter Plan of Treatment Upcoming Encounters Date Type Department Care Team (Late st Contact Info) Description 03/22/2024 1:00 PM IRRIGATION SPECIALIST Office Visit [address] [phone] Stephen Foote MD [address] [place] [address] 05/27/2024 1:30 PM IRRIGATION SPECIALIST Office Visit [facility] Multiple Sclerosis [address] [phone] Jez Dougherty MD [address] [place] [address] - [id number] [place] [address] documented as of this encounter Visit Diagnoses [...] documented as of this encounter Care Teams Talent Consultant Relationship Specialty Start Date End Date Stephen Foote MD PCP - General Family Practice 05/04/18 03/16/23 Stephen Fotoe MD [address] [place] [address] PCP - General Family Medicine 03/17/23 Otis Bee MD [address] [place] [address] Orthopedics 05/07/18 Stephen Foote MD MD Family Practice 05/07/18 03/16/23 Radha Proctor MD [address] [place] [address] Neurology 11/25/19 Radha Proctor MD [address] [address] Assigned Neuroscience Provider 03/10/20 05/05/21 Jez Sam MD 6363 [facility] 500 [place] [address] Assigned Surgical Provider 03/10/20 Everardo Hensley DO 9 [place] [address] Neurology 10/17/20 Jez Dougherty MD [address] [place] [address] Neurology 10/17/20 Ann Marie Wood, YANELIS Specialty Product Inspection Coordinator Neurology 11/06/20 Bert Zarate DO 606 [facility] 106 [place] [address] Assigned Sleep Provider 12/01/20 Stephen Foote MD [address] [place] [address] 1 [place] [address] Assigned PCP 11/01/20 Sarahi Claudio, [facility] [address] [place] [address] 1 [place] [address] [facility] 03/01/21 Everardo Hensley DO [address] [place] [address] Assigned Neuroscience Provider 05/06/21 06/23/21 Jez Dougherty MD [address] [place] [address] Assigned Neuroscience Provider 06/24/21 11/30/21 Radha Proctor MD [address] [place] [address] Assigned Neuroscience Provider 12/01/21 09/13/22 Stephen Foote MD [address] [place] [address] Assigned Pain Medication Provider 05/27/22 Jez Dougherty MD [address] [place] [address] Assigned Neuroscience Provider 09/14/22 09/20/22 Radha Proctor MD [address] [place] [address] Assigned Neuroscience Provider 09/21/22 11/29/22 Nakul Kinsey DO [address] [place] [address] Assigned Musculoskeletal Provider 10/26/22 01/17/23 Jez Dougherty MD [address] [place] [address] Assigned Neuroscience Provider 11/30/22 12/13/22 Radha Proctor MD [address] [place] [address] Assigned Neuroscience Provider 12/14/22 05/09/23 Otis Patino MD [address] [place] [address] 764314 Assigned Musculoskeletal Provider 01/18/23 Jez Dougherty MD 9 [facility]2121[place], [place] [address] Assigned Neuroscience Provider 05/10/23 documented as of this encounter
--- OUTSIDE RECORDS SUMMARY | 2024-03-01 21:19 | XMS_ITS | Encounter Summary ---
Author Organization [place] Address [address] [place] [address] Care Team Providers Care Sales Compensation Analyst Name Role Phone Stephen Foote MD Primary Care Provider + Otis Bee MD Unavailable + [phone] Stephen Foote MD Unavailable +[phone] Radha Proctor MD Unavailable + Radha Proctor MD Unavailable + Jez Sam MD Unavailable +[phone] Everardo Hensley DO Unavailable + Jez Dougherty MD Unavailable + Ann Marie Wood RN Unavailable Bert Zarate DO Unavailable +[phone] Stephen Foote MD Unavailable +[phone] Sarahi Claudio [facility] Unavailable Unavailab Everardo Rodas DO Unavailable + Jez Dougherty MD Unavailable + Radha Proctor MD Unavailable + Stephen Foote MD Unavailable +[phone] Jez Dougherty MD Unavailable + Radha Proctor MD Unavailable + Nakul Kinsey Unavailable + 0 Jez Dougherty MD Unavailable + Radha Proctor MD Unavailable + Otis Patino MD Unavailable +[phone] Stephen Foote MD Primary Care Provider + Jez Dougherty MD Unavailable + Encounter Details Date Type Department Care Team (Late st Contact Info) Description 10/06/2019 Records - [facility] CONVERSION Scan, Non-Provider Social History Tobacco Use Types Packs/Day Years Used Date Smoking Tobacco: Every Day Cigarettes Smokeless Tobacco: Current Alcohol Use Standard Drinks/Week Comments No 0 (1 standard drink = 0.6 oz pur e alcohol) Sex and Gender Information Value Date Recorded Sex Assigned at Male 06/13/2021 11:39 PM EXTRUSION PRESS OPERATOR Gender Identity Male 06/13/2021 11:39 PM EXTRUSION PRESS OPERATOR Sexual Orientation Straight 06/13/2021 11 :39 PM EXTRUSION PRESS OPERATOR documented as of this encounter Plan of Treatment Upcoming Encounters Date Type Department Care Team (Late st Contact Info) Description 03/22/2024 1:00 PM EXTRUSION PRESS OPERATOR Office Visit [address] 1 [place] [phone] Stephen Foote MD [address] [place] [address] 05/27/2024 1:30 PM EXTRUSION PRESS OPERATOR Office Visit [facility] Multiple Sclerosis [address] [phone] Jez Dougherty MD [address] [place] [address] - [id number] [place] [address] documented as of this encounter Visit Diagnoses Not on filedocumented in this encounter Additional Health Concerns Infection Onset Date Last Indicated Resolved Time Rule Out COVID-19 08/11/2020 08/11/202008/1108/11/2020 5:30 PM CDT Rule Out COVID-19 12/18/2021 12/18/2021 12/18/2021 10:49 PM CDT COVID-19 12/18/2021 12/18/2021 01/08/2022 11:3 9 PM CDT Assessment Noted Time PHQ-9 Depression Total Score: 10 021 6:00 AM CDT documented as of this encounter Care Teams Sales Compensation Analyst Relationship Specialty Start Date End Date Stephen Foote MD PCP - General Family Practice 05/04/18 03/16/23 Stephen Foote MD [address] [place] [address] PCP - General Family Medicine 03/17/23 Otis Bee MD [address] [place] [address] Orthopedics 05/07/18 Stephen Foote MD Family Practice 05/07/18 03/16/23 Radha Proctor MD [address] [place] [address] Neurology 11/25/19 Radha Proctor MD [address] [place] [address] Assigned Neuroscience Provider 03/10/20 05/05/21 Jez Sam MD [address] [facility] 500 [place] [phone] Assigned Surgical Provider 03/10/20 Everardo Hensley DO [address] [place] [address] Neurology 10/17/20 Jez Dougherty MD [address] [place] [address] Neurology 10/17/20 Ann Marie Wood, RN Specialty Powder Worker Neurology 11/06/20 Bert Zarate DO [facility] [address] [address] Assigned Sleep Provider 12/01/20 Stephen Foote MD [address] [place] [address] 1 [place] [address] Assigned PCP 11/01/20 Sarahi Claudio, [facility] [address] [place] [address] 1 [place] [address] [facility] 03/01/21 Everardo Hensley DO [address] [place] [address] Assigned Neuroscience Provider 05/06/21 06/23/21 Jez Dougherty MD [address] [place] [address] Assigned Neuroscience Provider 06/24/21 11/30/21 Radha Proctor MD [address] [place] [address] Assigned Neuroscience Provider 12/01/21 09/13/22 Stephen Foote MD [address] [place] [address] Assigned Pain Medication Provider 05/27/22 Jez Dougherty MD [address] [place] [address] Assigned Neuroscience Provider 09/14/22 09/20/22 Radha Proctor MD [address] [place] [address] Assigned Neuroscience Provider 09/21/22 11/29/22 Nakul Kinsey DO [address] [place] [address] Assigned Musculoskeletal Provider 10/26/22 01/17/23 Jez Dougherty MD [address] [place] [address] Assigned Neuroscience Provider 11/30/22 12/13/22 Radha Proctor MD [address] [place] [address] Assigned Neuroscience Provider 12/14/22 05/09/23 Otis Patino MD [address] [place] [address] [address]102 [place] [address] Assigned Musculoskeletal Provider 01/18/23 Jez Dougherty MD [address] [facility]121[place], [place] [address] Assigned Neuroscience Provider 05/10/23 documented as of this encounter
--- OUTSIDE RECORDS SUMMARY | 2024-03-01 21:19 | XMS_ITS | Encounter Summary ---
Author Organization [place] Address [address] [place] [address] Care Team Providers Care Customer Supply Chain Analyst Name Role Phone Stephen Foote MD Primary Care Provider + Otis Bee MD Unavailable + [phone] Stephen Foote MD Unavailable +[phone] Radha Proctor MD Unavailable + Radha Proctor MD Unavailable + Jez Sam MD Unavailable +[phone] Everardo Hensley DO Unavailable + Jez Dougherty MD Unavailable + Ann Marie Wood RN Unavailable Bert Zarate DO Unavailable +[phone] Stephen Foote MD Unavailable +[phone] Sarahi Claudio [facility] Unavailable Unavailab Everardo Rodas DO Unavailable + Jez Dougherty MD Unavailable + Radha Proctor MD Unavailable + Stephen Foote MD Unavailable +[phone] Jez Dougherty MD Unavailable + Radha Proctor MD Unavailable + Nakul Kinsey DO Unavailable + 0 Jez Dougherty MD Unavailable + Radha Proctor MD Unavailable + Otis Patino MD Unavailable +[phone] Stephen Foote MD Primary Care Provider + Jez Dougherty MD Unavailable + Reason for Visit * Reason Onset Date Comments Call Back 11/08/2019 Semen Sample Stone p Off Encounter Details Date Type Department Care Team (Late st Contact Info) Description 11/08/2019 [facility] [address] [place] [address] Jez Sam MD [address] [place] [address] Call Back (Semen Sample Drop Off) Social History Tobacco Use Types Packs/Day Years Used Date Smoking Tobacco: Every Day Cigarettes Smokeless Tobacco: Current Alcohol Use Standard Drinks/Week Comments No 0 (1 standard drink = 0.6 oz pur e alcohol) Sex and Gender Information Value Date Recorded Sex Assigned at Male 06/13/2021 11:39 PM RADIO DIVISION CAPTAIN Gender Identity Male 06/13/2021 11:39 PM RADIO DIVISION CAPTAIN Sexual Orientation Straight 06/13/2021 11 :39 PM RADIO DIVISION CAPTAIN COVID-19 Exposure Response Date Recorded In the last month, have you been in contact with someone who was confirmed or suspected to have Coronavirus / COVID-19? No / Unsure 11/03/2019 1:27 PM CDT documented as of this encounter Miscellaneous Notes * Telephone Encounter - Betty Epstein - 11/08/2019 1:21 PM CDT [facility] Phone Message May a detailed message be left on voicemail: yes Reason for Call: Other: Qaid is calling to verify when he should drop of a semen sample requested by Dr. [place]. He states that his paperwork received from last week indicates it needs to be dropped off at the [place] location. Please give him a call back to advise. Thank you. Action Taken: Message routed to: [facility] ([facility]): Urology Travel Screening: Not Applicable documented in this encounter Plan of Treatment Upcoming Encounters Date Type Department Care Team (Late st Contact Info) Description 03/22/2024 1:00 PM RADIO DIVISION CAPTAIN Office Visit [facility] [address] [place] [phone] Stephen Foote MD [address] [place] [address] 1 [place], [place] [phone] 05/27/2024 1:30 PM RADIO DIVISION CAPTAIN Office Visit [facility] Multiple Sclerosis [address] [phone] Jez Dougherty MD [address] [place] [address] [id number] [place] [address] documented as of this encounter Visit Diagnoses [...] as of this encounter Care Teams Customer Supply Chain Analyst Relationship Specialty Start Date End Date Stephen Foote MD PCP - General Family Practice 05/04/18 03/16/23 Stephen Foote MD [address] [place] [address] 1 [place] [address] PCP - General Family Medicine 03/17/23 Otis Bee MD [address] [place] [address] Orthopedics 05/07/18 Stephen Foote MD Family Practice 05/07/18 03/16/23 Radha Proctor MD [address] [place] [address] Neurology 11/25/19 Radha Proctor MD [address] [place] [address] Assigned Neuroscience Provider 03/10/20 05/05/21 Jez Sam MD 6363 [facility] 500 [place] [address] Assigned Surgical Provider 03/10/20 Everardo Hensley DO [address] [place] [address] Neurology 10/17/20 Jez Dougherty MD [address] [place] [address] [address] Neurology 10/17/20 Ann Marie Wood, RN Specialty Field Foreman Neurology 11/06/20 Bert Zarate DO [address] [place], [place] [address] Assigned Sleep Provider 12/01/20 Stephen Foote MD 1982 [facility] 1 [place] [address] Assigned PCP 11/01/20 Sarahi Claudio, [facility] 1982 [facility] 1 [place] [address] [facility] 03/01/21 Everardo Hensley DO 909 [place] [address] Assigned Neuroscience Provider 05/06/21 06/23/21 Jez Dougherty MD [address] [address] Assigned Neuroscience Provider 06/24/21 11/30/21 Radha Proctor MD 909 [facility] 2121 [place] [address] Assigned Neuroscience Provider 12/01/21 09/13/22 Stephen Foote MD 1982 [facility] 1 [place] [address] Assigned Pain Medication Provider 05/27/22 Jez Dougherty MD 909 [facility] [place] [address] Assigned Neuroscience Provider 09/14/22 09/20/22 Radha Proctor MD [address] [place] [address] Assigned Neuroscience Provider 09/21/22 11/29/22 Nakul Kinsey DO [address] [place] [address] Assigned Musculoskeletal Provider 10/26/22 01/17/23 Jez Dougherty MD [address] [place] [address] Assigned Neuroscience Provider 11/30/22 12/13/22 Radha Proctor MD [address] [place] [address] Assigned Neuroscience Provider 12/14/22 05/09/23 Otis Patino MD [address] [place], [place] [address] [place] [address] Assigned Musculoskeletal Provider 01/18/23 Jez Dougherty MD [address] [place] [address] Assigned Neuroscience Provider 05/10/23 documented as of this encounter
--- OUTSIDE RECORDS SUMMARY | 2024-03-01 21:19 | XMS_ITS | Encounter Summary ---
Author Organization [place] Address [address] [place] [address] Care Team Providers Care Motion Picture Commentator Name Role Phone Stephen Foote MD Primary Care Provider + Otis Bee MD Unavailable + [phone] Stephen Foote MD Unavailable +[phone] Radha Proctor MD Unavailable + Radha Proctor MD Unavailable + Jez Sam MD Unavailable +[phone] Everardo Hensley DO Unavailable + Jez Dougherty MD Unavailable + Ann Marie Wood RN Unavailable Bert Zarate DO Unavailable +[phone] Stephen Foote MD Unavailable +[phone] Sarahi Claudio [facility] Unavailable Unavailab Everardo Rodas DO Unavailable + Jez Dougherty MD Unavailable + Radha Proctor MD Unavailable + Stephen Foote MD Unavailable +[phone] Jez Dougherty MD Unavailable + Radha Proctor MD Unavailable + Nakul Kinsey Unavailable + 0 Jez Dougherty MD Unavailable + Radha Proctor MD Unavailable + Otis Patino MD Unavailable +[phone] Stephen Foote MD Primary Care Provider + Jez Dougherty MD Unavailable + Encounter Details Date Type Department Care Team (Late st Contact Info) Description 08/10/2019 Records - [facility] HE CONVERSION Scan, Non-Provider Social History Tobacco Use Types Packs/Day Years Used Date Smoking Tobacco: Every Day Cigarettes Smokeless Tobacco: Current Alcohol Use Standard Drinks/Week Comments No 0 (1 standard drink = 0.6 oz pur e alcohol) Sex and Gender Information Value Date Recorded Sex Assigned at Male 06/13/2021 11:39 PM MOLASSES AND CARAMEL OPERATOR Gender Identity Male 06/13/2021 11:39 PM MOLASSES AND CARAMEL OPERATOR Sexual Orientation Straight 06/13/2021 11 :39 PM MOLASSES AND CARAMEL OPERATOR documented as of this encounter Plan of Treatment Upcoming Encounters Date Type Department Care Team (Late st Contact Info) Description 03/22/2024 1:00 PM MOLASSES AND CARAMEL OPERATOR Office Visit [address] 1 [place] [phone] Stephen Foote MD [address] [place] [address] 05/27/2024 1:30 PM MOLASSES AND CARAMEL OPERATOR Office Visit [facility] Multiple Sclerosis [address] [phone] Jez Dougherty MD [address] [place] [address] - [id number] [place] [address] documented as of this encounter Visit Diagnoses Not on filedocumented in this encounter Additional Health Concerns Infection Onset Date Last Indicated Resolved Time Rule Out COVID-19 08/11/2020 08/11/202008/1108/11/2020 5:30 PM CDT Rule Out COVID-19 12/18/2021 12/18/2021 12/18/2021 10:49 PM CDT COVID-19 12/18/2021 12/18/2021 01/08/2022 11:3 9 PM CDT Assessment Noted Time PHQ-9 Depression Total Score: 20 021 6:52 PM CDT documented as of this encounter Care Teams Motion Picture Commentator Relationship Specialty Start Date End Date Stephen Foote MD PCP - General Family Practice 05/04/18 03/16/23 Stephen Foote MD [address] [place] [address] PCP - General Family Medicine 03/17/23 Otis Bee MD [address] [place] [address] Orthopedics 05/07/18 Stephen Foote MD Family Practice 05/07/18 03/16/23 Radha Proctor MD [address] [place] [address] Neurology 11/25/19 Radha Proctor MD [address] [place] [address] Assigned Neuroscience Provider 03/10/20 05/05/21 Jez Sam MD 6363 [facility] 500 [place] [phone] Assigned Surgical Provider 03/10/20 Everardo Hensley DO [address] [place] [address] Neurology 10/17/20 Jez Dougherty MD [address] [place] [address] Neurology 10/17/20 Ann Marie Wood, RN Specialty Robotics Software Engineer Neurology 11/06/20 Bert Zarate DO 606 [facility] [address] [address] Assigned Sleep Provider 12/01/20 Stephen Foote MD [address] [place] [address] 1 [place] [address] Assigned PCP 11/01/20 Sarahi Claudio, [facility] [address] [place] [address] 1 [place] [address] [facility] 03/01/21 Everardo Hensley DO [address] [place] [address] Assigned Neuroscience Provider 05/06/21 06/23/21 Jez Dougherty MD [address] [place] [address] Assigned Neuroscience Provider 06/24/21 11/30/21 Radha Proctor MD [address] [place] [address] Assigned Neuroscience Provider 12/01/21 09/13/22 Stephen Foote MD [address] [place] [address] Assigned Pain Medication Provider 05/27/22 Jez Dougherty MD [address] [place] [address] Assigned Neuroscience Provider 09/14/22 09/20/22 Radha Proctor MD [address] [place] [address] Assigned Neuroscience Provider 09/21/22 11/29/22 Nakul Kinsey DO [address] [place] [address] Assigned Musculoskeletal Provider 10/26/22 01/17/23 Jez Dougherty MD [address] [place] [address] Assigned Neuroscience Provider 11/30/22 12/13/22 Radha Proctor MD [address] [place] [address] Assigned Neuroscience Provider 12/14/22 05/09/23 Otis Patino MD [address] [place] [address] [address] [place] [address] Assigned Musculoskeletal Provider 01/18/23 eJz Dougherty MD 909 [facility]2121[place] [address] Assigned Neuroscience Provider 05/10/23 documented as of this encounter
--- OUTSIDE RECORDS SUMMARY | 2024-03-01 21:19 | XMS_ITS | Encounter Summary ---
Author Organization [place] Address [address] [place] [address] Care Team Providers Care Transformation Lead Name Role Phone Stephen Foote MD Primary Care Provider + Otis Bee MD Unavailable + [phone] Stephen Foote MD Unavailable [phone] Radha Proctor MD Unavailable + Radha Proctor MD Unavailable + Jez Sam MD Unavailable +[phone] Everardo Hensley DO Unavailable + Jez Dougherty MD Unavailable + Ann Marie Wood RN Unavailable Bert Zarate DO Unavailable +[phone] Stephen Foote MD Unavailable +[phone] Sarahi Claudio [facility] Unavailable Unavailab Everardo Rodas DO Unavailable + Jez Dougherty MD Unavailable + Radha Proctor MD Unavailable + Stephen Foote MD Unavailable +[phone] Jez Dougherty MD Unavailable + Radha Proctor MD Unavailable + Kwasimarie Eladio DO Unavailable + [phone] Jez Dougherty MD Unavailable + Radha Proctor MD Unavailable + Otis Patino MD Unavailable +[phone] Stephen Foote MD Primary Care Provider + Jez Dougherty MD Unavailable + Encounter Details Date Type Department Care Team (Late st Contact Info) Description 08/21/2020 Records - [facility] Emergency Department [address] [place] [phone] Zina Vicente, RN Social History Tobacco Use Types Packs/Day Years Used Date Smoking Tobacco: Every Day Cigarettes Smokeless Tobacco: Current Alcohol Use Standard Drinks/Week Comments No 0 (1 standard drink = 0.6 oz pur e alcohol) PHQ-2 Answer Date Recorded PHQ-2 Score 0 03/22/2020 Sex and Gender Information Value Date Recorded Sex Assigned at Male 06/13/2021 11:39 PM SAP BPC DEVELOPER Gender Identity Male 06/13/2021 11:39 PM SAP BPC DEVELOPER Sexual Orientation Straight 06/13/2021 11 :39 PM SAP BPC DEVELOPER COVID-19 Exposure Response Date Recorded In the last month, have you been in contact with someone who was confirmed or suspected to have Coronavirus / COVID-19? No / Unsure 08/22/2020 10:44 AM CDT documented as of this encounter ED Notes * Zina Vicente, RN - 08/21/2020 6:40 PM CDT Notified by registration, pt checked in and immediately walked out. Seen ambulating independently to gas station across street. Did not stay for triage. Did not wait to speak with nurse. documented in this encounter Plan of Treatment Upcoming Encounters Date Type Department Care Team (Late st Contact Info) Description 03/22/2024 1:00 PM SAP BPC DEVELOPER Office Visit [address] 1 [place] [phone] Stephen Foote MD 1982 [facility] 1 [place] [address] 05/27/2024 1:30 PM SAP BPC DEVELOPER Office Visit [facility] Multiple Sclerosis [address] [phone] Jez Dougherty MD [address] [place] [address] - [id number] [place] [address] documented as of this encounter Visit Diagnoses Not on filedocumented in this encounter Additional Health Concerns Infection Onset Date Last Indicated Resolved Time Rule Out COVID-19 12/18/2021 12/18/2021 12/18/2021 10:49 PM CDT COVID-19 12/18/2021 12/18/2021 01/08/2022 11:3 9 PM CDT Assessment Noted Time PHQ-9 Depression Total Score: 0 10/13/19 21 2:06 AM CDT documented as of this encounter Care Teams Transformation Lead Relationship Specialty Start Date End Date Stephen Foote MD PCP - General Family Practice 05/04/18 03/16/23 Stephen Foote MD 1982 [facility] 1 [place] [address] PCP - General Family Medicine 03/17/23 Otis Bee MD [address] [place] [address] Orthopedics 05/07/18 Stephen Foote MD MD Family Practice 05/07/18 03/16/23 Radha Proctor MD 909 [facility] 2121 [place] [address] Neurology 11/25/19 Radha Proctor MD 909 [facility] 2121 [place] [address] Assigned Neuroscience Provider 03/10/20 05/05/21 Jez Sam MD [address] [facility] [address] [facility] [address] [place] [phone] Assigned Surgical Provider 03/10/20 Everardo Hensley DO 909 [place] [address] Neurology 10/17/20 Jez Dougherty MD 909 [facility]121[place] [address] Neurology 10/17/20 Ann Marie Wood, RN Specialty Director Of Global Talent Neurology 11/06/20 Bert Zarate DO [address] [place] [address] Assigned Sleep Provider 12/01/20 Stephen Foote MD 1982 [facility] 1 [place] [address] Assigned PCP 11/01/20 Sarahi Claudio, [facility] [address] [place] [address] 1 [place] [address] [facility] 03/01/21 Everardo Hensley DO [address] [place] [address] Assigned Neuroscience Provider 05/06/21 06/23/21 Jez Dougherty MD [address] [place] [address] Assigned Neuroscience Provider 06/24/21 11/30/21 Radha Proctor MD [address] [place] [address] Assigned Neuroscience Provider 12/01/21 09/13/22 Stephen Foote MD [address] [place] [address] Assigned Pain Medication Provider 05/27/22 Jez Dougherty MD [address] [place] [address] Assigned Neuroscience Provider 09/14/22 09/20/22 Radha Proctor MD [address] [place] [address] Assigned Neuroscience Provider 09/21/22 11/29/22 Nakul Kinsey DO [address] [place] [address] Assigned Musculoskeletal Provider 10/26/22 01/17/23 Jez oDugherty MD [address] [place], [place] [address] [place] [address] Assigned Neuroscience Provider 11/30/22 12/13/22 Radha Proctor MD 909 [facility] 2121 [place] [address] Assigned Neuroscience Provider 12/14/22 05/09/23 Otis Patino MD 2450 [facility] [address] [place] [address] Assigned Musculoskeletal Provider 01/18/23 Jez Dougherty MD 909 [facility]121[place] [address] Assigned Neuroscience Provider 05/10/23 documented as of this encounter
--- OUTSIDE RECORDS SUMMARY | 2024-03-01 21:19 | XMS_ITS | Encounter Summary ---
Author Organization [facility] Address [address] [place] [address] Care Team Providers Care Lumber Press Operator Name Role Phone Stephen Foote MD Primary Care Provider + Otis Bee MD Unavailable + [phone] Stephen Foote MD Unavailable +[phone] Radha Proctor MD Unavailable + Radha Proctor MD Unavailable + Jez Sam MD Unavailable +[phone] Everardo Hensley DO Unavailable + Jez Dougherty MD Unavailable + Ann Marie Wood RN Unavailable Bert Zarate DO Unavailable +[phone] Stephen Foote MD Unavailable +[phone] Sarahi Claudio [facility] Unavailable Unavailab Everardo Rodas DO Unavailable + Jez Dougherty MD Unavailable + Radha Proctor MD Unavailable + Stephen Foote MD Unavailable +[phone] Jez Dougherty MD Unavailable + Radha Proctor MD Unavailable + Nakul Kinsey DO Unavailable + 0 Jez Dougherty MD Unavailable + Radha Proctor MD Unavailable + Otis Patino MD Unavailable +[phone] Stephen Foote MD Primary Care Provider + Jez Dougherty MD Unavailable + Encounter Details Date Type Department Care Team (Late st Contact Info) Description 04/11/2020 Records - [facility] HE CONVERSION Scan, Non-Provider Social History Tobacco Use Types Packs/Day Years Used Date Smoking Tobacco: Every Day Cigarettes Smokeless Tobacco: Current Alcohol Use Standard Drinks/Week Comments No 0 (1 standard drink = 0.6 oz pur e alcohol) PHQ-2 Answer Date Recorded PHQ-2 Score 0 03/22/2020 Sex and Gender Information Value Date Recorded Sex Assigned at Male 06/13/2021 11:39 PM APPLICATION MANAGER Gender Identity Male 06/13/2021 11:39 PM APPLICATION MANAGER Sexual Orientation Straight 06/13/2021 11 :39 PM APPLICATION MANAGER documented as of this encounter Plan of Treatment Upcoming Encounters Date Type Department Care Team (Late st Contact Info) Description 03/22/2024 1:00 PM APPLICATION MANAGER Office Visit [address] [address] Stephen Foote MD [address] [place] [address] 05/27/2024 1:30 PM APPLICATION MANAGER Office Visit [facility] Multiple Sclerosis [address] [phone] Jez Dougherty MD [address] [place] [place] [address] - [id number] [address] documented as of this encounter Visit Diagnoses [...] documented as of this encounter Care Teams Lumber Press Operator Relationship Specialty Start Date End Date Stephen Foote MD PCP - General Family Practice 05/04/18 03/16/23 Stephen Foote MD [address] [place] [address] PCP - General Family Medicine 03/17/23 Otis Bee MD [address] [place] [address] Orthopedics 05/07/18 Stephen Foote MD MD Family Practice 05/07/18 03/16/23 Radha Proctor MD [address] [place] [address] Neurology 11/25/19 Radha Proctor MD [address] [address] Assigned Neuroscience Provider 03/10/20 05/05/21 Jez Sam MD 6363 [facility] 500 [place] [address] Assigned Surgical Provider 03/10/20 Everardo Hensley DO 9 [place] [address] Neurology 10/17/20 Jez Dougherty MD [address] [place] [address] Neurology 10/17/20 Ann Marie Wood, YANELIS Specialty Garbage Truck Helper Neurology 11/06/20 Bert Zarate DO 606 [facility] 106 [place] [address] Assigned Sleep Provider 12/01/20 Stephen Foote MD [address] [place] [address] 1 [place] [address] Assigned PCP 11/01/20 Sarahi Claudio, [facility] [address] [place] [address] 1 [place] [address] [facility] 03/01/21 Everardo Hensley DO [address] [place] [address] Assigned Neuroscience Provider 05/06/21 06/23/21 Jez Dougherty MD [address] [place] [address] Assigned Neuroscience Provider 06/24/21 11/30/21 Radha Proctor MD [address] [place] [address] Assigned Neuroscience Provider 12/01/21 09/13/22 Stephen Foote MD [address] [place] [address] Assigned Pain Medication Provider 05/27/22 Jez Dougherty MD [address] [place] [address] Assigned Neuroscience Provider 09/14/22 09/20/22 Radha Proctor MD [address] [place] [address] Assigned Neuroscience Provider 09/21/22 11/29/22 Nakul Kinsey DO [address] [place] [address] Assigned Musculoskeletal Provider 10/26/22 01/17/23 Jez Dougherty MD [address] [place] [address] Assigned Neuroscience Provider 11/30/22 12/13/22 Radha Proctor MD [address] [place] [address] Assigned Neuroscience Provider 12/14/22 05/09/23 Otis Patino MD [address] [place] [address] 983124 Assigned Musculoskeletal Provider 01/18/23 Jez Dougherty MD 9 [facility]2121[place], [place] [address] Assigned Neuroscience Provider 05/10/23 documented as of this encounter
--- OUTSIDE RECORDS SUMMARY | 2024-03-01 21:19 | XMS_ITS | Encounter Summary ---
Author Organization [facility] Address [address] [place] [address] Care Team Providers Care Tube Coater Name Role Phone Stephen Foote MD Primary Care Provider + Otis Bee MD Unavailable + [phone] Stephen Foote MD Unavailable +[phone] Radha Proctor MD Unavailable + Radha Proctor MD Unavailable + Jez Sam MD Unavailable +[phone] Everardo Hensley DO Unavailable + Jez Dougherty MD Unavailable + Ann Marie Wood RN Unavailable Bert Zarate DO Unavailable +[phone] Stephen Foote MD Unavailable +[phone] Sarahi Claudio [facility] Unavailable Unavailab Everardo Rodas DO Unavailable + Jez Dougherty MD Unavailable + Radha Proctor MD Unavailable + Stephen Foote MD Unavailable +[phone] Jez Dougherty MD Unavailable + Radha Proctor MD Unavailable + KwasiNakul salazar Thea CORDON Unavailable + 0 Jez Dougherty MD Unavailable + Radha Proctor MD Unavailable + Otis Patino MD Unavailable +[phone] Stephen Foote MD Primary Care Provider + Jez Dougherty MD Unavailable + Encounter Details Date Type Department Care Team (Late st Contact Info) Description 08/12/2019 [facility] [address] [place] [address] Unknown Social History Tobacco Use Types Packs/Day Years Used Date Smoking Tobacco: Every Day Cigarettes Smokeless Tobacco: Current Alcohol Use Standard Drinks/Week Comments No 0 (1 standard drink = 0.6 oz pur e alcohol) Sex and Gender Information Value Date Recorded Sex Assigned at Male 06/13/2021 11:39 PM ROUSTABOUT HAND Gender Identity Male 06/13/2021 11:39 PM ROUSTABOUT HAND Sexual Orientation Straight 06/13/2021 11 :39 PM ROUSTABOUT HAND documented as of this encounter Miscellaneous Notes * Telephone Encounter - Maynor Albert - 08/12/2019 1:11 PM CDT [facility] Phone Message May a detailed message be left on voicemail: yes Reason for Call: Other: Pt being release from [facility] ED after another urinary tract issue. Staff would like to have him seen within 48 hours if possible. Please contact the Pt to schedule. I have requested both a referral and any records that may help us. They have referred us to [facility] for records. Action Taken: Message routed to: [facility] urology Travel Screening: Not Applicable * Telephone Encounter - ReginaJustin - 08/12/2019 12:38 PM CDT A user error has taken place: encounter opened in error, closed for administrative reasons. documented in this encounter Plan of Treatment Upcoming Encounters Date Type Department Care Team (Late st Contact Info) Description 03/22/2024 1:00 PM ROUSTABOUT HAND Office [facility] [address] [facility] [address] [place] [address] Stephen Foote MD [address] [facility] 1 [place] [address] 05/27/2024 1:30 PM ROUSTABOUT HAND Office Visit [facility] Multiple Sclerosis [address] [phone] Jez Dougherty MD [address] [place] [address] - [id number] [address] documented as of this encounter Visit Diagnoses [...] documented as of this encounter Care Teams Tube Coater Relationship Specialty Start Date End Date Stephen Foote MD PCP - General Family Practice 05/04/18 03/16/23 Stephen Foote MD [address] [facility] 1 [place] [address] PCP - General Family Medicine 03/17/23 Otis Bee MD [address] [place] [address] Orthopedics 05/07/18 Stephen Foote MD Family Practice 05/07/18 03/16/23 Radha Proctor MD [address] [place] [address] Neurology 11/25/19 Radha Proctor MD [address] [place] [address] Assigned Neuroscience Provider 03/10/20 05/05/21 Jez Sam MD 6363 [facility] 500 [place] [phone] Assigned Surgical Provider 03/10/20 Everardo Hensley DO [address] [place] [address] Neurology 10/17/20 Jez Dougherty MD [address] [place] [address] [address] Neurology 10/17/20 Ann Marie Wood, RN Specialty Turfgrass Technician Neurology 11/06/20 Bert Zarate DO [address] [facility] [address] [facility] 106 [place] [address] Assigned Sleep Provider 12/01/20 Stephen Foote MD [address] [address] Assigned PCP 11/01/20 Sarahi Claudio, [facility] [address] [address] [facility] 03/01/21 Everardo Hensley DO [address] [place] [address] Assigned Neuroscience Provider 05/06/21 06/23/21 Jez Dougherty MD [address] [place] [address] Assigned Neuroscience Provider 06/24/21 11/30/21 Radha Proctor MD [address] [place] [address] Assigned Neuroscience Provider 12/01/21 09/13/22 Stephen Foote MD [address] [place] [address] Assigned Pain Medication Provider 05/27/22 Jez Dougherty MD [address] [place] [address] Assigned Neuroscience Provider 09/14/22 09/20/22 Radha Proctor MD [address] [place] [address] Assigned Neuroscience Provider 09/21/22 11/29/22 Nakul Kinsey DO 909 [place] [address] Assigned Musculoskeletal Provider 10/26/22 01/17/23 Jez Dougherty MD [address] [place] [address] Assigned Neuroscience Provider 11/30/22 12/13/22 Radha Proctor MD [address] [place] [address] Assigned Neuroscience Provider 12/14/22 05/09/23 Otis Patino MD [address] [place] [address] Assigned Musculoskeletal Provider 01/18/23 Jez Dougherty MD [address] [place] [address] Assigned Neuroscience Provider 05/10/23 documented as of this encounter
--- OUTSIDE RECORDS SUMMARY | 2024-03-01 21:19 | XMS_ITS | Encounter Summary ---
Author Organization [facility] Address [address] [place] [address] Care Team Providers Care School Year Nanny Name Role Phone Stephen Foote MD Primary Care Provider + Otis Bee MD Unavailable + [phone] Stephen Foote MD Unavailable +[phone] Radha Proctor MD Unavailable + Radha Proctor MD Unavailable + Jez Sam MD Unavailable +[phone] Everardo Hensley DO Unavailable + Jez Dougherty MD Unavailable + Ann Marie Wood RN Unavailable Bert Zarate DO Unavailable +[phone] Stephen Foote MD Unavailable +[phone] [facility] Unavailable Unavailab Everardo Rodas DO Unavailable + Jez Dougherty MD Unavailable + Radha Proctor MD Unavailable + Stephen Foote MD Unavailable +[phone] Jez Dougherty MD Unavailable + Radha Proctor MD Unavailable + Nakul Kinsey DO Unavailable + 0 Jez Dougherty MD Unavailable + Radha Proctor MD Unavailable + Otis Patino MD Unavailable + [phone] Stephen Foote MD Primary Care Provider + Jez Dougherty MD Unavailable + Encounter Details Date Type Department Care Team (Late st Contact Info) Description 08/30/2020 Telephone [facility] Neurology Clinic [address] [phone] Everardo Hensley DO [address] [place] [address] Social History Tobacco Use Types Packs/Day Years Used Date Smoking Tobacco: Every Day Cigarettes Smokeless Tobacco: Current Alcohol Use Standard Drinks/Week Comments No 0 (1 standard drink = 0.6 oz pur e alcohol) PHQ-2 Answer Date Recorded PHQ-2 Score 0 03/22/2020 Sex and Gender Information Value Date Recorded Sex Assigned at Male 06/13/2021 11:39 PM STILL CLEANER Gender Identity Male 06/13/2021 11:39 PM STILL CLEANER Sexual Orientation Straight 06/13/2021 11 :39 PM STILL CLEANER COVID-19 Exposure Response Date Recorded In the last month, have you been in contact with someone who was confirmed or suspected to have Coronavirus / COVID-19? No / Unsure 08/22/2020 10:44 AM CDT documented as of this encounter Miscellaneous Notes * Telephone Encounter - Emerald Mao - 08/30/2020 8:14 AM CDT LVM- schedule a new MS per Dr Hensley as soon as available. * Telephone Encounter - Emerald Mao - 08/30/2020 8:14 AM CDT ----- Message from Jayshree Cui RN sent at 08/30/2020 6:02 AM CDT ----- Regarding: MS APPOINTMENT SOON Please help schedule a new MS per Dr Hensley as soon as available. Thank you! documented in this encounter Plan of Treatment Upcoming Encounters Date Type Department Care Team (Late st Contact Info) Description 03/22/2024 1:00 PM STILL CLEANER Office Visit [facility] 1982 [facility] 1 [place] [phone] Stephen Foote MD 1982 [facility] 1 [place], [place] [address] 05/27/2024 1:30 PM STILL CLEANER Office Visit [facility] Multiple Sclerosis [address] [phone] Jez Dougherty MD [address] [place] [address] - [id number] [place], [place] [address] documented as of this encounter Visit Diagnoses Not on filedocumented in this encounter Additional Health Concerns Infection Onset Date Last Indicated Resolved Time Rule Out COVID-19 12/18/2021 12/18/2021 12/18/2021 10:49 PM CDT COVID-19 12/18/2021 12/18/2021 01/08/2022 11:3 9 PM CDT Assessment Noted Time PHQ-9 Depression Total Score: 0 10/13/19 21 2:06 AM CDT documented as of this encounter Care Teams School Year Nanny Relationship Specialty Start Date End Date Stephen Foote MD PCP - General Family Practice 05/04/18 03/16/23 Stephen Foote MD [address] [place] [address] 1 [place], [place] [phone] PCP - General Family Medicine 03/17/23 Otis Bee MD [address] [place] [address] Orthopedics 05/07/18 Stephen Foote MD Family Practice 05/07/18 03/16/23 Radha Proctor MD [address] [place] [address] Neurology 11/25/19 Radha Proctor MD [address] [place] [address] 751425 Assigned Neuroscience Provider 03/10/20 05/05/21 Jez Sam MD [address] [phone] Assigned Surgical Provider 03/10/20 Everardo Hensley DO [address] [place] [address] Neurology 10/17/20 Jez Dougherty MD [address] [place], [place] [address], [place] [address] Neurology 10/17/20 Ann Marie Wood, YANELIS Specialty Final Coat Sprayer Neurology 11/06/20 Bert Zarate DO [address] [place] 106 [place] [address] Assigned Sleep Provider 12/01/20 Stephen Foote MD 1982 [facility] 1 [place] [address] Assigned PCP 11/01/20 Sarahi Claudio, [facility] 1982 [facility] 1 [place] [address] Pharmacist 03/01/21 Everardo Hensley DO 909 [place] [address] Assigned Neuroscience Provider 05/06/21 06/23/21 Jez Dougherty MD [address] [address] Assigned Neuroscience Provider 06/24/21 11/30/21 Radha Proctor MD [address] [place] [address] Assigned Neuroscience Provider 12/01/21 09/13/22 Stephen Foote MD [address] [address] Assigned Pain Medication Provider 05/27/22 Jez Dougherty MD [address] [address] Assigned Neuroscience Provider 09/14/22 09/20/22 Radha Proctor MD [address] [place] [address] Assigned Neuroscience Provider 09/21/22 11/29/22 Nakul Kinsey DO [address] [place] [address] Assigned Musculoskeletal Provider 10/26/22 01/17/23 Jez Dougherty MD [address] [place] [address] Assigned Neuroscience Provider 11/30/22 12/13/22 Radha Proctor MD [address] [place] [address] Assigned Neuroscience Provider 12/14/22 05/09/23 Otis Patino MD 2450 [facility] [address] [place] [address] Assigned Musculoskeletal Provider 01/18/23 Jez Dougherty MD [address] [place], [place] [address], [place] [address] Assigned Neuroscience Provider 05/10/23 documented as of this encounter
--- OUTSIDE RECORDS SUMMARY | 2024-03-01 21:20 | XMS_ITS | Encounter Summary ---
Author Organization [facility] Address [address] [place] [address] Care Team Providers Care Physical Therapy Aid Name Role Phone Stephen Foote MD Primary Care Provider + Otis Bee MD Unavailable + [phone] Stephen Foote MD Unavailable [phone] Radha Proctor MD Unavailable + Radha Proctor MD Unavailable + Jez Sam MD Unavailable +[phone] Everardo Hensley DO Unavailable + Jez Dougherty MD Unavailable + Ann Marie Wood RN Unavailable Bert Zarate DO Unavailable +[phone] Stephen Foote MD Unavailable +[phone] Sarahi Claudio [facility] Unavailable Unavailab Everardo Rodas DO Unavailable + Jez Dougherty MD Unavailable + Radha Proctor MD Unavailable + Stephen Foote MD Unavailable +[phone] Jez Dougherty MD Unavailable + Radha Proctor MD Unavailable + Nakul Kinsey Unavailable + 0 Jez Dougherty MD Unavailable + Radha Proctor MD Unavailable + Otis Patino MD Unavailable +[phone] Stephen Foote MD Primary Care Provider + Jez Dougherty MD Unavailable + Encounter Details Date Type Department Care Team (Late st Contact Info) Description 12/14/2018 Records - [facility] HE CONVERSION Scan, Non-Provider Social History Tobacco Use Types Packs/Day Years Used Date Smoking Tobacco: Every Day Cigarettes Smokeless Tobacco: Current Alcohol Use Standard Drinks/Week Comments No 0 (1 standard drink = 0.6 oz pur e alcohol) Sex and Gender Information Value Date Recorded Sex Assigned at Male 06/13/2021 11:39 PM PROFESSOR OF FINE ART Gender Identity Male 06/13/2021 11:39 PM PROFESSOR OF FINE ART Sexual Orientation Straight 06/13/2021 11 :39 PM PROFESSOR OF FINE ART documented as of this encounter Plan of Treatment Upcoming Encounters Date Type Department Care Team (Late st Contact Info) Description 03/22/2024 1:00 PM PROFESSOR OF FINE ART Office Visit [address] 1 [place] [phone] Stephen Foote MD [address] [place] [address] 05/27/2024 1:30 PM PROFESSOR OF FINE ART Office Visit [facility] Multiple Sclerosis [address] [phone] Jez Dougherty MD [address] [place] [address] - [id number] [place] [address] documented as of this encounter Visit Diagnoses Not on filedocumented in this encounter Additional Health Concerns Infection Onset Date Last Indicated Resolved Time Rule Out COVID-19 08/11/2020 08/11/202008/1108/11/2020 5:30 PM CDT Rule Out COVID-19 12/18/2021 12/18/2021 12/18/2021 10:49 PM CDT COVID-19 12/18/2021 12/18/2021 01/08/2022 11:3 9 PM CDT Assessment Noted Time PHQ-9 Depression Total Score: 0 08/12/19 4:20 PM CDT documented as of this encounter Care Teams Physical Therapy Aid Relationship Specialty Start Date End Date Stephen Foote MD PCP - General Family Practice 05/04/18 03/16/23 Stephen Foote MD [address] [place] [address] PCP - General Family Medicine 03/17/23 Otis Bee MD [address] [place] [address] Orthopedics 05/07/18 Stephen Foote MD Family Practice 05/07/18 03/16/23 Radha Proctor MD [address] [place] [address] Neurology 11/25/19 Radha Proctor MD [address] [place] [address] Assigned Neuroscience Provider 03/10/20 05/05/21 Jez Sam MD 6363 [facility] 500 [place] [address] Assigned Surgical Provider 03/10/20 Everardo Hensley DO [address] [place] [address] Neurology 10/17/20 Jez Dougherty MD [address] [place] [address] Neurology 10/17/20 Ann Marie Wood, RN Specialty Hot Metal Charger Neurology 11/06/20 Bert Zarate DO 606 [facility] [address] [address] Assigned Sleep Provider 12/01/20 Stephen Foote MD [address] [place] [address] 1 [place] [address] Assigned PCP 11/01/20 Sarahi Claudio, [facility] [address] [place] [address] 1 [place] [address] [facility] 03/01/21 Everardo Hensley DO [address] [place] [address] Assigned Neuroscience Provider 05/06/21 06/23/21 Jez Dougherty MD [address] [place] [address] Assigned Neuroscience Provider 06/24/21 11/30/21 Radha Proctor MD [address] [place] [address] Assigned Neuroscience Provider 12/01/21 09/13/22 Stephen Foote MD [address] [place] [address] Assigned Pain Medication Provider 05/27/22 Jez Dougherty MD [address] [place] [address] Assigned Neuroscience Provider 09/14/22 09/20/22 Radha Proctor MD [address] [place] [address] Assigned Neuroscience Provider 09/21/22 11/29/22 Nakul Kinsey DO [address] [place] [address] Assigned Musculoskeletal Provider 10/26/22 01/17/23 Jez Dougherty MD [address] [place] [address] Assigned Neuroscience Provider 11/30/22 12/13/22 Radha Proctor MD [address] [place] [address] Assigned Neuroscience Provider 12/14/22 05/09/23 Otis Patino MD [address] [place] [address] R102 [place] [address] Assigned Musculoskeletal Provider 01/18/23 Jez Dougherty MD 909 [facility]2121[place], [place] [address] Assigned Neuroscience Provider 05/10/23 documented as of this encounter
--- OUTSIDE RECORDS SUMMARY | 2024-03-01 21:20 | XMS_ITS | Continuity of Care Document ---
Author Organization [facility] Address [address] [address] [place] [address] Phone Care Team Providers Care High Lighter Name Role Phone Matt Rosenbaum MD Unavailable Unavailable Allergies, Adverse Reactions, Alerts Substance Reaction Status Criticality NSAIDS (Non-Steroidal Anti-I nflammatory Drug) Headache(moderate) Active No Information Medications Medication Instructions Dosage Effective Dates (start - stop) Status Comments verapamil 120 mg tablet take 2 by Oral route 3 times every day 2 - Active Depakote 250 mg tablet,delayed release take 4 tablet by ORAL route 2 times every day 1000 MG - Active sumatriptan 6 mg/0.5 mL subcutaneous pen injector inject 0.5 milliliter by subcutaneous route once; may be repeated 1 hour after the first dose if headache pain returns or increases in severity; do not exceed 2 doses within 24 hours 6 MG - Active MiralaxBisacodylMagCit Colon Prep Use as directed - No Longer Active Procedures Procedure Date Colonoscopy Flex; Dx (sep Pro) 14 Advance Directives Directive Yes / No Effective Date File Name No Information Encounters Encounter Description Practice Location Reason(s) For Visit Diagnoses Date Provider Providers Copied on Encounter [facility], [address] [address], [place], [place], [id number], [place] tel:[phone] [facility] Diverticulosis of colonDiverticu losis Of Colon 4 Robi Gutierrez. [address] [facility], [address], [place], [place], [id number], [place]. tel:[phone] Referring Provider: Stephen Foote MD P, [address], [place], [address]. tel:[phone] [facility], [address] [address], [place], [id number], tel:[phone] [facility] No Information No Information Referring Provider: Stephen Foote MD P, [address], [place], [address]. tel:[phone] Family History Family Member Type Diagnosis Age At Onset No Information Payers Payer name Insurance type Covered green party ID Authoriza ticelia(s) [employer] Access Ability Solution [id number] Social History Type Description Quantity Date Captured Comments Alcohol Use Details Unknown Caffeine Use Details Unknown Tobacco Use Status Smoking Status No Information Sex Male Chief Complaint And Reason For Visit No Information Reason For Referral Reason For Referral No Information History Of Present Illness Encounter Date Complaint History Of Prese nt Illness No Information Functional Status Date Functional Assessmen t No Information Instructions Date Instruction Additional Infor karri Colon Cancer Prevention Related to Diverticulosis of colon Diverticulosis/Diverticulitis Re lated to Diverticulosis of colon High Fiber Diet Related to Diver ticulosis of colon Assessments Type Assessment Date assessment Diverticulosis of colon 014 Patient Care Teams Name Effective Dates (start - stop) Status Members No Information
--- OUTSIDE RECORDS SUMMARY | 2024-03-01 21:20 | XMS_ITS | Encounter Summary ---
Author Organization [place] Address [address] [place] [address] Care Team Providers Care Ctc Operator Name Role Phone No Ref-Primary, Physician Primary Care Provider Stephen Foote MD Primary Care Provider [phone] Otis Bee MD Unavailable +[phone] Stephen Foote MD Unavailable [phone] Radha Proctor MD Unavailable + [phone] Radha Proctor MD Unavailable + [phone] Jze Sam MD Unavailable +[phone] Everardo Hensley DO Unavailable + Jez Dougherty MD Unavailable +-[phone] Ann Marie Wood RN Unavailable Bert Zarate DO Unavailable +[phone] Stephen Foote MD Unavailable +[phone] Sarahi Claudio [facility] Unavailable Unavailab Everardo Roads DO Unavailable + Jez Dougherty MD Unavailable +[phone] Radha Proctor MD Unavailable + [phone] Stephen Foote MD Unavailable +[phone] Jez Dougherty MD Unavailable + Radha Proctor MD Unavailable + Nakul Kinsey DO Unavailable + 0 Jez Dougherty MD Unavailable + Radha Proctor MD Unavailable + Otis Patino MD Unavailable +[phone] Stephen Foote MD Primary Care Provider + Jez Dougherty MD Unavailable + Encounter Details Date Type Department Care Team (Late st Contact Info) Description 01/30/2018 Records - [facility] CONVERSION Scan, Non-Provider Social History Tobacco Use Types Packs/Day Years Used Date Smoking Tobacco: Every Day Cigarettes Smokeless Tobacco: Current Alcohol Use Standard Drinks/Week Comments No 0 (1 standard drink = 0.6 oz pur e alcohol) Sex and Gender Information Value Date Recorded Sex Assigned at Male 06/13/2021 11:39 PM SECOND STEWARD Gender Identity Male 06/13/2021 11:39 PM SECOND STEWARD Sexual Orientation Straight 06/13/2021 11 :39 PM SECOND STEWARD documented as of this encounter Plan of Treatment Upcoming Encounters Date Type Department Care Team (Late st Contact Info) Description 03/22/2024 1:00 PM SECOND STEWARD Office Visit [address] [phone] Stephen Foote MD [address] [place] [address] 05/27/2024 1:30 PM SECOND STEWARD Office Visit [facility] Multiple Sclerosis [address] [phone] Jez Dougherty MD [address] [place] [address] - [id number] [place] [address] documented as of this encounter Visit Diagnoses Not on filedocumented in this encounter Additional Health Concerns Infection Onset Date Last Indicated Resolved Time Rule Out COVID-19 08/11/2020 08/11/2020 08/11/2020 5:30 PM CDT Rule Out COVID-19 12/18/2021 12/18/2021 12/18/2021 10:49 PM CDT COVID-19 12/18/2021 12/18/2021 01/08/2022 11:3 9 PM CDT documented as of this encounter Care Teams Ctc Operator Relationship Specialty Start Date End Date No Ref-Primary, Physician PCP - General 10/27/13 05/03/18 Stephen Foote MD PCP - General Family Practice 05/04/18 03/16/23 Stephen Foote MD [address] [place] [address] [id number] PCP - General Family Medicine 03/17/23 Otis Bee MD [address] [place] [address] 165065 Orthopedics 05/07/18 Stephen Foote MD MD Family Practice 05/07/18 03/16/23 Radha Proctor MD [address] [place] [address] 09453 Neurology 11/25/19 Radha Proctor MD [address] [place] [address] 71377 Assigned Neuroscience Provider 03/10/20 05/05/21 Jez Sam MD [address] [place] [address] Assigned Surgical Provider 03/10/20 Everardo Hensley DO [address] [place] [address] Neurology 10/17/20 Jez Dougherty MD [address] [place] [address] 8[address]91 Neurology 10/17/20 Ann Marie Wood, RN Specialty Airline Flight Attendant Neurology 11/06/20 Bert Zarate DO [address] [facility] [address] [facility] 106 [place] [address] Assigned Sleep Provider 12/01/20 Stephen Foote MD [address] [place] [address] 1 [place] [address] Assigned PCP 11/01/20 Sarahi Claudio, [facility] [address] [place] [address] 1 [place] [address] [facility] 03/01/21 Everardo Hensely DO [address] [place] [address] 52905 Assigned Neuroscience Provider 05/06/21 06/23/21 Jez Dougherty MD [address] [place] [address] 22689 Assigned Neuroscience Provider 06/24/21 11/30/21 Radha Proctor MD [address] [place] [address] Assigned Neuroscience Provider 12/01/21 09/13/22 Stephen Foote MD [address] [place] [address]76 Assigned Pain Medication Provider 05/27/22 Jez Dougherty MD [address] [place] [address] 79677 Assigned Neuroscience Provider 09/14/22 09/20/22 Radha Proctor MD [address] [place] [address]58 Assigned Neuroscience Provider 09/21/22 11/29/22 Nakul Kinsey DO [address] [place] [address] 28886 Assigned Musculoskeletal Provider 10/26/22 01/17/23 Jez Dougherty MD [address] [place] [address] 79742 Assigned Neuroscience Provider 11/30/22 12/13/22 Radha Proctor MD [address] [place] [address] 24041 Assigned Neuroscience Provider 12/14/22 05/09/23 Otis Patino MD [address] [place] [address] 75[address] Assigned Musculoskeletal Provider 01/18/23 Jez Dougherty MD [address] [facility] - [id number] [place] [address] Assigned Neuroscience Provider 05/10/23 documented as of this encounter
--- OUTSIDE RECORDS SUMMARY | 2024-03-01 21:20 | XMS_ITS | Encounter Summary ---
Author Organization [place] Address [address] [place] [address] Care Team Providers Care Furnace Unloader Name Role Phone Stephen Foote MD Primary Care Provider + Otis Bee MD Unavailable + [phone] Stephen Foote MD Unavailable +[phone] Radha Proctor MD Unavailable + Radha Proctor MD Unavailable + Jez Sam MD Unavailable +[phone] Everardo Hensley DO Unavailable + Jez Dougherty MD Unavailable + Ann Marie Wood RN Unavailable Bert Zarate DO Unavailable +[phone] Stephen Foote MD Unavailable +[phone] Sarahi Claudio [facility] Unavailable Unavailab Everardo Rodas DO Unavailable + Jez Dougherty MD Unavailable + Radha Proctor MD Unavailable + Stephen Foote MD Unavailable +[phone] Jez Dougherty MD Unavailable + Radha Proctor MD Unavailable + Nakul Kinsey Unavailable + 0 Jez Dougherty MD Unavailable + Radha Proctor MD Unavailable + Otis Patino MD Unavailable +[phone] Stephen Foote MD Primary Care Provider + Jez Dougherty MD Unavailable + Encounter Details Date Type Department Care Team (Late st Contact Info) Description 03/11/2019 Records - [facility] CONVERSION Scan, Provider Social History Tobacco Use Types Packs/Day Years Used Date Smoking Tobacco: Every Day Cigarettes Smokeless Tobacco: Current Alcohol Use Standard Drinks/Week Comments No 0 (1 standard drink = 0.6 oz pur e alcohol) Sex and Gender Information Value Date Recorded Sex Assigned at Male 06/13/2021 11:39 PM ELECTRONIC PAGINATION SYSTEM OPERATOR Gender Identity Male 06/13/2021 11:39 PM ELECTRONIC PAGINATION SYSTEM OPERATOR Sexual Orientation Straight 06/13/2021 11 :39 PM ELECTRONIC PAGINATION SYSTEM OPERATOR documented as of this encounter Plan of Treatment Upcoming Encounters Date Type Department Care Team (Late st Contact Info) Description 03/22/2024 1:00 PM ELECTRONIC PAGINATION SYSTEM OPERATOR Office Visit [address] [phone] Stephen Foote MD [address] [place] [address] 05/27/2024 1:30 PM ELECTRONIC PAGINATION SYSTEM OPERATOR Office Visit [facility] Multiple Sclerosis [address] [phone] Jez Dougherty MD [address] [place] [address] - [id number] [place], [place] [address] documented as of this encounter Visit Diagnoses [...] documented as of this encounter Care Teams Furnace Unloader Relationship Specialty Start Date End Date Stephen Foote MD PCP - General Family Practice 05/04/18 03/16/23 Stephen Foote MD [address] [place] [address] PCP - General Family Medicine 03/17/23 Otis Bee MD [address] [place] [address]89 Orthopedics 05/07/18 Stephen Foote MD Family Practice 05/07/18 03/16/23 Radha Proctor MD [address] [place] [address] Neurology 11/25/19 Radha Proctor MD [address] [place] [address] 42072 Assigned Neuroscience Provider 03/10/20 05/05/21 Jez Sam MD [address] [facility] 500 [place] [phone] Assigned Surgical Provider 03/10/20 Everardo Hensley DO [address] [place] [address] Neurology 10/17/20 Jez Dougherty MD [address] [place] [address] Neurology 10/17/20 Ann Marie Wood, YANELIS Specialty General Foundry Worker Neurology 11/06/20 Bert Zarate DO [address] [facility] 106 [place] [address] Assigned Sleep Provider 12/01/20 Stephen Foote MD [address] [place] [address] 1 [place] [address] Assigned PCP 11/01/20 Sarahi Claudio, [facility] [address] [place] [address] 1 [place] [address] [facility] 03/01/21 Everardo Hensley DO [address] [place] [address] 59292 Assigned Neuroscience Provider 05/06/21 06/23/21 Jez Dougherty MD [address] [place] [address] 37194 Assigned Neuroscience Provider 06/24/21 11/30/21 Radha Proctor MD [address] [place] [address] 12023 Assigned Neuroscience Provider 12/01/21 09/13/22 Stephen Foote MD [address] [place] [address] 1 [place] [address] Assigned Pain Medication Provider 05/27/22 Jez Dougherty MD [address] [place] [address] 49477 Assigned Neuroscience Provider 09/14/22 09/20/22 Radha Proctor MD [address] [place] [address] 23511 Assigned Neuroscience Provider 09/21/22 11/29/22 Nakul Kinsey DO [address] [place] [address] 49393 Assigned Musculoskeletal Provider 10/26/22 01/17/23 Jez Dougherty MD [address] [place] [address] 22535 Assigned Neuroscience Provider 11/30/22 12/13/22 Radha Proctor MD [address] [place] [address] 17011 Assigned Neuroscience Provider 12/14/22 05/09/23 Otis Patino MD [address] [place] [address] [address] [place] [address] Assigned Musculoskeletal Provider 01/18/23 Jez Dougherty MD 909 [facility]2121[place], [place] [address] Assigned Neuroscience Provider 05/10/23 documented as of this encounter
--- OUTSIDE RECORDS SUMMARY | 2024-03-01 21:20 | XMS_ITS | Encounter Summary ---
Author Organization [place] Address [address] [place] [address] Care Team Providers Care Battery Checker Name Role Phone Stephen Foote MD Primary Care Provider + Otis Bee MD Unavailable + [phone] Stephen Foote MD Unavailable [phone] Radha Proctor MD Unavailable + Radha Proctor MD Unavailable + Jez Sam MD Unavailable +[phone] Everardo Hensley DO Unavailable + Jez Dougherty MD Unavailable + Ann Marie Wood RN Unavailable Bert Zarate DO Unavailable +[phone] Stephen Foote MD Unavailable +[phone] Sarahi Claudio [facility] Unavailable Unavailab Everardo Rodas DO Unavailable + Jez Dougherty MD Unavailable + Radha Proctor MD Unavailable + Stephen Foote MD Unavailable +[phone] Jez Dougherty MD Unavailable + Radha Proctor MD Unavailable + Nakul Kinsey Unavailable + 0 Jez Dougherty MD Unavailable + Radha Proctor MD Unavailable + Otis Patino MD Unavailable +[phone] Stephen Foote MD Primary Care Provider + Jez Dougherty MD Unavailable + Encounter Details Date Type Department Care Team (Late st Contact Info) Description 11/09/2018 Records - [facility] CONVERSION Scan, Provider Social History Tobacco Use Types Packs/Day Years Used Date Smoking Tobacco: Every Day Cigarettes Smokeless Tobacco: Current Alcohol Use Standard Drinks/Week Comments No 0 (1 standard drink = 0.6 oz pur e alcohol) Sex and Gender Information Value Date Recorded Sex Assigned at Male 06/13/2021 11:39 PM DIGITAL PRODUCT SPECIALIST Gender Identity Male 06/13/2021 11:39 PM DIGITAL PRODUCT SPECIALIST Sexual Orientation Straight 06/13/2021 11 :39 PM DIGITAL PRODUCT SPECIALIST documented as of this encounter Plan of Treatment Upcoming Encounters Date Type Department Care Team (Late st Contact Info) Description 03/22/2024 1:00 PM DIGITAL PRODUCT SPECIALIST Office Visit [address] [phone] Stephen Foote MD [address] [place] [address] 05/27/2024 1:30 PM DIGITAL PRODUCT SPECIALIST Office Visit [facility] Multiple Sclerosis [address] [phone] Jez Dougherty MD [address] [place] [address] - [id number] [place], [place] [address] documented as of this encounter Visit Diagnoses [...] documented as of this encounter Care Teams Battery Checker Relationship Specialty Start Date End Date Stephen Foote MD PCP - General Family Practice 05/04/18 03/16/23 Stephen Foote MD [address] [place] [address] PCP - General Family Medicine 03/17/23 Otis Bee MD [address] [place] [address]92 Orthopedics 05/07/18 Stephen Foote MD Family Practice 05/07/18 03/16/23 Radha Proctor MD [address] [place] [address] 05269 Neurology 11/25/19 Radha Proctor MD [address] [place] [address]3887 Assigned Neuroscience Provider 03/10/20 05/05/21 Jez Sam MD 6363 [facility] 500 [place] [address] Assigned Surgical Provider 03/10/20 Everardo Hensley DO [address] [place] [address] 44029 Neurology 10/17/20 Jez Dougherty MD [address] [place] [address] 28443 Neurology 10/17/20 Ann Marie Wood, YANELIS Specialty Imagery Intelligence Neurology 11/06/20 Bert Zarate DO [address] [facility] 106 [place] [address] Assigned Sleep Provider 12/01/20 Stephen Foote MD [address] [place] [address] 1 [place] [address] Assigned PCP 11/01/20 Sarahi Claudio, [facility] [address] [place] [address] 1 [place] [address] [facility] 03/01/21 Everardo Hensley DO [address] [place] [address]2825 Assigned Neuroscience Provider 05/06/21 06/23/21 Jez Dougherty MD [address] [place] [address] 02203 Assigned Neuroscience Provider 06/24/21 11/30/21 Radha Proctor MD [address] [place] [address]5529 Assigned Neuroscience Provider 12/01/21 09/13/22 Stephen Foote MD [address] [place] [address] 1 [place] [address] Assigned Pain Medication Provider 05/27/22 Jez Dougherty MD [address] [place] [address] 23698 Assigned Neuroscience Provider 09/14/22 09/20/22 Radha Proctor MD [address] [place] [address] 25117 Assigned Neuroscience Provider 09/21/22 11/29/22 Nakul Kinsey DO [address] [place] [address] 32044 Assigned Musculoskeletal Provider 10/26/22 01/17/23 Jez Dougherty MD [address] [place] [address] 14775 Assigned Neuroscience Provider 11/30/22 12/13/22 Radha Proctor MD [address] [place] [address] 26782 Assigned Neuroscience Provider 12/14/22 05/09/23 Otis Patino MD [address] [place] [address] [address] [place] [address] Assigned Musculoskeletal Provider 01/18/23 Jez Dougherty MD 909 [facility]2121[place] [address] Assigned Neuroscience Provider 05/10/23 documented as of this encounter
--- OUTSIDE RECORDS SUMMARY | 2024-03-01 21:20 | XMS_ITS | Encounter Summary ---
Author Organization [place] Address [address] [place] [address] Care Team Providers Care Director Of Field Coordination Name Role Phone Stephen Foote MD Primary Care Provider + Otis Bee MD Unavailable + [phone] Stephen Foote MD Unavailable +[phone] Radha Proctor MD Unavailable + Radha Proctor MD Unavailable + Jez Sam MD Unavailable +[phone] Everardo Hensley DO Unavailable + Jez Dougherty MD Unavailable + Ann Marie Wood RN Unavailable Bert Zarate DO Unavailable +[phone] Stephen Foote MD Unavailable +[phone] Sarahi Claudio [facility] Unavailable Unavailab Everardo Rodas DO Unavailable + Jez Dougherty MD Unavailable + Radha Proctor MD Unavailable + Stephen Foote MD Unavailable +[phone] Jez Dougherty MD Unavailable + Radha Proctor MD Unavailable + Nakul Kinsey Unavailable + 0 Jez Dougherty MD Unavailable + Radha Proctor MD Unavailable + Otis Patino MD Unavailable +[phone] Stephen Foote MD Primary Care Provider + Jez Dougherty MD Unavailable + Encounter Details Date Type Department Care Team (Late st Contact Info) Description 04/09/2019 Records - [facility] CONVERSION Scan, Non-Provider Social History Tobacco Use Types Packs/Day Years Used Date Smoking Tobacco: Every Day Cigarettes Smokeless Tobacco: Current Alcohol Use Standard Drinks/Week Comments No 0 (1 standard drink = 0.6 oz pur e alcohol) Sex and Gender Information Value Date Recorded Sex Assigned at Male 06/13/2021 11:39 PM MOTOR RUNNER Gender Identity Male 06/13/2021 11:39 PM MOTOR RUNNER Sexual Orientation Straight 06/13/2021 11 :39 PM MOTOR RUNNER documented as of this encounter Plan of Treatment Upcoming Encounters Date Type Department Care Team (Late st Contact Info) Description 03/22/2024 1:00 PM MOTOR RUNNER Office Visit [address] 1 [place] [phone] Stephen Foote MD [address] [place] [address] 05/27/2024 1:30 PM MOTOR RUNNER Office Visit [facility] Multiple Sclerosis [address] [phone] Jez Dougherty MD [address] [place] [address] - [id number] [place] [address] documented as of this encounter Visit Diagnoses [...] documented as of this encounter Care Teams Director Of Field Coordination Relationship Specialty Start Date End Date Stephen Foote MD PCP - General Family Practice 05/04/18 03/16/23 Stephen Foote MD [address] [place] [address] 16164 PCP - General Family Medicine 03/17/23 Otis Bee MD [address] [place] [address] 75034 Orthopedics 05/07/18 Stephen Foote MD Family Practice 05/07/18 03/16/23 Radha Proctor MD [address] [place] [address]89 Neurology 11/25/19 Radha Proctor MD [address] [place] [address] 84856 Assigned Neuroscience Provider 03/10/20 05/05/21 Jez Sam MD 6363 [facility] 500 [place] [address] Assigned Surgical Provider 03/10/20 Everardo Hensley DO [address] [place] [address]76 Neurology 10/17/20 Jez Dougherty MD [address] [place] [address]10 Neurology 10/17/20 Ann Marie Wood, RN Specialty Pile Driver Operator Neurology 11/06/20 Bert Zarate DO [address] [facility] [address] [address] Assigned Sleep Provider 12/01/20 Stephen Foote MD [address] [place] [address] 1 [place] [address] Assigned PCP 11/01/20 Sarahi Claudio, [facility] [address] [place] [address] 1 [place] [address] [facility] 03/01/21 Eevrardo Hensley DO [address] [place] [address] 42987 Assigned Neuroscience Provider 05/06/21 06/23/21 Jez Dougherty MD [address] [place] [address] 30374 Assigned Neuroscience Provider 06/24/21 11/30/21 Radha Proctor MD [address] [place] [address]8577 Assigned Neuroscience Provider 12/01/21 09/13/22 Stephen Foote MD [address] [place] [address] 31898 Assigned Pain Medication Provider 05/27/22 Jez Dougherty MD [address] [place] [address] 35315 Assigned Neuroscience Provider 09/14/22 09/20/22 Radha Proctor MD [address] [place] [address] 07248 Assigned Neuroscience Provider 09/21/22 11/29/22 Nakul Kinsey DO [address] [place] [address] 72700 Assigned Musculoskeletal Provider 10/26/22 01/17/23 Jez Dougherty MD [address] [place] [address] 87619 Assigned Neuroscience Provider 11/30/22 12/13/22 Radha Proctor MD [address] [place] [address] 41485 Assigned Neuroscience Provider 12/14/22 05/09/23 Otis Patino MD [address] [place] [address] [address] [place] [address] Assigned Musculoskeletal Provider 01/18/23 Jez Dougherty MD 909 [facility]2121[place], [place] [address] Assigned Neuroscience Provider 05/10/23 documented as of this encounter
--- OUTSIDE RECORDS SUMMARY | 2024-03-01 21:25 | XMS_ITS | Continuity of Care Document ---
Author Organization [facility] Address [address] [address] [place] [address] Phone Care Team Providers Care Food General Manager Name Role Phone Matt Rosenbaum MD Unavailable [...] Diagnoses Date Provider Providers Copied on Encounter [facility], [address] [address], [place], [place], [id number], [place] tel:[phone] [facility] Diverticulosis of colonDiverticu losis Of Colon 4 Robi Gutierrez. [address] [facility], [address], [place], [place], [id number], [place]. tel:[phone] Referring Provider: Stephen Foote MD P, [address], [place], [address]. tel:[phone] [facility], [address] [address], [place], [id number], tel:[phone] [facility] No Information No Information Referring Provider: Stephen Foote MD P, [address], [place], [address]. tel:[phone] Family History Family Member Type Diagnosis Age At Onset No Information Payers Payer name Insurance type Covered alliance party ID Authoriza ticelia(s) [employer] Access Ability Solution [id number] Social History Type Description Quantity Date Captured [...]
[2024-03-01] MEDS: SUMAtriptan 6 MG/0.5 ML INJ SUBCUT (21:30)
[2024-03-01] MEDS: predniSONE 10 MG TABLET 100 MG PO (21:30)
--- NOTE | 2024-03-01 21:40 | ED.GENADULT ---
HPI - General Adult General Chief complaint: Headache/Migraine Stated complaint: Cluster Headache Time Seen by Provider: 03/01/24 20:59 Source: patient Mode of arrival: ambulatory Limitations: no limitations History of Present Illness HPI narrative: 48-year-old male with a history of cluster headaches presents today with such headache. Patient states that it started this morning. Early afternoon he went to [facility] and received a dose of Imitrex. We felt better for a while but then the headache returned. It is located over the right forehead and temporal region where it normally is. It is where that he gets multiple headaches in the day but not unheard of. He denies any focal neurologic deficits. No fevers or chills. Headache feels like previous headaches have in the past. He states that Imitrex and oxygen generally do the trick. He also takes daily verapamil for prevention. He does not have any Imitrex at home. Related Data Home Medications ?Medication ?Instructions ?Recorded ?Confirmed cholecalciferol (vitamin D3) 1,250 01/19/22 mcg (50,000 unit) capsule divalproex 500 mg tablet,delayed mg PO 01/19/22 release duloxetine 30 mg capsule,delayed mg PO 01/19/22 release galcanezumab-gnlm 300 mg/3 mL (100 mg subcut 01/19/22 mg/mL x 3) subcutaneous syringe (Emgality) glatiramer 40 mg/mL subcutaneous mg subcut 01/19/22 syringe (Glatopa) mirtazapine 30 mg tablet mg 01/19/22 sumatriptan succinate 6 mg/0.5 mL mg subcut 01/19/22 subcutaneous pen injector verapamil 240 mg tablet,extended mg PO 01/19/22 release Allergies Allergy/AdvReac Type Severity Reaction Status Date / Time NSAIDS (Non-Steroidal AdvReac not to Verified 06/16/22 17:33 Anti-Inflamma take with verapamil Review of Systems Status of ROS: Reports: 10 or more systems reviewed and unremarkable except as noted in History and below PFSH [facility] Social History Smoking Status: Current every day smoker What tobacco products do you use: cigarettes Do you use any of these nicotine containing products: None Second hand tobacco smoke exposure: No How often do you have a drink containing alcohol: never How often do you have six or more drinks on one occasion: Never AUDIT-C Alcohol total score: 0 Non-prescribed substance use: denies use service: No Exam Narrative: Exam Narrative: Well-nourished well-developed patient in no acute distress. Alert and oriented. Answers questions appropriately. Mood and affect are appropriate. Thoughts are goal oriented and rational. No tangential or magical thinking noted. Patient speaks in full sentences without needing to catch his breath. Speech is not slurred or pressured. Patient is able to sit and lay down without difficulty. Gait is normal. HEENT: Normocephalic atraumatic. Pupils are equally round reactive to light. Extraocular muscles are intact. Conjunctivae are moist without any icterus noted. Moist mucous membranes. Posterior pharynx is normal. Neck is soft. Cardiovascular: Heart is regular rate and rhythm S1 and S2 are present without any murmurs. Lungs: Clear to auscultation bilaterally no wheezes rhonchi or rales are appreciated. Extremities: Bilateral lower extremities are without edema. Skin: Well perfused without any obvious rashes. Const: Vital Signs, click to edit/add: Vital Signs - 24 hr 03/01/24 20:48 Temperature 98 F Pulse Rate [Pulse Oximeter] 71 Respiratory Rate 16 Blood Pressure [Ri ght Upper Arm] 128/80 Pulse Oximetry 98 Oxygen Delivery Me thod Room Air Course Course ED Course: Patient was placed on 12 L oxygen via non-rebreather for 15 minutes, we repeated his dose of Imitrex subcutaneously and gave him 100 mg of p.o. prednisone. Patient felt significant improvement and was ready to be discharged. Vital Signs Vital signs: Initial Vital Signs Temperature 98 F 03/01/24 20:48 Temperature Source Temporal Artery Scan 03/01/24 20:48 Pulse Rate 71 03/01/24 20:48 Respiratory Rate 16 03/01/24 20:48 Blood Pressure 128/80 03/01/24 20:48 Blood Pressure Mean 96 03/01/24 20:48 Blood Pressure Position Sitting 03/01/24 20:48 Pulse Oximetry 98 03/01/24 20:48 Oxygen Delivery Method Room Air 03/01/24 20:48 Vital Signs Temperature 98 F 03/01/24 20:48 Pulse Rate 71 03/01/24 20:48 Respiratory Rate 16 03/01/24 20:48 Blood Pressure 128/80 03/01/24 20:48 Pulse Oximetry 98 03/01/24 20:48 Oxygen Delivery Method Room Air 03/01/24 20:48 Temperature 98 F 03/01/24 20:48 Pulse Rate 71 03/01/24 20:48 Respiratory Rate 16 03/01/24 20:48 Blood Pressure 128/80 03/01/24 20:48 Pulse Oximetry 98 03/01/24 20:48 Oxygen Delivery Method Room Air 03/01/24 20:48 Medications Administered Medications: Discontinued Medications Generic Name Dose Route Start Last Admin Trade Name Brendan MAZARIEGOS Reason Stop Dose Admin Prednisone 100 mg 03/01/24 21:07 03/01/24 21:30 Prednisone 10 Mg Tablet PO 03/01/24 21:08 100 mg ONCE ONE Administration Sumatriptan Succinate 6 mg 03/01/24 21:07 03/01/24 21:30 Sumatriptan 6 Mg/0.5 Ml Inj SUBCUT 03/01/24 21:08 6 mg ONCE ONE Administration Medical Decision Making [facility] [place] Narrative Medical decision making narrative: 48-year-old male with repeated cluster headaches today. Patient feeling better after treatment. Recommend he follow-up with his primary care provider to discuss home management of headaches. Discharge Plan Discharge Clinical Impression: Cluster headache Patient Disposition: Home, Self-Care Condition: Improved Additional Instructions: Follow-up with your primary care provider to discuss at home treatment of your headaches. Get a good night's sleep. Prescriptions: No Action divalproex 500 mg tablet,delayed release (DR/EC) PO Patient Comments: TAKE 1 TABLET BY MOUTH TWICE A DAY mirtazapine 30 mg tablet Patient Comments: TAKE 1 TABLET BY MOUTH NEEDED FOR SLEEP INCREASED DOSE verapamil 240 mg tablet extended release PO sumatriptan succinate 6 mg/0.5 mL pen injector SUBCUT duloxetine 30 mg capsule,delayed release(DR/EC) PO Patient Comments: TAKE 1 CAPSULE BY MOUTH DAILY FOR 2 WEEKS, THEN 2 CAPSULES BY MOUTH DAILY cholecalciferol (vitamin D3) 1,250 mcg (50,000 unit) capsule glatiramer [Glatopa] 40 mg/mL syringe SUBCUT Emgality Syringe 300 mg/3 mL (100 mg/mL x 3) syringe SUBCUT Patient Comments: INJECT 3 MLS (300 MG) SUBCUTANEOUS EVERY 28 DAYS Follow Up/Referrals: Provider,Not a Local [Primary Care Provider] - Stand Alone Forms: MyHealth Info Instructions
== END 2024-03-01 22:09 | disposition home or self-care (01) ==
PROVIDERS: Emergency Provider Family Medicine
DX: G44.009 Cluster headache syndrome, unspecified, not intractable (principal)
CPT/HCPCS: 99284; J3030; J7512